=== PATIENT | female | born 1980 | race Caucasian/White ===

== ENCOUNTER 2019-12-05 08:06 | Emergency (ER) | payer BC, SELFPAY ==
[2019-12-05 08:16] VITALS: BP 122/75; PULSE 92; RESP 20; TEMP 36.9; O2SAT 99
--- NOTE | 2019-12-05 08:26 | ED.EYEPROB ---
HPI - Eye Problem General Chief complaint: Eye Problems Stated complaint: Swollen Eye Time Seen by Provider: 12/05/19 08:17 Source: patient and RN notes reviewed Mode of arrival: ambulatory Limitations: no limitations History of Present Illness HPI Narrative: Patient presents today complaining of redness, swelling, pain to the right eye with watery discharge. The pain and redness started yesterday, and she woke up the swelling today. Denies vision changes. Currently rates her pain 3/10 and has been using [id number] eyedrops without relief. 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 chief complaint: eye redness Related Data Home Medications Medication Instructions Recorded Confirmed albuterol sulfate 2.5 mg CONTINUOUS NEBULIZATION 12/05/19 12/05/19 Q4-6H PRN albuterol sulfate [Ventolin HFA] 1 puff INHALATION Q4-6H PRN 12/05/19 12/05/19 fluoxetine 40 mg DAILY 12/05/19 12/05/19 montelukast 10 mg DAILY 12/05/19 12/05/19 quetiapine 50 mg DAILY 12/05/19 12/05/19 trazodone 50 mg HS 12/05/19 12/05/19 umeclidinium [Incruse Ellipta] 1 inh INHALATION DAILY 12/05/19 12/05/19 Allergies Allergy/AdvReac Type Severity Reaction Status Date / Time amoxicillin Allergy Unknown Rash Verified 12/05/19 08:10 Cephalosporins Allergy Unknown HIVES Verified 12/05/19 08:10 Penicillins Allergy Unknown Rash Verified 12/05/19 08:10 talc Allergy Unknown ERYTHEMA Verified 12/05/19 08:10 adhesive AdvReac Mild Itching, Verified 12/05/19 08:10 RASH CATS Allergy Mild Dyspnea / Uncoded 12/05/19 08:10 SOB Cultivated Oat Pollen Allergy Mild Dyspnea / Uncoded 12/05/19 08:10 SOB DOGS Allergy Mild Dyspnea / Uncoded 12/05/19 08:10 SOB Dust Allergy Mild SNEEZING Uncoded 12/05/19 08:10 Review of Systems Review of Systems: Narrative: CONSTITUTIONAL: Denies body aches, fever, chills, or sweats. EYES: Denies visual changes. + Redness, swelling, and pain to the right upper eyelid with watery discharge ENT: Denies rhinorrhea, congestion, sore throat, or otalgia. CARDIOVASCULAR: Denies chest pain, palpitations, or edema. RESPIRATORY: Denies cough or dyspnea. GASTROINTESTINAL: Denies abdominal pain, nausea, vomiting, or diarrhea. GENITOURINARY: Denies dysuria or hematuria. SKIN: Denies rash, itching, or wounds. MUSCULOSKELETAL: Denies back pain, joint pain, or myalgia. NEUROLOGIC: Denies headache, numbness, tingling, or weakness. PSYCH: Denies depression or anxiety. COUNT INCLUDES THE [facility] Family History Family History (Updated 06/23/19 @ 15:27 by DOCTOR UNKNOWN) Mother Family history of chronic obstructive pulmonary disease Family history of malignant neoplasm of ovary Social History Social History Smoking status: Heavy tobacco smoker Gender identity (if verbalized by the patient): Female Comments At time of signature, I have reviewed and agree with nursing past medical, surgical, social and family history unless otherwise noted. Please see nursing chart for further information. There is no relevant family history pertinent to the presenting complaint Exam Narrative: Exam Narrative: GENERAL: Well-appearing, well-nourished, and in no acute distress. HEAD: Normocephalic, atraumatic. EYES: EOMI. PERRL. No redness or drainage. Conjunctivae normal. Patient has mild redness and swelling to the right upper eyelid that is tender to palpation. Small internal stye noted. no drainage noted. ENT: Mucous membranes pink and moist. NECK: Normal AROM. CHEST: No respiratory distress. EXTREMITIES: Normal range of motion. No edema. SKIN: Warm, dry, no rash. NEURO: No focal deficits. Alert and oriented x3. Gait steady. PSYCH: Normal affect. No signs of depression or anxiety. Course Vital Signs Vital signs: Vital Signs Temperature 98.4 F 12/05/19 08:16 Pulse Rate 92 12/05/19 08:16 Respiratory Rate 20 12/05/19 08:16 Blood Pressure 122/75 12/05/19 08:16 Pulse Oximetry 99 12/05/19 08:16 Temperature 98.4 F 12/05/19
== END 2019-12-05 08:34 | disposition home or self-care (01) ==
PROVIDERS: Emergency Provider Nurse Practitioner; PCP Family Medicine Adolescent Medicine
DX: H00.021 Hordeolum internum right upper eyelid (principal); F17.200 Nicotine dependence, unspecified, uncomplicated; J45.909 Unspecified asthma, uncomplicated; J44.9 Chronic obstructive pulmonary disease, unspecified; F41.9 Anxiety disorder, unspecified; F32.9 Major depressive disorder, single episode, unspecified
CPT/HCPCS: 99213; G0463

== ENCOUNTER 2020-06-01 08:56 | Emergency (ER) | payer BC, SELFPAY ==
--- NOTE | ~2020-06-01 | CT_ITS ---
EXAMINATION: CT lumbar spine wo con DATE: 06/01/2020 10:43 INDICATION: Low back pain. TECHNIQUE: Computed tomography (CT) of the lumbar spine was performed without intravenous contrast. A utomated exposure control and iterative reconstruction technique were employed. The dose-length produ ct was 1188.72 mGy-cm. COMPARISON: CT lumbar spine 11/22/2007 FINDINGS: There is 3 mm retrolisthesis of L3 on L4 and L4 on L5. There are Schmorl's nodes at L1-L2 a nd L2-L3. There is mildly decreased disc height at L1-L2, L4-L5, and L5-S1. The following disc levels are specifically discussed: L1-L2: The disc is bulging. There is mild bilateral facet joint osteoarthritis. There is no neural fo raminal stenosis. There is mild central canal stenosis. L2-L3: The disc does not extend beyond the endplate margin. There is mild bilateral facet joint osteo arthritis. There is no neural foraminal stenosis. There is no central canal stenosis. L3-L4: The disc is bulging. There is mild bilateral facet joint osteoarthritis. There is no neural fo raminal stenosis. There is mild central canal stenosis. L4-L5: The disc is bulging. There is mild bilateral facet joint osteoarthritis. There is mild bilater al neural foraminal stenosis. There is mild central canal stenosis. L5-S1: The disc is bulging. There is mild bilateral facet joint osteoarthritis. There is mild bilater al neural foraminal stenosis. There is mild central canal stenosis. IMPRESSION: 1. Mild lumbar spondylosis, slightly worsened from 11/22/2007. Reviewed, dictated and finalized at location A.
[2020-06-01 09:05] VITALS: BP 133/69; PULSE 91; RESP 19; TEMP 36.9; O2SAT 99
--- NOTE | 2020-06-01 09:15 | PC.NURSE ---
Pt informed while checking the patient in that the ERP is with a critical patient and will be in to see ant.
[2020-06-01 09:48] LABS: Add Urine Microscopic? YES; Appearance Urine Cloudy (Clear); Bacteria Urine 4+ /hpf; Bilirubin Urine Negative (Negative); Blood Urine 1+ (Negative); Color Urine Yellow (Yellow); Glucose Urine UA Negative (Negative); Ketones Urine Negative (Negative); Leukocyte Esterase Ur Trace LEU/UL (Negative); Mucus Urine Rare /lpf; Nitrate Urine Negative (Negative); Protein Urine Negative (Negative); RBC Urine 0-2 /hpf (0-2); Specific Grav Ur 1.009 (1.001-1.035); Squamous Epithelial Cell Urine Few /hpf (Few); Urobilinogen Urine Negative mg/dL (<2.0)
--- NOTE | 2020-06-01 10:17 | PC.NURSE ---
Pt yelling out from bed. States her pain is bad. Apologized for the wait, explained that someone should be in shortly to evaluate.
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
[2020-06-01] MEDS: ACETAMINOPHEN 500 MG TABLET 1000 MG PO (10:30)
[2020-06-01 12:02] VITALS: BP 106/62; PULSE 71; RESP 18; O2SAT 96
== END 2020-06-01 12:18 | disposition home or self-care (01) ==
PROVIDERS: Emergency Provider Emergency Medicine; PCP Family Medicine Adolescent Medicine
DX: M54.16 Radiculopathy, lumbar region (principal); I50.9 Heart failure, unspecified; J44.9 Chronic obstructive pulmonary disease, unspecified; G47.30 Sleep apnea, unspecified; F32.9 Major depressive disorder, single episode, unspecified; F17.210 Nicotine dependence, cigarettes, uncomplicated
CPT/HCPCS: 72131; 81001; 81025; 96372; 99284; A9270; J3360

== ENCOUNTER 2020-08-16 11:46 | Outpatient (CLI) | payer BC, SELFPAY ==
--- NOTE | ~2020-08-16 | XR_ITS ---
EXAMINATION: XR knee RT min 4V DATE: 08/16/2020 12:15 INDICATION: Right knee pain. TECHNIQUE: 4 views of right knee were obtained. COMPARISON: Right knee radiographs 06/17/2018 FINDINGS: Bone alignment is normal. No fracture. There is mild osteoarthritis of medial compartment c haracterized by a tiny marginal osteophyte. No knee joint effusion. IMPRESSION: 1. Mild right knee osteoarthritis. Reviewed, dictated and finalized at location A. [employer]
--- NOTE | ~2020-08-16 | XR_ITS ---
EXAMINATION: XR hip LT min 2V DATE: 08/16/2020 12:15 INDICATION: Left hip pain. TECHNIQUE: 2 views of left hip on 3 radiographs were obtained. COMPARISON: None. FINDINGS: Bone alignment is normal. No fracture. Left hip joint space is normal. IMPRESSION: 1. Normal left hip. Reviewed, dictated and finalized at location A. 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 Normal left hip.
== END 2020-08-16 11:47 | disposition home or self-care (01) ==
LOC: ANHIMG 11:51
PROVIDERS: PCP Family Medicine Adolescent Medicine; Visit Provider Physician Assistant
DX: M17.11 Unilateral primary osteoarthritis, right knee (principal); M25.552 Pain in left hip
CPT/HCPCS: 73502; 73564

== ENCOUNTER → 2020-11-19 11:32 | Outpatient (CLI) | payer BC, SELFPAY ==
[2020-11-20 14:42] LABS: SARS-CoV-2 RNA PCR Negative
== END ==
PROVIDERS: PCP Family Medicine Adolescent Medicine; Visit Provider Family Medicine Adolescent Medicine
DX: Z20.822 Contact with and (suspected) exposure to COVID-19 (principal); R51.9 Headache, unspecified; R53.83 Other fatigue
CPT/HCPCS: C9803; U0003; U0005

== ENCOUNTER → 2021-01-12 08:50 | Outpatient (CLI) | payer BC, SELFPAY ==
--- NOTE | ~2021-01-12 | US_ITS ---
US abdomen complete DATE: 01/12/2021 09:23 INDICATION: Right upper and lower quadrant abdominal pain TECHNIQUE: Real-time imaging and Doppler analysis of the abdomen COMPARISON: 06/11/2018 CT abdomen pelvis FINDINGS: No hepatic or pancreatic space-occupying mass lesion. Normal hepatopedal portal venous flow direction. No gallstones or gallbladder wall thickening or pericholecystic abnormal fluid collection . Negative sonographic Olson's sign. The common bile duct measures 4.3 mm, normal. Normal caliber of the abdominal aorta. The inferior vena cava is unremarkable. The spleen measures up to 15.8 cm length. No renal mass lesion or hydronephrosis is evident. IMPRESSION: Splenomegaly Reviewed, dictated and finalized at Location A. Reviewed, dictated and finalized at location A. IMPRESSION: Splenomegaly
== END ==
PROVIDERS: Visit Provider Physician Assistant
DX: R10.11 Right upper quadrant pain (principal); R16.1 Splenomegaly, not elsewhere classified; R10.31 Right lower quadrant pain
CPT/HCPCS: 76700

== ENCOUNTER 2021-01-24 11:08 | Emergency (ER) | payer BC, SELFPAY ==
--- NOTE | ~2021-01-24 | CT_ITS ---
EXAMINATION: CT abdomen pelvis w con DATE: 01/24/2021 13:57 INDICATION: Left upper quadrant pain for weeks TECHNIQUE: Computed tomography (CT) of the abdomen and pelvis was performed with 100 cc Omnipaque 350 intravenous contrast. The dose-length product was 1479.94 mGy-cm. Automated exposure control and ite rative reconstruction technique were employed. COMPARISON: CT dated 06/11/2018 FINDINGS: There is right middle lobe and lingular atelectasis. No significant pleural or pericardial effusion. No significant vascular abnormality. No lymphadenopathy. Fatty infiltration of the liver. The spleen, pancreas, adrenal glands and kidneys are unremarkable. G allbladder is present. Nonobstructive bowel gas pattern. Tiny fat-containing umbilical hernia. Mildly prominent left ovary with follicular changes. No free air or free fluid. IMPRESSION: 1. No acute abdominal abnormality. 2: Right middle lobe and lingular atelectasis. 3: Hepatic steatosis. Reviewed, dictated and finalized at location B.
[2021-01-24 11:14] VITALS: BP 100/42; PULSE 107; RESP 18; TEMP 36.5; O2SAT 96
[2021-01-24 11:36] LABS: Basophils Percent Auto 0.3 % (0.2-1.2); Eosinophils Absolute Auto 0.1 K/mm3 (0-0.3); Eosinophils Percent Auto 0.9 % (0-4.4); Hematocrit 36.2 % (37.0-47.0); Hemoglobin 11.7 g/dL (12.0-15.0); Immature Granulocyte Absolute 0.06 K/mm3 (0.00-0.031); Immature Granulocyte Percent A 0.5 % (0-0.5); Lymphocytes Absolute Auto 2.38 K/mm3 (0.9-3.2); Lymphocytes Percent Auto 18.8 % (18.3-44.2); Mean Corpuscular HGB Conc 32.3 g/dl (32-36); Mean Corpuscular Hemoglobin 26.5 pg (26-34); Mean Corpuscular Volume 82.1 fl (80-100); Mean Platelet Volume 9.1 fl (7.4-10.4); Monocytes Absolute Auto 0.7 K/mm3 (0.1-0.6); Monocytes Percent Auto 5.6 % (2.6-8.5); Neutrophils Absolute Auto 9.4 K/mm3 (1.3-6.7); Neutrophils Percent Auto 73.9 % (45.5-73.1); Platelet Count Result 242 k/mm3 (150-375); Red Blood Count 4.41 M/mm3 (4.2-5.4); Red Cell Distribution Width 14.6 % (11.5-14.5); White Blood Count 12.7 K/mm3 (4.5-10.0)
[2021-01-24 11:46] VITALS: BP 125/79; PULSE 99; RESP 20; TEMP 36.8; O2SAT 97
[2021-01-24 11:47] LABS: Alanine Aminotransferase 21 U/L (4-35); Albumin Level 4.1 g/dL (3.5-5.1); Alkaline Phosphatase 69 U/L (38-126); Anion Gap 6 mmol/L (8-16); Aspartate Amino Transferase 23 U/L (14-36); Bilirubin,Total 0.3 mg/dL (0.2-1.3); Blood Urea Nitrogen 8 mg/dL (7-17); Calcium 8.9 mg/dL (8.4-10.2); Carbon Dioxide 29 mmol/L (22-30); Chloride 104 mmol/L (98-107); Estimated CRCL calculation 99 ml/min; Estimated Glomerular Filt Rate > 60; Glucose 97 mg/dL (65-105); Lipase 49 U/L (23-300); Sodium 139 mmol/L (137-145)
[2021-01-24 11:53] LABS: Potassium 3.7 mmol/L (3.4-5.0)
[2021-01-24 12:46] LABS: Add Urine Microscopic? YES; Appearance Urine Cloudy (Clear); Bilirubin Urine Negative (Negative); Blood Urine Negative (Negative); Color Urine Yellow (Yellow); Glucose Urine UA Negative (Negative); Ketones Urine Negative (Negative); Leukocyte Esterase Ur Negative LEU/UL (Negative); Mucus Urine Rare /lpf; Nitrate Urine Negative (Negative); Protein Urine Negative (Negative); RBC Urine 0-2 /hpf (0-2); Specific Grav Ur 1.012 (1.001-1.035); Squamous Epithelial Cell Urine Many /hpf (Few)
--- NOTE | 2021-01-24 13:13 | PC.NURSE ---
IV started in pt's left hand. IV WNL and without signs of infiltration with flushing, pt states IV hurts and requests removal. IV removed. Another RN to start new IV for medication administration.
--- NOTE | 2021-01-24 13:27 | ED.ABDPAIN ---
HPI - Abdominal Pain General Chief Complaint: Abdominal Pain Stated Complaint: Abd Pain Time Seen by Provider: 01/24/21 12:42 Source: patient Mode of arrival: ambulatory Limitations: no limitations History of Present Illness HPI narrative: This is a 40 year old female that presents to the ER for abdominal pain. Reports present over the last month. It is in the upper abdomen and constant. Reports she has been getting worked up for this outpatient by her primary, but started having worsening pain and vomiting today which prompted her to be seen. Also reports some diarrhea and dysuria. Denies fever, hematochezia, or hematuria. Related Data Home Medications Medication Instructions Recorded Confirmed albuterol sulfate 2.5 mg CONTINUOUS NEBULIZATION 12/05/19 12/05/19 Q4-6H PRN albuterol sulfate [Ventolin HFA] 1 puff INHALATION Q4-6H PRN 12/05/19 12/05/19 fluoxetine 40 mg DAILY 12/05/19 12/05/19 montelukast 10 mg DAILY 12/05/19 12/05/19 trazodone 50 mg HS 12/05/19 12/05/19 umeclidinium [Incruse Ellipta] 1 inh INHALATION DAILY 12/05/19 12/05/19 lisinopril 06/01/20 nortriptyline 01/24/21 Allergies Allergy/AdvReac Type Severity Reaction Status Date / Time amoxicillin Allergy Unknown Rash Verified 01/24/21 11:53 Cephalosporins Allergy Unknown HIVES Verified 01/24/21 11:53 Penicillins Allergy Unknown Rash Verified 01/24/21 11:53 talc Allergy Unknown ERYTHEMA Verified 01/24/21 11:53 adhesive AdvReac Mild Itching, Verified 01/24/21 11:53 RASH CATS Allergy Mild Dyspnea / Uncoded 01/24/21 11:53 SOB Cultivated Oat Pollen Allergy Mild Dyspnea / Uncoded 01/24/21 11:53 SOB DOGS Allergy Mild Dyspnea / Uncoded 01/24/21 11:53 SOB Dust Allergy Mild SNEEZING Uncoded 01/24/21 11:53 Review of Systems Review of Systems: Narrative: CONSTITUTIONAL: Denies fever GASTROINTESTINAL: Reports abdominal pain, nausea, vomiting, and diarrhea. GENITOURINARY: Reports dysuria. Denies hematuria. All systems reviewed & are unremarkable except as noted in HPI and below PMFSH Past Medical History Medical History (Updated 01/24/21 @ 15:54 by Dorota Rosenbaum PA-C) Asthma Congestive heart failure COPD (chronic obstructive pulmonary disease) Depression Pneumonia Sleep apnea Family History Family History (Updated 06/23/19 @ 15:27 by DOCTOR UNKNOWN) Mother Family history of chronic obstructive pulmonary disease Family history of malignant neoplasm of ovary Social History Social History (Updated 12/16/19 @ 10:22 by Arben Duarte [facility]) Smoking packs per day: 1 Smoking cigarettes per day: 20.0 Years smoked: 18 Smoking pack-years: 18.00 Smoking status: Heavy tobacco smoker Tobacco type: cigarettes Gender identity (if verbalized by the patient): Female Exam Narrative: Exam Narrative: GENERAL: Well-appearing, obese, and in no acute distress. HEAD: Normocephalic, atraumatic. EYES: EOMI. CHEST: Clear to auscultation. No respiratory distress. No wheezes rales or rhonchi HEART: Regular rate and rhythm. No murmur heard. Normal peripheral pulses. ABDOMEN: Soft, nondistended, normal active bowel sounds. Mild tenderness to palpation throughout the abdomen, without guarding. No CVA tenderness EXTREMITIES: Normal range of motion. No edema. SKIN: Warm, dry, no rash. NEURO: No focal deficits. Alert and oriented x3. PSYCH: Normal mood and affect Course Vital Signs Vital signs: Vital Signs Temperature 97.7 F 01/24/21 11:14 Pulse Rate 107 H 01/24/21 11:14 Respiratory Rate 18 01/24/21 11:14 Blood Pressure 100/42 L 01/24/21 11:14 Pulse Oximetry 96 01/24/21 11:14 Temperature 98.2 F 01/24/21 11:46 Pulse Rate 88 01/24/21 14:39 Respiratory Rate 18 01/24/21 14:39 Blood Pressure 119/76 01/24/21 14:39 Pulse Oximetry 98 01/24/21 14:39 MDM - Abdominal Pain MDM Narrative Medical decision making narrative: Patient presents to the emergency department today for abdominal pain. Re
[2021-01-24] MEDS: ONDANSETRON INJ 4 MG/2 ML VIAL IV PUSH (13:38)
[2021-01-24] MEDS: MORPHINE SULFATE (*CRX) 4 MG/ML INJ IV PUSH (13:41)
[2021-01-24 14:39] VITALS: BP 119/76; PULSE 88; RESP 18; O2SAT 98
[2021-01-24] MEDS: DICYCLOMINE HCL INJ 20 MG/2 ML VIAL IM (15:39)
[2021-01-24 16:49] VITALS: BP 150/89; PULSE 79; RESP 18; O2SAT 97
== END 2021-01-24 16:35 | disposition home or self-care (01) ==
PROVIDERS: General Practice; Emergency Provider Emergency Medicine; PCP Family Medicine Adolescent Medicine
DX: N30.00 Acute cystitis without hematuria (principal); R10.10 Upper abdominal pain, unspecified; J44.9 Chronic obstructive pulmonary disease, unspecified; I50.9 Heart failure, unspecified; G47.30 Sleep apnea, unspecified; F32.9 Major depressive disorder, single episode, unspecified; F17.210 Nicotine dependence, cigarettes, uncomplicated; K76.0 Fatty (change of) liver, not elsewhere classified; R91.8 Other nonspecific abnormal finding of lung field
CPT/HCPCS: 36415; 74177; 80053; 81001; 81025; 83690; 85025; 87086; 87088; 96365; 96372; 96375; 99284; J0131; J0500; J2270; J2405; Q9967

== ENCOUNTER 2021-02-03 13:20 | Emergency (ER) | payer BC, SELFPAY ==
[2021-02-03 13:22] VITALS: BP 160/103; PULSE 91; RESP 19; TEMP 35.7; O2SAT 100
--- NOTE | 2021-02-03 13:37 | ED.SKABFB ---
HPI - Skin/Abscess/Foreign Bdy General Chief complaint: Skin/Abscess/Foreign Body Stated complaint: RASH, HIVES Time Seen by Provider: 02/03/21 13:30 Source: patient Mode of arrival: ambulatory Limitations: no limitations History of Present Illness HPI narrative: This is a 40-year-old female that presents the emergency department for hives present x2 days. Reports a itchy rash that started on her legs and spread to her abdomen, and chest. She has been taking Benadryl and using hydrocortisone cream with little relief. No new soaps, lotions, or detergents. Did recently finish an antibiotic. Denies fever. Related Data Home Medications Medication Instructions Recorded Confirmed albuterol sulfate 2.5 mg CONTINUOUS NEBULIZATION 12/05/19 12/05/19 Q4-6H PRN albuterol sulfate [Ventolin HFA] 1 puff INHALATION Q4-6H PRN 12/05/19 12/05/19 fluoxetine 40 mg DAILY 12/05/19 12/05/19 montelukast 10 mg DAILY 12/05/19 12/05/19 trazodone 50 mg HS 12/05/19 12/05/19 umeclidinium [Incruse Ellipta] 1 inh INHALATION DAILY 12/05/19 12/05/19 lisinopril 06/01/20 nortriptyline 01/24/21 Allergies Allergy/AdvReac Type Severity Reaction Status Date / Time amoxicillin Allergy Unknown Rash Verified 01/24/21 11:53 Cephalosporins Allergy Unknown HIVES Verified 01/24/21 11:53 Penicillins Allergy Unknown Rash Verified 01/24/21 11:53 talc Allergy Unknown ERYTHEMA Verified 01/24/21 11:53 adhesive AdvReac Mild Itching, Verified 01/24/21 11:53 RASH CATS Allergy Mild Dyspnea / Uncoded 01/24/21 11:53 SOB Cultivated Oat Pollen Allergy Mild Dyspnea / Uncoded 01/24/21 11:53 SOB DOGS Allergy Mild Dyspnea / Uncoded 01/24/21 11:53 SOB Dust Allergy Mild SNEEZING Uncoded 01/24/21 11:53 Review of Systems Review of Systems: Narrative: CONSTITUTIONAL: Denies fever SKIN: Reports rash and itching. All systems reviewed & are unremarkable except as noted in HPI and below PMFSH Past Medical History Medical History (Updated 02/03/21 @ 13:40 by Dorota Rosenbaum PA-C) Asthma Congestive heart failure COPD (chronic obstructive pulmonary disease) Depression Pneumonia Sleep apnea Family History Family History (Updated 06/23/19 @ 15:27 by DOCTOR UNKNOWN) Mother Family history of chronic obstructive pulmonary disease Family history of malignant neoplasm of ovary Social History Social History (Updated 12/16/19 @ 10:22 by Arben Duarte [facility]) Smoking packs per day: 1 Smoking cigarettes per day: 20.0 Years smoked: 18 Smoking pack-years: 18.00 Smoking status: Heavy tobacco smoker Tobacco type: cigarettes Gender identity (if verbalized by the patient): Female Exam Narrative: Exam Narrative: GENERAL: Well-appearing, well-nourished, and in no acute distress. HEAD: Normocephalic, atraumatic. EYES: EOMI. EXTREMITIES: Normal range of motion. No edema. SKIN: Warm, dry. Red, macular rash with excoriations present on the chest and abdomen NEURO: No focal deficits. Alert and oriented x3. PSYCH: Normal mood and affect Course Vital Signs Vital signs: Vital Signs Temperature 96.2 F L 02/03/21 13:22 Pulse Rate 91 02/03/21 13:22 Respiratory Rate 19 02/03/21 13:22 Blood Pressure 160/103 H 02/03/21 13:22 Pulse Oximetry 100 02/03/21 13:22 Temperature 96.2 F L 02/03/21 13:22 Pulse Rate 91 02/03/21 13:22 Respiratory Rate 19 02/03/21 13:22 Blood Pressure 160/103 H 02/03/21 13:22 Pulse Oximetry 100 02/03/21 13:22 MDM - Skin/Abscess/Foreign Bdy MDM Narrative Medical decision making narrative: Patient presents the emergency department for itchy rash present x2 days. She is afebrile and nontoxic-appearing. Will be started on oral steroid taper and was instructed on use of antihistamines. She is to follow-up with her primary care doctor. She was given warnings to return to the ER Critical Care Time Critical Care Time Critical Care Time: No Discharge Plan Discharge Clinical Impression:
== END 2021-02-03 13:52 | disposition home or self-care (01) ==
PROVIDERS: Emergency Provider Emergency Medicine; PCP Family Medicine Adolescent Medicine
DX: R21 Rash and other nonspecific skin eruption (principal); I50.9 Heart failure, unspecified; J44.9 Chronic obstructive pulmonary disease, unspecified; G47.30 Sleep apnea, unspecified; F32.9 Major depressive disorder, single episode, unspecified; F17.210 Nicotine dependence, cigarettes, uncomplicated
CPT/HCPCS: 99283

== ENCOUNTER 2021-03-27 13:22 | Outpatient (CLI) | payer BC, SELFPAY ==
--- NOTE | ~2021-03-27 | NM_ITS ---
EXAMINATION: NM hepatobiliary wo pharm DATE: 03/27/2021 15:57 INDICATION: Right upper quadrant abdominal pain. COMPARISON: CT abdomen and pelvis 01/24/2021 TECHNIQUE: 4.5 mCi Tc-99m mebrofenin (Choletec) was administered intravenously. Scintigraphic images of the abdomen were obtained for one hour. Then, the patient drank 8 oz Ensure, and imaging was cont inued for 60 minutes. FINDINGS: There is normal clearance of radiotracer from the blood pool. There is homogeneous tracer u ptake by the liver. Activity progresses to the bowel and gallbladder. Gallbladder ejection fraction (GBEF) was 62%. Note that with this technique, normal GBEF >= 33%. IMPRESSION: 1. Normal hepatobiliary scintigraphy. Reviewed, dictated and finalized at location A.
== END 2021-03-27 13:23 | disposition home or self-care (01) ==
PROVIDERS: PCP Family Medicine Adolescent Medicine; Visit Provider Internal Medicine Gastroenterology
DX: R10.11 Right upper quadrant pain (principal)
CPT/HCPCS: 78226; A9537

== ENCOUNTER 2021-06-27 18:11 | Observation (INO) | payer BC, SELFPAY ==
[2021-06-27] VITALS (7 sets, daily range): BP systolic 71–120; BP diastolic 44–104; PULSE 83–126; RESP 2–24; TEMP 36.8; O2SAT 95–100
--- NOTE | ~2021-06-27 | XR_ITS ---
EXAMINATION: XR chest 1V portable DATE: 06/28/2021 05:54 INDICATION: Shortness of breath TECHNIQUE: frontal view of the chest was obtained. COMPARISON: Chest radiograph dated 05/10/[address] abdomen and pelvis dated 01/24/2021 FINDINGS: The lungs are clear with no focal airspace opacities, pulmonary edema, pleural effusion or pneumothor ax. Heart size is normal. Prominent right paracardial fat pad. IMPRESSION: 1. No acute cardiopulmonary disease. Reviewed, dictated and finalized at location A.
--- NOTE | 2021-06-27 18:26 | ED.ALLEREA ---
HPI - Allergic Reaction General Chief complaint: Allergic Reaction Stated complaint: resp distress Time Seen by Provider: 06/27/21 18:16 Source: patient and RN notes reviewed Mode of arrival: ambulatory Limitations: no limitations History of Present Illness HPI narrative: Patient 40 years old white female, presents with sudden onset of generalized urticaria, itching, difficulty breathing started few minutes after receiving Macrobid for urinary tract infection. Patient denies any history of Macrobid allergy in the past. Had history of penicillin allergy. History of hypertension, asthma, depression, patient vapes. Related Data Home Medications Medication Instructions Recorded Confirmed albuterol sulfate 2.5 mg CONTINUOUS NEBULIZATION 12/05/19 12/05/19 Q4-6H PRN albuterol sulfate [Ventolin HFA] 1 puff INHALATION Q4-6H PRN 12/05/19 12/05/19 fluoxetine 40 mg DAILY 12/05/19 12/05/19 montelukast 10 mg DAILY 12/05/19 12/05/19 trazodone 50 mg HS 12/05/19 12/05/19 umeclidinium [Incruse Ellipta] 1 inh INHALATION DAILY 12/05/19 12/05/19 lisinopril 06/01/20 nortriptyline 01/24/21 Allergies Allergy/AdvReac Type Severity Reaction Status Date / Time amoxicillin Allergy Unknown Rash Verified 02/21/21 13:25 Cephalosporins Allergy Unknown HIVES Verified 02/21/21 13:25 Penicillins Allergy Unknown Rash Verified 02/21/21 13:25 talc Allergy Unknown ERYTHEMA Verified 02/21/21 13:25 adhesive AdvReac Mild Itching, Verified 02/21/21 13:25 RASH CATS Allergy Mild Dyspnea / Uncoded 02/21/21 13:25 SOB Cultivated Oat Pollen Allergy Mild Dyspnea / Uncoded 02/21/21 13:25 SOB DOGS Allergy Mild Dyspnea / Uncoded 02/21/21 13:25 SOB Dust Allergy Mild SNEEZING Uncoded 02/21/21 13:25 Review of Systems Review of Systems: CONSTITUTIONAL: Denies fever, chills, or sweats. EYES: Denies visual changes, redness, or discharge. ENT: Denies rhinorrhea, congestion, sore throat, or otalgia. CARDIOVASCULAR: Denies chest pain, palpitations, or edema. RESPIRATORY: Denies cough or dyspnea. GASTROINTESTINAL: Denies abdominal pain, nausea, vomiting, or diarrhea. GENITOURINARY: Denies dysuria or hematuria. SKIN: Denies rash or itching. MUSCULOSKELETAL: Denies back pain, joint pain, or myalgia. NEUROLOGIC: Denies headache, numbness, or weakness. PSYCHIATRIC: Denies anxiety or depression. [facility] Past Medical History Medical History Asthma Congestive heart failure COPD (chronic obstructive pulmonary disease) Depression Pneumonia Sleep apnea Family History Family History Mother Family history of chronic obstructive pulmonary disease Family history of malignant neoplasm of ovary Social History Social History Smoking packs per day: 1 Smoking cigarettes per day: 20.0 Years smoked: 18 Smoking pack-years: 18.00 Smoking status: Heavy tobacco smoker Tobacco type: cigarettes Gender identity (if verbalized by the patient): Female Exam Narrative: General appearance: Well-developed, well-nourished, morbidly obese, red skin, Skin: Red skin with hives Head: Normocephalic, nontraumatic Eyes: Clear conjunctiva ENT: Oropharynx normal, ears normal, nose normal Neck: Supple, nontender Chest and respiratory: Airway patent, no respiratory distress, no accessory muscle use Heart: Tachycardia Abdomen: Soft, nontender, no organomegaly, quiet bowel sounds Vascular: Normal peripheral pulses, normal capillary refill. Musculoskeletal: Normal range of motion, nontender back Neurologic: Alert and oriented ?3, [employer] is normal as tested, no gross motor deficit
--- NOTE | 2021-06-27 18:30 | ECG_ITS ---
Measurements Intervals [place] Rate: 121 P: [place]: 0 QRS: 97 QRSD: 87 T: 47 QT: 313 QTc: 445 Interpretive Statements SINUS TACHYCARDIA RIGHT AXIS DEVIATION INCOMPLETE RIGHT BUNDLE BRANCH BLOCK BASELINE WANDER- II, III, AVL, AVF ABNORMAL ECG Electronically Signed On 07-01-2021 15:46:25 CDT by You Goel D.O.
[2021-06-27] MEDS: diphenhydrAMINE HCl INJ 50 MG/ML VIAL (18:47)
[2021-06-27] MEDS: methylPREDNISolone SOD SUCC 125 MG VIAL (18:48)
[2021-06-27] MEDS: EPINEPHrine HCL INJ 1 MG/ML AMPUL 0.3 MG IM (18:48)
[2021-06-27] MEDS: SODIUM CHLORIDE 0.9% IV 1,000 ML 999 ML (20:03)
[2021-06-27] MEDS: SODIUM CHLORIDE 0.9% IV 1,000 ML 999 ML IV CONT (21:05)
[2021-06-27 21:12] LABS: Basophils Absolute Auto 0.1 K/mm3 (0.0-0.1); Basophils Percent Auto 0.3 % (0.2-1.2); Eosinophils Absolute Auto 0.1 K/mm3 (0-0.3); Eosinophils Percent Auto 0.2 % (0-4.4); Hematocrit 48.4 % (37.0-47.0); Hemoglobin 15.7 g/dL (12.0-15.0); Immature Granulocyte Absolute 0.16 K/mm3 (0.00-0.031); Immature Granulocyte Percent A 0.7 % (0-0.5); Lymphocytes Absolute Auto 2.65 K/mm3 (0.9-3.2); Mean Corpuscular HGB Conc 32.4 g/dl (32-36); Mean Corpuscular Hemoglobin 27.4 pg (26-34); Mean Corpuscular Volume 84.5 fl (80-100); Monocytes Absolute Auto 0.7 K/mm3 (0.1-0.6); Monocytes Percent Auto 3.3 % (2.6-8.5); Neutrophils Absolute Auto 18.4 K/mm3 (1.3-6.7); Neutrophils Percent Auto 83.5 % (45.5-73.1); Platelet Count Result 448 k/mm3 (150-375); Red Blood Count 5.73 M/mm3 (4.2-5.4); Red Cell Distribution Width 13.6 % (11.5-14.5)
[2021-06-27 21:23] LABS: Alanine Aminotransferase 23 U/L (4-35); Albumin Level 3.8 g/dL (3.5-5.1); Alkaline Phosphatase 73 U/L (38-126); Anion Gap 15 mmol/L (8-16); Aspartate Amino Transferase 27 U/L (14-36); Bilirubin,Total 0.6 mg/dL (0.2-1.3); Blood Urea Nitrogen 20 mg/dL (7-17); Calcium 8.9 mg/dL (8.4-10.2); Carbon Dioxide 22 mmol/L (22-30); Chloride 103 mmol/L (98-107); Estimated CRCL calculation 60 ml/min; Estimated Glomerular Filt Rate 34; Glucose 191 mg/dL (65-110); Potassium 3.6 mmol/L (3.4-5.0); Sodium 140 mmol/L (137-145)
[2021-06-27] MEDS: EPINEPHrine HCL INJ 1 MG/ML AMPUL 0.5 MG IM (22:56)
--- NOTE | 2021-06-27 22:58 | PM.IMHP ---
H&P: HPI History of Present Illness Date/Time: 06/27/21 22:58 Chief Complaint: Shortness of breath Narrative: This is a 40-year-old female with past medical history significant for morbid obesity, vaping, obstructive sleep apnea, hypertension, COPD/asthma. Patient presented to the emergency room after she had an episode of generalized urticaria with shortness of breath swelling around the eyes and on her forehead hands and feet after she took Macrobid for urinary tract infection. In emergency room patient had various treatments, Solu-Medrol epinephrine she had heart rate elevated to 250 and had episode of fall which require whole year lived but no trauma. At the time of my visit patient was doing much better she denied any shortness of breath any chest pain any cough any sputum production any difficulty swallowing secretions no fevers no rigors no chills. Decision was made to place the patient in observation for further management evaluation and treatment. Review of Systems Review of Systems: Swelling around the eyes shortness of breath palpitations swelling of the hands and feet after taking Macrobid generalized pruritus Constitutional: Constitutional: Denies chills, Denies fever(s), Denies lethargy, Denies malaise and Denies weakness Eyes: Eyes: Denies change in vision ENT: Denies dysphagia, Denies vertigo, Denies dizziness, Denies nasal congestion, Denies nasal discharge, Denies nasal obstruction and Denies odynophagia Cardiovascular: Cardiovascular: Denies irregular heart rhythm, Reports lightheadedness, Denies radiating jaw, neck or arm pain, Reports palpitations, Reports dyspnea, Denies orthopnea and Denies paroxysmal nocturnal dyspnea Respiratory: Respiratory: Denies cough Gastrointestinal: Gastrointestinal: Denies abdominal pain, Denies dyspepsia, Denies heartburn, Reports diarrhea, Denies nausea and Denies vomiting Genitourinary: Genitourinary: Reports no additional female genitourinary complaints Musculoskeletal: Musculoskeletal: Reports no additional musculoskeletal complaints Integumentary/Breasts: Skin/Breast: Reports swelling Neurologic: Reports system reviewed and no additional complaints, except as documented Psychiatric: Psychiatric: Reports no additional psychiatric complaints Endocrine: Endocrine: Reports no additional endocrine complaints Hematologic/Lymphatic: Hematologic/Lymphatic: Reports no additional hematologic/lymphatic complaints Allergic/Immunologic: Allergic/Immunologic: Reports no additional allergic/immunologic complaints [facility] Past Medical History Medical History (Updated 06/28/21 @ 04:07 by Danyel Bah MD) Asthma Congestive heart failure COPD (chronic obstructive pulmonary disease) Depression Pneumonia Sleep apnea Family History Family History Mother Family history of chronic obstructive pulmonary disease Family history of malignant neoplasm of ovary Social History Social History Smoking packs per day: 1 Smoking cigarettes per day: 20.0 Years smoked: 18 Smoking pack-years: 18.00 Smoking status: Former smoker Tobacco type: cigarettes Alcohol intake: never Substance use: never Gender identity (if verbalized by the patient): Female Spiritual care concerns: No Meds Home Medications and Allergies Home Medications Medication Instructions Recorded Confirmed Type albuterol sulfate 2.5 mg CONTINUOUS NEBULIZATION 12/05/19 06/28/21 History Q4-6H PRN albuterol sulfate [Ventolin HFA] 1 puff INHALATION Q4-6H PRN 12/05/19 06/28/21 History fluoxetine 40 mg DAILY 12/05/19 06/28/21 History montelukast 10 mg DAILY 12/05/19 06/28/21 History trazodone 50 mg HS 12/05/19 06/28/21 History umeclidinium [Incruse Ellipta] 1 inh INHALATION DAILY 12/05/19 06/28/21 History lisinopril 30 mg PO DAILY 06/01/20 06/28/21 History nortriptyline 50 mg PO DAILY 01/24/2106/28
[2021-06-28] VITALS (11 sets, daily range): BP systolic 101–125; BP diastolic 50–71; PULSE 71–87; RESP 16–24; TEMP 35.6–36.2; O2SAT 96–98; BMI 61.8
[2021-06-28 00:51] LABS: Add Urine Microscopic? YES; Appearance Urine Clear (Clear); Bacteria Urine Trace /hpf; Bilirubin Urine Negative (Negative); Blood Urine Negative (Negative); Color Urine Amber (Yellow); Glucose Urine UA 1+ mg/dL (Negative); Ketones Urine Negative (Negative); Leukocyte Esterase Ur 1+ LEU/UL (Negative); Mucus Urine Few /lpf; Nitrate Urine Positive (Negative); Protein Urine 2+ mg/dL (Negative); Specific Grav Ur 1.024 (1.001-1.035); Squamous Epithelial Cell Urine Few /hpf (Few); WBC Urine 21-30 /hpf
[2021-06-28] MEDS: methylPREDNISolone SOD SUCC 125 MG VIAL IV PUSH ×3 (03:03→12:17)
[2021-06-28] MEDS: SODIUM CHLORIDE 0.9% IV 1,000 ML 125 ML IV CONT ×2 (03:03→11:20)
[2021-06-28] MEDS: FLUoxetine HCL 20 MG CAPSULE 40 MG BY MOUTH (08:00)
[2021-06-28] MEDS: MONTELUKAST SODIUM 10 MG TABLET BY MOUTH (08:00)
[2021-06-28] MEDS: diphenhydrAMINE HCl CAP 25 MG CAPSULE 50 MG PO (08:00)
[2021-06-28] MEDS: UMECLIDINIUM BROMIDE 62.5 MCG ELLIPTA 1 PUFF INHALATION (08:01)
[2021-06-28] MEDS: ALBUTEROL SULFATE NEB 2.5 MG/0.5 ML INH 5 MG INHALATION ×2 (08:21→13:58)
--- NOTE | 2021-06-28 10:33 | PM.IMPN ---
Progress Note: A&P Additional Plan START OF DOCTOR MIGEL?S PROGRESS NOTE Subjective: The patient canceled her dyspnea has resolved. Overnight she had TAHBSO nausea however she denies emesis, cough, wheeze, abdominal pain, chest pain, fever, rigors, or any other constitutional complaints. I have explained to the patient her current medical condition plan of care and answered all questions Objective: General: -Alert -No acute distress -No dyspnea -No tachypnea -morbid obesity Heart: -Regular rate -Regular rhythm -No murmurs -No gallops -No rubs Lungs: -No wheeze -No rhonchi -No rales Abdomen: -Normal bowel sounds in all four quadrants -No rebound -No guarding -No tenderness Extremities: -2/4 pulse in all four extremities -No clubbing -No cyanosis -No edema Additional Details / Additional Findings / Exceptions / Miscellaneous: Pertinent Laboratory Results / Pertinent Radiology Results / Pertinent Diagnostic Results / Pertinent Vital Signs: Respirations 21 Assessment / Plan: Anaphylaxis secondary to Macrobid. It is albuterol 2.5 mg nebulized q.6 hours +bilateral her 25 mg IV q.6 hours plus IV nor saline 25 mL/hour Urinary tract infection. Septra IV b.i.d. Obesity. Patient counseled regarding lifestyle modification Obstructive sleep apnea. CPAP/BiPAP: Okay to use home device and/or pressure when sleeping Tobacco abuse via vaping Hypertension COPD. Singular 10 mg. Eliquis increase Ellipta 62.5 mg inhaled daily +125 mg IV q.6 hours. Albuterol 2.5 mg nebulized q.6 hours Depression. Prozac 40 mg p.o. daily plus trazodone 50 mg p.o. q.h.s. post nortriptyline 50 mg p.o. q.h.s. Acute renal insufficiency. Will monitor creatinine intermittently. IV nor cell her 25 mL/hour History of anemia with iron deficiency. Will monitor hemoglobin level intermittently Hepatic steatosis GI prophylaxis. Protonix 40 mg p.o. daily DVT prophylaxis. Bilateral SCDs Disposition: Pending serum study results on the day of June 28, 2021, the patient will likely be a candidate for discharge END OF DOCTOR MIGEL?S PROGRESS NOTE Subjective Date/time seen: 06/28/21 10:33 Objective Data Vital Signs Vital Signs: Vital Signs - 24 hr 06/27/21 18:37 06/27/21 18:40 06/27/21 18:44 Temperature 98.2 F Pulse Rate 126 H 119 H 111 H Respiratory Rate 24 H 23 H 20 Blood Pressure 120/104 H Pulse Oximetry 100 06/27/21 20:04 06/27/21 21:07 06/27/21 21:53 Temperature Pulse Rate 91 83 85 Respiratory Rate 2 L 16 24 H Blood Pressure 71/44 L 72/52 L 98/63 L Pulse Oximetry 98 99 95 06/27/21 23:30 06/28/21 00:00 06/28/21 00:19 Temperature Pulse Rate 85 87 87 Respiratory Rate 20 20 20 Blood Pressure 109/72 109/62 116/71 Pulse Oximetry 98 98 98 06/28/21 03:00 06/28/21 04:00 06/28/21 08:00 Temperature 97.1 F L 96.0 F L Pulse Rate 75 74 73 Respiratory Rate 16 20 22 H Blood Pressure 117/65 101/50 L Pulse Oximetry 98 97 06/28/21 08:22 06/28/21 08:28 Temperature Pulse Rate 78 76 Respiratory Rate 22 H 21 H Blood Pressure Pulse Oximetry Intake/Output Intake/Output: Intake & Output 06/25/21 06/26/21 06/27/21 06/28/21 23:59 23:59 23:59 23:59 Intake Total 1999 1060 Output Total 900 Balance 1999 160 Meds/Results Medications: Active Medications Generic Name Dose Route Start Last Admin Trade Name Freq PRN Reason Stop Dose Admin Albuterol 5 mg 06/28/21 02:00 06/28/21 08:21 Albuterol Sulfate Neb 2.5 Mg/0.5 Ml Inh INHALATION 5 mg Q6HRT KIMBERLY Administration Albuterol 2.5 mg 06/28/21 03:48 Albuterol Sulfate Neb 2.5 Mg/3 Ml Inh INHALATION Q4-6H PRN Wheezing Albuterol 1 puff 06/28/21 03:48 Albuterol Sulfate (*Sp) Aerosol 1 Puff INHALATION Q4-6H PRN Shortness Of Breath Diphenhydramine HCl 50 mg 06/27/21 23:17 06/28/21 08:00 Diphenhydramine Hcl Cap 25 Mg Capsule PO 50 mg
[2021-06-28 11:11] LABS: Basophils Percent Auto 0.2 % (0.2-1.2); Eosinophils Absolute Auto 0.1 K/mm3 (0-0.3); Eosinophils Percent Auto 0.5 % (0-4.4); Hematocrit 36.5 % (37.0-47.0); Hemoglobin 11.9 g/dL (12.0-15.0); Immature Granulocyte Absolute 0.06 K/mm3 (0.00-0.031); Immature Granulocyte Percent A 0.3 % (0-0.5); Lymphocytes Absolute Auto 1.16 K/mm3 (0.9-3.2); Lymphocytes Percent Auto 6.5 % (18.3-44.2); Mean Corpuscular HGB Conc 32.6 g/dl (32-36); Mean Corpuscular Volume 85.9 fl (80-100); Mean Platelet Volume 9.2 fl (7.4-10.4); Monocytes Absolute Auto 0.3 K/mm3 (0.1-0.6); Monocytes Percent Auto 1.8 % (2.6-8.5); Neutrophils Absolute Auto 16.2 K/mm3 (1.3-6.7); Neutrophils Percent Auto 90.7 % (45.5-73.1); Platelet Count Result 269 k/mm3 (150-375); Red Blood Count 4.25 M/mm3 (4.2-5.4); Red Cell Distribution Width 13.7 % (11.5-14.5); White Blood Count 17.9 K/mm3 (4.5-10.0)
[2021-06-28 11:36] LABS: Anion Gap 9 mmol/L (8-16); Blood Urea Nitrogen 14 mg/dL (7-17); Calcium 8.8 mg/dL (8.4-10.2); Carbon Dioxide 22 mmol/L (22-30); Chloride 106 mmol/L (98-107); Estimated CRCL calculation 104 ml/min; Estimated Glomerular Filt Rate > 60; Glucose 189 mg/dL (65-110); Potassium 4.2 mmol/L (3.4-5.0); Sodium 137 mmol/L (137-145)
--- NOTE | 2021-06-28 17:05 | PM.DS ---
DS: Admitting Diagnosis Discharge Date 5:07 p.m. on June 28, 2021 Admitting Diagnosis Anaphylaxis attributable to Macrobid DS: Summary Hospital Course Hospital Course: See discharge summary below Time Spent with Patient Time attestation: Total time spent providing and/or coordinating discharge services: START OF DOCTOR MIGEL?S DISCHARGE SUMMARY Date of Admission: June 27, 2021 Date of Discharge: 5:05 p.m. on June 28, 2021 Primary Diagnosis: Anaphylaxis to Macrobid Secondary Diagnosis: Urinary tract infection Obesity Obstructive sleep apnea Tobacco abuse via vaping Hypertension paragraph COPD paragraph depression paragraph acute renal insufficiency, resolved Anemia with history of iron deficiency Hepatic steatosis Consultations: None Disposition: The patient will be advised to follow-up with her primary care physician as needed Discharge Medications: Lisinopril 30 mg p.o. daily Zofran 4 mg p.o. q.8 hours p.r.n. nausea/vomiting Albuterol 2.5 mg nebulized q.4 hours p.r.n. shortness of breath/wheeze Proventil HFA: 90 micro inspiratory: 1 puff q.4 hours p.r.n. shortness of breath/wheeze Prozac 40 mg p.o. daily Singular 10 mg p.o. daily Nortriptyline 50 mg p.o. q.h.s. Trazodone 50 mg p.o. q.h.s. Incruse Ellipta 62.5 mg inhaled daily Bactrim ds: 1 tab p.o. b.i.d.. Quantity 8. 0 refills END OF DOCTOR MIGEL?S DISCHARGE SUMMARY DS: Data Data Completed and Pending Labs on day of discharge: Labs from last 24 hours 06/28/21 06/28/21 06/28/21 11:02 11:02 00:29 WBC 17.9 H RBC 4.25 Hgb 11.9 L D Hct 36.5 L MCV 85.9 MCH 28.0 MCHC 32.6 RDW 13.7 Plt Count 269 MPV 9.2 Immature Gran % (Auto) 0.3 Neut % (Auto) 90.7 H Lymph % (Auto) 6.5 L [place] % (Auto) 1.8 L Eos % (Auto) 0.5 Baso % (Auto) 0.2 Lymph # (Auto) 1.16 [place] # (Auto) 0.3 Eos # (Auto) 0.1 Baso # (Auto) 0.0 Abs Immat Gran (auto) 0.06 H Absolute Neuts (auto) 16.2 H Absolute Nucleated RBC 0.0 Nucleated RBC % 0.0 Sodium 137 Potassium 4.2 Chloride 106 Carbon Dioxide 22 Anion Gap 9 BUN 14 D Creatinine 1.00 Estim Creat Clear Calc 104 Estimated GFR > 60 Glucose 189 H Calcium 8.8 Total Bilirubin AST ALT Alkaline Phosphatase Total Protein Albumin Urine Color Ananya Urine Appearance Clear Urine pH 5.0 Ur Specific [place] 1.024 Urine Protein 2+ H Urine Glucose (UA) 1+ H Urine Ketones Negative Ur Blood (Man) Negative Urine Nitrate Positive H Urine Bilirubin Negative Urine Urobilinogen 2.0 H Leukocyte Esterase Rfl 1+ H Urine RBC 3-5 H Urine WBC 21-30 H Ur Squamous Epith Cells Few Urine Bacteria Trace Hyaline Casts 5-9 H Urine Mucus Few H 06/27/21 06/27/21 21:05 21:05 WBC 22.0 H RBC 5.73 H Hgb 15.7 H D Hct 48.4 H MCV 84.5 MCH 27.4 MCHC 32.4 RDW 13.6 Plt Count 448 H D MPV 9.0 Immature Gran % (Auto) 0.7 H Neut % (Auto) 83.5 H Lymph % (Auto) 12.0 L [place] % (Auto) 3.3 Eos % (Auto) 0.2 Baso % (Auto) 0.3 Lymph # (Auto) 2.65 [place] # (Auto) 0.7 H Eos # (Auto) 0.1 Baso # (Auto) 0.1 Abs Immat Gran (auto) 0.16 H Absolute Neuts (auto) 18.4 H Absolute Nucleated RBC 0.0 Nucleated RBC % 0.0 Sodium 140 Potassium 3.6 Chloride 103 Carbon Dioxide 22 Anion Gap 15 BUN 20 H D Creatinine 1.70 H Estim Creat Clear Calc 60 Estimated GFR 34 L Glucose 191 H Calcium 8.9 Total Bilirubin 0.6 AST 27 ALT 23 Alkaline Phosphatase 73 Total Protein 6.0 L Albumin 3.8 Urine Color Urine Appearance Urine pH Ur Specific [place] Urine Protein Urine Glucose (UA) Urine Ketones Ur Blood (Man) Urine Nitrate Urine Bilirubin Urine Urobilinogen Leukocyte Esterase Rfl Urine RBC Urine WBC Ur Squamous Ep
== END 2021-06-28 17:55 | disposition home or self-care (01) ==
LOC: ANHED 23:13 → ANHCPC 06-28 13:53
PROVIDERS: Admitting Provider Internal Medicine; Emergency Provider Emergency Medicine; PCP Family Medicine Adolescent Medicine; Visit Provider Internal Medicine
DX: T88.6XXA Anaphylactic reaction due to adverse effect of correct drug or medicament properly administered, initial encounter (principal); T37.8X5A Adverse effect of other specified systemic anti-infectives and antiparasitics, initial encounter; N39.0 Urinary tract infection, site not specified; D50.9 Iron deficiency anemia, unspecified; E66.01 Morbid (severe) obesity due to excess calories; F17.290 Nicotine dependence, other tobacco product, uncomplicated; G47.33 Obstructive sleep apnea (adult) (pediatric); I11.0 Hypertensive heart disease with heart failure; I50.9 Heart failure, unspecified; J44.9 Chronic obstructive pulmonary disease, unspecified; K76.0 Fatty (change of) liver, not elsewhere classified; Z68.44 Body mass index [BMI] 60.0-69.9, adult
CPT/HCPCS: 36415; 71045; 80048; 80053; 81001; 85025; 87077; 87086; 87088; 87186; 93005; 94640; 96361; 96365; 96375; 96376; 99285; A9270; G0378; J0131; J0171; J1200; J2930; J7030; J7060

== ENCOUNTER 2021-07-02 10:07 | Outpatient (CLI) | payer BC, SELFPAY ==
[2021-07-02 10:42] LABS: Hematocrit 36.5 % (37.0-47.0); Hemoglobin 11.8 g/dL (12.0-15.0)
== END 2021-07-02 10:08 | disposition home or self-care (01) ==
LOC: ANHSURGERY 10:11
PROVIDERS: PCP Family Medicine Adolescent Medicine; Visit Provider Obstetrics & Gynecology
DX: Z01.812 Encounter for preprocedural laboratory examination (principal); N92.0 Excessive and frequent menstruation with regular cycle
CPT/HCPCS: 36415; 85014; 85018

== ENCOUNTER 2021-07-05 01:31 | Day surgery (SDC) | payer BC, SELFPAY ==
[2021-07-01 10:43] VITALS: BMI 57.6
--- NOTE | 2021-07-02 16:25 | PM.IMHP ---
H&P: HPI History of Present Illness Date/Time: 07/02/21 16:25 40-year-old 1 para 1 status post tubal admitted for hysteroscopy, dilatation curettage and ablation. She has excessive heavy bleeding refractory medical therapy. She is obese and has had an ultrasound that showed the endometrium working okay. In light of her previous tubal and her desire to avoid hysterectomy she will undergo ablation. Risks and benefits reviewed in great detail Chief Complaint: vaginal bleeding Review of Systems Review of Systems: All systems reviewed & are unremarkable except as noted in HPI and below PMFSH Past Medical History Medical History Asthma Congestive heart failure COPD (chronic obstructive pulmonary disease) Depression Pneumonia Sleep apnea Family History Family History Mother Family history of chronic obstructive pulmonary disease Family history of malignant neoplasm of ovary Social History Social History Smoking packs per day: 0.5 Smoking cigarettes per day: 10.0 Years smoked: 18 Smoking pack-years: 9.00 Smoking status: Current every day smoker Tobacco type: cigarettes Alcohol intake: never Substance use: never Substance use type: does not use Gender identity (if verbalized by the patient): Female Spiritual care concerns: No Meds Home Medications and Allergies Home Medications Medication Instructions Recorded Confirmed Type Incruse Ellipta 1 inh INHALATION DAILY 12/05/19 07/01/21 History albuterol sulfate 2.5 mg CONTINUOUS NEBULIZATION 12/05/19 07/01/21 History Q4-6H PRN albuterol sulfate [Ventolin HFA] 1 puff INHALATION Q4-6H PRN 12/05/19 07/01/21 History fluoxetine 40 mg PO HS 12/05/19 07/01/21 History montelukast 10 mg PO HS 12/05/19 07/01/21 History trazodone 50 mg PO HS PRN 12/05/19 07/01/21 History lisinopril 30 mg PO HS 06/01/20 07/01/21 History nortriptyline 50 mg PO HS 01/24/21 07/01/21 History ondansetron 4 mg PO Q8H PRN #10 tablet 01/24/21 07/01/21 Rx sulfamethoxazole-trimethoprim 1 tablet PO Q12H #8 tablet 06/28/21 07/01/21 Rx [Bactrim DS] Allergies Allergy/AdvReac Type Severity Reaction Status Date / Time nitrofurantoin Allergy Severe Anaphylactic Verified 07/01/21 10:47 [From Macrobid] Shock amoxicillin Allergy Unknown Rash Verified 07/01/21 10:41 Cephalosporins Allergy Unknown HIVES Verified 07/01/21 10:41 Penicillins Allergy Unknown Rash Verified 07/01/21 10:41 talc Allergy Unknown ERYTHEMA Verified 07/01/21 10:41 adhesive AdvReac Mild Itching, Verified 07/01/21 10:41 RASH CATS Allergy Mild Dyspnea / Uncoded 07/01/21 10:41 SOB Cultivated Oat Pollen Allergy Mild Dyspnea / Uncoded 07/01/21 10:41 SOB DOGS Allergy Mild Dyspnea / Uncoded 07/01/21 10:41 SOB Dust Allergy Mild SNEEZING Uncoded 07/01/21 10:41 Exam Const: General: no acute distress Eyes: General: appearance normal, both eyes and all related structures Neck: Neck: supple and no JVD Thyroid: thyroid normal Resp: Effort & Inspection: normal respiratory effort Auscultation: clear to auscultation bilaterally Cardio: Rate: regular rate Rhythm: regular rhythm GI: Inspection: non-distended GI Palp: Yes Soft to palpation, No Tenderness to palpation present (GI) and No Guarding due to palpation present (GI) Auscultation: normal bowel sounds : External Female Exam: normal external appearance Speculum Exam - Vagina: normal appearance of the vagina Speculum Exam - Cervix: normal appearance of the cervix Bimanual exam- vagina & uterus: enlarged Bimanual Exam- Adnexa, other: no masses Skin: General skin exam: no rashes or lesions noted Extrem: General: normal to inspection and no edema Psych: Mental Status: mental status grossly normal Affect: normal affect Assessment and Plan Additional Plan
[2021-07-05] VITALS (8 sets, daily range): BP systolic 115–138; BP diastolic 59–79; PULSE 65–103; RESP 12–20; TEMP 36.3; O2SAT 95–99
--- NOTE | 2021-07-05 06:04 | WPDHPUPDATE1 ---
History and Physical Update Update Date/Time: 07/05/21 06:04 History and Physical has been reviewed, including an updated exam of the patient. There are NO changes in the patient's condition. Risks, benefits, and alternatives have been discussed and questions answered. Patient agrees to proceed with procedure.
[2021-07-05] MEDS: ACETAMINOPHEN 500 MG TABLET 1000 MG PO (09:50)
[2021-07-05] MEDS: LACTATED RINGERS 1,000 ML 30 ML IV CONT (10:00)
--- NOTE | 2021-07-05 10:21 | WPDANESEPPF ---
Anes - Initial Pre Proc Eval Procedure: Operation Date: 07/05/21 11:30 Proposed Procedures p Hysteroscopy Dilation and Curettage with [place] Ablation - Gerald Sheriff MD Date/Time: 07/05/21 10:21 Surgeon: Gerald Sheriff MD Pre Op Diagnosis: heavy bleeding Patient Data Age: 40 Gender: F Height: 1.63 m Weight: 154.4 kg Last Vital Signs Temp 36.3 C L 07/05/21 10:07 Pulse 103 H 07/05/21 10:07 BP 135/71 07/05/21 10:07 Pulse Ox 97 07/05/21 10:07 Allergies Allergy/AdvReac Type Severity Reaction Status Date / Time nitrofurantoin Allergy Severe Anaphylactic Verified 07/01/21 10:47 [From Macrobid] Shock amoxicillin Allergy Unknown Rash Verified 07/01/21 10:41 Cephalosporins Allergy Unknown HIVES Verified 07/01/21 10:41 Penicillins Allergy Unknown Rash Verified 07/01/21 10:41 talc Allergy Unknown ERYTHEMA Verified 07/01/21 10:41 adhesive AdvReac Mild Itching, Verified 07/01/21 10:41 RASH CATS Allergy Mild Dyspnea / Uncoded 07/01/21 10:41 SOB Cultivated Oat Pollen Allergy Mild Dyspnea / Uncoded 07/01/21 10:41 SOB DOGS Allergy Mild Dyspnea / Uncoded 07/01/21 10:41 SOB Dust Allergy Mild SNEEZING Uncoded 07/01/21 10:41 Home Medications Medication Instructions Recorded Confirmed Type Incruse Ellipta 1 inh INHALATION DAILY 12/05/19 07/05/21 History albuterol sulfate 2.5 mg CONTINUOUS NEBULIZATION 12/05/19 07/05/21 History Q4-6H PRN albuterol sulfate [Ventolin HFA] 1 puff INHALATION Q4-6H PRN 12/05/19 07/05/21 History fluoxetine 40 mg PO HS 12/05/19 07/05/21 History montelukast 10 mg PO HS 12/05/19 07/05/21 History trazodone 50 mg PO HS PRN 12/05/19 07/05/21 History lisinopril 30 mg PO HS 06/01/20 07/05/21 History nortriptyline 50 mg PO HS 01/24/21 07/05/21 History ondansetron 4 mg PO Q8H PRN #10 tablet 01/24/21 07/05/21 Rx hydrocodone-acetaminophen 1 tablet PO Q4H PRN #30 tablet 07/05/21 Rx Patient hx anesthesia problems: none Family hx anesthesia problems: none Results Review: All pre-operative results and documents have been reviewed as part of the pre-operative evaluation. [facility] Past Medical History Medical History Asthma Congestive heart failure COPD (chronic obstructive pulmonary disease) Depression Pneumonia Sleep apnea Family History Family History Mother Family history of chronic obstructive pulmonary disease Family history of malignant neoplasm of ovary Social History Social History Smoking packs per day: 0.5 Smoking cigarettes per day: 10.0 Years smoked: 18 Smoking pack-years: 9.00 Smoking status: Current every day smoker Tobacco type: cigarettes Alcohol intake: never Substance use: never Substance use type: does not use Living arrangements: with family Gender identity (if verbalized by the patient): Female Spiritual care concerns: No Anes - Eval Final PreProcedure Day of Procedure 07/05/21 10:21 Patient weight: super morbidly obese Heart: regular rate and rhythm Lungs: decreased breath sounds Airway: Mallampati scale class II Neurological: alert and oriented Last oral intake: >/= 8 hours ASA classification: III Emergent: no Anesthetic plan: proceed Anesthesia type and monitoring: general GIVS and standard monitoring Results Review: All pre-operative results and documents have been reviewed as part of the pre-operative evaluation. Informed Consent: The patient's anesthetic plan and its attendant risks and benefits were discussed with the patient/family/POA. Questions were solicited and answers provided to the satisfaction of the patient/family/POA.
[2021-07-05] MEDS: LIDOCAINE HCL 1% PF 30 ML VIAL 10 ML INFILTRATE (10:57)
--- NOTE | 2021-07-05 11:22 | P.OP_ITS ---
Procedure Note - Detailed Date of Procedure 07/05/21 Pre-op Diagnosis heavy bleeding Post-op Diagnosis same Procedure Performed Hysteroscopy/dilatation and curettage/endometrial ablation via Carmel instrument Surgeon Gerald Sheriff MD Anesthesia MAC and local Indications This is a 40-year-old female with excessive heavy bleeding refractory to medical therapy Findings Uterus sounded to 8cm. Thick endometrial tissue was seen Description of Procedure The patient is prepped draped in normal sterile fashion placed in dorsal lithotomy position. Under excellent IV sedation weighted speculum placed in posterior fornix vagina. Anterior lip of the cervix was grasped with single- tooth tenaculum. There was initially some difficulty D in placing the local due to the large size of the patient but eventually 2.5cc of 1% xylocaine anesthesia placed at 2, 4, 8, 10:00 a.m. of the cervix. Uterus sounded to 8cm. Serial dilatation with fragmented dilators performed followed by passage of the 5mm visualizing hysteroscope. Normal saline was used as visualizing medium. Thick irregular endometrial tissue was seen but no evidence of any other abnormalities. Uterus was scraped over the entire 360? until a good grating sound was heard. The Carmel was placed in the uterus was burned for 120seconds. The instruments removed and blood loss was estimated at5cc. All sponge, needle instrument counts were correct. There were no immediate complications Estimated Blood Loss 5 Drains No Packing No Pathology yes Complications No immediate complications Condition stable Disposition PACU
[2021-07-05] MEDS: fentaNYL CITRATE INJ (*CRX) 100 MCG/2 ML VIAL 25 MCG IV PUSH ×4 (11:39→11:50)
[2021-07-05] MEDS: KETOROLAC 30 MG/ML VIAL (*BKC) IV PUSH (12:30)
[2021-07-05] MEDS: oxyCODONE HCL (*CRX) 5 MG TAB IR PO (12:54)
[2021-07-05] MEDS: HYDROmorphone HCL INJ (*CRX) 1 MG/ML SYR IV PUSH (13:27)
== END 2021-07-05 14:17 | disposition home or self-care (01) ==
PROVIDERS: PCP Family Medicine Adolescent Medicine; Visit Provider Obstetrics & Gynecology
PROC: 0U5B8ZZ Destruction of Endometrium, Via Natural or Artificial Opening Endoscopic (ICD-10-PCS; CPT 58563; principal; 2021-07-05 11:30)
DX: N92.0 Excessive and frequent menstruation with regular cycle (principal); Z79.51 Long term (current) use of inhaled steroids; J45.909 Unspecified asthma, uncomplicated; J44.9 Chronic obstructive pulmonary disease, unspecified; F32.9 Major depressive disorder, single episode, unspecified; F17.210 Nicotine dependence, cigarettes, uncomplicated; E66.01 Morbid (severe) obesity due to excess calories; Z68.43 Body mass index [BMI] 50.0-59.9, adult
CPT/HCPCS: 58563; 88305; A9270; J1170; J1885; J2250; J2704; J3010; J7030; J7120

== ENCOUNTER 2021-07-25 11:01 | Outpatient (RCR) | payer BC, SELFPAY ==
[2021-07-25 11:12] VITALS: BMI 58.4
[2021-07-25 11:15] VITALS: BMI 58.4
== END 2021-10-14 13:55 | disposition home or self-care (01) ==
LOC: ANHDMC 11:01
PROVIDERS: PCP Family Medicine Adolescent Medicine; Visit Provider Physician Assistant
DX: E66.01 Morbid (severe) obesity due to excess calories (principal); Z71.3 Dietary counseling and surveillance
CPT/HCPCS: 97802

== ENCOUNTER → 2021-08-10 00:51 | Outpatient (CLI) | payer BC, SELFPAY ==
[2021-08-10 17:31] LABS: SARS-CoV-2 RNA PCR Negative
== END ==
PROVIDERS: PCP Family Medicine Adolescent Medicine; Visit Provider Physician Assistant
DX: R05.9 Cough, unspecified (principal); R09.81 Nasal congestion; Z20.822 Contact with and (suspected) exposure to COVID-19
CPT/HCPCS: C9803; U0003; U0005

== ENCOUNTER 2022-03-19 17:31 | Outpatient (CLI) | payer BC, SELFPAY ==
[2022-03-19 18:00] LABS: Basophils Absolute Auto 0.1 K/mm3 (0.0-0.1); Basophils Percent Auto 0.5 % (0.2-1.2); Eosinophils Absolute Auto 0.2 K/mm3 (0-0.3); Eosinophils Percent Auto 2.1 % (0-4.4); Hematocrit 36.3 % (37.0-47.0); Hemoglobin 11.8 g/dL (12.0-15.0); Immature Granulocyte Absolute 0.03 K/mm3 (0.00-0.031); Immature Granulocyte Percent A 0.3 % (0-0.5); Lymphocytes Absolute Auto 3.07 K/mm3 (0.9-3.2); Lymphocytes Percent Auto 29.8 % (18.3-44.2); Mean Corpuscular HGB Conc 32.5 g/dl (32-36); Mean Corpuscular Hemoglobin 28.3 pg (26-34); Mean Corpuscular Volume 87.1 fl (80-100); Mean Platelet Volume 9.1 fl (7.4-10.4); Monocytes Absolute Auto 0.7 K/mm3 (0.1-0.6); Monocytes Percent Auto 6.5 % (2.6-8.5); Neutrophils Absolute Auto 6.3 K/mm3 (1.3-6.7); Neutrophils Percent Auto 60.8 % (45.5-73.1); Platelet Count Result 267 k/mm3 (150-375); Red Blood Count 4.17 M/mm3 (4.2-5.4); Red Cell Distribution Width 13.3 % (11.5-14.5); White Blood Count 10.3 K/mm3 (4.5-10.0)
== END 2022-03-19 17:32 | disposition home or self-care (01) ==
PROVIDERS: PCP Family Medicine Adolescent Medicine; Visit Provider Obstetrics & Gynecology
DX: N85.2 Hypertrophy of uterus (principal)
CPT/HCPCS: 36415; 85025; 86850; 86900; 86901

== ENCOUNTER 2022-03-21 01:07 | Day surgery (SDC) | payer BC, SELFPAY ==
[2022-03-17 09:57] VITALS: BMI 55.7
--- NOTE | 2022-03-17 10:42 | PC.NURSE ---
Report to the Outpatient Waiting Room, entrance under the green pavilion located off [facility], at 0600 on 03-21-22. OR Time: 0730. - You and your visitor will be asked a series of questions to screen for COVID 19 for your protection. - Only one visitor is allowed at this time. - The patient visitor is requested to leave or wait in car when not with patient. - A mask is required within the hospital. Patients may have clear liquids (water, carbonated beverages, clear teas, apple juice) until 3 hours prior to surgery with a maximum of 20 ounces. 0430 - No food from midnight until time of surgery - Infants may have breast milk until 4 hours before surgery, infant formula 6 hours prior to surgery. - Children will be allowed to drink immediately following surgery. If applicable, please bring a bottle or sippy cup to assist with drinking. Juice, water, soda, and popsicles are readily available. For infants on formula, please bring formula the day of surgery. Pacifiers are allowed. Take the following medications with a SIP of water the morning of surgery: Lorazepam if needed, Bring rescue inhalers day of surgery to hospital Medications to discontinue per physician: N/A Please no make-up, nail faroese, hairspray, perfume, deodorant, or body powder the day of surgery. No jewelry (including any body piercings) or valuables the day of surgery, leave them at home. Please take a shower or bath the night before, or the morning of, surgery with an antibacterial soap. Wear comfortable, loose fitting clothing. Children are encouraged to wear pajamas. - Jewelry must be removed prior to entering the operating room. Rings and piercings that are not removed may be cut off. - The hospital will not accept responsibility for valuables. - Please leave all valuables, including medications, at home the day of surgery. If you are going home after surgery, a licensed log truck driver must drive you home. - NO public transportation without another adult. - We recommend that an adult stay with you for 24 hours following discharge. - We also recommend that you do not drive, make important decision, drink alcoholic beverages, or take any drugs that were not prescribed by your health care provider for at least 24 hours after your discharge time. For Pediatric surgeries, we recommend two adults accompany the child home (only one inside the building at this time). Follow any additional instructions given to you from your surgeon. If you or anyone in your household have experienced Covid symptoms in the past week, please notify your surgeon or the nurse liaison at the phone number below for possible testing. Telephone instructions given to Jasen Espana and asked if any additional questions and then verbalized understanding. Patient advised to call surgeon office or pre surgery nurse liaison [phone] if any additional questions.
--- NOTE | 2022-03-18 06:44 | PM.IMHP ---
H&P: HPI History of Present Illness Date/Time: 03/18/22 06:44 Chief Complaint: Enlarged uterus with bleeding refractory to medical therapy Narrative: 32 old female 1 para 1 was admitted for robotic hysterectomy and bilateral salpingectomy secondary to pelvic pain enlarged uterus. She has undergone tubal ligation she has had pain bleeding and discomfort. Risks and benefits reviewed including not exclusive of aspiration pneumonia bleeding, transfusion perforation injury to bowel, bladder, uterus, or other internal organs with need for open laparotomy. She received the ACOG handout entitled hysterectomy as well as the de Padmini handout. She had all questions answered and asked to proceed PMFSH Past Medical History Medical History Asthma Congestive heart failure COPD (chronic obstructive pulmonary disease) Depression KAVYA on CPAP Pneumonia Sleep apnea Family History Family History Mother Family history of chronic obstructive pulmonary disease Family history of malignant neoplasm of ovary Social History Social History Smoking packs per day: 1 Smoking cigarettes per day: 20.0 Years smoked: 18 Smoking pack-years: 18.00 Smoking status: Former smoker Tobacco type: cigarettes Second hand tobacco smoke exposure: No Smoking end date: 09/28/20 Alcohol intake: current Alcohol use details: very rarely Substance use: never Substance use type: does not use Living arrangements: with family Gender identity (if verbalized by the patient): Female Spiritual care concerns: No Meds Home Medications and Allergies Home Medications Medication Instructions Recorded Confirmed Type albuterol sulfate 2.5 mg/3 mL 2.5 mg continuous nebulization 12/05/19 03/17/22 History (0.083 %) solution for nebulization Q4-6H PRN Shortness Of Breath Or Wheezing albuterol sulfate 90 mcg/actuation 2 puff inhalation Q4-6H PRN 12/05/19 03/17/22 History aerosol inhaler (Ventolin HFA) Shortness Of Breath Or Wheezing trazodone 50 mg tablet 50 mg PO HS PRN Insomnia 12/05/19 03/17/22 History umeclidinium 62.5 mcg/actuation 1 inh inhalation DAILY 12/05/19 03/17/22 History blister powder for inhalation (Incruse Ellipta) lisinopril 30 mg tablet 30 mg PO HS 06/01/20 03/17/22 History nortriptyline 50 mg capsule 50 mg PO HS 01/24/21 03/17/22 History montelukast 10 mg tablet 10 mg PO HS #90 tabs 10/11/21 03/17/22 Rx fluoxetine 40 mg capsule 40 mg PO HS #90 caps 10/25/21 03/17/22 Rx lorazepam 1 mg tablet 1 mg PO BID PRN anxiety #20 tabs 10/25/21 03/17/22 Rx fluticasone 500 mcg-salmeterol 50 1 ea inhalation HS 03/17/22 03/17/22 History mcg/dose blistr powdr for inhalation (Wixela Inhub) Allergies Allergy/AdvReac Type Severity Reaction Status Date / Time nitrofurantoin Allergy Severe Anaphylactic Verified 07/01/21 10:47 [From Macrobid] Shock amoxicillin Allergy Unknown Rash Verified 07/01/21 10:41 Cephalosporins Allergy Unknown HIVES Verified 07/01/21 10:41 Penicillins Allergy Unknown Rash Verified 07/01/21 10:41 talc Allergy Unknown ERYTHEMA Verified 07/01/21 10:41 adhesive AdvReac Mild Itching, Verified 07/01/21 10:41 RASH CATS Allergy Mild Dyspnea / Uncoded 07/01/21 10:41 SOB Cultivated Oat Pollen Allergy Mild Dyspnea / Uncoded 07/01/21 10:41 SOB DOGS Allergy Mild Dyspnea / Uncoded 07/01/21 10:41 SOB Dust Allergy Mild SNEEZING Uncoded 07/01/21 10:41 Exam GI: Auscultation: normal bowel sounds and other (Markedly obese) Rectal Exam: deferred : External Female Exam: normal external appearance Speculum Exam - Vagina: normal appearance of the vagina Speculum Exam - Cervix: normal appearance of the cervix Bimanual exam- vagina & uterus: enlarged Bimanual Exam- Adnexa, other: normal adnexae Assess
[2022-03-21] VITALS (19 sets, daily range): BP systolic 122–145; BP diastolic 62–81; PULSE 60–93; RESP 16–28; TEMP 36.3–37; O2SAT 94–100
[2022-03-21] MEDS: LACTATED RINGERS 1,000 ML 30 ML IV CONT ×2 (06:40→10:07)
[2022-03-21] MEDS: ACETAMINOPHEN 500 MG TABLET 1000 MG PO (06:40)
[2022-03-21] MEDS: KETOROLAC 15 MG/ML VIAL (*BKC) IV PUSH (06:40)
--- NOTE | 2022-03-21 06:40 | WPDHPUPDATE1 ---
History and Physical Update Update Date/Time: 03/21/22 06:40 History and Physical has been reviewed, including an updated exam of the patient. There are NO changes in the patient's condition. Risks, benefits, and alternatives have been discussed and questions answered. Patient agrees to proceed with procedure.
--- NOTE | 2022-03-21 06:58 | WPDANESEPPF ---
Anes - Initial Pre Proc Eval Procedure: Operation Date: 03/21/22 07:30 Proposed Procedures p Robotic Total Vaginal Hysterectomy with Bilateral Salpingectomy - Gerald Ferrer MD Date/Time: 03/21/22 06:58 Surgeon: Gerald Ferrer MD Pre Op Diagnosis: Pelvic Pain, Enlarged Uterus, Failed Ablation Patient Data Age: 41 Gender: F Height: 1.64 m Weight: 157.9 kg Last Vital Signs Temp 36.3 C L 03/21/22 06:07 Pulse 87 03/21/22 06:07 Resp 20 03/21/22 06:07 BP 145/75 H 03/21/22 06:07 Pulse Ox 98 03/21/22 06:07 O2 Del Method Room Air 03/21/22 06:07 Allergies Allergy/AdvReac Type Severity Reaction Status Date / Time nitrofurantoin Allergy Severe Anaphylactic Verified 03/21/22 06:41 [From Macrobid] Shock amoxicillin Allergy Unknown Rash Verified 03/21/22 06:41 Cephalosporins Allergy Unknown HIVES Verified 03/21/22 06:41 Penicillins Allergy Unknown Rash Verified 03/21/22 06:41 talc Allergy Unknown ERYTHEMA Verified 03/21/22 06:41 adhesive AdvReac Mild Itching, Verified 03/21/22 06:41 RASH CATS Allergy Mild Dyspnea / Uncoded 03/21/22 06:41 SOB Cultivated Oat Pollen Allergy Mild Dyspnea / Uncoded 03/21/22 06:41 SOB DOGS Allergy Mild Dyspnea / Uncoded 03/21/22 06:41 SOB Dust Allergy Mild SNEEZING Uncoded 03/21/22 06:41 Home Medications Medication Instructions Recorded Confirmed Type albuterol sulfate 2.5 mg/3 mL 2.5 mg continuous nebulization 12/05/19 03/17/22 History (0.083 %) solution for nebulization Q4-6H PRN Shortness Of Breath Or Wheezing albuterol sulfate 90 mcg/actuation 2 puff inhalation Q4-6H PRN 12/05/19 03/21/22 History aerosol inhaler (Ventolin HFA) Shortness Of Breath Or Wheezing trazodone 50 mg tablet 50 mg PO HS PRN Insomnia 12/05/19 03/17/22 History umeclidinium 62.5 mcg/actuation 1 inh inhalation DAILY 12/05/19 03/21/22 History blister powder for inhalation (Incruse Ellipta) lisinopril 30 mg tablet 30 mg PO HS 06/01/20 03/21/22 History nortriptyline 50 mg capsule 50 mg PO HS 01/24/21 03/21/22 History montelukast 10 mg tablet 10 mg PO HS #90 tabs 10/11/21 03/21/22 Rx fluoxetine 40 mg capsule 40 mg PO HS #90 caps 10/25/21 03/21/22 Rx lorazepam 1 mg tablet 1 mg PO BID PRN anxiety #20 tabs 10/25/21 03/17/22 Rx fluticasone 500 mcg-salmeterol 50 1 ea inhalation HS 03/17/22 03/21/22 History mcg/dose blistr powdr for inhalation (Wixela Inhub) hydrocodone 5 mg-acetaminophen 325 1 tablet PO Q4H PRN pain #30 tabs 03/21/22 Rx mg tablet Patient hx anesthesia problems: none Family hx anesthesia problems: none Results Review: All pre-operative results and documents have been reviewed as part of the pre-operative evaluation. [facility] Past Medical History Medical History Asthma Congestive heart failure COPD (chronic obstructive pulmonary disease) Depression KAVYA on CPAP Pneumonia Sleep apnea Surgical History Surgical History (Updated 03/21/22 @ 06:58 by Gerald Prather MD) H/O wrist surgery History of endometrial ablation History of tubal ligation Family History Family History Mother Family history of chronic obstructive pulmonary disease Family history of malignant neoplasm of ovary Social History Social History Smoking packs per day: 1 Smoking cigarettes per day: 20.0 Years smoked: 18 Smoking pack-years: 18.00 Smoking status: Former smoker Tobacco type: cigarettes Second hand tobacco smoke exposure: No Smoking end date: 09/28/20 Alcohol intake: current Alcohol use details: very rarely Substance use: never Substance use type: does not use Living arrangements: with family Gender identity (if verbalized by the patient): Female Spiritual care concerns: No Anes - Eval Final PreProcedure Day of Procedure 03/21/22
[2022-03-21] MEDS: CLINDAMYCIN 900 MG/D5W 50 ML 900 MG/50 ML PIGGYBACK 50 MG IVPB (07:26)
[2022-03-21] MEDS: DEXTROSE 5% IVPB (07:40)
[2022-03-21] MEDS: GENTAMICIN SULFATE IVPB (07:40)
--- NOTE | 2022-03-21 08:45 | W.PM.PROC2 ---
Procedure Note - Detailed Date of Procedure 03/21/22 Pre-op Diagnosis Pelvic Pain, Enlarged Uterus, Failed Ablation Post-op Diagnosis Same Procedure Performed Robotic total vaginal hysterectomy and bilateral salpingectomies Surgeon Gerald Ferrer MD Anesthesia General Indications This is a 41-year-old female morbidly obese with bleeding pain refractory to medical therapy Findings Mildly enlarged uterus. Tubes status post tubal ligation. Normal-appearing ovaries bilaterally. Adhesions anterior from the bladder to the uterus Description of Procedure The patient was prepped draped in the normal sterile fashion placed in the dorsal lithotomy position. Under excellent general trach anesthesia weighted speculum placed in posterior fornix vagina. Anterior lip of the cervix grasped with a single-tooth tenaculum. Uterus sounded to 9cm. Serial dilatation with fragmented dilators performed followed by passage of the 3. Cold cup and the 8. ADELSO. A 16 [place] catheter was placed in the bladder drained clear urine. The remainder the instruments removed and gloves were changed. A supraumbilical incision made the Veress needle passed in the abdomen. Abdomen filled with CO2 gas [id number]. The 8mm trocar advanced in the abdomen. Downside visualized no injury seen. Patient placed in Trendelenburg and right left lateral quadrant incisions made under direct visualization assuring no injury. A right upper quadrant incision made the 8mm trocar advanced under direct visualization assuring no injury. The robot was docked. Attention was then turned to the console. The uterus was bulky adhesions were noted from the bladder to the anterior surface of the uterus. These were sharply dissected layer by layer. The left round ligament was grasped, burned, cut. Anteriorly a bladder flap was formed by sharply dissecting the peritoneum and reflecting the bladder caudally to the opposite round ligament which was clamped, burned, cut. The left fallopian tube was noted be transected. The distal portion was sharply dissected away from the ovary and passed through the right upper quadrant port. The stub was left at its and origin a whitaker of the uterus. In like fashion the right fallopian tube was also noted to be transected. The distal portion was sharply dissected away from the ovary and passed off the the right upper quadrant incision. The stump at the origin a whitaker was capped. The left utero-ovarian ligament was skeletonized clamping burning cutting and bringing this to level of previously cut round ligament thus maintaining the left ovary. Conserving the right ovary the utero-ovarian ligament right was serially clamped burned and cut and brought to the level of previously cut round ligament. The left cardinal broad ligaments were then serially skeletonized clamping burning cutting and bringing this down to the uterine vessels on the left these were large and tortuous and clamped, burned, cut individually. In like fashion the cardinal broad ligaments on the right were serially skeletonized clamping burning cutting and bringing these down the lateral edge of the uterus until the uterine vessels could be seen on the right. These were individually clamped, burned, cut. Excellent blanching the uterus was noted a colotomy incision was made. Cervix uterus and stumps of tubes were brought through the vagina. Blood loss estimated at25cc. The vagina was closed with continuous running 0V lock from lateral edge to lateral edge back to the midline. Irrigation undertaken until clear and hemostasis was assured. The robot was undocked. The gas removed from the abdomen. The trocars removed and the incisions closed with 4 Monocryl and glue. The patient went to recovery in satisfactory condition. All sponge, needle, instrument counts were correct. There were no immediate complications Estimated Blood Loss 25 Drains No Packing No Pathology Yes Complications No immediate
[2022-03-21] MEDS: fentaNYL CITRATE INJ (*CRX) 100 MCG/2 ML VIAL 25 MCG IV PUSH ×2 (10:04→10:41)
--- NOTE | 2022-03-21 10:53 | PC.NURSE ---
This patient, Jasen Espana, was received from pacu on 03/21/22 at 1053. Patient/family oriented to unit policies and routines
[2022-03-21] MEDS: DEXTROSE 5%/LACTATED RINGERS 1,000 ML 125 ML IV CONT (11:08)
[2022-03-21] MEDS: KETOROLAC 30 MG/ML VIAL (*BKC) IV PUSH ×2 (11:10→17:48)
[2022-03-21] MEDS: DOCUSATE SODIUM 100 MG CAPSULE PO (12:45)
[2022-03-21] MEDS: HYDROcodone/acetaminophen (*CRX) 10-325 MG TABLET 1 TAB PO (12:46)
[2022-03-21] MEDS: ONDANSETRON INJ 4 MG/2 ML VIAL IV PUSH (12:46)
[2022-03-21] MEDS: ENOXAPARIN 40 MG/0.4 ML SYRINGE SUB-Q (17:48)
[2022-03-21] MEDS: HYDROcodone/acetaminophen (*CRX) 5-325 MG TABLET 1 TAB PO (22:40)
[2022-03-22 04:40] VITALS: BP 110/64; PULSE 63; RESP 20; TEMP 37.1; O2SAT 96
[2022-03-22 05:57] LABS: Basophils Absolute Auto 0.1 K/mm3 (0.0-0.1); Basophils Percent Auto 0.4 % (0.2-1.2); Eosinophils Percent Auto 0.1 % (0-4.4); Hematocrit 35.2 % (37.0-47.0); Hemoglobin 11.1 g/dL (12.0-15.0); Immature Granulocyte Absolute 0.07 K/mm3 (0.00-0.031); Immature Granulocyte Percent A 0.4 % (0-0.5); Lymphocytes Percent Auto 13.7 % (18.3-44.2); Mean Corpuscular HGB Conc 31.5 g/dl (32-36); Mean Corpuscular Hemoglobin 28.2 pg (26-34); Mean Corpuscular Volume 89.3 fl (80-100); Mean Platelet Volume 9.3 fl (7.4-10.4); Monocytes Absolute Auto 0.8 K/mm3 (0.1-0.6); Monocytes Percent Auto 5.2 % (2.6-8.5); Neutrophils Absolute Auto 12.9 K/mm3 (1.3-6.7); Neutrophils Percent Auto 80.2 % (45.5-73.1); Platelet Count Result 270 k/mm3 (150-375); Red Blood Count 3.94 M/mm3 (4.2-5.4); Red Cell Distribution Width 13.2 % (11.5-14.5); White Blood Count 16.1 K/mm3 (4.5-10.0)
--- NOTE | 2022-03-22 07:31 | PM.DS ---
DS: Admitting Diagnosis Discharge Date 03/22/22 Admitting Diagnosis pelvic pain enlarged uterus DS: Summary Hospital Course Hospital Course: Jasen Espana was admitted after robotic assisted total laparoscopic hysterectomy and bilateral salpingectomy for pelvic pain and enlarged uterus. The above procedure was performed with no complications. She is doing well post op. She states her pain is well controlled with PO medications. She reports minimal bleeding. She is ambulating up to the chair. Her brown catheter was removed. She is tolerating PO without N/V. She reports passing flatus. Status at Discharge Overall status at discharge: patient is progressing back to baseline Time Spent with Patient Time attestation: Total time spent providing and/or coordinating discharge services: Time spent: Less than 30 minutes Exam Const: General: comfortable and no acute distress Limitations: no limitations Resp: Effort & Inspection: normal respiratory effort Auscultation: clear to auscultation bilaterally Cardio: Rate: regular rate Rhythm: regular rhythm GI: Inspection: non-distended GI Palp: Yes Soft to palpation, Yes Tenderness to palpation present (GI) (milder tenderness to deep palpation) and No Guarding due to palpation present (GI) Auscultation: normal bowel sounds Other: incisions C/D/I covered with dermabond Urinary Catheter: Urinary Catheter: urine clear Skin: General skin exam: normal color Extrem: General: normal to inspection Psych: Mental Status: mental status grossly normal Affect: normal affect DS: Data Data Completed and Pending Pending studies at discharge: Pending at discharge 03/21/22 08:11 Surgical [PTH] Routine Labs on day of discharge: Labs from last 24 hours 03/22/22 05:26 WBC 16.1 H RBC 3.94 L Hgb 11.1 L Hct 35.2 L MCV 89.3 MCH 28.2 MCHC 31.5 L RDW 13.2 Plt Count 270 MPV 9.3 Immature Gran % (Auto) 0.4 Neut % (Auto) 80.2 H Lymph % (Auto) 13.7 L [place] % (Auto) 5.2 Eos % (Auto) 0.1 Baso % (Auto) 0.4 Lymph # (Auto) 2.20 [place] # (Auto) 0.8 H Eos # (Auto) 0.0 Baso # (Auto) 0.1 Abs Immat Gran (auto) 0.07 H Absolute Neuts (auto) 12.9 H Absolute Nucleated RBC 0.0 Nucleated RBC % 0.0 Discharge Plan Discharge Patient Disposition: Home, Self-Care Patient Instructions: Laparoscopic Hysterectomy (DC) Stand Alone Forms: General Discharge Instructions Follow-up/Referrals: Gerald Mullen MD [Physician] - Discharge Medications: New hydrocodone-acetaminophen 5-325 mg tablet 1 tablet PO Q4H PRN (Reason: pain) Qty: 30 0RF No Action albuterol sulfate 2.5 mg /3 mL (0.083 %) solution for nebulization 2.5 mg continuous nebulization Q4-6H PRN (Reason: Shortness Of Breath Or Wheezing) trazodone 50 mg tablet 50 mg PO HS PRN (Reason: Insomnia) albuterol sulfate [Ventolin HFA] 90 mcg/actuation HFA aerosol inhaler 2 puff INHALATION Q4-6H PRN (Reason: Shortness Of Breath Or Wheezing) Incruse Ellipta 62.5 mcg/actuation blister with device 1 inh INHALATION DAILY lisinopril 30 mg tablet 30 mg PO HS nortriptyline 50 mg capsule 50 mg PO HS fluticasone propion-salmeterol [Wixela Inhub] 500-50 mcg/dose blister with device 1 ea INHALATION HS montelukast 10 mg tablet 10 mg PO HS Qty: 90 1RF fluoxetine 40 mg capsule 40 mg PO HS Qty: 90 1RF lorazepam 1 mg tablet 1 mg PO BID PRN (Reason: anxiety) Qty: 20 1RF
[2022-03-22 07:45] VITALS: BP 122/67; PULSE 71; RESP 16; TEMP 36.7; O2SAT 98
[2022-03-22] MEDS: SIMETHICONE 80 MG TAB.CHEW PO (07:46)
[2022-03-22] MEDS: DOCUSATE SODIUM 100 MG CAPSULE PO (07:46)
[2022-03-22] MEDS: IBUPROFEN 600 MG TABLET PO (07:46)
[2022-03-22] MEDS: HYDROcodone/acetaminophen (*CRX) 10-325 MG TABLET 1 TAB PO (07:47)
--- NOTE | 2022-03-22 08:32 | WPDANESPN ---
Anes - Prog Note Post-Op Date/Time: 03/22/22 08:32 Respiratory status: normal (at baseline. pt resting with cpap on.) Mental status: baseline Post-Op hydration status: normal Vital Signs: Last Vital Signs Temp 98.7 F 03/22/22 04:40 Pulse 63 03/22/22 04:40 Resp 20 03/22/22 04:40 BP 110/64 03/22/22 04:40 Pulse Ox 96 03/22/22 04:40 O2 Del Method Room Air 03/21/22 23:25 O2 Flow Rate 2.0 03/21/22 15:45 Pain Score (VAS): 3 I/O: Intake & Output 03/21/22 03/22/22 03/22/22 23:59 07:59 15:59 Output Total 1175 220 Balance -1175 -220 Laboratory Tests 03/22/22 05:26 03/22/22 05:26 WBC 16.1 H RBC 3.94 L Hgb 11.1 L Hct 35.2 L MCV 89.3 MCH 28.2 MCHC 31.5 L RDW 13.2 Plt Count 270 MPV 9.3 Immature Gran % (Auto) 0.4 Neut % (Auto) 80.2 H Lymph % (Auto) 13.7 L [place] % (Auto) 5.2 Eos % (Auto) 0.1 Baso % (Auto) 0.4 Lymph # (Auto) 2.20 [place] # (Auto) 0.8 H Eos # (Auto) 0.0 Baso # (Auto) 0.1 Abs Immat Gran (auto) 0.07 H Absolute Neuts (auto) 12.9 H Absolute Nucleated RBC 0.0 Nucleated RBC % 0.0 Post-procedural complaints: none Patient Feedback: Patient satisfied with anesthetic care.
[2022-03-22] MEDS: HYDROcodone/acetaminophen (*CRX) 5-325 MG TABLET 1 TAB PO (10:53)
== END 2022-03-22 11:42 | disposition home or self-care (01) ==
LOC: ANHSURGERY 06:42 → ANHOB2 10:51
PROVIDERS: PCP Family Medicine Adolescent Medicine; Visit Provider Obstetrics & Gynecology
PROC: (CPT 58552; principal; 2022-03-21 07:30)
DX: R10.2 Pelvic and perineal pain (principal); N94.6 Dysmenorrhea, unspecified; N88.8 Other specified noninflammatory disorders of cervix uteri; J44.9 Chronic obstructive pulmonary disease, unspecified; I50.9 Heart failure, unspecified; G47.33 Obstructive sleep apnea (adult) (pediatric); F32.A Depression, unspecified; Z87.891 Personal history of nicotine dependence; Z79.51 Long term (current) use of inhaled steroids
CPT/HCPCS: 58552; S2900; 36415; 85025; 88307; 99199; A9270; J0330; J1100; J1580; J1650; J1885; J2250; J2405; J2704; J2710; J3010; J7120; J7121

== ENCOUNTER 2022-07-08 05:30 | Emergency (ER) | payer BC, SELFPAY ==
[2022-07-08 05:36] VITALS: BP 147/93; PULSE 77; RESP 18; TEMP 36.6; O2SAT 98
[2022-07-08] MEDS: CLINDAMYCIN HCL 150 MG CAP 450 MG PO (06:02)
--- NOTE | 2022-07-08 06:55 | ED.EXTPRO ---
HPI - Extremity Problem General Chief complaint: Extremity Problem,Nontraumatic Stated complaint: right side lower leg redness Time Seen by Provider: 07/08/22 05:32 History of Present Illness HPI Narrative: This is a 41-year-old female with past medical history of asthma and hypertension, presenting the emergency department complaining of rash on the old right foreleg. She states this progressed quickly over the past 2 days is not significantly tender though becomes purple with standing. She notes for the prior 2 days she had intermittent malaise but attributes this to a viral URI. She has no other complaints today. Related Data Home Medications Medication Instructions Recorded Confirmed albuterol sulfate 2.5 mg/3 mL 2.5 mg continuous nebulization 12/05/19 05/05/22 (0.083 %) solution for nebulization Q4-6H PRN Shortness Of Breath Or Wheezing albuterol sulfate 90 mcg/actuation 2 puff inhalation Q4-6H PRN 12/05/19 05/05/22 aerosol inhaler (Ventolin HFA) Shortness Of Breath Or Wheezing trazodone 50 mg tablet 50 mg PO HS PRN Insomnia 12/05/19 05/05/22 Allergies Allergy/AdvReac Type Severity Reaction Status Date / Time nitrofurantoin Allergy Severe Anaphylactic Verified 05/05/22 08:29 [From Macrobid] Shock amoxicillin Allergy Unknown Rash Verified 05/05/22 08:29 Cephalosporins Allergy Unknown HIVES Verified 05/05/22 08:29 Penicillins Allergy Unknown Rash Verified 05/05/22 08:29 talc Allergy Unknown ERYTHEMA Verified 05/05/22 08:29 adhesive AdvReac Mild Itching, Verified 05/05/22 08:29 RASH CATS Allergy Mild Dyspnea / Uncoded 05/05/22 08:29 SOB Cultivated Oat Pollen Allergy Mild Dyspnea / Uncoded 05/05/22 08:29 SOB DOGS Allergy Mild Dyspnea / Uncoded 05/05/22 08:29 SOB Dust Allergy Mild SNEEZING Uncoded 05/05/22 08:29 Review of Systems Review of Systems: CONSTITUTIONAL: Denies fever, chills, or sweats. EYES: Denies visual changes, redness, or discharge. ENT: Denies rhinorrhea, congestion, sore throat, or otalgia. CARDIOVASCULAR: Denies chest pain, palpitations, or edema. RESPIRATORY: Denies cough or dyspnea. GASTROINTESTINAL: Denies abdominal pain, nausea, vomiting, or diarrhea. GENITOURINARY: Denies dysuria or hematuria. SKIN: Erythema and warmth of the right distal foreleg denies itching. MUSCULOSKELETAL: Denies back pain, joint pain, or myalgia. NEUROLOGIC: Denies headache, numbness, dizziness, or weakness. PSYCHIATRIC: Denies anxiety or depression. [facility] Past Medical History Medical History (Updated 07/09/22 @ 00:01 by Cuca Hart) Asthma Congestive heart failure COPD (chronic obstructive pulmonary disease) Depression KAVYA on CPAP Pneumonia Sleep apnea Surgical History Surgical History (Updated 05/05/22 @ 08:41 by Jenny Poole PA-C) H/O wrist surgery History of endometrial ablation History of hysterectomy (03/21/22) No oophorectomy History of tubal ligation Family History Family History Mother Family history of chronic obstructive pulmonary disease Family history of malignant neoplasm of ovary Social History Social History (Updated 05/05/22 @ 08:32 by Tracie Cordon MA) Smoking packs per day: 1 Smoking cigarettes per day: 20.0 Years smoked: 18 Smoking pack-years: 18.00 Smoking status: Former smoker Tobacco type: cigarettes Second hand tobacco smoke exposure: No Smoking end date: 09/28/20 Alcohol intake: current Alcohol use details: very rarely Substance use: never Substance use type: does not use Gender identity (if verbalized by the patient): Female Spiritual care concerns: No Agree to blood products: Yes Course Course Emergency Course: 05:51 - Will give a dose of Clindamycin and observe in the emergency department considering the patient's several and severe medication reactions. 06:56 - Patient tolerated p.o. clindamycin. Will discharge with the same. Discuss
[2022-07-08 07:02] VITALS: O2SAT 100
== END 2022-07-08 07:10 | disposition home or self-care (01) ==
PROVIDERS: Emergency Provider Preventive Medicine Aerospace Medicine; PCP Family Medicine Adolescent Medicine
DX: L03.115 Cellulitis of right lower limb (principal); I11.0 Hypertensive heart disease with heart failure; I50.9 Heart failure, unspecified; J44.9 Chronic obstructive pulmonary disease, unspecified; G47.33 Obstructive sleep apnea (adult) (pediatric); Z87.01 Personal history of pneumonia (recurrent); Z87.891 Personal history of nicotine dependence
CPT/HCPCS: 99283; A9270

== ENCOUNTER 2022-07-16 10:13 | Emergency (ER) | payer BC, SELFPAY ==
[2022-07-16 10:24] VITALS: BP 151/84; PULSE 85; RESP 16; TEMP 36.6; O2SAT 100
--- NOTE | 2022-07-16 10:31 | ED.EAR ---
HPI - Ear Problem General Chief complaint: Ear Stated complaint: lt ear pain and clogged Time Seen by Provider: 07/16/22 10:32 Source: patient Mode of arrival: ambulatory Limitations: no limitations History of Present Illness HPI Narrative: 41 y/o female presented for c/o left ear pain radiating to throat x4 days, worse this morning. States the left ear feels clogged and 'it feels like I need tubes.' Aso reports swellingn in front of ear. She follows with ENT for KAVYA and 'ear issues.' She is scheduled with ENT 08/14, and with pcp in 6 days. She is completing a course of clindamycin for cellulitis. Denies tinnitus, dizziness, n/v/f/c. Taking Tylenol and Sudafed. Daily smoker. MD Complaint: ear pain Related Data Home Medications Medication Instructions Recorded Confirmed albuterol sulfate 2.5 mg/3 mL 2.5 mg continuous nebulization 12/05/19 07/16/22 (0.083 %) solution for nebulization Q4-6H PRN Shortness Of Breath Or Wheezing albuterol sulfate 90 mcg/actuation 2 puff inhalation Q4-6H PRN 12/05/19 07/16/22 aerosol inhaler (Ventolin HFA) Shortness Of Breath Or Wheezing Allergies Allergy/AdvReac Type Severity Reaction Status Date / Time nitrofurantoin Allergy Severe Anaphylactic Verified 07/16/22 10:29 [From Macrobid] Shock amoxicillin Allergy Unknown Rash Verified 07/16/22 10:29 Cephalosporins Allergy Unknown HIVES Verified 07/16/22 10:29 Penicillins Allergy Unknown Rash Verified 07/16/22 10:29 talc Allergy Unknown ERYTHEMA Verified 07/16/22 10:29 adhesive AdvReac Mild Itching, Verified 07/16/22 10:29 RASH CATS Allergy Mild Dyspnea / Uncoded 05/05/22 08:29 SOB Cultivated Oat Pollen Allergy Mild Dyspnea / Uncoded 05/05/22 08:29 SOB DOGS Allergy Mild Dyspnea / Uncoded 05/05/22 08:29 SOB Dust Allergy Mild SNEEZING Uncoded 05/05/22 08:29 Review of Systems Review of Systems: CONSTITUTIONAL: Denies malaise, chills, or fever. EYES: Denies visual changes, redness, or discharge. ENT: Denies rhinorrhea, congestion, sinus pain, and sore throat. Reports ear pain CARDIOVASCULAR: Denies chest pain, palpitations, or edema. RESPIRATORY: Denies cough or dyspnea. GASTROINTESTINAL: Denies abdominal pain, nausea, vomiting, diarrhea SKIN: Denies rash or itching. MUSCULOSKELETAL: Denies myalgia. NEUROLOGIC: Denies headache. All systems reviewed & are unremarkable except as noted in HPI and below PMFSH Past Medical History Medical History Asthma Congestive heart failure COPD (chronic obstructive pulmonary disease) Depression KAVYA on CPAP Pneumonia Sleep apnea Surgical History Surgical History H/O wrist surgery History of endometrial ablation History of hysterectomy (03/21/22) No oophorectomy History of tubal ligation Hx of section (~2007) Family History Family History Mother Family history of chronic obstructive pulmonary disease Family history of malignant neoplasm of ovary Grandparent Liver cancer Social History Social History Smoking packs per day: 1 Smoking cigarettes per day: 20.0 Years smoked: 18 Smoking pack-years: 18.00 Smoking status: Former smoker Tobacco type: cigarettes Second hand tobacco smoke exposure: No Smoking end date: 09/28/20 Alcohol intake: current Alcohol use details: very rarely Substance use: never Substance use type: does not use Gender identity (if verbalized by the patient): Female Spiritual care concerns: No Agree to blood products: Yes Comments At time of signature, agree with nursing past medical, surgical, social and family history. There is no relevant family history pertinent to the presenting complaint Exam Narrative: GENERAL: Well-appearing EYES: PERRLA, conjunctivae clear ENT: Nares clear
== END 2022-07-16 10:55 | disposition home or self-care (01) ==
PROVIDERS: Emergency Provider Nurse Practitioner Family; PCP Family Medicine Adolescent Medicine
DX: H65.02 Acute serous otitis media, left ear (principal); I11.0 Hypertensive heart disease with heart failure; Z87.891 Personal history of nicotine dependence; I50.9 Heart failure, unspecified; J44.9 Chronic obstructive pulmonary disease, unspecified; G47.33 Obstructive sleep apnea (adult) (pediatric); F32.A Depression, unspecified
CPT/HCPCS: 99213; G0463

== ENCOUNTER 2022-08-26 05:39 | Emergency (ER) | payer BC, SELFPAY ==
--- NOTE | ~2022-08-26 | CT_ITS ---
EXAMINATION: CT abdomen pelvis w con DATE: 08/26/2022 07:25 INDICATION: Left lower quadrant abdominal pain. Nausea and vomiting. Constipation. TECHNIQUE: Computed tomography (CT) of the abdomen and pelvis was performed with 100 mL Omnipaque 350 intravenous contrast. Automated exposure control and iterative reconstruction technique were employe d. The dose-length product was 1586.87 mGy-cm. COMPARISON: CT abdomen and pelvis 01/24/2021 FINDINGS: The visualized portions of the lung bases demonstrate mild atelectasis. No pleural effusion . The heart size is normal. No pericardial effusion. The liver, gallbladder, spleen, pancreas, and ad renal glands are normal. There is cortical thinning of the kidneys. There are no dilated loops of bow el. The appendix is normal. There are no pathologically enlarged lymph nodes. There is no free intrap eritoneal fluid. There is a supraumbilical ventral hernia containing fat. There is an umbilical herni a containing fat. There is moderate lower lumbar spondylosis. IMPRESSION: 1. Supraumbilical and umbilical ventral hernias containing fat. Reviewed, dictated and finalized at location A. [employer]
[2022-08-26 05:45] VITALS: PULSE 109; RESP 20; TEMP 36.8
[2022-08-26 05:57] VITALS: BP 149/127
[2022-08-26] MEDS: PROCHLORPERAZINE EDISYLATE 10 MG/2 ML VIAL IV PUSH (06:38)
[2022-08-26] MEDS: SODIUM CHLORIDE 0.9% IV 1,000 ML 999 ML IV CONT (06:38)
[2022-08-26] MEDS: MORPHINE SULFATE (*CRX) 4 MG/ML INJ IV PUSH (06:38)
[2022-08-26 06:54] LABS: Basophils Absolute Auto 0.1 K/mm3 (0.0-0.1); Basophils Percent Auto 0.7 % (0.2-1.2); Eosinophils Absolute Auto 0.3 K/mm3 (0-0.3); Eosinophils Percent Auto 2.2 % (0-4.4); Hematocrit 41.1 % (37.0-47.0); Hemoglobin 13.1 g/dL (12.0-15.0); Immature Granulocyte Absolute 0.04 K/mm3 (0.00-0.031); Immature Granulocyte Percent A 0.4 % (0-0.5); Lymphocytes Absolute Auto 3.02 K/mm3 (0.9-3.2); Lymphocytes Percent Auto 27.1 % (18.3-44.2); Mean Corpuscular HGB Conc 31.9 g/dl (32-36); Mean Corpuscular Volume 87.8 fl (80-100); Mean Platelet Volume 9.2 fl (7.4-10.4); Monocytes Absolute Auto 0.7 K/mm3 (0.1-0.6); Neutrophils Absolute Auto 7.1 K/mm3 (1.3-6.7); Neutrophils Percent Auto 63.6 % (45.5-73.1); Platelet Count Result 320 k/mm3 (150-375); Red Blood Count 4.68 M/mm3 (4.2-5.4); Red Cell Distribution Width 14.6 % (11.5-14.5); White Blood Count 11.2 K/mm3 (4.5-10.0)
[2022-08-26 07:03] LABS: Alanine Aminotransferase 21 U/L (6-35); Albumin Level 4.4 g/dL (3.5-5.1); Alkaline Phosphatase 93 U/L (38-126); Anion Gap 13 mmol/L (8-16); Aspartate Amino Transferase 25 U/L (14-36); Bilirubin,Total 0.4 mg/dL (0.2-1.3); Blood Urea Nitrogen 13 mg/dL (7-17); Calcium 9.3 mg/dL (8.4-10.2); Carbon Dioxide 29 mmol/L (22-30); Chloride 98 mmol/L (98-107); Estimated CRCL calculation 96 ml/min; Estimated Glomerular Filt Rate > 60; Glucose 97 mg/dL (65-110); Lipase 51 U/L (23-300); Potassium 3.9 mmol/L (3.4-5.0); Sodium 140 mmol/L (137-145)
[2022-08-26 07:08] VITALS: TEMP 36.8
[2022-08-26 07:17] LABS: Appearance Urine Clear (Clear); Bilirubin Urine Negative (Negative); Blood Urine Trace-lysed (Negative); Color Urine Yellow (Yellow); Glucose Urine UA Negative (Negative); Ketones Urine Negative (Negative); Leukocyte Esterase Ur Negative LEU/UL (Negative); Nitrate Urine Negative (Negative); Protein Urine 1+ mg/dL (Negative); Specific Grav Ur >= 1.030 (1.001-1.035); Urobilinogen Urine 0.2 mg/dL (<2.0)
[2022-08-26 07:25] LABS: Bacteria Urine Trace /hpf; Mucus Urine Rare /lpf; Squamous Epithelial Cell Urine Many /hpf (Few)
[2022-08-26 07:25] LABS: Basophils Absolute Auto 0.1 K/mm3 (0.0-0.1); Basophils Percent Auto 0.6 % (0.2-1.2); Eosinophils Absolute Auto 0.2 K/mm3 (0-0.3); Eosinophils Percent Auto 2.3 % (0-4.4); Hematocrit 37.7 % (37.0-47.0); Hemoglobin 12.2 g/dL (12.0-15.0); Immature Granulocyte Absolute 0.04 K/mm3 (0.00-0.031); Immature Granulocyte Percent A 0.4 % (0-0.5); Lymphocytes Absolute Auto 2.47 K/mm3 (0.9-3.2); Lymphocytes Percent Auto 23.9 % (18.3-44.2); Mean Corpuscular HGB Conc 32.4 g/dl (32-36); Mean Corpuscular Hemoglobin 28.4 pg (26-34); Mean Corpuscular Volume 87.7 fl (80-100); Mean Platelet Volume 9.1 fl (7.4-10.4); Monocytes Absolute Auto 0.7 K/mm3 (0.1-0.6); Monocytes Percent Auto 6.7 % (2.6-8.5); Neutrophils Absolute Auto 6.8 K/mm3 (1.3-6.7); Neutrophils Percent Auto 66.1 % (45.5-73.1); Platelet Count Result 279 k/mm3 (150-375); Red Cell Distribution Width 14.6 % (11.5-14.5); White Blood Count 10.3 K/mm3 (4.5-10.0)
[2022-08-26 07:35] LABS: Alanine Aminotransferase 22 U/L (6-35); Albumin Level 4.1 g/dL (3.5-5.1); Alkaline Phosphatase 92 U/L (38-126); Anion Gap 9 mmol/L (8-16); Aspartate Amino Transferase 20 U/L (14-36); Bilirubin,Total 0.4 mg/dL (0.2-1.3); Blood Urea Nitrogen 13 mg/dL (7-17); Calcium 8.9 mg/dL (8.4-10.2); Carbon Dioxide 25 mmol/L (22-30); Chloride 102 mmol/L (98-107); Estimated CRCL calculation 96 ml/min; Estimated Glomerular Filt Rate > 60; Glucose 104 mg/dL (65-110); Lipase 123 U/L (23-300); Sodium 136 mmol/L (137-145)
[2022-08-26 07:36] LABS: Lactic Acid Reflex 1.9 mmol/L (0.7-2.0)
[2022-08-26 07:44] LABS: Add Urine Microscopic? YES
--- NOTE | 2022-08-26 08:34 | ED.ABDPAIN ---
HPI - Abdominal Pain General Chief Complaint: Abdominal Pain Stated Complaint: abd pain/nausea Time Seen by Provider: 08/26/22 06:01 History of Present Illness HPI narrative: This is a 41-year-old female with past medical history of depression, hypertension who presents to the emergency department complaining of abdominal pain. She describes the pain as sharp, epigastric, not radiating, moderate, and present for the past 2 weeks. She states she had a positive test concerning for UTI was started on ciprofloxacin without improvement of her pain. She also complains of mild nausea without significant vomiting. She denies bleeding of any kind. Related Data Home Medications Medication Instructions Recorded Confirmed albuterol sulfate 2.5 mg/3 mL 2.5 mg continuous nebulization 12/05/19 08/20/22 (0.083 %) solution for nebulization Q4-6H PRN Shortness Of Breath Or Wheezing albuterol sulfate 90 mcg/actuation 2 puff inhalation Q4-6H PRN 12/05/19 08/20/22 aerosol inhaler (Ventolin HFA) Shortness Of Breath Or Wheezing Allergies Allergy/AdvReac Type Severity Reaction Status Date / Time nitrofurantoin Allergy Severe Anaphylactic Verified 08/26/22 05:55 [From Macrobid] Shock amoxicillin Allergy Unknown Rash Verified 08/26/22 05:55 Cephalosporins Allergy Unknown HIVES Verified 08/26/22 05:55 Penicillins Allergy Unknown Rash Verified 08/26/22 05:55 talc Allergy Unknown ERYTHEMA Verified 08/26/22 05:55 adhesive AdvReac Mild Itching, Verified 08/26/22 05:55 RASH CATS Allergy Mild Dyspnea / Uncoded 08/26/22 05:55 SOB Cultivated Oat Pollen Allergy Mild Dyspnea / Uncoded 08/26/22 05:55 SOB DOGS Allergy Mild Dyspnea / Uncoded 08/26/22 05:55 SOB Dust Allergy Mild SNEEZING Uncoded 08/26/22 05:55 Review of Systems Review of Systems: CONSTITUTIONAL: Denies fever, chills, or sweats. EYES: Denies visual changes, redness, or discharge. ENT: Denies rhinorrhea, congestion, sore throat, or otalgia. CARDIOVASCULAR: Denies chest pain, palpitations, or edema. RESPIRATORY: Denies cough or dyspnea. GASTROINTESTINAL: Abdominal pain, nausea, vomiting denies diarrhea. GENITOURINARY: Denies dysuria or hematuria. SKIN: Denies rash or itching. MUSCULOSKELETAL: Denies back pain, joint pain, or myalgia. NEUROLOGIC: Denies headache, numbness, dizziness, or weakness. PSYCHIATRIC: Denies anxiety or depression. PMFSH Past Medical History Medical History Asthma Congestive heart failure COPD (chronic obstructive pulmonary disease) Depression KAVYA on CPAP Pneumonia Sleep apnea Surgical History Surgical History H/O wrist surgery History of endometrial ablation History of hysterectomy (03/21/22) No oophorectomy History of tubal ligation Hx of section (~2007) Family History Family History Mother Family history of chronic obstructive pulmonary disease Family history of malignant neoplasm of ovary Grandparent Liver cancer Social History Social History Smoking packs per day: 1 Smoking cigarettes per day: 20.0 Years smoked: 18 Smoking pack-years: 18.00 Smoking status: Former smoker Tobacco type: cigarettes Second hand tobacco smoke exposure: No Smoking end date: 09/28/20 Alcohol intake: current Alcohol use details: very rarely Substance use: never Substance use type: does not use Gender identity (if verbalized by the patient): Female Spiritual care concerns: No Agree to blood products: Yes Exam Narrative: GENERAL: Well-developed, well-nourished, appears uncomfortable HEAD: Normocephalic, atraumatic. EYES: PERRLA and EOMI. ENT: Nares clear, no rhinorrhea or epistaxis. Mucous membranes moist. Oropharynx without tonsillar hypertrophy exudate or other lesions.
[2022-08-26] MEDS: ONDANSETRON INJ 4 MG/2 ML VIAL IV PUSH (08:57)
[2022-08-26] MEDS: KETOROLAC 30 MG/ML VIAL (*BKC) IV PUSH (08:58)
[2022-08-26 09:28] VITALS: TEMP 36.8
[2022-08-26 11:04] VITALS: RESP 16
== END 2022-08-26 11:05 | disposition home or self-care (01) ==
PROVIDERS: Emergency Provider Preventive Medicine Aerospace Medicine; PCP Family Medicine Adolescent Medicine
DX: N39.0 Urinary tract infection, site not specified (principal); R10.13 Epigastric pain; I50.9 Heart failure, unspecified; I11.0 Hypertensive heart disease with heart failure; J44.9 Chronic obstructive pulmonary disease, unspecified; G47.33 Obstructive sleep apnea (adult) (pediatric); Z87.01 Personal history of pneumonia (recurrent); Z90.710 Acquired absence of both cervix and uterus; Z87.891 Personal history of nicotine dependence; K42.9 Umbilical hernia without obstruction or gangrene
CPT/HCPCS: 36415; 74177; 80053; 81001; 83605; 83690; 85025; 87086; 96361; 96374; 96375; 99284; J0780; J1885; J2270; J2405; J7030; Q9967

== ENCOUNTER → 2023-03-06 09:01 | Outpatient (CLI) | payer BC, SELFPAY ==
--- NOTE | ~2023-03-06 | CT_ITS ---
EXAMINATION: CT sinus wo con DATE: 03/06/2023 09:23 INDICATION: Congestion, drainage. Recent left ear infection. Chronic maxillary sinusitis. TECHNIQUE: Computed tomography (CT) of the paranasal sinuses was performed without contrast. Iterativ e reconstruction technique was employed. Exam dose: 264.08 mGy-cm total exam DLP. COMPARISON: 05/11/2019 CT sinuses FINDINGS: There is leftward deviation of the nasal septum. Posteriorly the septum deviates slightly t o the right. There is soft tissue prominence of the nasal turbinates bilaterally, left greater than right. There is focal mild soft tissue thickening at the left maxillary ostium and infundibulum, with mild n arrowing of the structures as result. There is slight mucoperiosteal thickening of the right infundibulum. The paranasal sinuses and mastoid air cells are normally developed and aerated. IMPRESSION: Leftward deviation of nasal septum; the septum is slightly rightward deviated posteriorl y Soft tissue prominence of the nasal turbinates, left greater than right Focal soft tissue thickening at the left maxillary ostium and left infundibulum is some narrowing of the structures Slight mucoperiosteal thickening of the right infundibulum Patent paranasal sinuses and mastoid air cells Reviewed, dictated and finalized at Location A. Reviewed, dictated and finalized at location [] IMPRESSION: Leftward deviation of nasal septum; the septum is slightly rightwa rd deviated posteriorly Soft tissue prominence of the nasal turbinates, left greater than right Focal soft tissue thickening at the left maxillary ostium and left infundibulum is some narrowing of the structures Slight mucoperiosteal thickening of the right infundibulum Patent paranasal sinuses and mastoid air cells
== END ==
PROVIDERS: PCP Otolaryngology; Visit Provider Otolaryngology
DX: J32.0 Chronic maxillary sinusitis (principal); J34.2 Deviated nasal septum
CPT/HCPCS: 70486

== ENCOUNTER 2023-05-08 10:24 | Emergency (ER) | payer BC, SELFPAY ==
--- NOTE | ~2023-05-08 | XR_ITS ---
EXAMINATION: XR sacrum coccyx min 2V DATE: 05/08/2023 11:12 INDICATION: Sacrococcygeal pain. Fall. TECHNIQUE: 3 views of the sacrum and coccyx were obtained. COMPARISON: None. FINDINGS: Bone alignment is normal. No fracture. There is moderate lumbar spondylosis. There is mild osteoarthritis of right sacroiliac joint. IMPRESSION: 1. No fracture. Reviewed, dictated and finalized at location A. IMPRESSION: 1. No fracture.
[2023-05-08 10:38] VITALS: BP 125/77; PULSE 81; RESP 24; TEMP 36.8; O2SAT 97
--- NOTE | 2023-05-08 10:51 | ED.GENADULT ---
HPI - General Adult General Chief complaint: Extremity Injury, Lower Stated complaint: Coccyx Pain Due To Fall Time Seen by Provider: 05/08/23 10:51 Source: patient, RN notes reviewed and old records reviewed Mode of arrival: ambulatory Limitations: no limitations History of Present Illness HPI narrative: 42-year-old presents to the [facility] with complaints of coccyx pain. Patient states that 10 days ago she got out of a pool, did not dry off, went to the bathroom slipped and fell directly onto her buttock. Has taken ibuprofen. No bruising or swelling noted on exam. Tenderness to the coccyx Denies hitting head. Denies loss of consciousness. Denies abdominal pain. No loss retention of bowel or bladder. No saddle anesthesia. Walks with a normal gait Related Data Allergies Allergy/AdvReac Type Severity Reaction Status Date / Time nitrofurantoin Allergy Severe Anaphylactic Verified 05/08/23 10:28 [From Macrobid] Shock adhesive AdvReac Mild Itching, Verified 05/08/23 10:28 RASH amoxicillin AdvReac Mild Rash Verified 05/08/23 10:28 Cephalosporins AdvReac Mild HIVES Verified 05/08/23 10:28 Penicillins AdvReac Mild Rash Verified 05/08/23 10:28 talc AdvReac Mild ERYTHEMA Verified 05/08/23 10:28 CATS Allergy Mild Dyspnea / Uncoded 05/08/23 10:28 SOB Cultivated Oat Pollen Allergy Mild Dyspnea / Uncoded 05/08/23 10:28 SOB DOGS Allergy Mild Dyspnea / Uncoded 05/08/23 10:28 SOB Dust AdvReac Mild SNEEZING Uncoded 05/08/23 10:28 Review of Systems Review of Systems: All systems reviewed & are unremarkable except as noted in HPI and below Constitutional: Constitutional: Reports no additional constitutional complaints Eyes: Eyes: Reports no additional eye complaints ENT: Reports system reviewed and no additional complaints, except as documented Cardiovascular: Cardiovascular: Reports no additional cardiovascular complaints, Denies chest pain and Denies dyspnea Respiratory: Respiratory: Reports no additional respiratory complaints, Denies chest congestion, Denies cough and Denies dyspnea Gastrointestinal: Gastrointestinal: Reports no additional gastrointestinal complaints, Denies abdominal pain, Denies nausea and Denies vomiting Musculoskeletal: Musculoskeletal: Reports as per HPI Integumentary/Breasts: Skin/Breast: Reports system reviewed and no additional complaints, except as docu Neurologic: Reports system reviewed and no additional complaints, except as documented Psychiatric: Psychiatric: Reports no additional psychiatric complaints Allergic/Immunologic: Allergic/Immunologic: Reports no additional allergic/immunologic complaints [facility] Past Medical History Medical History Asthma Congestive heart failure COPD (chronic obstructive pulmonary disease) Depression KAVYA on CPAP Pneumonia Sleep apnea Surgical History Surgical History H/O wrist surgery History of endometrial ablation History of hysterectomy (03/21/22) No oophorectomy History of tubal ligation Hx of section (~2007) Family History Family History Mother Family history of chronic obstructive pulmonary disease Family history of malignant neoplasm of ovary Grandparent Liver cancer Social History Social History Smoking packs per day: 1 Smoking cigarettes per day: 20.0 Years smoked: 18 Smoking pack-years: 18.00 Smoking status: Former smoker Tobacco type: cigarettes Second hand tobacco smoke exposure: No Smoking end date: 09/28/20 Alcohol intake: current Alcohol use details: very rarely Substance use: never Substance use type: does not use Living arrangements: with family Occupation/Education: occupation Gender identity (if verbalized by the patient): Female Spiritual care conc
== END 2023-05-08 11:33 | disposition home or self-care (01) ==
PROVIDERS: Emergency Provider Nurse Practitioner; PCP Family Medicine Adolescent Medicine
DX: S30.0XXA Contusion of lower back and pelvis, initial encounter (principal); W01.0XXA Fall on same level from slipping, tripping and stumbling without subsequent striking against object, initial encounter; Y93.11 Activity, swimming; J44.9 Chronic obstructive pulmonary disease, unspecified; I50.9 Heart failure, unspecified; F32.A Depression, unspecified; G47.33 Obstructive sleep apnea (adult) (pediatric)
CPT/HCPCS: 72220; 99213; G0463

== ENCOUNTER 2023-06-25 08:27 | Emergency (ER) | payer BC, SELFPAY ==
[2023-06-25] VITALS (13 sets, daily range): BP systolic 133–156; BP diastolic 64–95; PULSE 72–85; RESP 15–21; TEMP 36.7; O2SAT 94–100
--- NOTE | ~2023-06-25 | XR_ITS ---
XR chest 2V 06/25/2023 09:15 Indication: Shortness of breath, cough and chest burning sensation Procedure: 2 view chest Comparison: Comparison to multiple prior studies sequentially, with oldest reviewed study dated 04/07. Findings: Cardiomegaly. Right basilar airspace disease. No pleural effusion or pneumothorax. No acute osseous abnormality. Impression: 1: Right basilar airspace disease may represent atelectasis or pneumonia. Reviewed, dictated and finalized at location L. Impression: 1: Right basilar airspace disease may represent atelectasis or pneumonia.
--- NOTE | 2023-06-25 08:30 | ECG_ITS ---
Measurements Intervals [place] Rate: 84 P: 57 IA: 159 QRS: 75 QRSD: 94 T: 30 QT: 372 QTc: 442 Interpretive Statements SINUS RHYTHM ATRIAL PREMATURE COMPLEX INCOMPLETE RIGHT BUNDLE BRANCH BLOCK DELAYED PRECORDIAL R/S TRANSITION BORDERLINE ECG COMPARED TO ECG 06/27/2021 18:30:00 SINUS RHYTHM NOW PRESENT Electronically Signed On 06-25-2023 8:37:35 CDT by You Goel D.O.
--- NOTE | 2023-06-25 08:37 | ED.SOB ---
HPI - SOB/Dyspnea General Chief Complaint: Shortness of Breath/Dyspnea Stated Complaint: SHORT OF BREATH Time Seen by Provider: 06/25/23 08:37 History of Present Illness HPI Narrative: Patient is a 42-year-old female who presents ER with multitude of complaints. Her main issues began yesterday. She is having sinus congestion with sore throat and productive cough. She has exertional dyspnea with subjective fevers and chills. No known sick contacts. She also has burning in the center part of her chest that began yesterday as well. No history of CT. Denies alleviating factors. Related Data Home Medications Medication Instructions Recorded Confirmed estradiol 2 mg tablet 2 mg PO DAILY 05/12/23 05/12/23 quetiapine 100 mg tablet (Seroquel) 100 mg PO ONCE 05/12/23 05/12/23 testosterone 12.5 mg/1.25 gram per 1 pump transdermal DAILY 05/12/23 05/12/23 pump actuation (1%) transdermal gel Allergies Allergy/AdvReac Type Severity Reaction Status Date / Time nitrofurantoin Allergy Severe Anaphylactic Verified 06/25/23 08:49 [From Macrobid] Shock adhesive AdvReac Mild Itching, Verified 06/25/23 08:49 RASH amoxicillin AdvReac Mild Rash Verified 06/25/23 08:49 Cephalosporins AdvReac Mild HIVES Verified 06/25/23 08:49 Penicillins AdvReac Mild Rash Verified 06/25/23 08:49 talc AdvReac Mild ERYTHEMA Verified 06/25/23 08:49 CATS Allergy Mild Dyspnea / Uncoded 06/25/23 08:49 SOB Cultivated Oat Pollen Allergy Mild Dyspnea / Uncoded 06/25/23 08:49 SOB DOGS Allergy Mild Dyspnea / Uncoded 06/25/23 08:49 SOB Dust AdvReac Mild SNEEZING Uncoded 06/25/23 08:49 Review of Systems Review of Systems: All systems reviewed & are unremarkable except as noted in HPI and below Constitutional: Constitutional: Reports chills, Reports fatigue and Reports fever(s) ENT: Reports nasal congestion and Reports sore throat Cardiovascular: Cardiovascular: Reports chest pain, Denies rapid heart rate and Denies radiating jaw, neck or arm pain Respiratory: Respiratory: Reports chest congestion, Reports cough, Reports dyspnea and Denies wheezing Gastrointestinal: Gastrointestinal: Reports no additional gastrointestinal complaints Genitourinary: Genitourinary: Reports no additional female genitourinary complaints [facility] Past Medical History Medical History Asthma Congestive heart failure COPD (chronic obstructive pulmonary disease) Depression KAVYA on CPAP Pneumonia Sleep apnea Surgical History Surgical History H/O wrist surgery History of endometrial ablation History of hysterectomy (03/21/22) No oophorectomy History of tubal ligation Hx of section (~2007) Family History Family History Mother Family history of chronic obstructive pulmonary disease Family history of malignant neoplasm of ovary Grandparent Liver cancer Social History Social History (Updated 05/12/23 @ 15:21 by Kaila Garcia [facility]) Smoking packs per day: 1 Smoking cigarettes per day: 20.0 Years smoked: 18 Smoking pack-years: 18.00 Smoking status: Former smoker Tobacco type: cigarettes Second hand tobacco smoke exposure: No Smoking end date: 09/28/20 Alcohol intake: current Alcohol use details: very rarely Substance use: never Substance use type: does not use Lack of Transportation: No Lack of Food: Never True Current Housing: I Have Housing Concerned About Future Housing: No Difficulty Paying Gas/Electric Bills: No Difficulty Paying for Meds: No Currently Unemployed: No Education: High School Diploma/GED Difficulty w/ Childcare or Family Care: No Living arrangements: with family Occupation/Education: occupation Gender identity (if verbalized by the patient): Female Spiritual care concerns: No Agree to blood products: Yes
[2023-06-25 08:51] LABS: Basophils Percent Auto 0.3 % (0.2-1.2); Eosinophils Absolute Auto 0.2 K/mm3 (0-0.3); Eosinophils Percent Auto 1.6 % (0-4.4); Hematocrit 36.7 % (37.0-47.0); Hemoglobin 12.1 g/dL (12.0-15.0); Immature Granulocyte Absolute 0.03 K/mm3 (0.00-0.031); Immature Granulocyte Percent A 0.2 % (0-0.5); Lymphocytes Absolute Auto 2.05 K/mm3 (0.9-3.2); Lymphocytes Percent Auto 16.9 % (18.3-44.2); Mean Corpuscular Hemoglobin 28.7 pg (26-34); Mean Corpuscular Volume 87.2 fl (80-100); Mean Platelet Volume 9.4 fl (7.4-10.4); Monocytes Absolute Auto 0.6 K/mm3 (0.1-0.6); Monocytes Percent Auto 4.7 % (2.6-8.5); Neutrophils Absolute Auto 9.2 K/mm3 (1.3-6.7); Neutrophils Percent Auto 76.3 % (45.5-73.1); Platelet Count Result 203 k/mm3 (150-375); Red Blood Count 4.21 M/mm3 (4.2-5.4); Red Cell Distribution Width 13.6 % (11.5-14.5); White Blood Count 12.1 K/mm3 (4.5-10.0)
[2023-06-25 09:01] LABS: Alanine Aminotransferase 23 U/L (6-35); Albumin Level 4.1 g/dL (3.5-5.1); Alkaline Phosphatase 77 U/L (38-126); Anion Gap 7 mmol/L (8-16); Aspartate Amino Transferase 26 U/L (14-36); Bilirubin,Total 0.5 mg/dL (0.2-1.3); Blood Urea Nitrogen 10 mg/dL (7-17); Calcium 8.6 mg/dL (8.4-10.2); Carbon Dioxide 26 mmol/L (22-30); Chloride 104 mmol/L (98-107); Estimated CRCL calculation 125 ml/min; Estimated Glomerular Filt Rate > 60; Glucose 87 mg/dL (65-110); Lipase 53 U/L (23-300); Potassium 3.9 mmol/L (3.4-5.0); Sodium 137 mmol/L (137-145)
[2023-06-25 09:05] LABS: INR 0.9; Prothrombin Time 12.7 Seconds (11.1-14.7)
[2023-06-25 09:06] LABS: Partial Thromboplastin Time 28.5 SECONDS (22.3-36.8)
[2023-06-25 09:12] LABS: NT Pro B Type Natriuretic Pept 105 pg/mL (19.9-100); Troponin I < 0.012 ng/mL (0.000-0.034)
[2023-06-25 09:26] LABS: SARS-CoV-2 RNA PCR Negative (Negative)
== END 2023-06-25 10:26 | disposition home or self-care (01) ==
PROVIDERS: Emergency Provider Emergency Medicine; PCP Family Medicine Adolescent Medicine
DX: J18.9 Pneumonia, unspecified organism (principal); Z20.822 Contact with and (suspected) exposure to COVID-19; I50.9 Heart failure, unspecified; J44.9 Chronic obstructive pulmonary disease, unspecified; G47.33 Obstructive sleep apnea (adult) (pediatric); F32.A Depression, unspecified; Z87.01 Personal history of pneumonia (recurrent); Z87.891 Personal history of nicotine dependence; Z90.710 Acquired absence of both cervix and uterus; I49.1 Atrial premature depolarization; I45.10 Unspecified right bundle-branch block
CPT/HCPCS: 36415; 71046; 80053; 83690; 83880; 84484; 85025; 85610; 85730; 87635; 93005; 99284

== ENCOUNTER 2023-09-05 07:34 | Outpatient (CLI) | payer BC, SELFPAY ==
--- NOTE | ~2023-09-05 | MR_ITS ---
MRI of the lumbar spine Clinical History: Back pain Technique: Axial T2-weighted images, and sagittal T1-weighted, T2-weighted, and and T2 fat-sat images were acquired. COMPARISON: 05/12/2009 Findings: There is no fracture or subluxation of the lumbar spine. Vertebral bodies maintain normal h eight and alignment. Mild diffuse T1 hypointensity suggests underlying red marrow conversion/anemia. At L1-L2, there is no disc bulge or herniation. There is mild facet arthropathy. No central canal kameron nosis or neural foraminal narrowing. At L2-L3, there is no disc bulge or herniation. There is mild facet arthropathy. No central canal kameron nosis or neural foraminal narrowing. L3-L4, there is no disc bulge or herniation. There is mild facet arthropathy. No central canal stenos is or neural foraminal narrowing. At L4-L5, there is degenerative disc narrowing, mild, with minimal disc bulge. There is moderate face t arthropathy. No central canal stenosis or neural foraminal narrowing. L5-S1, there is minimal disc bulge and mild facet arthropathy. No central canal stenosis or neural fo raminal narrowing. Paravertebral soft tissues are unremarkable. Impression: Minimal degenerative spondylosis. Diffuse red marrow conversion, suggestive of underlying anemia. Reviewed, dictated and finalized at location . MACY CARE COORDINATOR Impression: Minimal degenerative spondylosis. Diffuse red marrow conversion, suggestive of underlying anemia.
== END 2023-09-05 07:35 | disposition home or self-care (01) ==
PROVIDERS: PCP Family Medicine Adolescent Medicine; Visit Provider Nurse Practitioner Family
DX: G89.29 Other chronic pain (principal); M48.061 Spinal stenosis, lumbar region without neurogenic claudication; M51.27 Other intervertebral disc displacement, lumbosacral region; M54.42 Lumbago with sciatica, left side
CPT/HCPCS: 72148

== ENCOUNTER 2023-10-21 10:52 | Emergency (ER) | payer BC, SELFPAY ==
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
[2023-10-21 11:03] VITALS: BP 139/94; PULSE 96; RESP 18; TEMP 36.8; O2SAT 97
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
[2023-10-21] MEDS: HYDROcodone/acetaminophen (*CRX) 5-325 MG TABLET 1 TAB PO (14:15)
[2023-10-21 14:16] VITALS: BP 131/63; PULSE 87; RESP 20; TEMP 35.9; O2SAT 95
== END 2023-10-21 15:12 | disposition home or self-care (01) ==
PROVIDERS: Emergency Provider Student in an Organized Health Care Education/Training Program; PCP Family Medicine Adolescent Medicine
DX: S39.012A Strain of muscle, fascia and tendon of lower back, initial encounter (principal); M47.816 Spondylosis without myelopathy or radiculopathy, lumbar region; J45.909 Unspecified asthma, uncomplicated; I50.9 Heart failure, unspecified; F32.A Depression, unspecified; V73.5XXA Driver of bus injured in collision with car, pick-up truck or van in traffic accident, initial encounter
CPT/HCPCS: 72131; 99284; A9270

== ENCOUNTER 2023-10-28 16:19 | Emergency (ER) | payer BC, SELFPAY ==
[2023-10-28] VITALS (8 sets, daily range): BP systolic 111–164; BP diastolic 63–87; PULSE 72–86; RESP 14–24; TEMP 36.5–36.6; O2SAT 97–100
--- NOTE | ~2023-10-28 | XR_ITS ---
EXAMINATION: XR chest 2V DATE: 10/28/2023 16:44 INDICATION: Chest pain. Upper back pain. TECHNIQUE: Frontal and lateral views of the chest were obtained. COMPARISON: Chest 2 views 06/25/2023, CT abdomen and pelvis 08/26/2022 FINDINGS: There is no pneumonia, pleural effusion, or pneumothorax. Cardiomegaly is noted. There is a prominent right paracardial fat pad. IMPRESSION: 1. Cardiomegaly. Reviewed, dictated and finalized at location A. ESTATE DEVELOPMENT MANAGER IMPRESSION: 1. Cardiomegaly.
--- NOTE | ~2023-10-28 | CT_ITS ---
EXAMINATION: CT diagnostic chest wo con DATE: 10/28/2023 19:53 INDICATION: Recurrent pna. RLL rhonchi. Midline thor pain TECHNIQUE: Computed tomography (CT) of the chest was performed without intravenous contrast. Addition al 3D reconstructions utilizing coronal maximum intensity projection (MIP) were performed. Automated exposure control and iterative reconstruction technique were employed. The dose-length product was 10 68.59 mGy-cm. COMPARISON: Chest CT dated 02/09/2019 FINDINGS: Discoid atelectasis and adjacent small region of more lucent subsegmental air trapping in the medial segment of the right middle lobe. Atelectasis at the lingula. 5 x 3 mm and 3 mm pulmonary nodules ri ght lower lobe. No pneumonia, pulmonary edema or pleural effusion. Cardiomegaly with prominent right pericardial fat pad. Thoracic aorta is normal in caliber. No pathologically enlarged thoracic lymphad enopathy. Mild diffuse hepatic steatosis. Mild thoracic spondylosis. IMPRESSION: 1. Atelectasis right middle lobe and lingula with adjacent small region of subsegmental air trapping right middle lobe. 2. Couple likely benign small right lower lobe pulmonary nodules. If the patient is low risk for lung cancer, no follow-up is needed. If the patient is high risk (i.e., history of smoking or asbestos or significant radiation exposure), optional follow-up chest CT could be considered at 12 months. 3. Cardiomegaly. Reviewed, dictated and finalized at location A. ERIOLOGY PROFESSOR IMPRESSION: 1. Atelectasis right middle lobe and lingula with adjacent small region of subs egmental air trapping right middle lobe. 2. Couple likely benign small right lower lobe pulmonary nodules. If the patien t is low risk for lung cancer, no follow-up is needed. If the patient is high r isk (i.e., history of smoking or asbestos or significant radiation exposure), o ptional follow-up chest CT could be considered at 12 months. 3. Cardiomegaly.
--- NOTE | 2023-10-28 16:20 | ECG_ITS ---
Measurements Intervals [place] Rate: 83 P: 28 MI: 171 QRS: -24 QRSD: 117 T: 14 QT: 368 QTc: 433 Interpretive Statements SINUS RHYTHM FREQUENT ATRIAL PREMATURE COMPLEXES INCOMPLETE RIGHT BUNDLE BRANCH BLOCK VOLTAGE CRITERIA FOR LVH BORDERLINE T WAVE ABNORMALITY- INFERIOR LEADS BASELINE ARTIFACT- II, III, AVF ABNORMAL ECG COMPARED TO ECG 06/25/2023 08:35:33 NO SIGNIFICANT CHANGES Electronically Signed On 10-28-2023 21:04:35 EMT/DISPATCHER by You Goel D.O.
[2023-10-28 16:41] LABS: Basophils Absolute Auto 0.1 K/mm3 (0.0-0.1); Basophils Percent Auto 0.7 % (0.2-1.2); Eosinophils Absolute Auto 0.4 K/mm3 (0-0.3); Eosinophils Percent Auto 4.9 % (0-4.4); Hematocrit 37.5 % (37.0-47.0); Immature Granulocyte Absolute 0.01 K/mm3 (0.00-0.031); Immature Granulocyte Percent A 0.1 % (0-0.5); Lymphocytes Absolute Auto 2.91 K/mm3 (0.9-3.2); Lymphocytes Percent Auto 33.4 % (18.3-44.2); Mean Corpuscular Hemoglobin 28.2 pg (26-34); Mean Platelet Volume 9.3 fl (7.4-10.4); Monocytes Absolute Auto 0.6 K/mm3 (0.1-0.6); Monocytes Percent Auto 6.3 % (2.6-8.5); Neutrophils Absolute Auto 4.8 K/mm3 (1.3-6.7); Neutrophils Percent Auto 54.6 % (45.5-73.1); Platelet Count Result 249 k/mm3 (150-375); Red Blood Count 4.26 M/mm3 (4.2-5.4); Red Cell Distribution Width 12.7 % (11.5-14.5); White Blood Count 8.7 K/mm3 (4.5-10.0)
[2023-10-28 16:53] LABS: Alanine Aminotransferase 21 U/L (6-35); Albumin Level 3.8 g/dL (3.5-5.1); Alkaline Phosphatase 74 U/L (38-126); Anion Gap 9 mmol/L (8-16); Aspartate Amino Transferase 21 U/L (14-36); Bilirubin,Total 0.3 mg/dL (0.2-1.3); Blood Urea Nitrogen 16 mg/dL (7-17); Calcium 9.4 mg/dL (8.4-10.2); Carbon Dioxide 25 mmol/L (22-30); Chloride 104 mmol/L (98-107); Estimated CRCL calculation 112 ml/min; Estimated Glomerular Filt Rate > 60; Glucose 92 mg/dL (65-110); Lipase 68 U/L (23-300); Sodium 138 mmol/L (137-145)
[2023-10-28 17:05] LABS: Troponin I < 0.012 ng/mL (0.000-0.034)
--- NOTE | 2023-10-28 19:31 | ECG_ITS ---
Measurements Intervals [place] Rate: 76 P: 19 ND: 176 QRS: 77 QRSD: 102 T: 37 QT: 381 QTc: 430 Interpretive Statements SINUS RHYTHM WITH SINUS ARRHYTHMIA LOW QRS VOLTAGE IN PRECORDIAL LEADS INCOMPLETE RIGHT BUNDLE BRANCH BLOCK BORDERLINE ECG COMPARED TO ECG 10/28/2023 16:25:07 SINUS ARRHYTHMIA NOW PRESENT Electronically Signed On 10-28-2023 21:15:09 SYSTEMS INTEGRATOR by You Goel D.O.
[2023-10-28] MEDS: MAGNESIUM SULF 2 GM/WATER 50ML 2 GM/50 ML BAG IVPB (20:01)
[2023-10-28 20:08] LABS: NT Pro B Type Natriuretic Pept 44 pg/mL (19.9-100); Troponin I < 0.012 ng/mL (0.000-0.034)
[2023-10-28] MEDS: ALBUTEROL SULFATE NEB 2.5 MG/3 ML INH 10 MG INHALATION (20:18)
[2023-10-28] MEDS: IPRATROPIUM BR 0.02% INH SOLN 0.5 MG/2.5 ML VIAL 1 MG INHALATION (20:18)
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
[2023-10-28] MEDS: ACETAMINOPHEN 500 MG TABLET 1000 MG PO (21:24)
[2023-10-28] MEDS: KETOROLAC 15 MG/ML VIAL (*BKC) IV PUSH (21:25)
[2023-10-28] MEDS: methocarbamoL 750 MG TABLET 1500 MG PO (22:06)
== END 2023-10-28 22:17 | disposition home or self-care (01) ==
PROVIDERS: Emergency Medicine; Emergency Provider Emergency Medicine; PCP Family Medicine Adolescent Medicine
DX: R06.81 Apnea, not elsewhere classified (principal); M54.9 Dorsalgia, unspecified; J44.9 Chronic obstructive pulmonary disease, unspecified; I50.9 Heart failure, unspecified
CPT/HCPCS: 36415; 71046; 71250; 80053; 83690; 83880; 84484; 85025; 85610; 85730; 93005; 94640; 96365; 96375; 99284; A9270; J1100; J1885; J3475

== ENCOUNTER 2023-12-03 11:21 | Outpatient (CLI) | payer BC, SELFPAY ==
--- NOTE | ~2023-12-03 | US_ITS ---
EXAMINATION: US venous doppler LE RT DATE: 12/03/2023 12:06 INDICATION: Right lower extremity pain and swelling TECHNIQUE: Bacon scale images without and with compression and Doppler images of the right lower extre mity veins were obtained. COMPARISON: 02/10/2019 FINDINGS: The right common femoral vein, profunda femoral vein, femoral vein, popliteal vein, peronea l trunk, posterior tibial veins, and greater saphenous vein are patent. IMPRESSION: 1. Patent right lower extremity veins. No evidence of deep venous thrombosis. Reviewed, dictated and finalized at location L. ELING SALES REPRESENTATIVE
== END 2023-12-03 11:22 | disposition home or self-care (01) ==
LOC: ANHIMG 11:22
PROVIDERS: PCP Family Medicine Adolescent Medicine; Visit Provider Family Medicine Adolescent Medicine
DX: R60.0 Localized edema (principal)
CPT/HCPCS: 93971

== ENCOUNTER 2023-12-07 09:41 | Outpatient (CLI) | payer BC, SELFPAY ==
--- NOTE | 2023-12-07 09:52 | ECHO_ITS ---
Patient Info Name: Jasen Espana Age: 42 years : 1980 Gender: Female Ht: 64 in Wt: 368 lbs BSA: 2.86 m2 HR: 82 bpm BP: 141 / 97 mmHg Technical Quality: Poor Exam Date: 12/07/2023 9:54 AM Exam Location: Echo Lab Patient Status: Outpatient Admit Date: 12/07/2023 Staff Ordering Physician: Sami Ramirez MD [facility] Consultant: Rosamaria Hull RDCS Attending Provider: Sami Ramirez MD Referring Physician: James RAMIREZ; Exam Type: CA echo dop color flow w con Study Info Indications I51.7 - Cardiomegaly R06.09 - Other forms of dyspnea Complete two-dimensional, color flow and Doppler transthoracic echocardiogram is performed with contrast to opacify the left ventricle and to improve the deliniation of the left ventricle endocardial borders. Contrast/Agitated Saline Contrast/Ag. Saline: Definity Amount: 4.00 ml Administered By: Rosamaria Hull RDCS New IV Access: Antecubital Space and Left Site Condition: IV removed, Site dressing applied and No extravasation Reason for Poor Study: patient body habitus Summary 1. Technically suboptimal study due to poor sonographic images. 2. Definity contrast administered improved wall motion interpretation. 3. Left ventricular chamber dimension is normal. 4. Left ventricular systolic function is normal, estimated at 60-65%. 5. The left ventricular diastolic function is normal. 6. E/e' 10 is mildly elevated. 7. Left atrial chamber dimension is mildly enlarged. 8. No pulmonary hypertension, estimated pulmonary arterial systolic pressure is 17 mmHg. Left Ventricle E/e' 10 is mildly elevated. Technically suboptimal study due to poor sonographic images. Definity contrast administered improved wall motion interpretation. Left ventricular chamber dimension is normal. Left ventricular systolic function is normal, estimated at 60-65%. The left ventricular diastolic function is normal. Right Ventricle Right ventricular chamber dimension is normal. Right ventricular systolic function is normal. Left Atria Left atrial chamber dimension is mildly enlarged. Right Atria Right atrial chamber dimension is normal. Aortic Valve The aortic valve is trileaflet. There is no aortic valve stenosis. There is no aortic valve regurgitation. Pulmonic Valve There is no pulmonic regurgitation. Mitral Valve There is no mitral valve stenosis. There is no mitral valve regurgitation. Tricuspid Valve There is no tricuspid valve regurgitation. No pulmonary hypertension, estimated pulmonary arterial systolic pressure is 17 mmHg. Pericardium/Pleural There is no pericardial effusion. Inferior Vena Cava Normal inferior vena cava with >50% collapse upon inspiration consistent with normal right atrial pressure, 5 mmHg. Aorta The aortic root size at the sinus of Valsalva is normal. Left Ventricular Outflow Tract Name Value Normal LVOT 2D LVOT Diameter 2.13 cm LVOT Doppler LVOT Peak Gradient 10 mmHg LVOT Mean Gradient 5 mmHg LVOT VTI 30.75 cm LVOT VTI/AV VTI Ratio 0.92 LVOT Stroke Volu
[2023-12-07] MEDS: PERFLUTREN LIPID MICROSPHERES 1.5 ML VIAL DILUTED TO 10 ML TOTAL VOLUME IV PUSH (10:33)
--- NOTE | 2023-12-07 11:02 | IVDEFINITY ---
Prior to administration of IV Definity the patient was educated on the risks and benefits of the imaging enhancing agent including potential adverse side effects. The patient verbalized understanding. Allergies were verified. No exclusion criteria were identified and at least one of the following inclusion criteria were met: 1) physician request, 2) patient technically difficult to image (per the [place] [employer] Echocardi[employer] guidelines of two or more segments not discernable within the apical view), or 3) questionable left ventricular function. ?
== END 2023-12-07 09:42 | disposition home or self-care (01) ==
LOC: ANHCARD 09:43
PROVIDERS: PCP Family Medicine Adolescent Medicine; Visit Provider Family Medicine Adolescent Medicine
DX: R93.1 Abnormal findings on diagnostic imaging of heart and coronary circulation (principal); I51.7 Cardiomegaly; R06.09 Other forms of dyspnea
CPT/HCPCS: C8929; Q9957

== ENCOUNTER 2023-12-10 07:37 | Outpatient (CLI) | payer BC, SELFPAY ==
--- NOTE | ~2023-12-10 | NM_ITS ---
EXAMINATION: NM darin stress w perfusion DATE: 12/10/2023 09:54 INDICATION: Chest pain TECHNIQUE: Rest images were obtained following intravenous administration of 10.5 mCi Tc99m tetrofosm in (Myoview). The patient was infused intravenously with Lexiscan (Regadenoson). Then, 33.9 mCi Tc99m tetrofosmin (Myoview) was administered intravenously, and stress images were obtained. Data was christina nstructed into short axis and horizontal and vertical long axis SPECT images. Gated SPECT images were also obtained. COMPARISON: None. FINDINGS: Small moderate severity reversible perfusion defect at the mid inferior segment consistent with ischemia. Additional moderate sized moderate severity largely reversible perfusion defect involv ing the apical, mid and basilar anterior segments and the mid and basilar anterolateral segments cons istent with ischemia with mild nonreversible decreased uptake at the basilar anterolateral segment co nsistent with superimposed mild infarct. There is normal left ventricular chamber size, wall motion and ejection fraction. Left ventricular ejection fraction measures >70%. IMPRESSION: 1. Small mild infarct at the basilar anterolateral segment within a large region of moderate severity reversible ischemia in the left anterior descending coronary artery vascular distribution involving the mid and basilar anterolateral and apical, mid and basilar anterior segments. 2. Additional small region of moderate reversible ischemia in the right coronary artery vascular dist ribution without associated infarct at the mid inferior segment. 2. Left ventricular ejection fraction measuring >70%. Reviewed, dictated and finalized at location L. IMPRESSION: 1. Small mild infarct at the basilar anterolateral segment within a large regio n of moderate severity reversible ischemia in the left anterior descending caitlin nary artery vascular distribution involving the mid and basilar anterolateral a nd apical, mid and basilar anterior segments. 2. Additional small region of moderate reversible ischemia in the right coronar y artery vascular distribution without associated infarct at the mid inferior s egment. 2. Left ventricular ejection fraction measuring >70%.
--- NOTE | 2023-12-10 08:11 | EST_ITS ---
Patient Info Name: Jasen Espana Age: 42 years : 1980 Gender: Female Ht: 63 in Wt: 369 lbs BSA: 2.85 m2 HR: 85 bpm BP: 155 / 99 mmHg Heart Rhythm: Sinus Rhythm Exam Date: 12/10/2023 8:41 AM Exam Location: Echo Lab Patient Status: Outpatient Admit Date: 12/10/2023 Staff Ordering Physician: Italia Saleh PA-C Attending Provider: Italia Saleh PA-C Exercise Technologist: Virginia Harrison, ROBERT Exam Type: CA stress darin w NM Study Info Indications R07.89 - Other chest pain A regadenoson stress test was performed. Summary 1. 1. Negative lexiscan stress test for ischemic ST changes by ECG criteria. 2. 2. Baseline hypertension. 3. 3. Nuclear scan to follow and will be reported separately. Please correlate with it. 4. 4. Patient informed of the above results. Protocol: Lexiscan Stress ECG Details Stage: REST Duration (min): 2 min : 1 sec HR (bpm): 86 SBP (mmHg): 209 DBP (mmHg): 98 Stage: REST Duration (min): 4 min : 59 sec HR (bpm): 85 SBP (mmHg): 155 DBP (mmHg): 99 Stage: REST Duration (min): 5 min : 45 sec HR (bpm): 83 SBP (mmHg): 155 DBP (mmHg): 99 Stage: REST Duration (min): 10 min : 31 sec HR (bpm): 81 SBP (mmHg): 155 DBP (mmHg): 99 Stage: STAGE 1 Duration (min): 1 min : 0 sec HR (bpm): 99 SBP (mmHg): 143 DBP (mmHg): 81 Stage: RECOVERY Duration (min): 1 min : 0 sec HR (bpm): 95 SBP (mmHg): 143 DBP (mmHg): 81 Stage: RECOVERY Duration (min): 2 min : 0 sec HR (bpm): 92 SBP (mmHg): 143 DBP (mmHg): 81 Stage: RECOVERY Duration (min): 2 min : 53 sec HR (bpm): 91 SBP (mmHg): 133 DBP (mmHg): 85 Rest HR: 81 bpm Peak HR: 99 bpm Rest Sys BP: 155 mmHg Peak Sys BP: 143 mmHg Max Pred HR: 180 bpm % Max Pred HR: 55 % Target HR: 153 bpm Max RPP: 14,157 bpm*mmHg Termination Reason: Completed protocol Cardiac Symptoms: Shortness of breath Total Time: 1 min : 0 sec Rest Brooks BP: 99 mmHg Peak Brooks BP: 81 mmHg Total Dose: 0.4 mg Resting ECG Sinus rhythm. Stress ECG No ST changes. Arrhythmias None. Report Signatures
== END 2023-12-10 07:38 | disposition home or self-care (01) ==
PROVIDERS: PCP Family Medicine Adolescent Medicine; Visit Provider Physician Assistant
DX: R07.9 Chest pain, unspecified (principal); I21.3 ST elevation (STEMI) myocardial infarction of unspecified site
CPT/HCPCS: 78452; 93017; A9502; J2785

== ENCOUNTER 2023-12-28 11:17 | Outpatient (CLI) | payer BC, SELFPAY ==
--- NOTE | ~2023-12-28 | XR_ITS ---
XR thoracic spine 3V DATE: 12/28/2023 11:46 INDICATION: Back pain TECHNIQUE: AP, lateral, swimmer views COMPARISON: None FINDINGS: There is mild levoscoliosis of the upper thoracic spine and minimal dextro scoliosis of the lower thoracic spine. No fracture or dislocation or bone destruction. The thoracic pedicles are intact. No paraspinal soft tissue thickening. There is minimal degenerative spurring of the thoracic spine. IMPRESSION: Mild scoliosis and minimal degenerative spurring Reviewed, dictated and finalized at location B.
--- NOTE | ~2023-12-28 | XR_ITS ---
XR sacroiliac joints min 3V DATE: 12/28/2023 11:46 INDICATION: Pain TECHNIQUE: AP and bilateral oblique views COMPARISON: None FINDINGS: Normal alignment at the sacroiliac joints. There is mild degenerative change. No fracture o r dislocation, erosive change or ankylosis. IMPRESSION: Mild degenerative change Reviewed, dictated and finalized at Location A. Reviewed, dictated and finalized at location B. IMPRESSION: Mild degenerative change
--- NOTE | ~2023-12-28 | XR_ITS ---
XR lumbar spine 6V w bending DATE: 12/28/2023 11:46 INDICATION: Back pain TECHNIQUE: Flexion and extension lateral views. AP, lateral, bilateral oblique views and coned latera l lumbosacral view. COMPARISON: None FINDINGS: Normal alignment of the lumbar spine. No fracture or bone destruction, spondylolysis or spo ndylolisthesis. The lumbar pedicles are intact. There is no instability on flexion or extension. There is moderate degenerative disc disease at L4-5 and mild degenerative disc disease at the remaini ng levels. The sacroiliac joints are intact IMPRESSION: [id number] degenerative disc disease Reviewed, dictated and finalized at location B. IMPRESSION: [id number] degenerative disc disease
== END 2023-12-28 11:18 ==
PROVIDERS: PCP Family Medicine Adolescent Medicine; Visit Provider Anesthesiology Pain Medicine
DX: M46.1 Sacroiliitis, not elsewhere classified (principal); M43.17 Spondylolisthesis, lumbosacral region; M47.817 Spondylosis without myelopathy or radiculopathy, lumbosacral region; M96.1 Postlaminectomy syndrome, not elsewhere classified; M54.50 Low back pain, unspecified; M41.9 Scoliosis, unspecified; M51.36 Other intervertebral disc degeneration, lumbar region
CPT/HCPCS: 72072; 72114; 72202

== ENCOUNTER 2024-01-08 10:16 | Emergency (ER) | payer BC, SELFPAY ==
[2024-01-08] VITALS (18 sets, daily range): BP systolic 131–161; BP diastolic 58–89; PULSE 74–97; RESP 14–26; TEMP 36.1; O2SAT 92–100
--- NOTE | ~2024-01-08 | XR_ITS ---
EXAMINATION: XR chest 1V portable DATE: 01/08/2024 11:11 INDICATION: Shortness of breath and wheezing. TECHNIQUE: A single frontal view of the chest was obtained. COMPARISON: Chest 2 views 10/28/2023 FINDINGS: There is mild atelectasis in right lower lung zone. No pleural effusion or pneumothorax. Th e heart size is normal. There are prominent paracardial fat pads. IMPRESSION: 1. Mild atelectasis in right lower lung zone. Reviewed, dictated and finalized at location A.
[2024-01-08] MEDS: IPRATROPIUM BR 0.02% INH SOLN 0.5 MG/2.5 ML VIAL 1.5 MG INHALATION (10:47)
[2024-01-08] MEDS: ALBUTEROL SULFATE NEB 2.5 MG/3 ML INH 15 MG INHALATION (10:47)
--- NOTE | 2024-01-08 10:56 | ED.GENADULT ---
HPI - General Adult General Chief complaint: Shortness of Breath/Dyspnea Stated complaint: SOB Time Seen by Provider: 01/08/24 10:23 History of Present Illness HPI narrative: Patient is a 43-year-old female with history of asthma who presents the ER with shortness of breath. Reports chronic shortness of breath and is supposed to be getting a cardiac catheterization due to an abnormal stress test. However today she woke up and she was having new wheezing. No improvement with inhalers. No fevers or chills or sweats. No productive cough. It is causing some chest tightness typical of her asthma. Related Data Home Medications Medication Instructions Recorded Confirmed estradiol 2 mg tablet 2 mg PO DAILY 05/12/23 12/22/23 quetiapine 400 mg tablet (Seroquel) 400 mg PO ONCE 11/04/23 12/22/23 Allergies Allergy/AdvReac Type Severity Reaction Status Date / Time nitrofurantoin Allergy Severe Anaphylactic Verified 01/08/24 10:17 [From Macrobid] Shock adhesive AdvReac Mild Itching, Verified 01/08/24 10:17 RASH amoxicillin AdvReac Mild Rash Verified 01/08/24 10:17 Cephalosporins AdvReac Mild HIVES Verified 01/08/24 10:17 Penicillins AdvReac Mild Rash Verified 01/08/24 10:17 talc AdvReac Mild ERYTHEMA Verified 01/08/24 10:17 CATS Allergy Mild Dyspnea / Uncoded 01/08/24 10:17 SOB Cultivated Oat Pollen Allergy Mild Dyspnea / Uncoded 01/08/24 10:17 SOB DOGS Allergy Mild Dyspnea / Uncoded 01/08/24 10:17 SOB Dust AdvReac Mild SNEEZING Uncoded 01/08/24 10:17 Review of Systems Review of Systems: All systems reviewed & are unremarkable except as noted in HPI and below Constitutional: Constitutional: Reports no additional constitutional complaints ENT: Reports system reviewed and no additional complaints, except as documented Cardiovascular: Cardiovascular: Reports no additional cardiovascular complaints Respiratory: Respiratory: Denies chest congestion, Denies cough, Reports dyspnea and Reports wheezing Gastrointestinal: Gastrointestinal: Reports no additional gastrointestinal complaints Musculoskeletal: Musculoskeletal: Reports no additional musculoskeletal complaints PMFSH Past Medical History Medical History Asthma Congestive heart failure COPD (chronic obstructive pulmonary disease) Depression KAVYA on CPAP Pneumonia Sleep apnea Surgical History Surgical History H/O wrist surgery History of endometrial ablation History of hysterectomy (03/21/22) No oophorectomy History of tubal ligation Hx of section (~2007) Family History Family History Mother Family history of chronic obstructive pulmonary disease Family history of malignant neoplasm of ovary Grandparent Liver cancer Social History Social History Smoking packs per day: 1 Smoking cigarettes per day: 20.0 Years smoked: 18 Smoking pack-years: 18.00 Smoking status: Former smoker Tobacco type: cigarettes Second hand tobacco smoke exposure: No Smoking end date: 09/28/20 Alcohol intake: current Alcohol use details: very rarely Substance use: never Substance use type: does not use Do You Feel Safe in your Home?: Yes Lack of Transportation: No Lack of Food: Never True Current Housing: I Have Housing Concerned About Future Housing: No Difficulty Paying Gas/Electric Bills: No Difficulty Paying for Meds: No Currently Unemployed: No Education: High School Diploma/GED Difficulty w/ Childcare or Family Care: No Living arrangements: with family Occupation/Education: occupation 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
[2024-01-08] MEDS: methylPREDNISolone SOD SUCC 125 MG VIAL IV PUSH (10:59)
[2024-01-08 11:12] LABS: Basophils Percent Auto 0.5 % (0.2-1.2); Eosinophils Absolute Auto 0.2 K/mm3 (0-0.3); Eosinophils Percent Auto 2.9 % (0-4.4); Hematocrit 34.5 % (37.0-47.0); Hemoglobin 11.4 g/dL (12.0-15.0); Immature Granulocyte Absolute 0.03 K/mm3 (0.00-0.031); Immature Granulocyte Percent A 0.4 % (0-0.5); Lymphocytes Absolute Auto 2.13 K/mm3 (0.9-3.2); Lymphocytes Percent Auto 28.2 % (18.3-44.2); Mean Corpuscular Hemoglobin 28.6 pg (26-34); Mean Corpuscular Volume 86.5 fl (80-100); Mean Platelet Volume 9.4 fl (7.4-10.4); Monocytes Absolute Auto 0.5 K/mm3 (0.1-0.6); Monocytes Percent Auto 6.6 % (2.6-8.5); Neutrophils Absolute Auto 4.6 K/mm3 (1.3-6.7); Neutrophils Percent Auto 61.4 % (45.5-73.1); Platelet Count Result 202 k/mm3 (150-375); Red Blood Count 3.99 M/mm3 (4.2-5.4); Red Cell Distribution Width 13.3 % (11.5-14.5); White Blood Count 7.6 K/mm3 (4.5-10.0)
[2024-01-08 11:25] LABS: Alanine Aminotransferase 20 U/L (6-35); Alkaline Phosphatase 73 U/L (38-126); Anion Gap 6 mmol/L (4-12); Aspartate Amino Transferase 22 U/L (14-36); Bilirubin,Total 0.3 mg/dL (0.2-1.3); Blood Urea Nitrogen 9 mg/dL (7-17); Calcium 9.3 mg/dL (8.4-10.2); Carbon Dioxide 26 mmol/L (22-30); Chloride 105 mmol/L (98-107); Estimated CRCL calculation 142 ml/min; Estimated Glomerular Filt Rate > 60; Glucose 90 mg/dL (65-110); Sodium 137 mmol/L (137-145)
[2024-01-08] MEDS: IPRATROPIUM BR 0.02% INH SOLN 0.5 MG/2.5 ML VIAL 1 MG INHALATION (13:05)
[2024-01-08] MEDS: ALBUTEROL SULFATE NEB 2.5 MG/3 ML INH 10 MG INHALATION (13:05)
[2024-01-08 13:30] LABS: Troponin I < 0.012 ng/mL (0.000-0.034)
== END 2024-01-08 15:20 | disposition home or self-care (01) ==
PROVIDERS: Emergency Provider Emergency Medicine; PCP Family Medicine Adolescent Medicine
DX: J45.901 Unspecified asthma with (acute) exacerbation (principal); I50.9 Heart failure, unspecified; G47.33 Obstructive sleep apnea (adult) (pediatric); Z87.891 Personal history of nicotine dependence
CPT/HCPCS: 36415; 71045; 80053; 84484; 85025; 94640; 96374; 99284; J2919

== ENCOUNTER 2024-01-13 00:20 | Day surgery (SDC) | payer BC, SELFPAY ==
[2024-01-12 15:19] VITALS: BMI 60.7
[2024-01-13] VITALS (16 sets, daily range): BP systolic 113–154; BP diastolic 54–104; PULSE 78–93; RESP 10–25; TEMP 36.4–36.7; O2SAT 92–96; BMI 60.7
[2024-01-13 09:07] LABS: Basophils Absolute Auto 0.1 K/mm3 (0.0-0.1); Basophils Percent Auto 0.4 % (0.2-1.2); Eosinophils Absolute Auto 0.1 K/mm3 (0-0.3); Eosinophils Percent Auto 0.8 % (0-4.4); Hematocrit 37.4 % (37.0-47.0); Hemoglobin 12.3 g/dL (12.0-15.0); Immature Granulocyte Absolute 0.08 K/mm3 (0.00-0.031); Immature Granulocyte Percent A 0.7 % (0-0.5); Lymphocytes Absolute Auto 2.94 K/mm3 (0.9-3.2); Mean Corpuscular HGB Conc 32.9 g/dl (32-36); Mean Corpuscular Hemoglobin 28.5 pg (26-34); Mean Corpuscular Volume 86.6 fl (80-100); Mean Platelet Volume 9.2 fl (7.4-10.4); Monocytes Absolute Auto 0.9 K/mm3 (0.1-0.6); Neutrophils Absolute Auto 8.2 K/mm3 (1.3-6.7); Neutrophils Percent Auto 67.1 % (45.5-73.1); Platelet Count Result 189 k/mm3 (150-375); Red Blood Count 4.32 M/mm3 (4.2-5.4); Red Cell Distribution Width 13.3 % (11.5-14.5); White Blood Count 12.3 K/mm3 (4.5-10.0)
[2024-01-13 09:17] LABS: Anion Gap 6 mmol/L (4-12); Blood Urea Nitrogen 26 mg/dL (7-17); Calcium 8.9 mg/dL (8.4-10.2); Carbon Dioxide 25 mmol/L (22-30); Chloride 105 mmol/L (98-107); Estimated CRCL calculation 123 ml/min; Estimated Glomerular Filt Rate > 60; Glucose 95 mg/dL (65-110); Potassium 3.9 mmol/L (3.4-5.0); Sodium 136 mmol/L (137-145)
--- NOTE | 2024-01-13 10:01 | WPDHPUPDATE1 ---
History and Physical Update Update Date/Time: 01/13/24 10:01 History and Physical has been reviewed, including an updated exam of the patient. There are NO changes in the patient's condition. Risks, benefits, and alternatives have been discussed and questions answered. Patient agrees to proceed with procedure.
--- NOTE | 2024-01-13 10:01 | WPDMODSED ---
Moderate Sedation Note-Pt Data Patient Data Diagnosis: Abnormal stress test Present Complaint: Abnormal stress test Procedure to be performed/Plan: Coronary angiography, left heart cath, +/- PCI Allergies Allergy/AdvReac Type Severity Reaction Status Date / Time nitrofurantoin Allergy Severe Anaphylactic Verified 01/13/24 08:58 [From Macrobid] Shock adhesive AdvReac Mild Itching, Verified 01/13/24 08:58 RASH amoxicillin AdvReac Mild Rash Verified 01/13/24 08:58 Cephalosporins AdvReac Mild HIVES Verified 01/13/24 08:58 Penicillins AdvReac Mild Rash Verified 01/13/24 08:58 talc AdvReac Mild ERYTHEMA Verified 01/13/24 08:58 CATS Allergy Mild Dyspnea / Uncoded 01/13/24 08:58 SOB Cultivated Oat Pollen Allergy Mild Dyspnea / Uncoded 01/13/24 08:58 SOB DOGS Allergy Mild Dyspnea / Uncoded 01/13/24 08:58 SOB Dust AdvReac Mild SNEEZING Uncoded 01/13/24 08:58 Home Medications Medication Instructions Recorded Confirmed Type umeclidinium 62.5 mcg/actuation 1 inh inhalation DAILY #30 ea 04/23/22 01/13/24 Rx blister powder for inhalation (Incruse Ellipta) montelukast 10 mg tablet 10 mg PO DAILY #90 tabs 02/27/23 01/13/24 Rx zolpidem 10 mg tablet 10 mg PO QHS PRN insomnia #30 tabs 02/27/23 01/12/24 Rx fluticasone 500 mcg-salmeterol 50 1 ea inhalation BID #180 ea 04/01/23 01/13/24 Rx mcg/dose blistr powdr for inhalation (Wixela Inhub) estradiol 2 mg tablet 2 mg PO DAILY 05/12/23 01/13/24 History lisinopril 30 mg tablet 30 mg PO HS #90 tabs 06/28/23 01/13/24 Rx quetiapine 400 mg tablet (Seroquel) 400 mg PO ONCE 11/04/23 01/13/24 History albuterol 90 mcg-budesonide 80 2 inh inhalation ONCE #10.7 grams 11/23/23 01/13/24 Rx mcg/actuation HFA aerosol inhaler (Airsupra) albuterol 90 mcg-budesonide 80 90-80 mcg/actuation Hfa Aerosol 11/23/23 01/13/24 Sample mcg/actuation HFA aerosol inhaler Inhaler#1 Samples (Airsupra) lorazepam 1 mg tablet 1 mg PO BID PRN anxiety #30 tabs 12/08/23 01/13/24 Rx prednisone 50 mg tablet 50 mg PO DAILY #7 tabs 01/08/24 01/13/24 Rx cyclobenzaprine 10 mg tablet 10 mg PO HS PRN muscle spasm 01/12/24 01/13/24 History fluoxetine 40 mg capsule 40 mg PO DAILY 01/12/24 01/13/24 History ibuprofen 800 mg tablet 800 mg PO HS PRN pain 01/12/24 01/13/24 History Current Medications: Active Medications Sodium Chloride (Normal Saline Iv) 500 mls @ 100 mls/hr IV CONT .Q5H KIMBERLY Sedation/Anesthesia: No previous sedation/anesthesia problems (including family history). [facility] Past Medical History Medical History Asthma Congestive heart failure COPD (chronic obstructive pulmonary disease) Depression KAVYA on CPAP Pneumonia Sleep apnea Surgical History Surgical History H/O wrist surgery History of endometrial ablation History of hysterectomy (03/21/22) No oophorectomy History of tubal ligation Hx of section (~2007) Family History Family History Mother Family history of chronic obstructive pulmonary disease Family history of malignant neoplasm of ovary Grandparent Liver cancer Social History Social History Smoking packs per day: 1 Smoking cigarettes per day: 20.0 Years smoked: 18 Smoking pack-years: 18.00 Smoking status: Former smoker Tobacco type: cigarettes Second hand tobacco smoke exposure: No Smoking end date: 09/28/20 Alcohol intake: current Alcohol use details: very rarely Substance use: former Substance use type: does not use Do You Feel Safe in your Home?: Yes Lack of Transportation: No Lack of Food: Never True Current Housing: I Have Housing Concerned About Future Housing: No Difficulty Paying Gas/Electric Bills: No Difficulty Paying for Meds: No Currently Unemployed: No Education: High Scho
--- NOTE | 2024-01-13 10:03 | WPDCARDPROC ---
Cardiac Cath Procedure Note Date of procedure:: 01/13/24 Performing physician:: CATHETERIZATION LABORATORY REPORT Procedure Date: 01/13/2024 Cooker Casing: Trudy Jimenez M.D., [facility]? Referring Physician: You Goel M.D. ? Anesthesia: Versed and Fentanyl were ordered and given in my presence at 10:19, procedure ended at 10:39. Supervision of nurse monitored moderate sedation with Versed and Fentanyl was provided for 20 minutes. Total of Versed 1mg and Fentanyl 75mcg were administered by the Senior Mainframe Programmer Analyst RN Dana Euceda. Pre-op Diagnosis: Coronary artery disease Post-op Diagnosis: 1. Non obstructive coronary arteries 2. Severely elevated left ventricular end-diastolic pressure of 39mmHg Procedure(s): 1. Moderate sedation 2. Ultrasound-guided access of the right radial artery 3. Coronary angiography 4. Left heart catheterization Access Site: Right radial artery Brief History and Clinical Indications: Patient is a 43 year old female with morbid obesity with BMI of 61, hypertension, KAVYA on CPAP, COPD, anxiety who is referred for atypical chest pain, dyspnea on exertion in the setting of abnormal stress test. All risks, benefits and alternatives to left heart catheterization with or without percutaneous coronary intervention was discussed at length with the patient. Risk of complications including but not limited to bleeding, infection, arrhythmia, stroke, worsening kidney function, blood loss, groin hematoma, limb loss, emergency coronary artery bypass grafting, and even were discussed with the patient and all questions were answered. The patient understood and wished to proceed. Time out called, patient name, date of , medical record number, allergies, procedure performed, identify Cooker Casing, patient and staff member concurred with accurate data, procedure carried on. Findings: LEFT HEART CATHETERIZATION FINDINGS: 1. Left main: The left main coronary artery is widely patent without any significant obstructive disease. 2. Left anterior descending: The LAD and the diagonal branches have mild luminal irregularities without any significant obstructive angiographic disease. 3. Left circumflex: The left circumflex artery and the main marginal branches have mild luminal irregularities without any significant obstructive angiographic disease. 4. Right coronary artery: The RCA has mild luminal irregularities without any significant obstructive angiographic disease. The RCA is the dominant vessel. 5. Left ventricle: A. End-diastolic pressure 39 mmHg. B. LV gram deferred. C. No significant gradient across aortic valve on catheter pullback. Description of Procedure: Informed consent signed and placed in the chart. Patient transferred to warehouse laborer room. Prepped and draped in usual sterile fashion. 2% lidocaine injected subcutaneously in right wrist area. 22-gauge venipuncture catheter used to access the right radial artery under ultrasound guidance. 6-FR slender sheath placed in right radial artery. Nitroglycerine and Verapamil were given intraarterial through the sheath. Versacore wire advanced under fluoroscopy 5F Tig 4 diagnostic catheter engaged Left Main Coronary Artery. 5F Tig 4 diagnostic catheter engaged Right Coronary Artery Multiple orthogonal angiogram obtained and reviewed 5F Pigtail diagnostic catheter crossed aortic valve to obtain LVEDP, LV angiogram deferred. Hemostasis was achieved by application of TR band. Post Operative Condition: Stable No significant blood loss Disposition: Home Plan: The patient will be monitored in the recovery area. Discharge home after post cath bed rest is completed. The above findings were discussed with the referring physician. Continue aggressive medical therapy and risk factor modification. ? Trudy Jimenez M.D. Interventional Cardiology
== END 2024-01-13 14:15 | disposition home or self-care (01) ==
PROVIDERS: PCP Family Medicine Adolescent Medicine; Visit Provider Internal Medicine
PROC: 4A023N7 Measurement of Cardiac Sampling and Pressure, Left Heart, Percutaneous Approach (ICD-10-PCS; CPT 93452; principal; 2024-01-13 10:00)
DX: R94.39 Abnormal result of other cardiovascular function study (principal); R07.89 Other chest pain; R06.09 Other forms of dyspnea; J44.9 Chronic obstructive pulmonary disease, unspecified; I50.9 Heart failure, unspecified; G47.33 Obstructive sleep apnea (adult) (pediatric); F32.A Depression, unspecified; Z87.891 Personal history of nicotine dependence; Z79.51 Long term (current) use of inhaled steroids
CPT/HCPCS: 36415; 80048; 85025; 93458; A9270; C1769; C1887; C1894; J1644; J2250; J2305; J3010; J7040

== ENCOUNTER 2024-01-29 12:22 | Outpatient (CLI) | payer BC, SELFPAY ==
--- NOTE | 2024-02-01 07:22 | WPDSIXMINUTE ---
Six Minute Walk Procedure Procedure Performed Pulmonary Stress Test (6 min walk) Six Minute Walk Six Minute Walk: This is a 6 minute walk test. The test was performed and interpreted in accordance with the 2014 ERS/ATS task force guidelines. Findings: The patient's resting room air oxygen saturation measured by pulse oximetry was 95% and heart rate was 103 bpm. Patient ambulated for 259 meters and oxygen saturation remained 90 to 94%. Heart rate at the end of the study was 114 bpm. The patient did not qualify for supplemental oxygen at rest or with ambulation. There are no prior studies for comparison.
--- NOTE | 2024-02-01 07:23 | WPDPFTINT ---
PFT Procedure Performed PFT Procedure Performed Spirometry with Pre/Post Bronchodilator Plethysmography (Lung Vol) Diffusing Cap (DLCO) Flow Vol Loop PFT Interpretation This is a pulmonary function test with pre and post-bronchodilator spirometry, plethysmography and diffusing capacity. The test was performed and results interpreted in accordance with the 2019 and 2005 ATS/ERS Task Force guidelines respectively using the Global Lung Function Initiative-2012 reference equations. Patient demonstrated good effort and cooperation. Reproducibility criteria were met. The quality of the pre bronchodilator spirometry maneuver was Grade A and post bronchodilator spirometry maneuver was Grade A. Findings: Spirometry: The contour the inspiratory and expiratory flow tracing are normal. The pre bronchodilator FVC is 2.27 L, 62% predicted. The pre bronchodilator FEV1 is 1.66 L, 55% predicted. The pre bronchodilator FEV1: FVC ratio is 73%. The post bronchodilator FVC is 2.34 L, representing a 3% increase. The post bronchodilator FEV1 is 1.90 L, representing a 14% increase. The post bronchodilator FEV1: FVC ratio is 81%. Plethysmography: The total lung capacity is 3.90 L, 77% predicted. The functional residual capacity is 0.92 L, 33% predicted. The residual volume is 0.89 L, 55% predicted. Diffusing capacity: The diffusing capacity unadjusted for hemoglobin and carboxyhemoglobin is 19.0, 80% predicted. The diffusing capacity adjusted for alveolar volume is 6.29, 133% predicted. In comparison to previous pulmonary function testing on 07/22/2019 the post bronchodilator FVC is unchanged from 2.36 L to 2.34 L. The post bronchodilator FEV1 is unchanged from 1.88 L to who 1.90 L. The total lung capacity is unchanged from 4.23 L to 3.90 L. The functional residual capacity is decreased from 1.98 L to 0.92 L. The residual volume is decreased from 1.83 L to 0.89 L. The diffusing capacity unadjusted for hemoglobin and carboxyhemoglobin is unchanged from 18.1 to 19.0. The diffusing capacity adjusted for alveolar volume is unchanged from 5.61 to 6.29. Impression: There is a moderately severe restrictive ventilatory abnormality. The spirometry is normal without evidence of an obstructive abnormality. There is significant improvement after inhaling a single dose of albuterol. The diffusing capacity is normal. in comparison to previous pulmonary function testing from 07/26/2019 there is now significant improvement after inhaling a single dose of albuterol. There has been a greater than anticipated time dependent decrease in the functional residual capacity and residual volume with no significant change in the FVC, FEV1, total lung capacity or diffusing capacity. Clinical correlation is recommended.
== END 2024-01-29 12:23 | disposition home or self-care (01) ==
LOC: ANHPFT 12:23
PROVIDERS: PCP Family Medicine Adolescent Medicine; Visit Provider Nurse Practitioner Family
DX: J45.909 Unspecified asthma, uncomplicated (principal); R94.2 Abnormal results of pulmonary function studies
CPT/HCPCS: 94060; 94618; 94726; 94729

== ENCOUNTER 2024-03-28 00:32 | Day surgery (SDC) | payer BC, SELFPAY ==
[2024-03-21 15:21] VITALS: BMI 61.2
--- NOTE | 2024-03-21 15:27 | PC.NURSE ---
Report to the Outpatient Waiting Room, entrance under the green pavilion located off [facility], at time _0930_ on date _[id number]_. Planned Procedure Time: _1030_. Time changes happen often and if your time is changed the preop area will call you the afternoon before. - You and your visitor will be asked to self-screen and do not enter if you have any COVID symptoms. - A mask is optional within the hospital at this time. Eat a light breakfast and take morning medicines. Nothing to eat or drink after 830am until after surgery. Please no make-up, nail georgian, hairspray, perfume, deodorant, or body powder the day of surgery. No jewelry (including any body piercings) or valuables the day of surgery, leave them at home. Please take a shower or bath the night before, or the morning of, surgery with an antibacterial soap. Wear comfortable, loose fitting clothing. Children are encouraged to wear pajamas. - Jewelry must be removed prior to entering the operating room. Rings and piercings that are not removed may be cut off. - The hospital will not accept responsibility for valuables. - Please leave all valuables, including medications, at home the day of surgery. If you are going home after surgery, a licensed mobile lounge driver must drive you home. - NO public transportation without another adult if you receive anesthesia. - We recommend that an adult stay with you for 24 hours following discharge. - We also recommend that you do not drive, make important decision, drink alcoholic beverages, or take any drugs that were not prescribed by your health care provider for at least 24 hours after your discharge time. Follow any additional instructions given to you from your surgeon. If you or anyone in your household have experienced Covid symptoms in the past week, please notify your surgeon or the nurse liaison at the phone number below for possible testing. Telephone instructions given to _Jasen___and asked if any additional questions and then verbalized understanding. Patient advised to call surgeon office or pre surgery nurse liaison [phone] if any additional questions.
--- NOTE | ~2024-03-28 | XR_ITS ---
EXAMINATION: XR fluoroscopy no charge DATE: 03/28/2024 9:00 CDT INDICATION: BILATERAL SI JOINT INJECTIONS . TECHNIQUE: 4 fluoroscopic images of the bilateral SI joints were obtained during bilateral SI joint i njections, performed by Joseluis Rainey MD. I was not present during the procedure. Fluoroscopy expo sure time was 56.2 seconds. Air Kerma 49.476 mGy. DAP 0.9808 mGym2. COMPARISON: None FINDINGS/IMPRESSION: Fluoroscopic documentation of bilateral SI joint injection. Please refer to the operative note for co mplete procedural details . Reviewed, dictated and finalized at location K.
--- NOTE | 2024-03-28 08:31 | PM.HPGS ---
History of Present Illness History of Present Illness Consent: Risks, benefits, and alternatives have been discussed and questions answered. Patient agrees to proceed with procedure. Chief complaint: sacroiliitis, chronic low back pain Narrative: Jasen Espana is a 43 year old female with chronic, recalcitrant and disabling bilateral low back and buttock pain secondary to degenerative spondylosis/sacroiliitis with failure to respond to aggressive conservative measures including PT, oral and topical analgesics, opioid and nonopioid analgesics, rest, time and activity/behavioral modification over the past 1-2 years who presents for bilateral SI joint steroid injections under fluoroscopic guidance and with contrast control. Review of Systems Review of Systems: Patient denies any new infectious, allergic, cardiopulmonary, neurologic or constitutional symptoms or changes in activity tolerance or exercise capacity including new or progressive SOB/HIRSCH, peripheral edema, productive cough, dysuria, nausea/vomiting, diarrhea, weight change, fevers/chills/night sweats, new or progressive neurologic deficit, cognitive or mood changes since last seen, except as documented in the HPI. All systems reviewed & are unremarkable except as noted in HPI and below PMFSH Past Medical History Medical History Asthma Congestive heart failure COPD (chronic obstructive pulmonary disease) Depression KAVYA on CPAP Pneumonia Sleep apnea Surgical History Surgical History H/O wrist surgery History of endometrial ablation History of hysterectomy (03/21/22) No oophorectomy History of tubal ligation Hx of section (~2007) Family History Family History Mother Family history of chronic obstructive pulmonary disease Family history of malignant neoplasm of ovary Grandparent Liver cancer Social History Social History Smoking packs per day: 0.5 Smoking cigarettes per day: 10.0 Years smoked: 20 Smoking pack-years: 10.00 Smoking status: Former smoker Tobacco type: cigarettes Second hand tobacco smoke exposure: No Smoking end date: 03/21/22 Alcohol intake: current Alcohol use details: very rarely Substance use: former Substance use type: does not use Do You Feel Safe in your Home?: Yes Lack of Transportation: No Lack of Food: Never True Current Housing: I Have Housing Concerned About Future Housing: No Difficulty Paying Gas/Electric Bills: No Difficulty Paying for Meds: No Currently Unemployed: No Education: High School Diploma/GED Difficulty w/ Childcare or Family Care: No Living arrangements: with family Occupation/Education: occupation 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 Gender identity (if verbalized by the patient): Female Spiritual care concerns: No Agree to blood products: Yes Meds Home Medications and Allergies Home Medications Medication Instructions Recorded Confirmed Type umeclidinium 62.5 mcg/actuation 1 inh inhalation DAILY #30 ea 04/23/22 03/21/24 Rx blister powder for inhalation (Incruse Ellipta) zolpidem 10 mg tablet 10 mg PO QHS PRN insomnia #30 tabs 02/27/23 03/21/24 Rx fluticasone 500 mcg-salmeterol 50 1 ea inhalation BID #180 ea 04/01/23 03/21/24 Rx mcg/dose blistr powdr for inhalation (Wixela Inhub) estradiol 2 mg tablet 2 mg PO DAILY 05/12/23 03/21/24 History quetiapine 400 mg tablet (Seroquel) 400 mg PO ONCE 11/04/23 03/21/24 History lorazepam 1 mg tablet 1 mg PO BID PRN anxiety #30 tabs 12/08/23 03/21/24 Rx fluoxetine 40 mg capsule 40 mg PO DAILY 01/12/24 03/21/24 History albuterol 90 mcg-budesonide 80 2 inh inhalation ONCE #10.7 grams 02/02/24 03/21/24 Rx mcg/actuation HFA aerosol inhale
--- NOTE | 2024-03-28 08:35 | WPDHPUPDATE1 ---
History and Physical Update Update Date/Time: 03/28/24 08:35 History and Physical has been reviewed, including an updated exam of the patient. There are NO changes in the patient's condition. Risks, benefits, and alternatives have been discussed and questions answered. Patient agrees to proceed with procedure.
--- NOTE | 2024-03-28 08:35 | W.PM.PROC2 ---
Procedure Note - Detailed Date of Procedure 03/28/24 Pre-op Diagnosis sacroiliitis, chronic low back pain Post-op Diagnosis Same Procedure Performed Bilateral Sacroiliac Joint Steroid Injection under Fluoroscopic Guidance and with Contrast Control. Surgeon Joseluis Rainey MD Anesthesia Local Description of Procedure INFORMED CONSENT: Risks, benefits and alternatives to the procedure were discussed in detail with the patient who expressed explicit understanding and consent to proceed. Patient was informed verbally and in written form regarding the risks associated with the procedure including the low risk of serious infection, bleeding/bruising, allergic reaction, nerve or organ injury, paralysis, procedural site pain or discomfort, worsening pain and/or mobility, failure to treat and/or disfigurement. The patient expressed explicit understanding and consent to proceed. All materials required for the procedure were available prior to procedure start. Site and side were marked prior to procedure and confirmed in the presence of the patient. PROCEDURE IN DETAIL: The patient was brought to the procedural suite and placed in the prone position. Patient was made comfortable with use of pillows under the head/chest, hips and ankles. Skin overlying the injection site on the affected side(s) was prepared broadly with ChloraPrep applicator and draped in a sterile manner. Aseptic technique was used throughout. The SI joint was identified in the AP view and contralateral oblique angulation with caudal tilt was utilized to optimize visualization of the inferior and medial joint line representing the posterior portion of the joint. Local anesthesia was established by infiltration with approximately 5 mL of 2% lidocaine via a 1-1/2 inch 27-gauge needle. A 22-gauge 3.5 inch Quincke spinal needle was advanced until the needle entered the inferior third of the joint space approximately 1cm cephalad from its most inferior point. In the AP view, 0.5 mL of Omnipaque 300 contrast medium was injected after negative aspiration for CSF, blood or other bodily fluid, showing appropriate intra-articular spread of contrast without evidence of intravascular, perineural or intrathecal placement. A 1.5 mL solution containing 3 mg of betamethasone in 0.5% PF bupivacaine was injected after repeat negative aspiration. Appropriate spread of the injectate was confirmed with washout of previous injected contrast. No parasthesias were elicited. Needle was removed completely intact without difficulty. [The same exact procedure was repeated for all remaining levels on the contralateral side, right SI joint, modified as necessary to accommodate for the new target location with identical findings/results and no evidence of complication.] Images were saved and documented in the patient chart. Patient's skin was cleansed and sterile bandage applied. The patient tolerated the procedure well. The patient was transported to the recovery area in stable condition where they were observed for an appropriate amount of time prior to discharge, without evidence of complication. The patient was instructed to avoid excessive activity for the next 48 hours, including climbing and frequent use of stairs. Showers only for 48 hours. They were instructed not to drive or operate heavy machinery for 24 hours. They are to monitor for severe headaches, fevers, chills, night sweats, erythema/swelling at the site or any other signs of infection, bleeding/bruising, bowel or bladder changes as well as new pain, weakness or numbness in the upper or lower extremity. Should they notice these changes, they are instructed to call our office immediately or report directly to the nearest Emergency Department if no answer or if after posted office hours. COMPLICATIONS: None COMMENTS: None CONTRAST WASTED: 29mL Omnipaque 300. Complications No immediate complications Condition Stable Disposition Same day [facility] -
[2024-03-28 09:25] VITALS: BP 147/82; PULSE 78; RESP 16; O2SAT 98
[2024-03-28 09:30] VITALS: BP 135/67; PULSE 85; RESP 16; O2SAT 97
[2024-03-28 09:35] VITALS: BP 134/69; PULSE 85; RESP 16; O2SAT 97
[2024-03-28] MEDS: BUPivacaine HCL 0.5% PF 30 ML VIAL 10 ML INFILTRATE (09:36)
[2024-03-28] MEDS: LIDOCAINE HCL 1% PF INJ 5 ML VIAL 10 ML INFILTRATE (09:37)
[2024-03-28] MEDS: BETAMETHASONE SODIUM PHOSPHATE PF INJ 6 MG/ML VIAL INFILTRATE (09:38)
[2024-03-28 09:40] VITALS: BP 125/70; PULSE 82; RESP 16; O2SAT 98
[2024-03-28 09:47] VITALS: BP 122/59; PULSE 73; RESP 16; O2SAT 99
== END 2024-03-28 10:10 | disposition home or self-care (01) ==
PROVIDERS: PCP Family Medicine Adolescent Medicine; Visit Provider Anesthesiology Pain Medicine
PROC: (CPT 27096; principal; 2024-03-28 09:00)
DX: M46.1 Sacroiliitis, not elsewhere classified (principal); G89.29 Other chronic pain; J44.9 Chronic obstructive pulmonary disease, unspecified; I50.9 Heart failure, unspecified; G47.33 Obstructive sleep apnea (adult) (pediatric); F32.A Depression, unspecified; Z87.891 Personal history of nicotine dependence; Z79.51 Long term (current) use of inhaled steroids; Z79.85 Long-term (current) use of injectable non-insulin antidiabetic drugs
CPT/HCPCS: 27096; 99199; Q9965

== ENCOUNTER 2024-04-01 10:01 | Outpatient (CLI) | payer BC, SELFPAY ==
--- NOTE | ~2024-04-01 | MM_ITS ---
EXAMINATION: MM screening jennyfer BI w edwin HISTORY: Screening mammogram TECHNIQUE: Craniocaudal and mediolateral oblique 3-D tomosynthesis images were obtained and synthetic 2-D images were generated. CAD analysis was submitted and interpreted. COMPARISON: No prior mammogram is available for comparison at this institution. BREAST PARENCHYMAL COMPOSITION:Not Dense. The breasts are almost entirely fatty FINDINGS: No suspicious mass, calcification, or architectural distortion are identified in either samy ast to suggest malignancy. There has been no suspicious interval change. IMPRESSION: No mammographic evidence of malignancy. Recommend routine screening mammography in one year. BI-RADS Category 1: Negative Reviewed, dictated and finalized at location .
== END 2024-04-01 10:02 ==
PROVIDERS: PCP Family Medicine Adolescent Medicine; Visit Provider Obstetrics & Gynecology
DX: Z12.31 Encounter for screening mammogram for malignant neoplasm of breast (principal)
CPT/HCPCS: 77063; 77067

== ENCOUNTER 2024-06-17 07:56 | Outpatient (CLI) | payer BC, SELFPAY ==
--- NOTE | 2024-07-07 12:01 | WPDSLEEPSTUD ---
Sleep Study Date of Study: 06/17/24 Ordering Provider: Margie White MD Interpreting Physician: Margie White MD Sleep Study Type: CPAP Titration Height: 1.65 m Weight: 161.932 kg Body Mass Index: 59.3 Neck Circumference (inches): 18.25 [place]: 6 Reason for Sleep Study Obstructive sleep apnea on CPAP, compliant with treatment on CPAP 15 cm with intractable daytime sleepiness,needs repeat titration * 01/11/2019 [facility] note from Dr Carlos Angel; On CPAP 14 cm initially dx'd 2011, was compliant, AHI 2 on CPAP 14 cm. CPAP was failing after 7 years, needed a repeat study. Other dx = otitis media bilaterally, hx of endoscopic sinus surgery with improvement. * 01/14/2019 - split night study @ [facility], [address] [place] [id number]; baseline AHI 155.4 with average saturation 85%, 10% of the night spent below 88%. sparkle 80%, optimal pressure 15 cm CPAP with AHI 0. No leg movements on either portion. Sleep History Jasen Espana is a 43-year-old woman with along history of obstructive sleep apnea, hase been on CPAP 11 years. She frequently awakens from sleep feeling short of breath. She occasionally awakens at night with heartburn, belching or coughing. She always snores loudly enough that others complain. She constantly has difficulty sleeping when she has a cold. She frequently wakes up gasping for breath at night. She constantly has breathing problems at night reported to her by others. She occasionally sweats excessively at night. Frequently she notices her heart pounding or beating irregularly at night. She rarely falls asleep during the day, rarely falls asleep involuntarily, never falls asleep while driving. She frequently has loss of muscle tone with strong emotion. She constantly has daytime difficulties due to excessive sleepiness. She does not feel paralyzed on waking or falling asleep. She constantly has vivid dreamlike scenes upon awakening or falling asleep. She occasionally feels afraid to go to sleep. She frequently has nightmares. She occasionally remembers her dreams. She constantly has racing thoughts. She frequently feels sad or depressed. She constantly has anxiety. She frequently experiences muscle tension. She occasionally notices parts her body jerking. She occasionally kicks at night. She constantly experiences crawling and aching feelings in her legs. She frequently experiences leg pain during the night. She does not have morning jaw pain nor does she grind her teeth at night. She constantly is bothered by pain during the day. She occasionally is awakened by pain at night. She always wakes up feeling stiff in the morning, wakes up with sore or achy muscles, wakes up with pain in the neck and spine. She has headaches, fatigue, insomnia and depression. Sometimes she takes sedatives. Normal bedtime is 10:00 p.m. falling asleep within 20 minutes. She typically wakes up either not at all or up to 2 times during the night. Her awakenings are due to needing to use the bathroom or because she has a leg cramp. She may stay awake between 5 and 15 minutes. Her normal wake time is 4:15 a.m.. On weekends, bedtime is a little later, between 11:00 p.m. and 12 midnight. Her wake time is later, between 9:00 a.m. and 11:00 a.m.. She works split shifts. She does not take naps in the afternoon or evening. A short nap lasting 10-15 minutes does not feel refreshing. She is usually drowsy for 3 hours after waking. She feels better in the morning compared to other times of day. Habits: Tobacco : Former smoker, quit years ago Caffeine: 1-2 servings per day Alcohol: none Recreational substances: none PMFSH Past Medical History Medical History (Updated 07/08/24 @ 14:17 by Margie White MD) Asthma Chronic pain Congestive heart failure COPD (chronic obstructive pulmonary disease) Depression HTN (hypertension) KAVYA on CPAP Pneumonia
[2024-07-15 13:53] VITALS: BMI 59.3
== END 2024-06-18 06:50 | disposition home or self-care (01) ==
LOC: ANHCSM 07:57
PROVIDERS: PCP Family Medicine Adolescent Medicine; Visit Provider Internal Medicine Critical Care Medicine
DX: G47.33 Obstructive sleep apnea (adult) (pediatric) (principal); Z68.43 Body mass index [BMI] 50.0-59.9, adult
CPT/HCPCS: 95811

== ENCOUNTER 2024-06-28 17:28 | Outpatient (CLI) | payer BC, SELFPAY ==
--- NOTE | ~2024-06-28 | XR_ITS ---
EXAM: XR hip BI 2V w AP pelvis DATE: 06/28/2024 17:42 HISTORY: M16.12 - Unilateral primary osteoarthritis, left hip . COMPARISON: None available. FINDINGS: Normal mineralization. No fracture or dislocation. No lytic or blastic lesion. Lumbar dege nerative disc disease. Mild bilateral superior joint space narrowing in the hips. Apparent acetabular over coverage which may be sign of femoral acetabular impingement. No erosion or periosteal change. Soft tissues within normal limits. IMPRESSION: Mild bilateral hip osteoarthritis. Possible pincer-type femoral acetabular impingement. Reviewed, dictated and finalized at location K. IMPRESSION: Mild bilateral hip osteoarthritis. Possible pincer-type femoral judy tabular impingement.
== END 2024-06-28 17:29 | disposition home or self-care (01) ==
LOC: ANHIMG 17:30
PROVIDERS: PCP Family Medicine Adolescent Medicine; Visit Provider Anesthesiology Pain Medicine
DX: M16.12 Unilateral primary osteoarthritis, left hip (principal)
CPT/HCPCS: 73521

== ENCOUNTER 2024-07-18 00:52 | Day surgery (SDC) | payer BC, SELFPAY ==
[2024-07-13 15:36] VITALS: BMI 55.7
--- NOTE | 2024-07-13 15:42 | PC.NURSE ---
Report to the Outpatient Waiting Room, entrance under the green pavilion located off [facility], at time _1145_ on date _[id number]_. Planned Procedure Time: _1245_.? Time changes happen often and if your time is changed the preop area will call you the afternoon before. - You and your visitor will be asked to self-screen and do not enter if you have any COVID symptoms. Please call surgeon if you need to reschedule. - A mask is optional within the hospital at this time. Take only the following medications with a SIP of water on the morning of surgery___All meds ok. DO NOT STOP ANY OF YOUR OTHER PRESCRIPTION MEDICATIONS PRIOR TO SURGERY EXCEPT THE FOLLOWING Medications to discontinue per physician __None Please no make-up, nail danish, hairspray, perfume, deodorant, or body powder the day of surgery.? No jewelry (including any body piercings) or valuables the day of surgery, leave them at home.? Please take a shower or bath the night before, or the morning of, surgery with an antibacterial soap.? Wear comfortable, loose fitting clothing.? - Jewelry must be removed prior to entering the operating room.? Rings and piercings that are not removed may be cut off. - The hospital will not accept responsibility for valuables.? - Please leave all valuables, including medications, at home the day of surgery. If you are going home after surgery, a licensed tractor trailer moving van driver must drive you home.? - NO public transportation without another adult if you receive anesthesia. - We recommend that an adult stay with you for 24 hours following discharge. - We also recommend that you do not drive, make important decision, drink alcoholic beverages, or take any drugs that were not prescribed by your health care provider for at least 24 hours after your discharge time. Follow any additional instructions given to you from your surgeon. Telephone instructions given to __Jasen___and asked if any additional questions and then verbalized understanding. Patient advised to call surgeon office or pre surgery nurse liaison [phone] if any additional questions.
--- NOTE | 2024-07-13 15:49 | PC.NURSE ---
Report to the Outpatient Waiting Room, entrance under the green pavilion located off [facility], at time _1145_ on date _[phone]_. Planned Procedure Time: _1245_.? Time changes happen often and if your time is changed the preop area will call you the afternoon before. - You and your visitor will be asked to self-screen and do not enter if you have any COVID symptoms. Please call surgeon if you need to reschedule. - A mask is optional within the hospital at this time. Have a light breakfast then nothing to eat or drink after 1045am. Take only the following medications with a SIP of water on the morning of surgery___All medicines OK DO NOT STOP ANY OF YOUR OTHER PRESCRIPTION MEDICATIONS PRIOR TO SURGERY EXCEPT THE FOLLOWING Medications to discontinue per physician __None Please no make-up, nail czech, hairspray, perfume, deodorant, or body powder the day of surgery.? No jewelry (including any body piercings) or valuables the day of surgery, leave them at home.? Please take a shower or bath the night before, or the morning of, surgery with an antibacterial soap.? Wear comfortable, loose fitting clothing.? - Jewelry must be removed prior to entering the operating room.? Rings and piercings that are not removed may be cut off. - The hospital will not accept responsibility for valuables.? - Please leave all valuables, including medications, at home the day of surgery. If you are going home after surgery, a licensed locomotive driver must drive you home.? - NO public transportation without another adult if you receive anesthesia. - We recommend that an adult stay with you for 24 hours following discharge. - We also recommend that you do not drive, make important decision, drink alcoholic beverages, or take any drugs that were not prescribed by your health care provider for at least 24 hours after your discharge time. Follow any additional instructions given to you from your surgeon. Telephone instructions given to Jasen_and asked if any additional questions and then verbalized understanding. Patient advised to call surgeon office or pre surgery nurse liaison [phone] if any additional questions.
--- NOTE | ~2024-07-18 | XR_ITS ---
XR fluoroscopy no charge Indication: Left L3, L4 and L5 medial branch nerve block TECHNIQUE: Fluoroscopy used during Left L3, L4 and L5 medial branch nerve block performed by [Kelly Rainey MD] on 07/18/2024. 36 seconds of fluoroscopy with 2 fluoroscopic images captured. FINDINGS: Correlate with procedure note. IMPRESSION: Fluoroscopy used during Left L3, L4 and L5 medial branch nerve block. Reviewed, dictated and finalized at location B. IMPRESSION: Fluoroscopy used during Left L3, L4 and L5 medial branch nerve bloc kJunie
[2024-07-18 11:55] VITALS: BP 121/74; PULSE 90; RESP 20; TEMP 36.5; O2SAT 99; BMI 55.5
--- NOTE | 2024-07-18 12:21 | WPDHPUPDATE1 ---
History and Physical Update Update Date/Time: 07/18/24 12:21 History and Physical has been reviewed, including an updated exam of the patient. There are NO changes in the patient's condition. Risks, benefits, and alternatives have been discussed and questions answered. Patient agrees to proceed with procedure.
--- NOTE | 2024-07-18 12:21 | W.PM.PROC2 ---
Procedure Note - Detailed Date of Procedure 07/18/24 Pre-op Diagnosis lumbosacral spondylosis, chronic low back pain Post-op Diagnosis Same Procedure Performed Diagnostic Left Lumbar Medial Branch/Dorsal Ramus Blocks at L3, L4, L5 Treating the Ipsilateral L4-5, L5-S1 Facet Joints Under Fluoroscopic Guidance and with Contrast Control. (2 levels blocked). Surgeon Joseluis Rainey MD Business Support Coordinator None. Anesthesia Local Description of Procedure INFORMED CONSENT: Risks, benefits and alternatives to the procedure were discussed in detail with the patient who expressed explicit understanding and consent to proceed. Patient was informed verbally and in written form regarding the risks associated with the procedure including the low risk of serious infection, bleeding/bruising, allergic reaction, nerve or organ injury, paralysis, procedural site pain or discomfort, worsening pain and/or mobility, failure to treat and/or disfigurement. The patient expressed explicit understanding and consent to proceed. All materials required for the procedure were available prior to procedure start. Site and side were marked prior to procedure and confirmed in the presence of the patient. PROCEDURE IN DETAIL: The patient was brought to the procedural suite and placed in the prone position. Patient was made comfortable with use of pillows under the head/chest, hips and ankles. Skin overlying the injection site on the affected side(s) was prepared broadly with ChloraPrep applicator and draped in a sterile manner. Aseptic technique was used throughout. The endplates of the vertebral bodies at the site(s) of interest were aligned in the AP view. Ipsilateral oblique angulation was utilized to optimize visualization of the intersection between the superior articulating process and transverse process at each target site. Local anesthesia was established by infiltration with approximately 5 mL of 1% lidocaine via a 1-1/2 inch 27-gauge needle. A 25-gauge 5.0 inch Quincke spinal needle was advanced until the needle tip contacted periosteum at the target site, left L3. Lateral view was utilized to confirm the appropriate placement of the needle tip just anterior to the facet line and superior to the pedicle. In the Lateral view, 0.25 mL of Omnipaque 300 contrast medium was injected after negative aspiration for CSF, blood or other bodily fluid, showing appropriate extra-articular spread of contrast without evidence of intravascular, foraminal or intrathecal placement. A 0.5 mL solution of 0.5% PF bupivacaine was injected after negative repeat aspiration. Appropriate spread of the injectate was confirmed with washout of previously injected contrast. No parasthesias were elicited. Needle was removed completely intact without difficulty. The same exact procedure was repeated for all remaining levels on the ipsilateral side, left L4, L5 medial branches/dorsal ramus, modified as necessary to accommodate for the new target location with identical findings and results and no evidence of complication. Images were saved and documented in the patient chart. Patient's skin was cleaned and sterile bandage applied. The patient tolerated the procedure well. The patient was transported to the recovery area in stable condition where they were observed for an appropriate amount of time prior to discharge, without evidence of complication. Patient was instructed on the appropriate completion of a pain diary over the next 12-24 hours. The patient was instructed to avoid excessive activity for the next 48 hours, including climbing and frequent use of stairs. Showers only for 48 hours. They were instructed not to drive or operate heavy machinery for 24 hours. They are to monitor for severe headaches, fevers, chills, night sweats, erythema/swelling at the site or any other signs of infection, bleeding/bruising, bowel or bladder changes as well as new pain, weakness or numbness in the upper or lower extremity. Should they notice
[2024-07-18 12:35] VITALS: BP 162/84; PULSE 93; RESP 18; O2SAT 96
[2024-07-18 12:40] VITALS: BP 149/50; PULSE 92; RESP 18; O2SAT 97
[2024-07-18 12:45] VITALS: BP 164/81; PULSE 99; RESP 18; O2SAT 97
[2024-07-18] MEDS: BUPivacaine HCL 0.5% PF 30 ML VIAL INFILTRATE (12:49)
[2024-07-18] MEDS: LIDOCAINE HCL 1% LOCAL INJ 20 ML VIAL 5 ML INFILTRATE (12:50)
[2024-07-18 12:53] VITALS: BP 129/74; PULSE 90; RESP 18; O2SAT 97
[2024-07-18 12:57] VITALS: BP 126/74; PULSE 78; RESP 16; O2SAT 98
--- NOTE | 2024-07-18 14:07 | SUR.PHASEII ---
1345 PATIENT MEETS CRITERIA FOR DISCHARGE. WAITING FOR SON TO GET OFF WORK FOR A RIDE HOME. ON HOLD.
== END 2024-07-18 14:39 | disposition home or self-care (01) ==
PROVIDERS: PCP Family Medicine Adolescent Medicine; Visit Provider Anesthesiology Pain Medicine
PROC: (CPT 64493; principal; 2024-07-18 12:45)
DX: M47.817 Spondylosis without myelopathy or radiculopathy, lumbosacral region (principal); M54.50 Low back pain, unspecified; G89.29 Other chronic pain
CPT/HCPCS: 64493; 64494; 99199; J2003; Q9965

== ENCOUNTER 2024-08-15 10:39 | Outpatient (CLI) | payer BC, SELFPAY ==
--- NOTE | ~2024-08-15 | CT_ITS ---
EXAMINATION: CT abdomen pelvis w con DATE: 08/15/2024 11:05 INDICATION: Diarrhea, unspecified. TECHNIQUE: Computed tomography (CT) of the abdomen and pelvis was performed with 100 mL Omnipaque 350 intravenous contrast. Automated exposure control and iterative reconstruction technique were employe d. The dose-length product was 1120.54 mGy-cm. COMPARISON: CT abdomen and pelvis 08/26/2022 FINDINGS: The visualized portions of the lung bases demonstrate mild atelectasis. No pleural effusion . The heart size is normal. No pericardial effusion. The liver, gallbladder, spleen, pancreas, adrena l glands, and kidneys are normal. There are no dilated loops of bowel. The appendix is normal. There are no pathologically enlarged lymph nodes. There is no free intraperitoneal fluid. There is an umbil ical hernia containing fat. There is a supraumbilical ventral hernia containing fat. There is severe lower lumbar spondylosis and mild thoracic spondylosis. IMPRESSION: 1. Umbilical and supraumbilical ventral hernias containing fat. Reviewed, dictated and finalized at location A. CLEANING COUNTER CLERK
[2024-08-15 10:55] LABS: Estimated Glomerular Filt Rate > 60
== END 2024-08-15 10:40 | disposition home or self-care (01) ==
LOC: MICIMG 10:39
PROVIDERS: PCP Family Medicine Adolescent Medicine; Visit Provider Family Medicine
DX: K42.9 Umbilical hernia without obstruction or gangrene (principal); K43.9 Ventral hernia without obstruction or gangrene
CPT/HCPCS: 74177; Q9967

== ENCOUNTER 2024-08-20 12:28 | Outpatient (CLI) | payer BC, SELFPAY ==
--- NOTE | ~2024-08-20 | XR_ITS ---
XR_CERV2-3V_CR DATE: 08/20/2024 12:59 INDICATION: Neck pain, stiffness TECHNIQUE: AP, open-mouth, lateral views COMPARISON: None FINDINGS: There is mild reversal of the lower cervical curvature. C1 and C2 are normally aligned and the odontoid process is intact. No fracture or dislocation or locked facet or prevertebral soft tissue swelling. There is prominent anterior spurring and mild loss of disc space height at C5-6 and C6-7. IMPRESSION: Reversal of lower cervical curvature Mild to moderate degenerative disc disease and prominent anterior spurring at C5-6 and C6-7 Reviewed, dictated and finalized at Location A. Reviewed, dictated and finalized at location A. ECTOR MATERIAL DISPOSITION IMPRESSION: Reversal of lower cervical curvature Mild to moderate degenerative disc disease and prominent anterior spurring at C 5-6 and C6-7
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
== END 2024-08-20 12:29 | disposition home or self-care (01) ==
PROVIDERS: PCP Family Medicine Adolescent Medicine; Visit Provider Family Medicine
DX: M50.322 Other cervical disc degeneration at C5-C6 level (principal); M50.323 Other cervical disc degeneration at C6-C7 level; M41.84 Other forms of scoliosis, thoracic region; M51.34 Other intervertebral disc degeneration, thoracic region
CPT/HCPCS: 72040; 72070

== ENCOUNTER 2024-09-26 16:06 | Outpatient (CLI) | payer BC, SELFPAY ==
--- NOTE | ~2024-09-26 | CT_ITS ---
CT Scan of the Chest without Contrast: Clinical Indication: Pulmonary nodule Technique: Contiguous sections were acquired throughout the chest without intravenous contrast. Dose reduction technique was used on this scan by utilizing automated exposure control and iterative recon struction technique. The dose-length product (DLP) was 588.67 mGy-cm. COMPARISON: 10/28/2023 Findings: There is no evidence of any significant mediastinal, hilar or axillary lymphadenopathy. The mediastin al soft tissues appear normal. There is no evidence of pleural or pericardial effusion. There is linear bibasilar scarring or atelectasis. Stable 4 mm right lower lobe pulmonary nodule. Images through the upper abdomen reveal no abnormalities. Impression: Stable subcentimeter right lower lobe pulmonary nodule. Mild bibasilar scarring or atelectasis, unchanged. Reviewed, dictated and finalized at [facility]. OR STOCK PLAN ADMINISTRATOR Impression: Stable subcentimeter right lower lobe pulmonary nodule. Mild bibasilar scarring or atelectasis, unchanged.
== END 2024-09-26 16:07 | disposition home or self-care (01) ==
LOC: ANHIMG 16:09
PROVIDERS: PCP Family Medicine Adolescent Medicine; Visit Provider Internal Medicine Critical Care Medicine
DX: R91.1 Solitary pulmonary nodule (principal); R91.8 Other nonspecific abnormal finding of lung field
CPT/HCPCS: 71250

== ENCOUNTER 2025-02-21 14:32 | Emergency (ER) | payer BC, SELFPAY ==
--- OUTSIDE RECORDS SUMMARY | 2025-02-21 14:35 | XMS_ITS | Clinical Summary ---
Author Organization [facility] Address [address] [place] [address] Care Team Providers Care Tool Machine Set Up Operator Name Role Phone Sami Ramirez MD Primary Care Provider + Source Comments [facility],non-owned Affiliates and Associated Physician Practices is amultiple site organization consisting of ambulatory clinics and hospital sitesin [place], [place], [place] and [place]. This disclosure is being madepursuant to the Care Everywhere program and may not contain all information available regarding this patient. Last updated 18.[facility] Allergies Active Allergy Reactions Criticality Noted Date Comments Amoxicillin Urticaria Medium 10/16/2018 Medications * Be aware that medications may not be up to date on this document. Alwaysverify current medications with the patient. montelukast (SINGULAIR) 10 MG tablet Take 10 mg by mouth once daily Active FLUoxetine (PROZAC) 20 MG capsule Take 20 mg by mouth once daily Active fluticasone-lindsey meterol (ADVAIR) 500-50 MCG/DOSE inhaler Inhale 1 puff by mouth 2 times daily Active albuterol (PROVENTIL;VENT STONEY) (5 MG/ML) 0.5% nebulizer solution Inhale 2.5 mg by mouth 4 times daily as needed for Shortness of Breath or Wheezing Active calcium-vitamin D (OS-ADRIANA 500 + D) 500-200 mg-unit tablet Take 1 tablet by mouth once daily Active Social History Tobacco Use Types Packs/Day Years Used Date Smoking Tobacco: Every Day Comments Unknown Sex and Gender Information Value Date Recorded Sex Assigned at Not on file Legal Sex Female 11:46 AM CDT Gender Identity Not on file Sexual Orientation Not on file Last Filed Vital Signs Vital Sign Reading Time Taken Comments Blood Pressure 151/86 10/16/2018 5:57 PM ASPHALT BLENDER Pulse 83 10/16/2018 8:18 PM ASPHALT BLENDER Temperature 36.9 C (98.5 F) 10/16/2018 5:57 PM ASPHALT BLENDER Respiratory Rate 18 10/16/2018 8:18 PM ASPHALT BLENDER Oxygen Saturation 97% 10/16/2018 8:18 PM ASPHALT BLENDER Inhaled Oxygen Concentration - - Weight 137 kg (302 lb) 10/16/2018 5:57 PM ASPHALT BLENDER Height 162.6 cm (5' 4) 10/16/2018 5:57 PM ASPHALT BLENDER Body Mass Index 51.84 10/16/2018 5:57 PM ASPHALT BLENDER Plan of Treatment Health Maintenance Due Date Last Done Comments LIPID TESTING 1982 MAMMOGRAM 1982 HIV SCREENING 1997 HEPATITIS C SCREENING 12/23/2000 DTAP/TDAP/TD VACCINES (1 - Tdap) 2001 HEPATITIS B VACCINE (1 of 3 - 19+ 3-dose series) 2001 PNEUMOCOCCAL VACCINE (1 of 2 - PCV) 2001 COVID-19 VACCINE (1 - 2023-2 5 season) 2024 DEPRESSION SCREENING 09/28/2024 INFLUENZA VACCINE (Season Ended) 2025 ZOSTER VACCINE (1 of 2) 2032 HIB VACCINE Aged Out No longer eligi ble based on patient's age to complete this topic HPV VACCINE Aged Out No longer eligi ble based on patient's age to complete this topic MENINGOCOCCAL (Group B) VACC INE SHARED DECISION-MAKING Aged Out No longer eligibl e based on patient's age to complete this topic MENINGOCOCCAL GROUPS A/C/Y/W VACCINE Aged Out No longer eligible b ased on patient's age to complete this topic Insurance ANTHEM Care Teams Tool Machine Set Up Operator Relationship Specialty Start Date End Date Sami Ramirez MD [address] [facility] [address] [place] [address] PCP - General Family Medicine 10/16/18
--- OUTSIDE RECORDS SUMMARY | 2025-02-21 14:35 | XMS_ITS | Referral Summary ---
Author Organization [facility] [address] Address [address] [place] [address] Care Team Providers Care Dispatcher Chief Coal Slurry Name Role Phone Monica Shook MD Primary Care Provider Encounters Date Type Department Care Team Description 01/16/2025 2:45 PM CDT Office Visit [facility] Family Medicine at [address] [place] [address] Derrek Stockton MD Class 3 severe obesity due to excess calories with serious comorbidity and body mass index (BMI) of 50.0 to 59.9 in adult (Primary Dx) 12/19/2024 Telephone [facility] Family Medicine at [address] [place] [address] Derrek Stockton MD from Last 3 Months Allergies Active Allergy Reactions Criticality Noted Date Comments Amoxicillin Hives,Unknown Medium 06/24/2018 Cephalosporins Angioedema,Hives High 06/24/2018 Nitrofurantoin Anaphylaxis High 07/24/2022 Medications montelukast (SINGULAIR) 10 mg tablet Take 1 tablet (10 mg total) by mouth nightly Active cetirizine (ZyrTEC) 10 mg tablet Take 1 tablet (10 mg total) by mouth nightly Active albuterol HFA (PROVENTIL HFA,VENTOLIN HFA,PROAIR HFA) 90 mcg/actuation inhaler Inhale 2 puffs every 6 (six) hours as needed for wheezing Active ibuprofen (ADVIL,MOTRIN) 600 mg tablet Take 1 tablet (600 mg total) by mouth every 6 (six) hours as needed for pain or headaches 06/21/20 18 Active melatonin 10 mg tablet Take 1 tablet (10 mg total) by mouth nightly Active albuterol (PROVENTIL,CYNDI TOLIN) 1.25 mg/3 mL nebulizer solution Take 3 mL (1.25 mg total) by nebulization every 6 (six) hours as needed for wheezing Active ADVAIR DISKUS 500-50 mcg/dose diskus inhaler 09/02/20 18 Active LORazepam (ATIVAN) 1 mg tablet 11/03/19 19 Active FLUoxetine (PROzac) 40 mg capsule Take 1 capsule (40 mg total) by mouth daily Pt takes 20 mg 1 05/31/20 19 Active INCRUSE ELLIPTA 62.5 mcg/actuation blister with device 10/14/19 20 Active acetaminophen (TYLENOL) 500 mg tablet Take 2 tablets (1,000 mg total) by mouth every 8 (eight) hours as needed 07/08/20 22 Active lisinopriL (PRINIVIL,ZEST RIL) 30 mg tablet Take 1 tablet (30 mg total) by mouth nightly at bedtime. 06/17/20 22 Active azelastine (ASTELIN) 137 mcg (0.1 %) nasal spray Administer 1 spray into each nostril 2 (two) times a day as needed for rhinitis or allergies (congestion and drainage) Use in each nostril as directed 30 mL 01/15/20 23 Active estradioL (ESTRACE) 2 mg tablet Take 1 tablet (2 mg total) by mouth daily 10/17/19 24 Active cyclobenzaprin e (FLEXERIL) 10 mg tablet Take 1 tablet (10 mg total) by mouth 3 (three) times a day as needed for muscle spasms 12/21/19 24 Active QUEtiapine (SEROquel) 400 mg tablet Take 1 tablet (400 mg total) by mouth nightly 10/06/19 24 Active EPINEPHrine 0.3 mg/0.3 mL auto-injection syringe Inject 0.3 mL (0.3 mg total) into the muscle as instructed once 01/07/20 24 Active dicyclomine (BENTYL) 20 mg tablet Take 1 tablet (20 mg total) by mouth 2 (two) times a day 07/26/20 Active meloxicam (MOBIC) 15 mg tablet Take 1 tablet (15 mg total) by mouth daily 01/01/20 25 Active tirzepatide, weight loss, (Zepbound) 5 mg/0.5 mL pen injectorIndica tions:Class 3 severe obesity due to excess calories with serious comorbidity and body mass index (BMI) of 50.0 to 59.9 in adult Inject 0.5 mL (5 mg total) under the skin every 7 days 2 mL 02/11/20 25 Active semaglutide (WEGOVY) 2.4 mg/0.75 mL auto-injectorI ndications:Cla ss 3 severe obesity due to excess calories without serious comorbidity with body mass index (BMI) of 60.0 to 69.9 in adult Inject 0.75 mL (2.4 mg total) under the skin every 7 days 9 mL 3 07/28/20 24 025 Discontinued tirzepatide, weight loss, (Zepbound) 2.5 mg/0.5 mL pen injectorIndica tions:Class 3 severe obesity due to excess calories with serious comorbidity and body mass index (BMI) of 50.0 to 59.9 in adult Inject 0.5 mL (2.5 mg total) under the skin every 7 days 2 mL 01/17/20 25 025 Discontinued Active Problems Problem Noted Date Diagnosed Date BMI 60.0-69.9, adult 04/25/2024 Class 3 severe obesity due t o excess calories with serious comorbidity and body mass index (BMI) of 50.0 to 59.9 in adult 12/25/2023 Assessment & Plan (01/16/2025 3:14 PM CDT): Chronic. Uncontrolled. Goal: 150lb Recommend Nutritional every other Thursday Seminar. Recommended Medication :Hold wegovy. Start zepbound. Abnormal weight gain 12/25/2023 Chronic obstructive pulmonary disease 07/24/2022 Bipolar disorder in full remission 07/24/2022 PTSD (post-traumatic stress disorder) 07/24/2022 KAVYA on CPAP 07/24/2022 Overview (07/24/2022): Managed by her ENT. On CPAP. Continue Resolved Problems Problem Noted Date Diagnosed Date Resolved Date Cellulitis of finger 04/26/2019 022 Closed fracture of right distal radius 07/06/2018 07/24/2022 Overview (07/06/2018): Added automatically from request for surgery [id number] Immunizations Immunization Administration Dates Next Due DTaP 04/25/1988, 5,06/23/1983,04/15,02/13/1983 Hep A, Ped Unspecified 04/29/2000 Influenza, Quadrivalent, Rec ombinant, Egg Free, Preservative Free, Intramuscular 07/12/2021 Influenza, Quadrivalent, Spl it, Intramuscular 09/28/2018 Influenza, Quadrivalent, Spl it, Preservative Free, Intramuscular 08/20/2022 Influenza, Unspecified 12/25/2023(Deferred: Mariza ent decision) MMR 06/12/1987 OPV 04/25/1988, 5,06/23/1983,04/15,02/13/1983 Social History Tobacco Use Types Packs/Day Years Used Date Smoking Tobacco: Former Cigarettes 1 - 2019 Smokeless Tobacco: Never Tobacco Cessation:Counseling Given: Yes Alcohol Use Standard Drinks/Week Comments Yes 0 (1 standard drink = 0.6 oz pur e alcohol) rare AUDIT-C Answer Date Recorded Q1: How often do you have a drink containing alcohol? Never 01/16/2025 Q2: How many drinks containi ng alcohol do you have on a typical day when you are drinking? Patient does not drink Q3: How often do you have si x or more drinks on one occasion? 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 Gender Identity Not on file Sexual Orientation Not on file Last Filed Vital Signs Vital Sign Reading Time Taken Comments Blood Pressure 113/80 01/16/2025 3:03 PM CDT Pulse 92 01/16/2025 3:03 PM CDT Temperature 36.7 C (98 F) 01/16/2025 3:03 PM CDT Respiratory Rate 14 01/16/2025 3:03 PM CDT Oxygen Saturation 97% 01/16/2025 3:03 PM CDT Inhaled Oxygen Concentration - - Weight 141.7 kg (312 lb 6.4 oz) 01/16/2025 3:03 PM CDT Height 160 cm (5' 3) 01/16/2025 3:03 PM CDT Body Mass Index 55.34 01/16/2025 3:03 PM CDT Plan of Treatment Not on file Medical Devices Implanted Type Area Window Unit Air Conditioning Mechanic Device Identifier Shelf Expiration Date Model / Serial / Lot Lifenet Bl-1500-002 Vivigen Allograft Graft 5 Cc Bone Cortical Cancellous; Deminerali - [id number] - [id number] Implanted:Qty: 1 on 07/07/2018 by Finn Pierre MD at [facility] Right: Radius Lifenet 06/17/2019 BL-1500-002 / [id number] / [id number] Plate Small Frag Implanted:Qty: 1 on 07/07/2018 by Finn Pierre MD at [facility] Right: Radius Medartis Inc Medartis Inc A-4750.56 Aptus Trilock 42mmx1.6mm 6 Hole Distal Radius L Right Angle Plate - [id number] Implanted:Qty: 1 on 07/07/2018 by Finn Pierre MD at [facility] Right: Radius Medart[employer] Inc A-4750.56 / / Medartis Inc A-4750.55 Aptus Trilock 42mmx1.6mm 6 Hole Distal Radius L Left Angle Plate - [id number] Implanted:Qty: 1 on 07/07/2018 by Finn Pierre MD at [facility] Right: Radius Medart[employer] Inc A-4750.55 / / Medartis Inc A-5700.16/1 Aptus 2.5mm 16mm Hexadrive 7 Adaptive Wrist Radius Cortical - [id number] Implanted:Qty: 2 on 07/07/2018 by Finn Pierre MD at [facility] Right: Radius [employer] Inc A-5700.16/1 / / Medartis Inc A-5700.18/1 2.5mm 18mm Hexadrive Wrist Cortical Screw Bone - [id number] Implanted:Qty: 2 on 07/07/2018 by Finn Pierre MD at [facility] Right: Radius [employer] Inc A-5700.18/1 / / Medartis Inc A-5700.22/1 2.5mm 22mm Cortical Screw Bone Vicki - [id number] Implanted:Qty: 1 on 07/07/2018 by Finn Pierre MD at [facility] Right: Radius [employer] Inc A-5700.22/1 / / Medartis Inc A-5700.12 Aptus 2.5mm 12mm Cortical Screw Bone - [id number] Implanted:Qty: 1 on 07/07/2018 by Finn Pierre MD at [facility] Right: Radius [employer] Inc A-5700.12 / / Med[employer] Inc A-5750.08/ Aptus Trilock 2.5mm 8mm Hexadrive 7 Screw Bone Titanium - [id number] Implanted:Qty: 1 on 07/07/2018 by Finn Pierre MD at [facility] Right: Radius [employer] Inc A-5750.08/ / / Medartis Inc A-5750.10/ Aptus Trilock 2.5mm 10mm Hexadrive 7 Screw Bone Titanium - [id number] Implanted:Qty: 1 on 07/07/2018 by Finn Pierre MD at [facility] Right: Radius [employer] Inc A-5750.10/ / / Insurance [employer] [facility] [place] [address] Advance Directives For more information, please contact: [phone] * Full Code (Latest Code Status on File) Date Activated Date Inactivated Comments 07/07/2018 4:58 PM 07/07/2018 8:16 PM Care Teams Dispatcher Chief Coal Slurry Relationship Specialty Start Date End Date Monica Shook MD PCP - General Family Practice 07/18/22
--- OUTSIDE RECORDS SUMMARY | 2025-02-21 14:35 | XMS_ITS | Clinical Summary ---
Author Organization [facility] [address] Address [address] [place] [address] Care Team Providers Care Travel Consultant Name Role Phone Monica Shook MD Primary Care Provider Allergies Active Allergy Reactions Criticality Noted Date [...] mouth 2 (two) times a day 07/26/20 24 Active meloxicam (MOBIC) 15 mg tablet Take [...] (07/06/2018): Added automatically from request for surgery [id number] Encounters Date Type Department Care Team Description 01/16/2025 2:45 PM CDT Office Visit [facility] Family Medicine at [address] [place] [address] Derrek Stockton MD Class 3 severe obesity due to excess calories with serious comorbidity and body mass index (BMI) of 50.0 to 59.9 in adult (Primary Dx) 12/19/[address] [facility] Family Medicine at [address] [place] [address] Derrek Stockton MD from Last 3 Months Immunizations Immunization Administration Dates Next Due DTaP 04/25/1988, 5,06/23/1983,04/15,02/13/1983 Hep A, Ped Unspecified 04/29/2000 Influenza, Quadrivalent, Rec ombinant, Egg Free, Preservative Free, Intramuscular 07/12/2021 Influenza, Quadrivalent, Spl it, Intramuscular 09/28/2018 Influenza, Quadrivalent, Spl it, Preservative Free, Intramuscular 08/20/2022 Influenza, Unspecified 12/25/2023(Deferred: Mariza ent decision) MMR 06/12/1987 OPV 04/25/1988, 5,06/23/1983,04/15,02/13/1983 Surgical History Surgery Date Site/Laterality Comments TUBAL LIGATION 05/21/2018 SECTION 09/28/2007 - 09/27/2008 ORIF WRIST FRACTURE Right HYSTERECTOMY for bleeding. still needs pap given risk factors for cervical cancer Medical History Medical History Date Comments Status post D&C Anxiety Asthma Sleep apnea Radius fracture Hypertension COPD (chronic obstructive pu lmonary disease) ([facility]) Closed fracture of right dis josé luis radius 07/06/2018 Added automatically from req uest for surgery [id number] Family History Medical History Relation Name Comments Anesthesia problems Maternal Grandmother reports anesthesia could not get her to sleep Pancreatic cancer Maternal Grandmother Stomach cancer Maternal Grandmother Bipolar disorder Mother COPD Mother Cervical cancer Mother Pyelonephritis Mother recurrent Heart disease Neg Hx Malig Hypertension Neg Hx Malig Hyperthermia Neg Hx Pseudochol deficiency Neg Hx Stroke Neg Hx Relation Name Status Comments Maternal Grandmother Mother Social History Tobacco Use Types Packs/Day Years Used Date Smoking Tobacco: Former Cigarettes 1 20 000 - 2019 Smokeless Tobacco: Never Tobacco Cessation:Counseling [...] on file Legal Sex Female 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 Gender Identity Not on file Sexual Orientation Not on file Obstetrics History Last Filed Vital Signs Vital Sign Reading [...] 01/16/2025 3:03 PM CDT Plan of Treatment Health Maintenance Due Date Last Done Comments Breast Cancer Screening-Mammogram 1982 Hepatitis C Screening 1982 DTaP/Tdap/Td Vaccine (6 - Tdap) 1993 04/25/1988, 05/16/1985, 06/23/1983, Additional history exists Varicella Vaccines (1 of 2 - 13+ 2-dose series) 12/29/1995 Hepatitis B Screening 2000 Pneumococcal vaccine <65 (1 of 2 - PCV) 2001 Regular Well Visit/Exam 18-64 07/24/2023 07/24/2022 Covid-19 Vaccine ( - season) 2024 06/16/2021, 05/24/2021 Depression Screening 12/24/2024 12/25/2023, 07/24/20 22 Influenza Vaccine (Season Ended) 2025 08/20/2022, 07/12/2021, 09/28/2018 HPV Vaccines Aged Out No longer eligi ble based on patient's age to complete this topic Medical Devices Implanted Type Area Java [id number] Architect Device Identifier Shelf Expiration Date Model / Serial / Lot Lifenet Bl-1500-002 Vivigen Allograft Graft 5 Cc Bone Cortical Cancellous; Deminerali - [id number] - [id number] Implanted:Qty: 1 on 07/07/2018 by Finn Pierre MD at [facility] Right: Radius Lifenet 06/17/2019 BL-1500-002 / [id number] / [id number] Plate Small Frag Implanted:Qty: 1 on 07/07/2018 by Finn Pierre MD at [facility] Right: Radius Medartis Inc Medartis Inc A-4750.56 Aptus Trilock 42mmx1.6mm 6 Hole Distal Radius L Right Angle Plate - [id number] Implanted:Qty: 1 on 07/07/2018 by Finn Pierre MD at [facility] Right: Radius [employer] Inc A-4750.56 / / Med[employer] Inc A-4750.55 Aptus Trilock 42mmx1.6mm 6 Hole Distal Radius L Left Angle Plate - [id number] Implanted:Qty: 1 on 07/07/2018 by Finn Pierre MD at [facility] Right: Radius [employer] Inc A-4750.55 / / Medartis Inc A-5700.16/1 Aptus 2.5mm 16mm Hexadrive 7 Adaptive Wrist Radius Cortical - [id number] Implanted:Qty: 2 on 07/07/2018 by Finn Pierre MD at [facility] Right: Radius [employer] Inc A-5700.16/1 / / Medartis Inc A-5700.18/1 2.5mm 18mm Hexadrive Wrist Cortical Screw Bone - [id number] Implanted:Qty: 2 on 07/07/2018 by Finn Pierre MD at [facility] Right: Radius [employer] Inc A-5700.18/1 / / Medartis Inc A-5700.22/1 2.5mm 22mm Cortical Screw Bone Vicki - [id number] Implanted:Qty: 1 on 07/07/2018 by Finn Pierre MD at [facility] Right: Radius [employer] Inc A-5700.22/1 / / Medartis Inc A-5700.12 Aptus 2.5mm 12mm Cortical Screw Bone - [id number] Implanted:Qty: 1 on 07/07/2018 by Finn Pierre MD at [facility] Right: Radius [employer] Inc A-5700.12 / / Medartis Inc A-5750.08/1 Aptus Trilock 2.5mm 8mm Hexadrive 7 Screw Bone Titanium - [id number] Implanted:Qty: 1 on 07/07/2018 by Finn Pierre MD at [facility] Right: Radius Med[employer] Inc A-5750.08/ / / Medartis Inc A-5750.10/ Aptus Trilock 2.5mm 10mm Hexadrive 7 Screw Bone Titanium - [id number] Implanted:Qty: 1 on 07/07/2018 by Finn Pierre MD at [facility] Right: Radius Med[employer] Inc A-5750.10/ / / Insurance [facility] BLUE ACCESS [facility] Advance Directives For more information, please contact: [phone] * Full Code (Latest Code Status on File) Date Activated Date Inactivated Comments 07/07/2018 4:58 PM 07/07/2018 8:16 PM Care Teams Travel Consultant Relationship Specialty Start Date End Date Monica Shook MD PCP - General Family Practice 07/18/22
--- OUTSIDE RECORDS SUMMARY | 2025-02-21 14:35 | XMS_ITS | Patient Health Record ---
Author Organization [facility] [place] Address [address] [place] [address] Care Team Providers Care Hha Name Role Phone Sami Ramirez MD Primary Care Provider Abril Jones Unavailable [phone] Meredith Longoria Unavailable [phone] Allergies Allergen (clinical drug ingredient) Drug/Non Drug Allergy documented on EMR Reaction Allergy Type Onset Date Status amoxicillin Amoxicillin Unknown Drug Allergy 01/21/2024 Ac tive Medicinal cephalosporin and acting as antibacterial agent (FN) Cephalosporins hives Drug Allergy Active nitrofurantoin Nitrofurantoin anaphylaxis Drug Allergy Active Reason For Referral No Information Medications Medication SIG (Take, Route, Frequency, Duration) Notes Start Date End Date Status Sulfamethoxazole-Trim ethoprim 800-160 MG Oral 01/21/2024 Active RELION INSULIN SYRINGE 31G X 5/16 RELION INSULIN SYRINGE 31G X 5/16 1 ML MISC *Reorder from [facility] for eRx and Interaction Alerts* 01/21/2024 Active Lisinopril 30 MG Oral 01/21/2024 Ac tive Zolpidem Tartrate 10 MG Oral 01/21/2024 Active Montelukast Sodium 10 MG Oral 01/21/2024 Active Cyclobenzaprine HCl 10 MG Oral 01/21/2024 Active ARIPiprazole 10 MG Oral 01/21/2024 Not-Taking Azelastine HCl 137 MCG/SPRAY Nasal 01/21/2024 Active Cyclobenzaprine HCl 5 MG Oral 01/21/2024 Not-Taking QUEtiapine Fumarate 400 MG 1 tablet every night Oral at bedtime for 90 days 01/21/2024 Active LORazepam 1 MG Oral 01/21/2024 Acti ve Estradiol 2 MG Oral 01/21/2024 Acti ve Ondansetron 4 MG Oral 01/21/2024 Ac tive Ipratropium-Albuterol 0.5-2.5 (3) MG/3ML Inhalation 01/21/2024 Active lamoTRIgine 150 MG 1 tablet Orally once a day for 90 days Active Albuterol Sulfate (2.5 MG/3ML) 0.083% Inhalation 01/21/2024 Active WIXELA INHUB 500 MCG-50 MCG/DOSE POWDER FOR INHALATION *Reorder from [facility] for eRx and Interaction Alerts* 01/21/2024 Active FLUoxetine HCl 40 MG Take 1 capsule by mouth once daily for 90 Active Incruse Ellipta 62.5 MCG/INH Inhalation 01/21/2024 Active Methocarbamol 750 MG Oral 01/21/2024 Active EPINEPHrine 0.3 MG/0.3ML Injection 01/21/2024 Active Atrovent HFA 17 MCG/ACT Inhalation 01/21/2024 Active INSULIN SYRINGE U-100 WITH NEEDLE 1 ML 31 GAUGE X 5/16 *Reorder from [facility] for eRx and Interaction Alerts* 01/21/2024 Active Naloxone HCl 4 MG/0.1ML Nasal 01/21/2024 Active WEGOVY 0.5 MG/0.5 ML SUBCUTANEOUS PEN INJECTOR *Reorder from [facility] for eRx and Interaction Alerts* 01/21/2024 Active Immunizations Vaccine Route Administration Date Status Comme nts DTaP Unknown 02/13/1983 Administered DTaP Unknown 04/15/1983 Administered DTaP Unknown 06/23/1983 Administered DTaP Unknown 05/16/1985 Administered DTaP Unknown 04/25/1988 Administered Hep A, unspecified formulation Unknown 04/29/2000 Admin istered Influenza virus vaccine, quadrivalent (IIV4), split virus, 0.25 mL dosage Unknown 09/28/2018 Administered MMR Unknown 06/12/1987 Administered OPV Unknown 02/13/1983 Administered OPV Unknown 04/15/1983 Administered OPV Unknown 06/23/1983 Administered OPV Unknown 05/16/1985 Administered OPV Unknown 04/25/1988 Administered Social History Tobacco Use: Social History Observation Description Date Details (start date - stop date) Former Smoker NA - NA Sex Assigned At : Social History Observation Description Sex Assigned At Female Tobacco Control (Standard) Question Answer Notes Tobacco use: Former smoker How long has it been since you last smoked? Grea ter than 10 years Problems Problem Type SNOMED Code ICD Code Onset Dates Problem Status W/U Status Risk Notes Problem Obesity (552969159) Obesity, unspecified (E66.9) 05/21/20 Active confirmed Problem 70711956 Generalized anxiety disorder (F41.1) 01/21/20 Active confirmed Problem Posttraumatic stress disorder (46160131) Post-traumatic stress disorder, chronic (F43.12) 01/21/20 Active confirmed Problem Primary insomnia (5444664) Primary insomnia (F51.01) 01/21/20 Active confirmed Problem Long-term current use of drug therapy (116774539) Other oysterman (current) drug therapy (Z79.899) 01/21/20 Active confirmed Problem 58950921 Primary hypertension (I10) Active confirmed Problem 997896540 Chronic posttraumatic stress disorder (F43.12) Active confirmed Problem 74897799 ADHD (attention deficit hyperactivity disorder), combined type (F90.2) Active confirmed Problem Bipolar disorder (41918825) Bipolar depression (F31.9) Active confirmed Problem 43215684 Hypersomnia (G47.10) Active confirmed Problem 32649317 Bipolar I disorder, most recent episode mixed, moderate (F31.62) Active confirmed Vital Signs Heart Rate 72 /min 12/13/2024 Height-cm 162.56 cm 12/13/2024 Blood pressure diastolic 84 mm Hg 12/13/2024 Weight-kg 142.07 kg 12/13/2024 Height 64.00 in 12/13/2024 Blood pressure systolic 127 mm Hg 12/13/2024 Weight 313.2 lbs 12/13/2024 BMI 53.75 kg/m2 12/13/2024 Encounters Encounter Location Date Provider Diagnosis [facility] [employer] [facility] [address] [facility] [address] [place] [address] 02/23/2024 Meredith Longoria [facility] [employer] [place] [address] [facility] [address] [place] [address] 09/01/2024 Meredith Longoria Bipolar I disorder, most recent episode mixed, moderate F31.62 ; Generalized anxiety disorder F41.1 ; Chronic posttraumatic stress disorder F43.12 and ADHD (attention deficit hyperactivity disorder), combined type F90.2 [facility] [address] [facility] [address] [place] [address] 09/19/2024 Abril Madrigal Bipolar depression F31.9 ; Other prison (current) drug therapy Z79.899 ; Generalized anxiety disorder F41.1 ; Post-traumatic stress disorder, chronic F43.12 ; Obesity, unspecified E66.9 ; Primary hypertension I10 and Hypersomnia G47.10 [place] [id number] [facility] [address] [place] [address] 09/29/2024 Meredith Longoria [facility] [address] [facility] [address] [place] [address] 10/25/2024 Abril Madrigal Bipolar depression F31.9 ; Other oysterman (current) drug therapy Z79.899 ; Generalized anxiety disorder F41.1 ; Post-traumatic stress disorder, chronic F43.12 ; Obesity, unspecified E66.9 ; Primary hypertension I10 and Hypersomnia G47.10 [place] [address] [facility] [address] [place] [address] 11/11/2024 Meredith Longoria Bipolar I disorder, most recent episode mixed, moderate F31.62 ; Generalized anxiety disorder F41.1 ; Chronic posttraumatic stress disorder F43.12 and ADHD (attention deficit hyperactivity disorder), combined type F90.2 [facility] [address] [facility] [address] [place] [address] 11/14/2024 Abril Madrigal Bipolar depression F31.9 ; Other prison (current) drug therapy Z79.899 ; Generalized anxiety disorder F41.1 ; Post-traumatic stress disorder, chronic F43.12 ; Obesity, unspecified E66.9 ; Primary hypertension I10 and Hypersomnia G47.10 [facility] [address] [place] [address] 11/18/2024 Meredith Longoria [facility] [address] [place] [address] 12/13/2024 Abril Madrigal Encounter for screen ing for cardiovascular disorders Z13.6 ; Encounter for screening for depression Z13.31 ; Bipolar depression F31.9 ; Other prison (current) drug therapy Z79.899 ; Generalized anxiety disorder F41.1 ; Post-traumatic stress disorder, chronic F43.12 ; Obesity, unspecified E66.9 ; Primary hypertension I10 and Hypersomnia G47.[facility] [address] [place] [address] 08/05/2024 Abril Madrigal [facility], [facility] [address] [facility] [address] [place] [address] 09/01/2024 Abril Madrigal [facility] [address] [facility] [address] [place] [address] 10/14/2024 Abril Madrigal Bipolar depression F31.9 [facility] [address] [facility] [address] [place] [address] 07/29/2024 Abril Madrigal [facility] [address] [address] 09/02/2024 Abril Madrigal [facility], [facility] [address] [facility] [address] [place] [address] 09/29/2024 Abril Madrigal [facility], [facility] [address] [address] 11/01/2024 Abril Madrigal Assessments Encounter Date Diagnosis (ICD Code) Assessment Notes Treatment Notes Treatment Clinical Notes Section Notes 09/01/2024 Generalized anxiety disorder (ICD-10 - F41.1) 09/01/2024 Bipolar I disorder, most recent episode mixed, moderate (ICD-10 - F31.62) 09/19/2024 Other oysterman (current) drug therapy (ICD-10 - Z79.899) presently taking Seroquel 400 mg bedtime, Prozac 20 mg daily, 1. Bipolar- Seroquel 400 mg bedtime Add Lamotrigine 25 mg daily for 2 weeks then increase to 50 mg daily educated on all rx, benefits, side effects, and risk Lamotrigine lamotrigine has a serious rashes requiring hospitalization and discontinue treatment including Víctor Rafael syndrome rare case of toxic epidermal necrolysis and cache related deaths. Incidence with adjunct of epilepsy treatment 0.8% in 2 to 16 years old and 0.3% in adults, bipolar and other mood disorders incidence 0.8% this initial monotherapy and 0.13% as adjunctive treatment. Other risk factor may include concomitant use of valproate acid derivative or exceeding initial lamotrigine does or does as clinician recommendation; most life-threatening rash of occurring first 2 to 8 week of treatment with isolated cases after prolonged treatment; though benign may occur, discontinue treatment at first sign of rash unless clearly not a drug related; TC treatment may not prevent trash from becoming life-threatening or permanently disabling or disfiguring. Comment reaction include, nausea/vomiting, dizziness/vertigo , visual disturbances, somnolence, ataxia, pruritus/rash, pharyngitis, headache, rhinitis, diarrhea, fever, asthenia, insomnia, tremor, abdominal pain, cough, accidental injury, constipation, dysmenorrhea, incoordination, anxiety, seizures, irritability, anorexia, xerostomia, and photosensitivity. Serious reactions include: Rash, severe; Lambert Rafael syndrome; toxic epidermal necrosis; injury edema, hypersensitivity reactions. Including fatal, multiple organ failure to safe fatal, rash with eosinophilia systemic symptoms, DIC, neutropenia, leukopenia, thrombocytopenia, pancytopenia, aplastic anemia, hemolytic anemia, i pancreatitis, hepatic failure, rhabdomyolysis, worsening of suicidal ideation, worsening of depression, cleft lip/palate [first trimester use] DO not Change Cosmetic, perfumes or soap for next 4 weeks. The patient was advice to take lamotrigine as prescribed the patient was instructed not to deviate from the prescription dosages. Stop lamotrigine is the first sign of rash. Patient was insisted to inform office if any of the serious side effect develops. 2. Anxiety Increase Prozac 40 mg daily, monitor for ernesto/ hypomania 3. hypersomnia PCP prescribes Ambien PRN 4. PTSD Therapy - Era TABOR 5. HTN- On Linisopril educated on healthy b/p 120/80 monitor b/p at home refer to PCP, Urgent care/ER heart healthy diet and excise limit salt intake limit soda intake and caffiene increase water Recommend decrease/stop cannabis use as it can negatively impact mood, motivation, anxiety, sleep, focus/concentrati on/memory (vigilance, elasticity, processing and attention); can also contribute to development of psychosis. http_s://www.nimh .nih.gov/health/t opics/mental-heal th-medications http_s://www.nataliya .org/About-Mental -Illness/Treatmen ts/Mental-Health- Medications Recommend decrease/stop cannabis use as it may be negatively impacting mood, motivation, anxiety, sleep, focus; can also contribute to development of psychosis Cannabis/marijuan a information: http_s://jennifer.nih .gov/publications /drugfacts/cannab is-marijuana http_s://www.[employer] [facility]/canna mvo-czb-rsrvrgjw- marijuana-adhd/ http_s://www.natailya .org/About-Mental -Illness/Mental-H ealth-Conditions http_s://[facility]/depressi on/the-cognitive- xsdizzcv-pv-actug ssion#treatments http__s://www.[facility].nih.gov/health/ topics/mental-hea lth-medications http__s://www.[facility].org/About-Menta l-Illness/Treatme nts/Mental-Health -Medications educated on all medications, benefits, side effects and risk, and educated on depression, anxiety, and ADHD, mood d/o and educated on compliance of medications, metabolic and movement d/o education appointment's, continue therapy discussion with patient about course of treatment and patient instructions. education on serotonin syndrome Discussed and educated pt regarding benzodiazepines are generally not intended for prolonged use and that use can cause tolerance, dependence, depression, and associated memory issues including dementias (this list is not exhaustive). Benzodiazepine use is generally not recommended concurrently with pain medications and/or other controlled substances educated on all medications, benefits, side effects and risk, and educated on depression, anxiety, and ADHD, mood d/o and educated on compliance of medications, metabolic and movement d/o education appointment is, continue therapy discussion with patient about course of treatment and patient instructions. education on serotonin syndrome SSRI/SNRI side effects discussed including but not limited to, gastric upset, nausea, vomiting, diarrhea and/or constipation, weight changes, sexual side effects including loss of libido, increased suicidal thoughts/behavior s in children and young adults, and serotonin syndrome. Second generation antipsychotics (SGAs) have metabolic syndrome issues with weight gain, increase in prolactin, increased waist circumference, increased lipids, and increased glucose. Thus routine monitoring of weight, metabolic labs, etc. is indicated. A general rank ordering of antipsychotics that have the greatest to the least risk of metabolic effects is olanzapine, quetiapine, risperidone, ziprasidone, and aripiprazole. However, weight gain can occur with all of these drugs and considerable variability exists among patients receiving the same drug regarding the risk of metabolic effects. Anti-psychotic agents not only increase the risk of metabolic disorder, they also increase the risk of CVA, akathisia, and movement disorders including EPS or tardive dyskinesia (more common with first generation antipsychotics) and more. Medication Management and Follow-Up - Plan: - Schedule follow-up appointments every 1-3 months to monitor the patient's response to the medication regimen. - Reinforce the importance of avoiding recreational drug use due to potential neurotoxicity and interactions with prescribed medications. 09/19/2024 Bipolar depression (ICD-10 - F31.9) Bipolar Disorder: Care Instructions material was published, Learning About How to Get Help During a Mental Health Crisis material was published, Learning About Mood Disorders material was published, Learning About Movement Disorders From Antipsychotic Medicines material was published presently taking Seroquel 400 mg bedtime, Prozac 20 mg daily, 1. Bipolar- Seroquel 400 mg bedtime Add Lamotrigine 25 mg daily for 2 weeks then increase to 50 mg daily educated on all rx, benefits, side effects, and risk Lamotrigine lamotrigine has a serious rashes requiring hospitalization and discontinue treatment including Víctor Rafael syndrome rare case of toxic epidermal necrolysis and cache related deaths. Incidence with adjunct of epilepsy treatment 0.8% in 2 to 16 years old and 0.3% in adults, bipolar and other mood disorders incidence 0.8% this initial monotherapy and 0.13% as adjunctive treatment. Other risk factor may include concomitant use of valproate acid derivative or exceeding initial lamotrigine does or does as clinician recommendation; most life-threatening rash of occurring first 2 to 8 week of treatment with isolated cases after prolonged treatment; though benign may occur, discontinue treatment at first sign of rash unless clearly not a drug related; TC treatment may not prevent trash from becoming life-threatening or permanently disabling or disfiguring. Comment reaction include, nausea/vomiting, dizziness/vertigo , visual disturbances, somnolence, ataxia, pruritus/rash, pharyngitis, headache, rhinitis, diarrhea, fever, asthenia, insomnia, tremor, abdominal pain, cough, accidental injury, constipation, dysmenorrhea, incoordination, anxiety, seizures, irritability, anorexia, xerostomia, and photosensitivity. Serious reactions include: Rash, severe; Lambert Rafael syndrome; toxic epidermal necrosis; injury edema, hypersensitivity reactions. Including fatal, multiple organ failure to safe fatal, rash with eosinophilia systemic symptoms, DIC, neutropenia, leukopenia, thrombocytopenia, pancytopenia, aplastic anemia, hemolytic anemia, i pancreatitis, hepatic failure, rhabdomyolysis, worsening of suicidal ideation, worsening of depression, cleft lip/palate [first trimester use] DO not Change Cosmetic, perfumes or soap for next 4 weeks. The patient was advice to take lamotrigine as prescribed the patient was instructed not to deviate from the prescription dosages. Stop lamotrigine is the first sign of rash. Patient was insisted to inform office if any of the serious side effect develops. 2. Anxiety Increase Prozac 40 mg daily, monitor for ernesto/ hypomania 3. hypersomnia PCP prescribes Ambien PRN 4. PTSD Therapy - Era TABOR 5. HTN- On Linisopril educated on healthy b/p 120/80 monitor b/p at home refer to PCP, Urgent care/ER heart healthy diet and excise limit salt intake limit soda intake and caffiene increase water Recommend decrease/stop cannabis use as it can negatively impact mood, motivation, anxiety, sleep, focus/concentrati on/memory (vigilance, elasticity, processing and attention); can also contribute to development of psychosis. http_s://www.nimh .nih.gov/health/t opics/mental-heal th-medications http_s://www.nataliya .org/About-Mental -Illness/Treatmen ts/Mental-Health- Medications Recommend decrease/stop cannabis use as it may be negatively impacting mood, motivation, anxiety, sleep, focus; can also contribute to development of psychosis Cannabis/marijuan a information: http_s://jennifer.nih .gov/publications /drugfacts/cannab is-marijuana http_s://www.[employer] [facility]/galaa btt-hlu-clzwqrlu- marijuana-adhd/ http_s://www.nataliya .org/About-Mental -Illness/Mental-H ealth-Conditions http_s://psychcen tral.com/depressi on/the-cognitive- oifkiiea-lf-iciqt ssion#treatments http__s://www.[facility].nih.gov/health/ topics/mental-hea [facility]-medications http__s://www.nam i.org/About-Menta l-Illness/Treatme nts/Mental-Health -Medications educated on all medications, benefits, side effects and risk, and educated on depression, anxiety, and ADHD, mood d/o and educated on compliance of medications, metabolic and movement d/o education appointment's, continue therapy discussion with patient about course of treatment and patient instructions. education on serotonin syndrome Discussed and educated pt regarding benzodiazepines are generally not intended for prolonged use and that use can cause tolerance, dependence, depression, and associated memory issues including dementias (this list is not exhaustive). Benzodiazepine use is generally not recommended concurrently with pain medications and/or other controlled substances educated on all medications, benefits, side effects and risk, and educated on depression, anxiety, and ADHD, mood d/o and educated on compliance of medications, metabolic and movement d/o education appointment is, continue therapy discussion with patient about course of treatment and patient instructions. education on serotonin syndrome SSRI/SNRI side effects discussed including but not limited to, gastric upset, nausea, vomiting, diarrhea and/or constipation, weight changes, sexual side effects including loss of libido, increased suicidal thoughts/behavior s in children and young adults, and serotonin syndrome. Second generation antipsychotics (SGAs) have metabolic syndrome issues with weight gain, increase in prolactin, increased waist circumference, increased lipids, and increased glucose. Thus routine monitoring of weight, metabolic labs, etc. is indicated. A general rank ordering of antipsychotics that have the greatest to the least risk of metabolic effects is olanzapine, quetiapine, risperidone, ziprasidone, and aripiprazole. However, weight gain can occur with all of these drugs and considerable variability exists among patients receiving the same drug regarding the risk of metabolic effects. Anti-psychotic agents not only increase the risk of metabolic disorder, they also increase the risk of CVA, akathisia, and movement disorders including EPS or tardive dyskinesia (more common with first generation antipsychotics) and more. Medication Management and Follow-Up - Plan: - Schedule follow-up appointments every 1-3 months to monitor the patient's response to the medication regimen. - Reinforce the importance of avoiding recreational drug use due to potential neurotoxicity and interactions with prescribed medications. 10/14/2024 Bipolar depression (ICD-10 - F31.9) 10/25/2024 Bipolar depression (ICD-10 - F31.9) Bipolar Disorder: Care Instructions material was published, Learning About How to Get Help During a Mental Health Crisis material was published, Learning About Mood Disorders material was published, Learning About Movement Disorders From Antipsychotic Medicines material was published 1. Bipolar- patient still in depressive state and lack motivation and interest, Seroquel 400 mg bedtime- no refill needed Increase Lamotrigine 100 mg daily educated on all rx, benefits, side effects, and risk Lamotrigine lamotrigine has a serious rashes requiring hospitalization and discontinue treatment including Víctor Rafael syndrome rare case of toxic epidermal necrolysis and cache related deaths. Incidence with adjunct of epilepsy treatment 0.8% in 2 to 16 years old and 0.3% in adults, bipolar and other mood disorders incidence 0.8% this initial monotherapy and 0.13% as adjunctive treatment. Other risk factor may include concomitant use of valproate acid derivative or exceeding initial lamotrigine does or does as clinician recommendation; most life-threatening rash of occurring first 2 to 8 week of treatment with isolated cases after prolonged treatment; though benign may occur, discontinue treatment at first sign of rash unless clearly not a drug related; TC treatment may not prevent trash from becoming life-threatening or permanently disabling or disfiguring. Comment reaction include, nausea/vomiting, dizziness/vertigo , visual disturbances, somnolence, ataxia, pruritus/rash, pharyngitis, headache, rhinitis, diarrhea, fever, asthenia, insomnia, tremor, abdominal pain, cough, accidental injury, constipation, dysmenorrhea, incoordination, anxiety, seizures, irritability, anorexia, xerostomia, and photosensitivity. Serious reactions include: Rash, severe; Lambert Rafael syndrome; toxic epidermal necrosis; injury edema, hypersensitivity reactions. Including fatal, multiple organ failure to safe fatal, rash with eosinophilia systemic symptoms, DIC, neutropenia, leukopenia, thrombocytopenia, pancytopenia, aplastic anemia, hemolytic anemia, i pancreatitis, hepatic failure, rhabdomyolysis, worsening of suicidal ideation, worsening of depression, cleft lip/palate [first trimester use] DO not Change Cosmetic, perfumes or soap for next 4 weeks. The patient was advice to take lamotrigine as prescribed the patient was instructed not to deviate from the prescription dosages. Stop lamotrigine is the first sign of rash. Patient was insisted to inform office if any of the serious side effect develops. 2. Anxiety Prozac 40 mg daily, - no refill needed monitor for ernesto/ hypomania 3. hypersomnia PCP prescribes Ambkylee JASSON 4. PTSD Therapy - Era TABOR 5. HTN- On Linisopril- patient will call PCP educated on healthy b/p 120/80 monitor b/p at home refer to PCP, Urgent care/ER- educated on B/P heart healthy diet and excise limit salt intake limit soda intake and caffiene increase water Recommend decrease/stop cannabis use as it can negatively impact mood, motivation, anxiety, sleep, focus/concentrati on/memory (vigilance, elasticity, processing and attention); can also contribute to development of psychosis. http_s://www.nimh .nih.gov/health/t opics/mental-heal th-medications http_s://www.nataliya .org/About-Mental -Illness/Treatmen ts/Mental-Health- Medications Recommend decrease/stop cannabis use as it may be negatively impacting mood, motivation, anxiety, sleep, focus; can also contribute to development of psychosis Cannabis/marijuan a information: http_s://jennifer.nih .gov/publications /drugfacts/cannab is-marijuana http_s://www.[employer]/canna gsz-kst-spfrjbzz- marijuana-adhd/ http_s://www.nataliya .org/About-Mental -Illness/Mental-H ealth-Conditions http_s://[employer].com/depressi on/the-cognitive- dycsipzc-il-myeet ssion#treatments http__s://www.nim .nih.gov/health/ topics/mental-hea lth-medications http__s://www.nam i.org/About-Menta l-Illness/Treatme nts/Mental-Health -Medications educated on all medications, benefits, side effects and risk, and educated on depression, anxiety, and ADHD, mood d/o and educated on compliance of medications, metabolic and movement d/o education appointment's, continue therapy discussion with patient about course of treatment and patient instructions. education on serotonin syndrome Discussed and educated pt regarding benzodiazepines are generally not intended for prolonged use and that use can cause tolerance, dependence, depression, and associated memory issues including dementias (this list is not exhaustive). Benzodiazepine use is generally not recommended concurrently with pain medications and/or other controlled substances educated on all medications, benefits, side effects and risk, and educated on depression, anxiety, and ADHD, mood d/o and educated on compliance of medications, metabolic and movement d/o education appointment is, continue therapy discussion with patient about course of treatment and patient instructions. education on serotonin syndrome SSRI/SNRI side effects discussed including but not limited to, gastric upset, nausea, vomiting, diarrhea and/or constipation, weight changes, sexual side effects including loss of libido, increased suicidal thoughts/behavior s in children and young adults, and serotonin syndrome. Second generation antipsychotics (SGAs) have metabolic syndrome issues with weight gain, increase in prolactin, increased waist circumference, increased lipids, and increased glucose. Thus routine monitoring of weight, metabolic labs, etc. is indicated. A general rank ordering of antipsychotics that have the greatest to the least risk of metabolic effects is olanzapine, quetiapine, risperidone, ziprasidone, and aripiprazole. However, weight gain can occur with all of these drugs and considerable variability exists among patients receiving the same drug regarding the risk of metabolic effects. Anti-psychotic agents not only increase the risk of metabolic disorder, they also increase the risk of CVA, akathisia, and movement disorders including EPS or tardive dyskinesia (more common with first generation antipsychotics) and more. Medication Management and Follow-Up - Plan: - Schedule follow-up appointments every 1-3 months to monitor the patient's response to the medication regimen. - Reinforce the importance of avoiding recreational drug use due to potential neurotoxicity and interactions with prescribed medications. 11/11/2024 Generalized anxiety disorder (ICD-10 - F41.1) 11/11/2024 Bipolar I disorder, most recent episode mixed, moderate (ICD-10 - F31.62) 11/14/2024 Bipolar depression (ICD-10 - F31.9) Bipolar Disorder: Care Instructions material was published, Learning About How to Get Help During a Mental Health Crisis material was published, Learning About Mood Disorders material was published, Learning About Movement Disorders From Antipsychotic Medicines material was published 1. Bipolar- depression Seroquel 400 mg bedtime- no refill needed Discuss and educated on rx options and patient worried Seroquel may make her tired in day if added in day for depression and anxiety increase Lamotrigine 150 mg daily for depression educated on all rx, benefits, side effects, and risk AIMS= 0 11/14/24 patient had COVID last week- recovery Lamotrigine lamotrigine has a serious rashes requiring hospitalization and discontinue treatment including Víctor Rafael syndrome rare case of toxic epidermal necrolysis and cache related deaths. Incidence with adjunct of epilepsy treatment 0.8% in 2 to 16 years old and 0.3% in adults, bipolar and other mood disorders incidence 0.8% this initial monotherapy and 0.13% as adjunctive treatment. Other risk factor may include concomitant use of valproate acid derivative or exceeding initial lamotrigine does or does as clinician recommendation; most life-threatening rash of occurring first 2 to 8 week of treatment with isolated cases after prolonged treatment; though benign may occur, discontinue treatment at first sign of rash unless clearly not a drug related; TC treatment may not prevent trash from becoming life-threatening or permanently disabling or disfiguring. Comment reaction include, nausea/vomiting, dizziness/vertigo , visual disturbances, somnolence, ataxia, pruritus/rash, pharyngitis, headache, rhinitis, diarrhea, fever, asthenia, insomnia, tremor, abdominal pain, cough, accidental injury, constipation, dysmenorrhea, incoordination, anxiety, seizures, irritability, anorexia, xerostomia, and photosensitivity. Serious reactions include: Rash, severe; Lambert Rafael syndrome; toxic epidermal necrosis; injury edema, hypersensitivity reactions. Including fatal, multiple organ failure to safe fatal, rash with eosinophilia systemic symptoms, DIC, neutropenia, leukopenia, thrombocytopenia, pancytopenia, aplastic anemia, hemolytic anemia, i pancreatitis, hepatic failure, rhabdomyolysis, worsening of suicidal ideation, worsening of depression, cleft lip/palate [first trimester use] DO not Change Cosmetic, perfumes or soap for next 4 weeks. The patient was advice to take lamotrigine as prescribed the patient was instructed not to deviate from the prescription dosages. Stop lamotrigine is the first sign of rash. Patient was insisted to inform office if any of the serious side effect develops. 2. Anxiety Prozac 40 mg daily, - no refill needed monitor for ernesto/ hypomania 3. hypersomnia PCP prescribes Jose JUAN 4. PTSD Therapy - Era TAB[facility] 5. HTN- On Linisopril- patient will call PCP educated on healthy b/p 120/80 monitor b/p at home refer to PCP, Urgent care/ER- educated on B/P heart healthy diet and excise limit salt intake limit soda intake and caffiene increase water educated on cannabis use as it can negatively impact mood, motivation, anxiety, sleep, focus/concentrati on/memory (vigilance, elasticity, processing and attention); can also contribute to development of psychosis. http_s://www.nim .nih.gov/health/t opics/mental-heal th-medications http_s://www.nataliya .org/About-Mental -Illness/Treatmen ts/Mental-Health- Medications Recommend decrease/stop cannabis use as it may be negatively impacting mood, motivation, anxiety, sleep, focus; can also contribute to development of psychosis Cannabis/marijuan a information: http_s://jennifer.nih .gov/publications /drugfacts/cannab is-marijuana http_s://www.[employer] [facility]/canna hlq-bnv-pavwfpmm- marijuana-adhd/ http_s://www.nataliya .org/About-Mental -Illness/Mental-H ealth-Conditions http_s://[facility]/depressi on/the-cognitive- aodemyzy-oc-krsoe ssion#treatments http__s://www.nim .nih.gov/health/ topics/mental-hea lth-medications http__s://www.nam i.org/About-Menta l-Illness/Treatme nts/Mental-Health -Medications educated on all medications, benefits, side effects and risk, and educated on depression, anxiety, and ADHD, mood d/o and educated on compliance of medications, metabolic and movement d/o education appointment's, continue therapy discussion with patient about course of treatment and patient instructions. education on serotonin syndrome Discussed and educated pt regarding benzodiazepines are generally not intended for prolonged use and that use can cause tolerance, dependence, depression, and associated memory issues including dementias (this list is not exhaustive). Benzodiazepine use is generally not recommended concurrently with pain medications and/or other controlled substances educated on all medications, benefits, side effects and risk, and educated on depression, anxiety, and ADHD, mood d/o and educated on compliance of medications, metabolic and movement d/o education appointment is, continue therapy discussion with patient about course of treatment and patient instructions. education on serotonin syndrome SSRI/SNRI side effects discussed including but not limited to, gastric upset, nausea, vomiting, diarrhea and/or constipation, weight changes, sexual side effects including loss of libido, increased suicidal thoughts/behavior s in children and young adults, and serotonin syndrome. Second generation antipsychotics (SGAs) have metabolic syndrome issues with weight gain, increase in prolactin, increased waist circumference, increased lipids, and increased glucose. Thus routine monitoring of weight, metabolic labs, etc. is indicated. A general rank ordering of antipsychotics that have the greatest to the least risk of metabolic effects is olanzapine, quetiapine, risperidone, ziprasidone, and aripiprazole. However, weight gain can occur with all of these drugs and considerable variability exists among patients receiving the same drug regarding the risk of metabolic effects. Anti-psychotic agents not only increase the risk of metabolic disorder, they also increase the risk of CVA, akathisia, and movement disorders including EPS or tardive dyskinesia (more common with first generation antipsychotics) and more. Medication Management and Follow-Up - Plan: - Schedule follow-up appointments every 1-3 months to monitor the patient's response to the medication regimen. - Reinforce the importance of avoiding recreational drug use due to potential neurotoxicity and interactions with prescribed medications. 12/13/2024 Encounter for screening for cardiovascular disorders (ICD-10 - Z13.6) 1. Bipolar- depression Seroquel 400 mg bedtime- no refills needed Discuss and educated on rx options and patient worried Seroquel may make her tired in day if added in day for depression and anxiety Lamotrigine 150 mg daily for depression educated on all rx, benefits, side effects, and risk AIMS= 0 11/14/24 patient had COVID last week- recovery Lamotrigine lamotrigine has a serious rashes requiring hospitalization and discontinue treatment including Víctor Rafael syndrome rare case of toxic epidermal necrolysis and cache related deaths. Incidence with adjunct of epilepsy treatment 0.8% in 2 to 16 years old and 0.3% in adults, bipolar and other mood disorders incidence 0.8% this initial monotherapy and 0.13% as adjunctive treatment. Other risk factor may include concomitant use of valproate acid derivative or exceeding initial lamotrigine does or does as clinician recommendation; most life-threatening rash of occurring first 2 to 8 week of treatment with isolated cases after prolonged treatment; though benign may occur, discontinue treatment at first sign of rash unless clearly not a drug related; TC treatment may not prevent trash from becoming life-threatening or permanently disabling or disfiguring. Comment reaction include, nausea/vomiting, dizziness/vertigo , visual disturbances, somnolence, ataxia, pruritus/rash, pharyngitis, headache, rhinitis, diarrhea, fever, asthenia, insomnia, tremor, abdominal pain, cough, accidental injury, constipation, dysmenorrhea, incoordination, anxiety, seizures, irritability, anorexia, xerostomia, and photosensitivity. Serious reactions include: Rash, severe; Lambert Rafael syndrome; toxic epidermal necrosis; injury edema, hypersensitivity reactions. Including fatal, multiple organ failure to safe fatal, rash with eosinophilia systemic symptoms, DIC, neutropenia, leukopenia, thrombocytopenia, pancytopenia, aplastic anemia, hemolytic anemia, i pancreatitis, hepatic failure, rhabdomyolysis, worsening of suicidal ideation, worsening of depression, cleft lip/palate [first trimester use] DO not Change Cosmetic, perfumes or soap for next 4 weeks. The patient was advice to take lamotrigine as prescribed the patient was instructed not to deviate from the prescription dosages. Stop lamotrigine is the first sign of rash. Patient was insisted to inform office if any of the serious side effect develops. 2. Anxiety Prozac 40 mg daily, - no refill needed monitor for erensto/ hypomania 3. hypersomnia PCP prescribes Ambien PRN 4. PTSD Therapy - Era J LEANDER 5. HTN- On Linisopril- patient seen PCP educated on healthy b/p 120/80 monitor b/p at home refer to PCP, Urgent care/ER- educated on B/P heart healthy diet and excise limit salt intake limit soda intake and caffiene increase water educated on cannabis use as it can negatively impact mood, motivation, anxiety, sleep, focus/concentrati on/memory (vigilance, elasticity, processing and attention); can also contribute to development of psychosis. http_s://www.nim .nih.gov/health/t opics/mental-heal th-medications http_s://www.nataliya .org/About-Mental -Illness/Treatmen ts/Mental-Health- Medications Recommend decrease/stop cannabis use as it may be negatively impacting mood, motivation, anxiety, sleep, focus; can also contribute to development of psychosis Cannabis/marijuan a information: http_s://jennifer.nih .gov/publications /drugfacts/cannab is-marijuana http_s://www.[employer]/canna dzd-tyd-ijotvvpe- marijuana-adhd/ http_s://www.nataliya .org/About-Mental -Illness/Mental-H ealth-Conditions http_s://[employer]/depressi on/the-cognitive- njyutzig-wh-hbutd ssion#treatments http__s://www.[facility].nih.gov/health/ topics/mental-hea lth-medications http__s://www.nam i.org/About-Menta l-Illness/Treatme nts/Mental-Health -Medications educated on all medications, benefits, side effects and risk, and educated on depression, anxiety, and ADHD, mood d/o and educated on compliance of medications, metabolic and movement d/o education appointment's, continue therapy discussion with patient about course of treatment and patient instructions. education on serotonin syndrome Discussed and educated pt regarding benzodiazepines are generally not intended for prolonged use and that use can cause tolerance, dependence, depression, and associated memory issues including dementias (this list is not exhaustive). Benzodiazepine use is generally not recommended concurrently with pain medications and/or other controlled substances educated on all medications, benefits, side effects and risk, and educated on depression, anxiety, and ADHD, mood d/o and educated on compliance of medications, metabolic and movement d/o education appointment is, continue therapy discussion with patient about course of treatment and patient instructions. education on serotonin syndrome SSRI/SNRI side effects discussed including but not limited to, gastric upset, nausea, vomiting, diarrhea and/or constipation, weight changes, sexual side effects including loss of libido, increased suicidal thoughts/behavior s in children and young adults, and serotonin syndrome. Second generation antipsychotics (SGAs) have metabolic syndrome issues with weight gain, increase in prolactin, increased waist circumference, increased lipids, and increased glucose. Thus routine monitoring of weight, metabolic labs, etc. is indicated. A general rank ordering of antipsychotics that have the greatest to the least risk of metabolic effects is olanzapine, quetiapine, risperidone, ziprasidone, and aripiprazole. However, weight gain can occur with all of these drugs and considerable variability exists among patients receiving the same drug regarding the risk of metabolic effects. Anti-psychotic agents not only increase the risk of metabolic disorder, they also increase the risk of CVA, akathisia, and movement disorders including EPS or tardive dyskinesia (more common with first generation antipsychotics) and more. Medication Management and Follow-Up - Plan: - Schedule follow-up appointments every 1-3 months to monitor the patient's response to the medication regimen. - Reinforce the importance of avoiding recreational drug use due to potential neurotoxicity and interactions with prescribed medications. 12/13/2024 Encounter for screening for depression (ICD-10 - Z13.31) 1. Bipolar- depression Seroquel 400 mg bedtime- no refills needed Discuss and educated on rx options and patient worried Seroquel may make her tired in day if added in day for depression and anxiety Lamotrigine 150 mg daily for depression educated on all rx, benefits, side effects, and risk AIMS= 0 11/14/24 patient had COVID last week- recovery Lamotrigine lamotrigine has a serious rashes requiring hospitalization and discontinue treatment including Víctor Rafael syndrome rare case of toxic epidermal necrolysis and cache related deaths. Incidence with adjunct of epilepsy treatment 0.8% in 2 to 16 years old and 0.3% in adults, bipolar and other mood disorders incidence 0.8% this initial monotherapy and 0.13% as adjunctive treatment. Other risk factor may include concomitant use of valproate acid derivative or exceeding initial lamotrigine does or does as clinician recommendation; most life-threatening rash of occurring first 2 to 8 week of treatment with isolated cases after prolonged treatment; though benign may occur, discontinue treatment at first sign of rash unless clearly not a drug related; TC treatment may not prevent trash from becoming life-threatening or permanently disabling or disfiguring. Comment reaction include, nausea/vomiting, dizziness/vertigo , visual disturbances, somnolence, ataxia, pruritus/rash, pharyngitis, headache, rhinitis, diarrhea, fever, asthenia, insomnia, tremor, abdominal pain, cough, accidental injury, constipation, dysmenorrhea, incoordination, anxiety, seizures, irritability, anorexia, xerostomia, and photosensitivity. Serious reactions include: Rash, severe; Lambert Rafael syndrome; toxic epidermal necrosis; injury edema, hypersensitivity reactions. Including fatal, multiple organ failure to safe fatal, rash with eosinophilia systemic symptoms, DIC, neutropenia, leukopenia, thrombocytopenia, pancytopenia, aplastic anemia, hemolytic anemia, i pancreatitis, hepatic failure, rhabdomyolysis, worsening of suicidal ideation, worsening of depression, cleft lip/palate [first trimester use] DO not Change Cosmetic, perfumes or soap for next 4 weeks. The patient was advice to take lamotrigine as prescribed the patient was instructed not to deviate from the prescription dosages. Stop lamotrigine is the first sign of rash. Patient was insisted to inform office if any of the serious side effect develops. 2. Anxiety Prozac 40 mg daily, - no refill needed monitor for ernesto/ hypomania 3. hypersomnia PCP prescribes Ambien PRN 4. PTSD Therapy - Era Nolan LEANDER 5. HTN- On Linisopril- patient seen PCP educated on healthy b/p 120/80 monitor b/p at home refer to PCP, Urgent care/ER- educated on B/P heart healthy diet and excise limit salt intake limit soda intake and caffiene increase water educated on cannabis use as it can negatively impact mood, motivation, anxiety, sleep, focus/concentrati on/memory (vigilance, elasticity, processing and attention); can also contribute to development of psychosis. http_s://www.nimh .nih.gov/health/t opics/mental-heal th-medications http_s://www.nataliya .org/About-Mental -Illness/Treatmen ts/Mental-Health- Medications Recommend decrease/stop cannabis use as it may be negatively impacting mood, motivation, anxiety, sleep, focus; can also contribute to development of psychosis Cannabis/marijuan a information: http_s://jennifer.nih .gov/publications /drugfacts/cannab is-marijuana http_s://www.[employer]/jose uki-ahn-mkqxvbne- marijuana-adhd/ http_s://www.nataliya .org/About-Mental -Illness/Mental-H ealth-Conditions http_s://[employer]/depressi on/the-cognitive- qldsllxa-rh-zlhrf ssion#treatments http__s://www.[facility].nih.gov/health/ topics/mental-hea lth-medications http__s://www.nam i.org/About-Menta l-Illness/Treatme nts/Mental-Health -Medications educated on all medications, benefits, side effects and risk, and educated on depression, anxiety, and ADHD, mood d/o and educated on compliance of medications, metabolic and movement d/o education appointment's, continue therapy discussion with patient about course of treatment and patient instructions. education on serotonin syndrome Discussed and educated pt regarding benzodiazepines are generally not intended for prolonged use and that use can cause tolerance, dependence, depression, and associated memory issues including dementias (this list is not exhaustive). Benzodiazepine use is generally not recommended concurrently with pain medications and/or other controlled substances educated on all medications, benefits, side effects and risk, and educated on depression, anxiety, and ADHD, mood d/o and educated on compliance of medications, metabolic and movement d/o education appointment is, continue therapy discussion with patient about course of treatment and patient instructions. education on serotonin syndrome SSRI/SNRI side effects discussed including but not limited to, gastric upset, nausea, vomiting, diarrhea and/or constipation, weight changes, sexual side effects including loss of libido, increased suicidal thoughts/behavior s in children and young adults, and serotonin syndrome. Second generation antipsychotics (SGAs) have metabolic syndrome issues with weight gain, increase in prolactin, increased waist circumference, increased lipids, and increased glucose. Thus routine monitoring of weight, metabolic labs, etc. is indicated. A general rank ordering of antipsychotics that have the greatest to the least risk of metabolic effects is olanzapine, quetiapine, risperidone, ziprasidone, and aripiprazole. However, weight gain can occur with all of these drugs and considerable variability exists among patients receiving the same drug regarding the risk of metabolic effects. Anti-psychotic agents not only increase the risk of metabolic disorder, they also increase the risk of CVA, akathisia, and movement disorders including EPS or tardive dyskinesia (more common with first generation antipsychotics) and more. Medication Management and Follow-Up - Plan: - Schedule follow-up appointments every 1-3 months to monitor the patient's response to the medication regimen. - Reinforce the importance of avoiding recreational drug use due to potential neurotoxicity and interactions with prescribed medications. 11/11/2024 Chronic posttraumatic stress disorder (ICD-10 - F43.12) 11/14/2024 Other prison (current) drug therapy (ICD-10 - Z79.899) 1. Bipolar- depression Seroquel 400 mg bedtime- no refill needed Discuss and educated on rx options and patient worried Seroquel may make her tired in day if added in day for depression and anxiety increase Lamotrigine 150 mg daily for depression educated on all rx, benefits, side effects, and risk AIMS= 0 11/14/24 patient had COVID last week- recovery Lamotrigine lamotrigine has a serious rashes requiring hospitalization and discontinue treatment including Víctor Rafael syndrome rare case of toxic epidermal necrolysis and cache related deaths. Incidence with adjunct of epilepsy treatment 0.8% in 2 to 16 years old and 0.3% in adults, bipolar and other mood disorders incidence 0.8% this initial monotherapy and 0.13% as adjunctive treatment. Other risk factor may include concomitant use of valproate acid derivative or exceeding initial lamotrigine does or does as clinician recommendation; most life-threatening rash of occurring first 2 to 8 week of treatment with isolated cases after prolonged treatment; though benign may occur, discontinue treatment at first sign of rash unless clearly not a drug related; TC treatment may not prevent trash from becoming life-threatening or permanently disabling or disfiguring. Comment reaction include, nausea/vomiting, dizziness/vertigo , visual disturbances, somnolence, ataxia, pruritus/rash, pharyngitis, headache, rhinitis, diarrhea, fever, asthenia, insomnia, tremor, abdominal pain, cough, accidental injury, constipation, dysmenorrhea, incoordination, anxiety, seizures, irritability, anorexia, xerostomia, and photosensitivity. Serious reactions include: Rash, severe; Lambert Rafael syndrome; toxic epidermal necrosis; injury edema, hypersensitivity reactions. Including fatal, multiple organ failure to safe fatal, rash with eosinophilia systemic symptoms, DIC, neutropenia, leukopenia, thrombocytopenia, pancytopenia, aplastic anemia, hemolytic anemia, i pancreatitis, hepatic failure, rhabdomyolysis, worsening of suicidal ideation, worsening of depression, cleft lip/palate [first trimester use] DO not Change Cosmetic, perfumes or soap for next 4 weeks. The patient was advice to take lamotrigine as prescribed the patient was instructed not to deviate from the prescription dosages. Stop lamotrigine is the first sign of rash. Patient was insisted to inform office if any of the serious side effect develops. 2. Anxiety Prozac 40 mg daily, - no refill needed monitor for ernesto/ hypomania 3. hypersomnia PCP prescribes Ambien PRN 4. PTSD Therapy - Era [facility] 5. HTN- On Linisopril- patient will call PCP educated on healthy b/p 120/80 monitor b/p at home refer to PCP, Urgent care/ER- educated on B/P heart healthy diet and excise limit salt intake limit soda intake and caffiene increase water educated on cannabis use as it can negatively impact mood, motivation, anxiety, sleep, focus/concentrati on/memory (vigilance, elasticity, processing and attention); can also contribute to development of psychosis. http_s://www.nimh .nih.gov/health/t opics/mental-heal th-medications http_s://www.naatliya .org/About-Mental -Illness/Treatmen ts/Mental-Health- Medications Recommend decrease/stop cannabis use as it may be negatively impacting mood, motivation, anxiety, sleep, focus; can also contribute to development of psychosis Cannabis/marijuan a information: http_s://jennifer.nih .gov/publications /drugfacts/cannab is-marijuana http_s://www.[employer] [facility]/canna vlk-viu-kmjckltc- marijuana-adhd/ http_s://www.nataliya .org/About-Mental -Illness/Mental-H ealth-Conditions http_s://psychcen tral.com/depressi on/the-cognitive- muzggdwv-mj-vuphy ssion#treatments http__s://www.nim .nih.gov/health/ topics/mental-hea lth-medications http__s://www.nam i.org/About-Menta l-Illness/Treatme nts/Mental-Health -Medications educated on all medications, benefits, side effects and risk, and educated on depression, anxiety, and ADHD, mood d/o and educated on compliance of medications, metabolic and movement d/o education appointment's, continue therapy discussion with patient about course of treatment and patient instructions. education on serotonin syndrome Discussed and educated pt regarding benzodiazepines are generally not intended for prolonged use and that use can cause tolerance, dependence, depression, and associated memory issues including dementias (this list is not exhaustive). Benzodiazepine use is generally not recommended concurrently with pain medications and/or other controlled substances educated on all medications, benefits, side effects and risk, and educated on depression, anxiety, and ADHD, mood d/o and educated on compliance of medications, metabolic and movement d/o education appointment is, continue therapy discussion with patient about course of treatment and patient instructions. education on serotonin syndrome SSRI/SNRI side effects discussed including but not limited to, gastric upset, nausea, vomiting, diarrhea and/or constipation, weight changes, sexual side effects including loss of libido, increased suicidal thoughts/behavior s in children and young adults, and serotonin syndrome. Second generation antipsychotics (SGAs) have metabolic syndrome issues with weight gain, increase in prolactin, increased waist circumference, increased lipids, and increased glucose. Thus routine monitoring of weight, metabolic labs, etc. is indicated. A general rank ordering of antipsychotics that have the greatest to the least risk of metabolic effects is olanzapine, quetiapine, risperidone, ziprasidone, and aripiprazole. However, weight gain can occur with all of these drugs and considerable variability exists among patients receiving the same drug regarding the risk of metabolic effects. Anti-psychotic agents not only increase the risk of metabolic disorder, they also increase the risk of CVA, akathisia, and movement disorders including EPS or tardive dyskinesia (more common with first generation antipsychotics) and more. Medication Management and Follow-Up - Plan: - Schedule follow-up appointments every 1-3 months to monitor the patient's response to the medication regimen. - Reinforce the importance of avoiding recreational drug use due to potential neurotoxicity and interactions with prescribed medications. 10/25/2024 Other prison (current) drug therapy (ICD-10 - Z79.899) 1. Bipolar- patient still in depressive state and lack motivation and interest, Seroquel 400 mg bedtime- no refill needed Increase Lamotrigine 100 mg daily educated on all rx, benefits, side effects, and risk Lamotrigine lamotrigine has a serious rashes requiring hospitalization and discontinue treatment including Víctor Rafael syndrome rare case of toxic epidermal necrolysis and cache related deaths. Incidence with adjunct of epilepsy treatment 0.8% in 2 to 16 years old and 0.3% in adults, bipolar and other mood disorders incidence 0.8% this initial monotherapy and 0.13% as adjunctive treatment. Other risk factor may include concomitant use of valproate acid derivative or exceeding initial lamotrigine does or does as clinician recommendation; most life-threatening rash of occurring first 2 to 8 week of treatment with isolated cases after prolonged treatment; though benign may occur, discontinue treatment at first sign of rash unless clearly not a drug related; TC treatment may not prevent trash from becoming life-threatening or permanently disabling or disfiguring. Comment reaction include, nausea/vomiting, dizziness/vertigo , visual disturbances, somnolence, ataxia, pruritus/rash, pharyngitis, headache, rhinitis, diarrhea, fever, asthenia, insomnia, tremor, abdominal pain, cough, accidental injury, constipation, dysmenorrhea, incoordination, anxiety, seizures, irritability, anorexia, xerostomia, and photosensitivity. Serious reactions include: Rash, severe; Lambert Rafael syndrome; toxic epidermal necrosis; injury edema, hypersensitivity reactions. Including fatal, multiple organ failure to safe fatal, rash with eosinophilia systemic symptoms, DIC, neutropenia, leukopenia, thrombocytopenia, pancytopenia, aplastic anemia, hemolytic anemia, i pancreatitis, hepatic failure, rhabdomyolysis, worsening of suicidal ideation, worsening of depression, cleft lip/palate [first trimester use] DO not Change Cosmetic, perfumes or soap for next 4 weeks. The patient was advice to take lamotrigine as prescribed the patient was instructed not to deviate from the prescription dosages. Stop lamotrigine is the first sign of rash. Patient was insisted to inform office if any of the serious side effect develops. 2. Anxiety Prozac 40 mg daily, - no refill needed monitor for ernesto/ hypomania 3. hypersomnia PCP prescribes Ambien PRN 4. PTSD Therapy - Era Noaln [facility] 5. HTN- On Linisopril- patient will call PCP educated on healthy b/p 120/80 monitor b/p at home refer to PCP, Urgent care/ER- educated on B/P heart healthy diet and excise limit salt intake limit soda intake and caffiene increase water Recommend decrease/stop cannabis use as it can negatively impact mood, motivation, anxiety, sleep, focus/concentrati on/memory (vigilance, elasticity, processing and attention); can also contribute to development of psychosis. http_s://www.nim .nih.gov/health/t opics/mental-heal th-medications http_s://www.nataliya .org/About-Mental -Illness/Treatmen ts/Mental-Health- Medications Recommend decrease/stop cannabis use as it may be negatively impacting mood, motivation, anxiety, sleep, focus; can also contribute to development of psychosis Cannabis/marijuan a information: http_s://jennifer.nih .gov/publications /drugfacts/cannab is-marijuana http_s://www.[employer] [facility]/canna emv-slb-wcsciyjy- marijuana-adhd/ http_s://www.nataliya .org/About-Mental -Illness/Mental-H ealth-Conditions http_s://[employer]/depressi on/the-cognitive- jbefrghs-mk-osbzv ssion#treatments http__s://www.[facility].nih.gov/health/ topics/mental-hea lth-medications http__s://www.nam i.org/About-Menta l-Illness/Treatme nts/Mental-Health -Medications educated on all medications, benefits, side effects and risk, and educated on depression, anxiety, and ADHD, mood d/o and educated on compliance of medications, metabolic and movement d/o education appointment's, continue therapy discussion with patient about course of treatment and patient instructions. education on serotonin syndrome Discussed and educated pt regarding benzodiazepines are generally not intended for prolonged use and that use can cause tolerance, dependence, depression, and associated memory issues including dementias (this list is not exhaustive). Benzodiazepine use is generally not recommended concurrently with pain medications and/or other controlled substances educated on all medications, benefits, side effects and risk, and educated on depression, anxiety, and ADHD, mood d/o and educated on compliance of medications, metabolic and movement d/o education appointment is, continue therapy discussion with patient about course of treatment and patient instructions. education on serotonin syndrome SSRI/SNRI side effects discussed including but not limited to, gastric upset, nausea, vomiting, diarrhea and/or constipation, weight changes, sexual side effects including loss of libido, increased suicidal thoughts/behavior s in children and young adults, and serotonin syndrome. Second generation antipsychotics (SGAs) have metabolic syndrome issues with weight gain, increase in prolactin, increased waist circumference, increased lipids, and increased glucose. Thus routine monitoring of weight, metabolic labs, etc. is indicated. A general rank ordering of antipsychotics that have the greatest to the least risk of metabolic effects is olanzapine, quetiapine, risperidone, ziprasidone, and aripiprazole. However, weight gain can occur with all of these drugs and considerable variability exists among patients receiving the same drug regarding the risk of metabolic effects. Anti-psychotic agents not only increase the risk of metabolic disorder, they also increase the risk of CVA, akathisia, and movement disorders including EPS or tardive dyskinesia (more common with first generation antipsychotics) and more. Medication Management and Follow-Up - Plan: - Schedule follow-up appointments every 1-3 months to monitor the patient's response to the medication regimen. - Reinforce the importance of avoiding recreational drug use due to potential neurotoxicity and interactions with prescribed medications. 09/19/2024 Generalized anxiety disorder (ICD-10 - F41.1) Generalized Anxiety Disorder: Care Instructions material was published, Learning About Generalized Anxiety Disorder material was published, Learning About Anxiety Disorders material was published presently taking Seroquel 400 mg bedtime, Prozac 20 mg daily, 1. Bipolar- Seroquel 400 mg bedtime Add Lamotrigine 25 mg daily for 2 weeks then increase to 50 mg daily educated on all rx, benefits, side effects, and risk Lamotrigine lamotrigine has a serious rashes requiring hospitalization and discontinue treatment including Víctor Rafael syndrome rare case of toxic epidermal necrolysis and cache related deaths. Incidence with adjunct of epilepsy treatment 0.8% in 2 to 16 years old and 0.3% in adults, bipolar and other mood disorders incidence 0.8% this initial monotherapy and 0.13% as adjunctive treatment. Other risk factor may include concomitant use of valproate acid derivative or exceeding initial lamotrigine does or does as clinician recommendation; most life-threatening rash of occurring first 2 to 8 week of treatment with isolated cases after prolonged treatment; though benign may occur, discontinue treatment at first sign of rash unless clearly not a drug related; TC treatment may not prevent trash from becoming life-threatening or permanently disabling or disfiguring. Comment reaction include, nausea/vomiting, dizziness/vertigo , visual disturbances, somnolence, ataxia, pruritus/rash, pharyngitis, headache, rhinitis, diarrhea, fever, asthenia, insomnia, tremor, abdominal pain, cough, accidental injury, constipation, dysmenorrhea, incoordination, anxiety, seizures, irritability, anorexia, xerostomia, and photosensitivity. Serious reactions include: Rash, severe; Lambert Rafael syndrome; toxic epidermal necrosis; injury edema, hypersensitivity reactions. Including fatal, multiple organ failure to safe fatal, rash with eosinophilia systemic symptoms, DIC, neutropenia, leukopenia, thrombocytopenia, pancytopenia, aplastic anemia, hemolytic anemia, i pancreatitis, hepatic failure, rhabdomyolysis, worsening of suicidal ideation, worsening of depression, cleft lip/palate [first trimester use] DO not Change Cosmetic, perfumes or soap for next 4 weeks. The patient was advice to take lamotrigine as prescribed the patient was instructed not to deviate from the prescription dosages. Stop lamotrigine is the first sign of rash. Patient was insisted to inform office if any of the serious side effect develops. 2. Anxiety Increase Prozac 40 mg daily, monitor for ernesto/ hypomania 3. hypersomnia PCP prescribes Ambien PRN 4. PTSD Therapy - Era [facility] 5. HTN- On Linisopril educated on healthy b/p 120/80 monitor b/p at home refer to PCP, Urgent care/ER heart healthy diet and excise limit salt intake limit soda intake and caffiene increase water Recommend decrease/stop cannabis use as it can negatively impact mood, motivation, anxiety, sleep, focus/concentrati on/memory (vigilance, elasticity, processing and attention); can also contribute to development of psychosis. http_s://www.nimh .nih.gov/health/t opics/mental-heal th-medications http_s://www.nataliya .org/About-Mental -Illness/Treatmen ts/Mental-Health- Medications Recommend decrease/stop cannabis use as it may be negatively impacting mood, motivation, anxiety, sleep, focus; can also contribute to development of psychosis Cannabis/marijuan a information: http_s://jennifer.nih .gov/publications /drugfacts/cannab is-marijuana http_s://www.[employer] [facility]/cannyee hqx-xpj-cjebrsgl- marijuana-adhd/ http_s://www.nataliya .org/About-Mental -Illness/Mental-H ealth-Conditions http_s://psychcen [employer].com/depressi on/the-cognitive- xxmznwdy-xd-iyhxk ssion#treatments http__s://www.nim .nih.gov/health/ topics/mental-hea lth-medications http__s://www.nam i.org/About-Menta l-Illness/Treatme nts/Mental-Health -Medications educated on all medications, benefits, side effects and risk, and educated on depression, anxiety, and ADHD, mood d/o and educated on compliance of medications, metabolic and movement d/o education appointment's, continue therapy discussion with patient about course of treatment and patient instructions. education on serotonin syndrome Discussed and educated pt regarding benzodiazepines are generally not intended for prolonged use and that use can cause tolerance, dependence, depression, and associated memory issues including dementias (this list is not exhaustive). Benzodiazepine use is generally not recommended concurrently with pain medications and/or other controlled substances educated on all medications, benefits, side effects and risk, and educated on depression, anxiety, and ADHD, mood d/o and educated on compliance of medications, metabolic and movement d/o education appointment is, continue therapy discussion with patient about course of treatment and patient instructions. education on serotonin syndrome SSRI/SNRI side effects discussed including but not limited to, gastric upset, nausea, vomiting, diarrhea and/or constipation, weight changes, sexual side effects including loss of libido, increased suicidal thoughts/behavior s in children and young adults, and serotonin syndrome. Second generation antipsychotics (SGAs) have metabolic syndrome issues with weight gain, increase in prolactin, increased waist circumference, increased lipids, and increased glucose. Thus routine monitoring of weight, metabolic labs, etc. is indicated. A general rank ordering of antipsychotics that have the greatest to the least risk of metabolic effects is olanzapine, quetiapine, risperidone, ziprasidone, and aripiprazole. However, weight gain can occur with all of these drugs and considerable variability exists among patients receiving the same drug regarding the risk of metabolic effects. Anti-psychotic agents not only increase the risk of metabolic disorder, they also increase the risk of CVA, akathisia, and movement disorders including EPS or tardive dyskinesia (more common with first generation antipsychotics) and more. Medication Management and Follow-Up - Plan: - Schedule follow-up appointments every 1-3 months to monitor the patient's response to the medication regimen. - Reinforce the importance of avoiding recreational drug use due to potential neurotoxicity and interactions with prescribed medications. 09/01/2024 Chronic posttraumatic stress disorder (ICD-10 - F43.12) 09/01/2024 ADHD (attention deficit hyperactivity disorder), combined type (ICD-10 - F90.2) 09/19/2024 Post-traumatic stress disorder, chronic (ICD-10 - F43.12) Post-Traumatic Stress Disorder (PTSD): Care Instructions material was published presently taking Seroquel 400 mg bedtime, Prozac 20 mg daily, 1. Bipolar- Seroquel 400 mg bedtime Add Lamotrigine 25 mg daily for 2 weeks then increase to 50 mg daily educated on all rx, benefits, side effects, and risk Lamotrigine lamotrigine has a serious rashes requiring hospitalization and discontinue treatment including Víctor Rafael syndrome rare case of toxic epidermal necrolysis and cache related deaths. Incidence with adjunct of epilepsy treatment 0.8% in 2 to 16 years old and 0.3% in adults, bipolar and other mood disorders incidence 0.8% this initial monotherapy and 0.13% as adjunctive treatment. Other risk factor may include concomitant use of valproate acid derivative or exceeding initial lamotrigine does or does as clinician recommendation; most life-threatening rash of occurring first 2 to 8 week of treatment with isolated cases after prolonged treatment; though benign may occur, discontinue treatment at first sign of rash unless clearly not a drug related; TC treatment may not prevent trash from becoming life-threatening or permanently disabling or disfiguring. Comment reaction include, nausea/vomiting, dizziness/vertigo , visual disturbances, somnolence, ataxia, pruritus/rash, pharyngitis, headache, rhinitis, diarrhea, fever, asthenia, insomnia, tremor, abdominal pain, cough, accidental injury, constipation, dysmenorrhea, incoordination, anxiety, seizures, irritability, anorexia, xerostomia, and photosensitivity. Serious reactions include: Rash, severe; Lambert Rafael syndrome; toxic epidermal necrosis; injury edema, hypersensitivity reactions. Including fatal, multiple organ failure to safe fatal, rash with eosinophilia systemic symptoms, DIC, neutropenia, leukopenia, thrombocytopenia, pancytopenia, aplastic anemia, hemolytic anemia, i pancreatitis, hepatic failure, rhabdomyolysis, worsening of suicidal ideation, worsening of depression, cleft lip/palate [first trimester use] DO not Change Cosmetic, perfumes or soap for next 4 weeks. The patient was advice to take lamotrigine as prescribed the patient was instructed not to deviate from the prescription dosages. Stop lamotrigine is the first sign of rash. Patient was insisted to inform office if any of the serious side effect develops. 2. Anxiety Increase Prozac 40 mg daily, monitor for ernesto/ hypomania 3. hypersomnia PCP prescribes Ambien PRN 4. PTSD Therapy - Era [facility] 5. HTN- On Linisopril educated on healthy b/p 120/80 monitor b/p at home refer to PCP, Urgent care/ER heart healthy diet and excise limit salt intake limit soda intake and caffiene increase water Recommend decrease/stop cannabis use as it can negatively impact mood, motivation, anxiety, sleep, focus/concentrati on/memory (vigilance, elasticity, processing and attention); can also contribute to development of psychosis. http_s://www.nimh .nih.gov/health/t opics/mental-heal th-medications http_s://www.nataliya .org/About-Mental -Illness/Treatmen ts/Mental-Health- Medications Recommend decrease/stop cannabis use as it may be negatively impacting mood, motivation, anxiety, sleep, focus; can also contribute to development of psychosis Cannabis/marijuan a information: http_s://jennifer.nih .gov/publications /drugfacts/cannab is-marijuana http_s://www.[employer] [facility]/jose ilu-bfb-wedhsslu- marijuana-adhd/ http_s://www.nataliya .org/About-Mental -Illness/Mental-H ealth-Conditions http_s://psychcen tral.com/depressi on/the-cognitive- hfzjrrti-tc-wpdvp ssion#treatments http__s://www.[facility].nih.gov/health/ topics/mental-hea [facility]-medications http__s://www.nam i.org/About-Menta l-Illness/Treatme nts/Mental-Health -Medications educated on all medications, benefits, side effects and risk, and educated on depression, anxiety, and ADHD, mood d/o and educated on compliance of medications, metabolic and movement d/o education appointment's, continue therapy discussion with patient about course of treatment and patient instructions. education on serotonin syndrome Discussed and educated pt regarding benzodiazepines are generally not intended for prolonged use and that use can cause tolerance, dependence, depression, and associated memory issues including dementias (this list is not exhaustive). Benzodiazepine use is generally not recommended concurrently with pain medications and/or other controlled substances educated on all medications, benefits, side effects and risk, and educated on depression, anxiety, and ADHD, mood d/o and educated on compliance of medications, metabolic and movement d/o education appointment is, continue therapy discussion with patient about course of treatment and patient instructions. education on serotonin syndrome SSRI/SNRI side effects discussed including but not limited to, gastric upset, nausea, vomiting, diarrhea and/or constipation, weight changes, sexual side effects including loss of libido, increased suicidal thoughts/behavior s in children and young adults, and serotonin syndrome. Second generation antipsychotics (SGAs) have metabolic syndrome issues with weight gain, increase in prolactin, increased waist circumference, increased lipids, and increased glucose. Thus routine monitoring of weight, metabolic labs, etc. is indicated. A general rank ordering of antipsychotics that have the greatest to the least risk of metabolic effects is olanzapine, quetiapine, risperidone, ziprasidone, and aripiprazole. However, weight gain can occur with all of these drugs and considerable variability exists among patients receiving the same drug regarding the risk of metabolic effects. Anti-psychotic agents not only increase the risk of metabolic disorder, they also increase the risk of CVA, akathisia, and movement disorders including EPS or tardive dyskinesia (more common with first generation antipsychotics) and more. Medication Management and Follow-Up - Plan: - Schedule follow-up appointments every 1-3 months to monitor the patient's response to the medication regimen. - Reinforce the importance of avoiding recreational drug use due to potential neurotoxicity and interactions with prescribed medications. 10/25/2024 Generalized anxiety disorder (ICD-10 - F41.1) Generalized Anxiety Disorder: Care Instructions material was published, Learning About Generalized Anxiety Disorder material was published, Learning About Anxiety Disorders material was published 1. Bipolar- patient still in depressive state and lack motivation and interest, Seroquel 400 mg bedtime- no refill needed Increase Lamotrigine 100 mg daily educated on all rx, benefits, side effects, and risk Lamotrigine lamotrigine has a serious rashes requiring hospitalization and discontinue treatment including Víctor Rafael syndrome rare case of toxic epidermal necrolysis and cache related deaths. Incidence with adjunct of epilepsy treatment 0.8% in 2 to 16 years old and 0.3% in adults, bipolar and other mood disorders incidence 0.8% this initial monotherapy and 0.13% as adjunctive treatment. Other risk factor may include concomitant use of valproate acid derivative or exceeding initial lamotrigine does or does as clinician recommendation; most life-threatening rash of occurring first 2 to 8 week of treatment with isolated cases after prolonged treatment; though benign may occur, discontinue treatment at first sign of rash unless clearly not a drug related; TC treatment may not prevent trash from becoming life-threatening or permanently disabling or disfiguring. Comment reaction include, nausea/vomiting, dizziness/vertigo , visual disturbances, somnolence, ataxia, pruritus/rash, pharyngitis, headache, rhinitis, diarrhea, fever, asthenia, insomnia, tremor, abdominal pain, cough, accidental injury, constipation, dysmenorrhea, incoordination, anxiety, seizures, irritability, anorexia, xerostomia, and photosensitivity. Serious reactions include: Rash, severe; Lambert Rafael syndrome; toxic epidermal necrosis; injury edema, hypersensitivity reactions. Including fatal, multiple organ failure to safe fatal, rash with eosinophilia systemic symptoms, DIC, neutropenia, leukopenia, thrombocytopenia, pancytopenia, aplastic anemia, hemolytic anemia, i pancreatitis, hepatic failure, rhabdomyolysis, worsening of suicidal ideation, worsening of depression, cleft lip/palate [first trimester use] DO not Change Cosmetic, perfumes or soap for next 4 weeks. The patient was advice to take lamotrigine as prescribed the patient was instructed not to deviate from the prescription dosages. Stop lamotrigine is the first sign of rash. Patient was insisted to inform office if any of the serious side effect develops. 2. Anxiety Prozac 40 mg daily, - no refill needed monitor for ernesto/ hypomania 3. hypersomnia PCP prescribes Ambien ROMERON 4. PTSD Therapy - Era TABOR 5. HTN- On Linisopril- patient will call PCP educated on healthy b/p 120/80 monitor b/p at home refer to PCP, Urgent care/ER- educated on B/P heart healthy diet and excise limit salt intake limit soda intake and caffiene increase water Recommend decrease/stop cannabis use as it can negatively impact mood, motivation, anxiety, sleep, focus/concentrati on/memory (vigilance, elasticity, processing and attention); can also contribute to development of psychosis. http_s://www.nim .nih.gov/health/t opics/mental-heal th-medications http_s://www.nataliya .org/About-Mental -Illness/Treatmen ts/Mental-Health- Medications Recommend decrease/stop cannabis use as it may be negatively impacting mood, motivation, anxiety, sleep, focus; can also contribute to development of psychosis Cannabis/marijuan a information: http_s://jennifer.nih .gov/publications /drugfacts/cannab is-marijuana http_s://www.[employer] [address]/canna qxa-war-pkfbbriq- marijuana-adhd/ http_s://www.nataliya .org/About-Mental -Illness/Mental-H ealth-Conditions http_s://psychceWideo/depressi on/the-cognitive- quxewpsy-bj-myike ssion#treatments http__s://www.nim .nih.gov/health/ topics/mental-hea lth-medications http__s://www.nam i.org/About-Menta l-Illness/Treatme nts/Mental-Health -Medications educated on all medications, benefits, side effects and risk, and educated on depression, anxiety, and ADHD, mood d/o and educated on compliance of medications, metabolic and movement d/o education appointment's, continue therapy discussion with patient about course of treatment and patient instructions. education on serotonin syndrome Discussed and educated pt regarding benzodiazepines are generally not intended for prolonged use and that use can cause tolerance, dependence, depression, and associated memory issues including dementias (this list is not exhaustive). Benzodiazepine use is generally not recommended concurrently with pain medications and/or other controlled substances educated on all medications, benefits, side effects and risk, and educated on depression, anxiety, and ADHD, mood d/o and educated on compliance of medications, metabolic and movement d/o education appointment is, continue therapy discussion with patient about course of treatment and patient instructions. education on serotonin syndrome SSRI/SNRI side effects discussed including but not limited to, gastric upset, nausea, vomiting, diarrhea and/or constipation, weight changes, sexual side effects including loss of libido, increased suicidal thoughts/behavior s in children and young adults, and serotonin syndrome. Second generation antipsychotics (SGAs) have metabolic syndrome issues with weight gain, increase in prolactin, increased waist circumference, increased lipids, and increased glucose. Thus routine monitoring of weight, metabolic labs, etc. is indicated. A general rank ordering of antipsychotics that have the greatest to the least risk of metabolic effects is olanzapine, quetiapine, risperidone, ziprasidone, and aripiprazole. However, weight gain can occur with all of these drugs and considerable variability exists among patients receiving the same drug regarding the risk of metabolic effects. Anti-psychotic agents not only increase the risk of metabolic disorder, they also increase the risk of CVA, akathisia, and movement disorders including EPS or tardive dyskinesia (more common with first generation antipsychotics) and more. Medication Management and Follow-Up - Plan: - Schedule follow-up appointments every 1-3 months to monitor the patient's response to the medication regimen. - Reinforce the importance of avoiding recreational drug use due to potential neurotoxicity and interactions with prescribed medications. 11/14/2024 Generalized anxiety disorder (ICD-10 - F41.1) Generalized Anxiety Disorder: Care Instructions material was published, Learning About Generalized Anxiety Disorder material was published, Learning About Anxiety Disorders material was published 1. Bipolar- depression Seroquel 400 mg bedtime- no refill needed Discuss and educated on rx options and patient worried Seroquel may make her tired in day if added in day for depression and anxiety increase Lamotrigine 150 mg daily for depression educated on all rx, benefits, side effects, and risk AIMS= 0 11/14/24 patient had COVID last week- recovery Lamotrigine lamotrigine has a serious rashes requiring hospitalization and discontinue treatment including Víctor Rafael syndrome rare case of toxic epidermal necrolysis and cache related deaths. Incidence with adjunct of epilepsy treatment 0.8% in 2 to 16 years old and 0.3% in adults, bipolar and other mood disorders incidence 0.8% this initial monotherapy and 0.13% as adjunctive treatment. Other risk factor may include concomitant use of valproate acid derivative or exceeding initial lamotrigine does or does as clinician recommendation; most life-threatening rash of occurring first 2 to 8 week of treatment with isolated cases after prolonged treatment; though benign may occur, discontinue treatment at first sign of rash unless clearly not a drug related; TC treatment may not prevent trash from becoming life-threatening or permanently disabling or disfiguring. Comment reaction include, nausea/vomiting, dizziness/vertigo , visual disturbances, somnolence, ataxia, pruritus/rash, pharyngitis, headache, rhinitis, diarrhea, fever, asthenia, insomnia, tremor, abdominal pain, cough, accidental injury, constipation, dysmenorrhea, incoordination, anxiety, seizures, irritability, anorexia, xerostomia, and photosensitivity. Serious reactions include: Rash, severe; Lambert Rafael syndrome; toxic epidermal necrosis; injury edema, hypersensitivity reactions. Including fatal, multiple organ failure to safe fatal, rash with eosinophilia systemic symptoms, DIC, neutropenia, leukopenia, thrombocytopenia, pancytopenia, aplastic anemia, hemolytic anemia, i pancreatitis, hepatic failure, rhabdomyolysis, worsening of suicidal ideation, worsening of depression, cleft lip/palate [first trimester use] DO not Change Cosmetic, perfumes or soap for next 4 weeks. The patient was advice to take lamotrigine as prescribed the patient was instructed not to deviate from the prescription dosages. Stop lamotrigine is the first sign of rash. Patient was insisted to inform office if any of the serious side effect develops. 2. Anxiety Prozac 40 mg daily, - no refill needed monitor for ernesto/ hypomania 3. hypersomnia PCP prescribes Ambien PRN 4. PTSD Therapy - Era TABOR 5. HTN- On Linisopril- patient will call PCP educated on healthy b/p 120/80 monitor b/p at home refer to PCP, Urgent care/ER- educated on B/P heart healthy diet and excise limit salt intake limit soda intake and caffiene increase water educated on cannabis use as it can negatively impact mood, motivation, anxiety, sleep, focus/concentrati on/memory (vigilance, elasticity, processing and attention); can also contribute to development of psychosis. http_s://www.nim .nih.gov/health/t opics/mental-heal th-medications http_s://www.nataliya .org/About-Mental -Illness/Treatmen ts/Mental-Health- Medications Recommend decrease/stop cannabis use as it may be negatively impacting mood, motivation, anxiety, sleep, focus; can also contribute to development of psychosis Cannabis/marijuan a information: http_s://jennifer.nih .gov/publications /drugfacts/cannab is-marijuana http_s://www.[employer] [facility] [address]/canna aqf-ufm-dxjwalsr- marijuana-adhd/ http_s://www.nataliya .org/About-Mental -Illness/Mental-H ealth-Conditions http_s://[employer]/depressi on/the-cognitive- yjyksdlb-db-pryth ssion#treatments http__s://www.nim .nih.gov/health/ topics/mental-hea lth-medications http__s://www.nam i.org/About-Menta l-Illness/Treatme nts/Mental-Health -Medications educated on all medications, benefits, side effects and risk, and educated on depression, anxiety, and ADHD, mood d/o and educated on compliance of medications, metabolic and movement d/o education appointment's, continue therapy discussion with patient about course of treatment and patient instructions. education on serotonin syndrome Discussed and educated pt regarding benzodiazepines are generally not intended for prolonged use and that use can cause tolerance, dependence, depression, and associated memory issues including dementias (this list is not exhaustive). Benzodiazepine use is generally not recommended concurrently with pain medications and/or other controlled substances educated on all medications, benefits, side effects and risk, and educated on depression, anxiety, and ADHD, mood d/o and educated on compliance of medications, metabolic and movement d/o education appointment is, continue therapy discussion with patient about course of treatment and patient instructions. education on serotonin syndrome SSRI/SNRI side effects discussed including but not limited to, gastric upset, nausea, vomiting, diarrhea and/or constipation, weight changes, sexual side effects including loss of libido, increased suicidal thoughts/behavior s in children and young adults, and serotonin syndrome. Second generation antipsychotics (SGAs) have metabolic syndrome issues with weight gain, increase in prolactin, increased waist circumference, increased lipids, and increased glucose. Thus routine monitoring of weight, metabolic labs, etc. is indicated. A general rank ordering of antipsychotics that have the greatest to the least risk of metabolic effects is olanzapine, quetiapine, risperidone, ziprasidone, and aripiprazole. However, weight gain can occur with all of these drugs and considerable variability exists among patients receiving the same drug regarding the risk of metabolic effects. Anti-psychotic agents not only increase the risk of metabolic disorder, they also increase the risk of CVA, akathisia, and movement disorders including EPS or tardive dyskinesia (more common with first generation antipsychotics) and more. Medication Management and Follow-Up - Plan: - Schedule follow-up appointments every 1-3 months to monitor the patient's response to the medication regimen. - Reinforce the importance of avoiding recreational drug use due to potential neurotoxicity and interactions with prescribed medications. 11/11/2024 ADHD (attention deficit hyperactivity disorder), combined type (ICD-10 - F90.2) 12/13/2024 Bipolar depression (ICD-10 - F31.9) Bipolar Disorder: Care Instructions material was published, Learning About How to Get Help During a Mental Health Crisis material was published, Learning About Mood Disorders material was published, Learning About Movement Disorders From Antipsychotic Medicines material was published 1. Bipolar- depression Seroquel 400 mg bedtime- no refills needed Discuss and educated on rx options and patient worried Seroquel may make her tired in day if added in day for depression and anxiety Lamotrigine 150 mg daily for depression educated on all rx, benefits, side effects, and risk AIMS= 0 11/14/24 patient had COVID last week- recovery Lamotrigine lamotrigine has a serious rashes requiring hospitalization and discontinue treatment including Víctor Rafael syndrome rare case of toxic epidermal necrolysis and cache related deaths. Incidence with adjunct of epilepsy treatment 0.8% in 2 to 16 years old and 0.3% in adults, bipolar and other mood disorders incidence 0.8% this initial monotherapy and 0.13% as adjunctive treatment. Other risk factor may include concomitant use of valproate acid derivative or exceeding initial lamotrigine does or does as clinician recommendation; most life-threatening rash of occurring first 2 to 8 week of treatment with isolated cases after prolonged treatment; though benign may occur, discontinue treatment at first sign of rash unless clearly not a drug related; TC treatment may not prevent trash from becoming life-threatening or permanently disabling or disfiguring. Comment reaction include, nausea/vomiting, dizziness/vertigo , visual disturbances, somnolence, ataxia, pruritus/rash, pharyngitis, headache, rhinitis, diarrhea, fever, asthenia, insomnia, tremor, abdominal pain, cough, accidental injury, constipation, dysmenorrhea, incoordination, anxiety, seizures, irritability, anorexia, xerostomia, and photosensitivity. Serious reactions include: Rash, severe; Lambert Rafael syndrome; toxic epidermal necrosis; injury edema, hypersensitivity reactions. Including fatal, multiple organ failure to safe fatal, rash with eosinophilia systemic symptoms, DIC, neutropenia, leukopenia, thrombocytopenia, pancytopenia, aplastic anemia, hemolytic anemia, i pancreatitis, hepatic failure, rhabdomyolysis, worsening of suicidal ideation, worsening of depression, cleft lip/palate [first trimester use] DO not Change Cosmetic, perfumes or soap for next 4 weeks. The patient was advice to take lamotrigine as prescribed the patient was instructed not to deviate from the prescription dosages. Stop lamotrigine is the first sign of rash. Patient was insisted to inform office if any of the serious side effect develops. 2. Anxiety Prozac 40 mg daily, - no refill needed monitor for ernesto/ hypomania 3. hypersomnia PCP prescribes Ambien PRN 4. PTSD Therapy - Era TABOR 5. HTN- On Linisopril- patient seen PCP educated on healthy b/p 120/80 monitor b/p at home refer to PCP, Urgent care/ER- educated on B/P heart healthy diet and excise limit salt intake limit soda intake and caffiene increase water educated on cannabis use as it can negatively impact mood, motivation, anxiety, sleep, focus/concentrati on/memory (vigilance, elasticity, processing and attention); can also contribute to development of psychosis. http_s://www.nimh .nih.gov/health/t opics/mental-heal th-medications http_s://www.nataliya .org/About-Mental -Illness/Treatmen ts/Mental-Health- Medications Recommend decrease/stop cannabis use as it may be negatively impacting mood, motivation, anxiety, sleep, focus; can also contribute to development of psychosis Cannabis/marijuan a information: http_s://jennifer.nih .gov/publications /drugfacts/cannab is-marijuana http_s://www.[employer] [facility] [address]/canna eie-ljh-jruzctir- marijuana-adhd/ http_s://www.nataliya .org/About-Mental -Illness/Mental-H ealth-Conditions http_s://[facility]/depressi on/the-cognitive- woepgkhb-vt-isrdv ssion#treatments http__s://www.[facility].nih.gov/health/ topics/mental-hea lth-medications http__s://www.nam i.org/About-Menta l-Illness/Treatme nts/Mental-Health -Medications educated on all medications, benefits, side effects and risk, and educated on depression, anxiety, and ADHD, mood d/o and educated on compliance of medications, metabolic and movement d/o education appointment's, continue therapy discussion with patient about course of treatment and patient instructions. education on serotonin syndrome Discussed and educated pt regarding benzodiazepines are generally not intended for prolonged use and that use can cause tolerance, dependence, depression, and associated memory issues including dementias (this list is not exhaustive). Benzodiazepine use is generally not recommended concurrently with pain medications and/or other controlled substances educated on all medications, benefits, side effects and risk, and educated on depression, anxiety, and ADHD, mood d/o and educated on compliance of medications, metabolic and movement d/o education appointment is, continue therapy discussion with patient about course of treatment and patient instructions. education on serotonin syndrome SSRI/SNRI side effects discussed including but not limited to, gastric upset, nausea, vomiting, diarrhea and/or constipation, weight changes, sexual side effects including loss of libido, increased suicidal thoughts/behavior s in children and young adults, and serotonin syndrome. Second generation antipsychotics (SGAs) have metabolic syndrome issues with weight gain, increase in prolactin, increased waist circumference, increased lipids, and increased glucose. Thus routine monitoring of weight, metabolic labs, etc. is indicated. A general rank ordering of antipsychotics that have the greatest to the least risk of metabolic effects is olanzapine, quetiapine, risperidone, ziprasidone, and aripiprazole. However, weight gain can occur with all of these drugs and considerable variability exists among patients receiving the same drug regarding the risk of metabolic effects. Anti-psychotic agents not only increase the risk of metabolic disorder, they also increase the risk of CVA, akathisia, and movement disorders including EPS or tardive dyskinesia (more common with first generation antipsychotics) and more. Medication Management and Follow-Up - Plan: - Schedule follow-up appointments every 1-3 months to monitor the patient's response to the medication regimen. - Reinforce the importance of avoiding recreational drug use due to potential neurotoxicity and interactions with prescribed medications. 11/14/2024 Post-traumatic stress disorder, chronic (ICD-10 - F43.12) Post-Traumatic Stress Disorder (PTSD): Care Instructions material was published 1. Bipolar- depression Seroquel 400 mg bedtime- no refill needed Discuss and educated on rx options and patient worried Seroquel may make her tired in day if added in day for depression and anxiety increase Lamotrigine 150 mg daily for depression educated on all rx, benefits, side effects, and risk AIMS= 0 11/14/24 patient had COVID last week- recovery Lamotrigine lamotrigine has a serious rashes requiring hospitalization and discontinue treatment including Víctor Rafael syndrome rare case of toxic epidermal necrolysis and cache related deaths. Incidence with adjunct of epilepsy treatment 0.8% in 2 to 16 years old and 0.3% in adults, bipolar and other mood disorders incidence 0.8% this initial monotherapy and 0.13% as adjunctive treatment. Other risk factor may include concomitant use of valproate acid derivative or exceeding initial lamotrigine does or does as clinician recommendation; most life-threatening rash of occurring first 2 to 8 week of treatment with isolated cases after prolonged treatment; though benign may occur, discontinue treatment at first sign of rash unless clearly not a drug related; TC treatment may not prevent trash from becoming life-threatening or permanently disabling or disfiguring. Comment reaction include, nausea/vomiting, dizziness/vertigo , visual disturbances, somnolence, ataxia, pruritus/rash, pharyngitis, headache, rhinitis, diarrhea, fever, asthenia, insomnia, tremor, abdominal pain, cough, accidental injury, constipation, dysmenorrhea, incoordination, anxiety, seizures, irritability, anorexia, xerostomia, and photosensitivity. Serious reactions include: Rash, severe; Lambert Rafael syndrome; toxic epidermal necrosis; injury edema, hypersensitivity reactions. Including fatal, multiple organ failure to safe fatal, rash with eosinophilia systemic symptoms, DIC, neutropenia, leukopenia, thrombocytopenia, pancytopenia, aplastic anemia, hemolytic anemia, i pancreatitis, hepatic failure, rhabdomyolysis, worsening of suicidal ideation, worsening of depression, cleft lip/palate [first trimester use] DO not Change Cosmetic, perfumes or soap for next 4 weeks. The patient was advice to take lamotrigine as prescribed the patient was instructed not to deviate from the prescription dosages. Stop lamotrigine is the first sign of rash. Patient was insisted to inform office if any of the serious side effect develops. 2. Anxiety Prozac 40 mg daily, - no refill needed monitor for ernesto/ hypomania 3. hypersomnia PCP prescribes Ambien PRN 4. PTSD Therapy - Era TABOR 5. HTN- On Linisopril- patient will call PCP educated on healthy b/p 120/80 monitor b/p at home refer to PCP, Urgent care/ER- educated on B/P heart healthy diet and excise limit salt intake limit soda intake and caffiene increase water educated on cannabis use as it can negatively impact mood, motivation, anxiety, sleep, focus/concentrati on/memory (vigilance, elasticity, processing and attention); can also contribute to development of psychosis. http_s://www.nimh .nih.gov/health/t opics/mental-heal th-medications http_s://www.nataliya .org/About-Mental -Illness/Treatmen ts/Mental-Health- Medications Recommend decrease/stop cannabis use as it may be negatively impacting mood, motivation, anxiety, sleep, focus; can also contribute to development of psychosis Cannabis/marijuan a information: http_s://jennifer.nih .gov/publications /drugfacts/cannab is-marijuana http_s://www.[employer]/jose deq-gxb-cyvpjwpu- marijuana-adhd/ http_s://www.nataliya .org/About-Mental -Illness/Mental-H ealth-Conditions http_s://psychcen tral.com/depressi on/the-cognitive- dmrrpicd-qi-zivzt ssion#treatments http__s://www.nim .nih.gov/health/ topics/mental-hea [facility] [facility] http__s://www.nam i.org/About-Menta l-Illness/Treatme nts/Mental-Health -Medications educated on all medications, benefits, side effects and risk, and educated on depression, anxiety, and ADHD, mood d/o and educated on compliance of medications, metabolic and movement d/o education appointment's, continue therapy discussion with patient about course of treatment and patient instructions. education on serotonin syndrome Discussed and educated pt regarding benzodiazepines are generally not intended for prolonged use and that use can cause tolerance, dependence, depression, and associated memory issues including dementias (this list is not exhaustive). Benzodiazepine use is generally not recommended concurrently with pain medications and/or other controlled substances educated on all medications, benefits, side effects and risk, and educated on depression, anxiety, and ADHD, mood d/o and educated on compliance of medications, metabolic and movement d/o education appointment is, continue therapy discussion with patient about course of treatment and patient instructions. education on serotonin syndrome SSRI/SNRI side effects discussed including but not limited to, gastric upset, nausea, vomiting, diarrhea and/or constipation, weight changes, sexual side effects including loss of libido, increased suicidal thoughts/behavior s in children and young adults, and serotonin syndrome. Second generation antipsychotics (SGAs) have metabolic syndrome issues with weight gain, increase in prolactin, increased waist circumference, increased lipids, and increased glucose. Thus routine monitoring of weight, metabolic labs, etc. is indicated. A general rank ordering of antipsychotics that have the greatest to the least risk of metabolic effects is olanzapine, quetiapine, risperidone, ziprasidone, and aripiprazole. However, weight gain can occur with all of these drugs and considerable variability exists among patients receiving the same drug regarding the risk of metabolic effects. Anti-psychotic agents not only increase the risk of metabolic disorder, they also increase the risk of CVA, akathisia, and movement disorders including EPS or tardive dyskinesia (more common with first generation antipsychotics) and more. Medication Management and Follow-Up - Plan: - Schedule follow-up appointments every 1-3 months to monitor the patient's response to the medication regimen. - Reinforce the importance of avoiding recreational drug use due to potential neurotoxicity and interactions with prescribed medications. 12/13/2024 Other oysterman (current) drug therapy (ICD-10 - Z79.899) 1. Bipolar- depression Seroquel 400 mg bedtime- no refills needed Discuss and educated on rx options and patient worried Seroquel may make her tired in day if added in day for depression and anxiety Lamotrigine 150 mg daily for depression educated on all rx, benefits, side effects, and risk AIMS= 0 11/14/24 patient had COVID last week- recovery Lamotrigine lamotrigine has a serious rashes requiring hospitalization and discontinue treatment including Víctor Rafael syndrome rare case of toxic epidermal necrolysis and cache related deaths. Incidence with adjunct of epilepsy treatment 0.8% in 2 to 16 years old and 0.3% in adults, bipolar and other mood disorders incidence 0.8% this initial monotherapy and 0.13% as adjunctive treatment. Other risk factor may include concomitant use of valproate acid derivative or exceeding initial lamotrigine does or does as clinician recommendation; most life-threatening rash of occurring first 2 to 8 week of treatment with isolated cases after prolonged treatment; though benign may occur, discontinue treatment at first sign of rash unless clearly not a drug related; TC treatment may not prevent trash from becoming life-threatening or permanently disabling or disfiguring. Comment reaction include, nausea/vomiting, dizziness/vertigo , visual disturbances, somnolence, ataxia, pruritus/rash, pharyngitis, headache, rhinitis, diarrhea, fever, asthenia, insomnia, tremor, abdominal pain, cough, accidental injury, constipation, dysmenorrhea, incoordination, anxiety, seizures, irritability, anorexia, xerostomia, and photosensitivity. Serious reactions include: Rash, severe; Lambert Rafael syndrome; toxic epidermal necrosis; injury edema, hypersensitivity reactions. Including fatal, multiple organ failure to safe fatal, rash with eosinophilia systemic symptoms, DIC, neutropenia, leukopenia, thrombocytopenia, pancytopenia, aplastic anemia, hemolytic anemia, i pancreatitis, hepatic failure, rhabdomyolysis, worsening of suicidal ideation, worsening of depression, cleft lip/palate [first trimester use] DO not Change Cosmetic, perfumes or soap for next 4 weeks. The patient was advice to take lamotrigine as prescribed the patient was instructed not to deviate from the prescription dosages. Stop lamotrigine is the first sign of rash. Patient was insisted to inform office if any of the serious side effect develops. 2. Anxiety Prozac 40 mg daily, - no refill needed monitor for ernesto/ hypomania 3. hypersomnia PCP prescribes Ambien PRN 4. PTSD Therapy - [facility] 5. HTN- On Linisopril- patient seen PCP educated on healthy b/p 120/80 monitor b/p at home refer to PCP, Urgent care/ER- educated on B/P heart healthy diet and excise limit salt intake limit soda intake and caffiene increase water educated on cannabis use as it can negatively impact mood, motivation, anxiety, sleep, focus/concentrati on/memory (vigilance, elasticity, processing and attention); can also contribute to development of psychosis. http_s://www.nimh .nih.gov/health/t opics/mental-heal th-medications http_s://www.nataliya .org/About-Mental -Illness/Treatmen ts/Mental-Health- Medications Recommend decrease/stop cannabis use as it may be negatively impacting mood, motivation, anxiety, sleep, focus; can also contribute to development of psychosis Cannabis/marijuan a information: http_s://jennifer.nih .gov/publications /drugfacts/cannab is-marijuana http_s://www.[employer]/cannyee erz-eud-eyvemyxf- marijuana-adhd/ http_s://www.nataliya .org/About-Mental -Illness/Mental-H ealth-Conditions http_s://psychcen [employer].com/depressi on/the-cognitive- eeosgdkp-wc-nbbat ssion#treatments http__s://www.nim .nih.gov/health/ topics/mental-hea lth-medications http__s://www.nam i.org/About-Menta l-Illness/Treatme nts/Mental-Health -Medications educated on all medications, benefits, side effects and risk, and educated on depression, anxiety, and ADHD, mood d/o and educated on compliance of medications, metabolic and movement d/o education appointment's, continue therapy discussion with patient about course of treatment and patient instructions. education on serotonin syndrome Discussed and educated pt regarding benzodiazepines are generally not intended for prolonged use and that use can cause tolerance, dependence, depression, and associated memory issues including dementias (this list is not exhaustive). Benzodiazepine use is generally not recommended concurrently with pain medications and/or other controlled substances educated on all medications, benefits, side effects and risk, and educated on depression, anxiety, and ADHD, mood d/o and educated on compliance of medications, metabolic and movement d/o education appointment is, continue therapy discussion with patient about course of treatment and patient instructions. education on serotonin syndrome SSRI/SNRI side effects discussed including but not limited to, gastric upset, nausea, vomiting, diarrhea and/or constipation, weight changes, sexual side effects including loss of libido, increased suicidal thoughts/behavior s in children and young adults, and serotonin syndrome. Second generation antipsychotics (SGAs) have metabolic syndrome issues with weight gain, increase in prolactin, increased waist circumference, increased lipids, and increased glucose. Thus routine monitoring of weight, metabolic labs, etc. is indicated. A general rank ordering of antipsychotics that have the greatest to the least risk of metabolic effects is olanzapine, quetiapine, risperidone, ziprasidone, and aripiprazole. However, weight gain can occur with all of these drugs and considerable variability exists among patients receiving the same drug regarding the risk of metabolic effects. Anti-psychotic agents not only increase the risk of metabolic disorder, they also increase the risk of CVA, akathisia, and movement disorders including EPS or tardive dyskinesia (more common with first generation antipsychotics) and more. Medication Management and Follow-Up - Plan: - Schedule follow-up appointments every 1-3 months to monitor the patient's response to the medication regimen. - Reinforce the importance of avoiding recreational drug use due to potential neurotoxicity and interactions with prescribed medications. 10/25/2024 Post-traumatic stress disorder, chronic (ICD-10 - F43.12) Post-Traumatic Stress Disorder (PTSD): Care Instructions material was published 1. Bipolar- patient still in depressive state and lack motivation and interest, Seroquel 400 mg bedtime- no refill needed Increase Lamotrigine 100 mg daily educated on all rx, benefits, side effects, and risk Lamotrigine lamotrigine has a serious rashes requiring hospitalization and discontinue treatment including Víctor Rafael syndrome rare case of toxic epidermal necrolysis and cache related deaths. Incidence with adjunct of epilepsy treatment 0.8% in 2 to 16 years old and 0.3% in adults, bipolar and other mood disorders incidence 0.8% this initial monotherapy and 0.13% as adjunctive treatment. Other risk factor may include concomitant use of valproate acid derivative or exceeding initial lamotrigine does or does as clinician recommendation; most life-threatening rash of occurring first 2 to 8 week of treatment with isolated cases after prolonged treatment; though benign may occur, discontinue treatment at first sign of rash unless clearly not a drug related; TC treatment may not prevent trash from becoming life-threatening or permanently disabling or disfiguring. Comment reaction include, nausea/vomiting, dizziness/vertigo , visual disturbances, somnolence, ataxia, pruritus/rash, pharyngitis, headache, rhinitis, diarrhea, fever, asthenia, insomnia, tremor, abdominal pain, cough, accidental injury, constipation, dysmenorrhea, incoordination, anxiety, seizures, irritability, anorexia, xerostomia, and photosensitivity. Serious reactions include: Rash, severe; Lambert Rafael syndrome; toxic epidermal necrosis; injury edema, hypersensitivity reactions. Including fatal, multiple organ failure to safe fatal, rash with eosinophilia systemic symptoms, DIC, neutropenia, leukopenia, thrombocytopenia, pancytopenia, aplastic anemia, hemolytic anemia, i pancreatitis, hepatic failure, rhabdomyolysis, worsening of suicidal ideation, worsening of depression, cleft lip/palate [first trimester use] DO not Change Cosmetic, perfumes or soap for next 4 weeks. The patient was advice to take lamotrigine as prescribed the patient was instructed not to deviate from the prescription dosages. Stop lamotrigine is the first sign of rash. Patient was insisted to inform office if any of the serious side effect develops. 2. Anxiety Prozac 40 mg daily, - no refill needed monitor for ernesto/ hypomania 3. hypersomnia PCP prescribes Ambien PRN 4. PTSD Therapy - Era [facility] 5. HTN- On Linisopril- patient will call PCP educated on healthy b/p 120/80 monitor b/p at home refer to PCP, Urgent care/ER- educated on B/P heart healthy diet and excise limit salt intake limit soda intake and caffiene increase water Recommend decrease/stop cannabis use as it can negatively impact mood, motivation, anxiety, sleep, focus/concentrati on/memory (vigilance, elasticity, processing and attention); can also contribute to development of psychosis. http_s://www.nimh .nih.gov/health/t opics/mental-heal th-medications http_s://www.nataliya .org/About-Mental -Illness/Treatmen ts/Mental-Health- Medications Recommend decrease/stop cannabis use as it may be negatively impacting mood, motivation, anxiety, sleep, focus; can also contribute to development of psychosis Cannabis/marijuan a information: http_s://jennifer.nih .gov/publications /drugfacts/cannab is-marijuana http_s://www.[employer]/canna ltb-eon-qojrdgmm- marijuana-adhd/ http_s://www.nataliya .org/About-Mental -Illness/Mental-H ealth-Conditions http_s://[employer]/depressi on/the-cognitive- nohgbyoe-ia-nmakx ssion#treatments http__s://www.nim .nih.gov/health/ topics/mental-hea lth-medications http__s://www.nam i.org/About-Menta l-Illness/Treatme nts/Mental-Health -Medications educated on all medications, benefits, side effects and risk, and educated on depression, anxiety, and ADHD, mood d/o and educated on compliance of medications, metabolic and movement d/o education appointment's, continue therapy discussion with patient about course of treatment and patient instructions. education on serotonin syndrome Discussed and educated pt regarding benzodiazepines are generally not intended for prolonged use and that use can cause tolerance, dependence, depression, and associated memory issues including dementias (this list is not exhaustive). Benzodiazepine use is generally not recommended concurrently with pain medications and/or other controlled substances educated on all medications, benefits, side effects and risk, and educated on depression, anxiety, and ADHD, mood d/o and educated on compliance of medications, metabolic and movement d/o education appointment is, continue therapy discussion with patient about course of treatment and patient instructions. education on serotonin syndrome SSRI/SNRI side effects discussed including but not limited to, gastric upset, nausea, vomiting, diarrhea and/or constipation, weight changes, sexual side effects including loss of libido, increased suicidal thoughts/behavior s in children and young adults, and serotonin syndrome. Second generation antipsychotics (SGAs) have metabolic syndrome issues with weight gain, increase in prolactin, increased waist circumference, increased lipids, and increased glucose. Thus routine monitoring of weight, metabolic labs, etc. is indicated. A general rank ordering of antipsychotics that have the greatest to the least risk of metabolic effects is olanzapine, quetiapine, risperidone, ziprasidone, and aripiprazole. However, weight gain can occur with all of these drugs and considerable variability exists among patients receiving the same drug regarding the risk of metabolic effects. Anti-psychotic agents not only increase the risk of metabolic disorder, they also increase the risk of CVA, akathisia, and movement disorders including EPS or tardive dyskinesia (more common with first generation antipsychotics) and more. Medication Management and Follow-Up - Plan: - Schedule follow-up appointments every 1-3 months to monitor the patient's response to the medication regimen. - Reinforce the importance of avoiding recreational drug use due to potential neurotoxicity and interactions with prescribed medications. 09/19/2024 Obesity, unspecified (ICD-10 - E66.9) Learning About Obesity material was published, Learning About Healthy Weight material was published, When You Want to Lose Weight: Care Instructions material was published, Starting a Weight-Loss Plan: Care Instructions material was published presently taking Seroquel 400 mg bedtime, Prozac 20 mg daily, 1. Bipolar- Seroquel 400 mg bedtime Add Lamotrigine 25 mg daily for 2 weeks then increase to 50 mg daily educated on all rx, benefits, side effects, and risk Lamotrigine lamotrigine has a serious rashes requiring hospitalization and discontinue treatment including Víctor Rafael syndrome rare case of toxic epidermal necrolysis and cache related deaths. Incidence with adjunct of epilepsy treatment 0.8% in 2 to 16 years old and 0.3% in adults, bipolar and other mood disorders incidence 0.8% this initial monotherapy and 0.13% as adjunctive treatment. Other risk factor may include concomitant use of valproate acid derivative or exceeding initial lamotrigine does or does as clinician recommendation; most life-threatening rash of occurring first 2 to 8 week of treatment with isolated cases after prolonged treatment; though benign may occur, discontinue treatment at first sign of rash unless clearly not a drug related; TC treatment may not prevent trash from becoming life-threatening or permanently disabling or disfiguring. Comment reaction include, nausea/vomiting, dizziness/vertigo , visual disturbances, somnolence, ataxia, pruritus/rash, pharyngitis, headache, rhinitis, diarrhea, fever, asthenia, insomnia, tremor, abdominal pain, cough, accidental injury, constipation, dysmenorrhea, incoordination, anxiety, seizures, irritability, anorexia, xerostomia, and photosensitivity. Serious reactions include: Rash, severe; Lambert Rafael syndrome; toxic epidermal necrosis; injury edema, hypersensitivity reactions. Including fatal, multiple organ failure to safe fatal, rash with eosinophilia systemic symptoms, DIC, neutropenia, leukopenia, thrombocytopenia, pancytopenia, aplastic anemia, hemolytic anemia, i pancreatitis, hepatic failure, rhabdomyolysis, worsening of suicidal ideation, worsening of depression, cleft lip/palate [first trimester use] DO not Change Cosmetic, perfumes or soap for next 4 weeks. The patient was advice to take lamotrigine as prescribed the patient was instructed not to deviate from the prescription dosages. Stop lamotrigine is the first sign of rash. Patient was insisted to inform office if any of the serious side effect develops. 2. Anxiety Increase Prozac 40 mg daily, monitor for ernesto/ hypomania 3. hypersomnia PCP prescribes Ambien PRN 4. PTSD Therapy - [facility] 5. HTN- On Linisopril educated on healthy b/p 120/80 monitor b/p at home refer to PCP, Urgent care/ER heart healthy diet and excise limit salt intake limit soda intake and caffiene increase water Recommend decrease/stop cannabis use as it can negatively impact mood, motivation, anxiety, sleep, focus/concentrati on/memory (vigilance, elasticity, processing and attention); can also contribute to development of psychosis. http_s://www.nimh .nih.gov/health/t opics/mental-heal th-medications http_s://www.nataliya .org/About-Mental -Illness/Treatmen ts/Mental-Health- Medications Recommend decrease/stop cannabis use as it may be negatively impacting mood, motivation, anxiety, sleep, focus; can also contribute to development of psychosis Cannabis/marijuan a information: http_s://jennifer.nih .gov/publications /drugfacts/cannab is-marijuana http_s://www.oumou [employer]udemag.com/jose kow-kla-jjqskfxo- marijuana-adhd/ http_s://www.nataliya .org/About-Mental -Illness/Mental-H ealth-Conditions http_s://[employer]/depressi on/the-cognitive- sinmybmj-ed-nlqpa ssion#treatments http__s://www.[facility].nih.gov/health/ topics/mental-hea lth-medications http__s://www.nam i.org/About-Menta l-Illness/Treatme nts/Mental-Health -Medications educated on all medications, benefits, side effects and risk, and educated on depression, anxiety, and ADHD, mood d/o and educated on compliance of medications, metabolic and movement d/o education appointment's, continue therapy discussion with patient about course of treatment and patient instructions. education on serotonin syndrome Discussed and educated pt regarding benzodiazepines are generally not intended for prolonged use and that use can cause tolerance, dependence, depression, and associated memory issues including dementias (this list is not exhaustive). Benzodiazepine use is generally not recommended concurrently with pain medications and/or other controlled substances educated on all medications, benefits, side effects and risk, and educated on depression, anxiety, and ADHD, mood d/o and educated on compliance of medications, metabolic and movement d/o education appointment is, continue therapy discussion with patient about course of treatment and patient instructions. education on serotonin syndrome SSRI/SNRI side effects discussed including but not limited to, gastric upset, nausea, vomiting, diarrhea and/or constipation, weight changes, sexual side effects including loss of libido, increased suicidal thoughts/behavior s in children and young adults, and serotonin syndrome. Second generation antipsychotics (SGAs) have metabolic syndrome issues with weight gain, increase in prolactin, increased waist circumference, increased lipids, and increased glucose. Thus routine monitoring of weight, metabolic labs, etc. is indicated. A general rank ordering of antipsychotics that have the greatest to the least risk of metabolic effects is olanzapine, quetiapine, risperidone, ziprasidone, and aripiprazole. However, weight gain can occur with all of these drugs and considerable variability exists among patients receiving the same drug regarding the risk of metabolic effects. Anti-psychotic agents not only increase the risk of metabolic disorder, they also increase the risk of CVA, akathisia, and movement disorders including EPS or tardive dyskinesia (more common with first generation antipsychotics) and more. Medication Management and Follow-Up - Plan: - Schedule follow-up appointments every 1-3 months to monitor the patient's response to the medication regimen. - Reinforce the importance of avoiding recreational drug use due to potential neurotoxicity and interactions with prescribed medications. 09/19/2024 Primary hypertension (ICD-10 - I10) Learning About High Blood Pressure material was published, High Blood Pressure: Care Instructions material was published, Acute High Blood Pressure: Care Instructions material was published presently taking Seroquel 400 mg bedtime, Prozac 20 mg daily, 1. Bipolar- Seroquel 400 mg bedtime Add Lamotrigine 25 mg daily for 2 weeks then increase to 50 mg daily educated on all rx, benefits, side effects, and risk Lamotrigine lamotrigine has a serious rashes requiring hospitalization and discontinue treatment including Víctor Rafael syndrome rare case of toxic epidermal necrolysis and cache related deaths. Incidence with adjunct of epilepsy treatment 0.8% in 2 to 16 years old and 0.3% in adults, bipolar and other mood disorders incidence 0.8% this initial monotherapy and 0.13% as adjunctive treatment. Other risk factor may include concomitant use of valproate acid derivative or exceeding initial lamotrigine does or does as clinician recommendation; most life-threatening rash of occurring first 2 to 8 week of treatment with isolated cases after prolonged treatment; though benign may occur, discontinue treatment at first sign of rash unless clearly not a drug related; TC treatment may not prevent trash from becoming life-threatening or permanently disabling or disfiguring. Comment reaction include, nausea/vomiting, dizziness/vertigo , visual disturbances, somnolence, ataxia, pruritus/rash, pharyngitis, headache, rhinitis, diarrhea, fever, asthenia, insomnia, tremor, abdominal pain, cough, accidental injury, constipation, dysmenorrhea, incoordination, anxiety, seizures, irritability, anorexia, xerostomia, and photosensitivity. Serious reactions include: Rash, severe; Lambert Rafael syndrome; toxic epidermal necrosis; injury edema, hypersensitivity reactions. Including fatal, multiple organ failure to safe fatal, rash with eosinophilia systemic symptoms, DIC, neutropenia, leukopenia, thrombocytopenia, pancytopenia, aplastic anemia, hemolytic anemia, i pancreatitis, hepatic failure, rhabdomyolysis, worsening of suicidal ideation, worsening of depression, cleft lip/palate [first trimester use] DO not Change Cosmetic, perfumes or soap for next 4 weeks. The patient was advice to take lamotrigine as prescribed the patient was instructed not to deviate from the prescription dosages. Stop lamotrigine is the first sign of rash. Patient was insisted to inform office if any of the serious side effect develops. 2. Anxiety Increase Prozac 40 mg daily, monitor for ernesto/ hypomania 3. hypersomnia PCP prescribes Ambien PRN 4. PTSD Therapy - Era TABOR 5. HTN- On Linisopril educated on healthy b/p 120/80 monitor b/p at home refer to PCP, Urgent care/ER heart healthy diet and excise limit salt intake limit soda intake and caffiene increase water Recommend decrease/stop cannabis use as it can negatively impact mood, motivation, anxiety, sleep, focus/concentrati on/memory (vigilance, elasticity, processing and attention); can also contribute to development of psychosis. http_s://www.nimh .nih.gov/health/t opics/mental-heal th-medications http_s://www.nataliya .org/About-Mental -Illness/Treatmen ts/Mental-Health- Medications Recommend decrease/stop cannabis use as it may be negatively impacting mood, motivation, anxiety, sleep, focus; can also contribute to development of psychosis Cannabis/marijuan a information: http_s://jennifer.nih .gov/publications /drugfacts/cannab is-marijuana http_s://www.[employer] [facility]/jose qes-bud-gahadpif- marijuana-adhd/ http_s://www.nataliya .org/About-Mental -Illness/Mental-H ealth-Conditions http_s://psychcen tral.com/depressi on/the-cognitive- ihqrxjkq-rk-zttkr ssion#treatments http__s://www.nim .nih.gov/health/ topics/mental-hea lth-medications http__s://www.nam i.org/About-Menta l-Illness/Treatme nts/Mental-Health -Medications educated on all medications, benefits, side effects and risk, and educated on depression, anxiety, and ADHD, mood d/o and educated on compliance of medications, metabolic and movement d/o education appointment's, continue therapy discussion with patient about course of treatment and patient instructions. education on serotonin syndrome Discussed and educated pt regarding benzodiazepines are generally not intended for prolonged use and that use can cause tolerance, dependence, depression, and associated memory issues including dementias (this list is not exhaustive). Benzodiazepine use is generally not recommended concurrently with pain medications and/or other controlled substances educated on all medications, benefits, side effects and risk, and educated on depression, anxiety, and ADHD, mood d/o and educated on compliance of medications, metabolic and movement d/o education appointment is, continue therapy discussion with patient about course of treatment and patient instructions. education on serotonin syndrome SSRI/SNRI side effects discussed including but not limited to, gastric upset, nausea, vomiting, diarrhea and/or constipation, weight changes, sexual side effects including loss of libido, increased suicidal thoughts/behavior s in children and young adults, and serotonin syndrome. Second generation antipsychotics (SGAs) have metabolic syndrome issues with weight gain, increase in prolactin, increased waist circumference, increased lipids, and increased glucose. Thus routine monitoring of weight, metabolic labs, etc. is indicated. A general rank ordering of antipsychotics that have the greatest to the least risk of metabolic effects is olanzapine, quetiapine, risperidone, ziprasidone, and aripiprazole. However, weight gain can occur with all of these drugs and considerable variability exists among patients receiving the same drug regarding the risk of metabolic effects. Anti-psychotic agents not only increase the risk of metabolic disorder, they also increase the risk of CVA, akathisia, and movement disorders including EPS or tardive dyskinesia (more common with first generation antipsychotics) and more. Medication Management and Follow-Up - Plan: - Schedule follow-up appointments every 1-3 months to monitor the patient's response to the medication regimen. - Reinforce the importance of avoiding recreational drug use due to potential neurotoxicity and interactions with prescribed medications. 10/25/2024 Obesity, unspecified (ICD-10 - E66.9) Learning About Obesity material was published, Learning About Healthy Weight material was published, When You Want to Lose Weight: Care Instructions material was published, Starting a Weight-Loss Plan: Care Instructions material was published 1. Bipolar- patient still in depressive state and lack motivation and interest, Seroquel 400 mg bedtime- no refill needed Increase Lamotrigine 100 mg daily educated on all rx, benefits, side effects, and risk Lamotrigine lamotrigine has a serious rashes requiring hospitalization and discontinue treatment including Víctor Rafael syndrome rare case of toxic epidermal necrolysis and cache related deaths. Incidence with adjunct of epilepsy treatment 0.8% in 2 to 16 years old and 0.3% in adults, bipolar and other mood disorders incidence 0.8% this initial monotherapy and 0.13% as adjunctive treatment. Other risk factor may include concomitant use of valproate acid derivative or exceeding initial lamotrigine does or does as clinician recommendation; most life-threatening rash of occurring first 2 to 8 week of treatment with isolated cases after prolonged treatment; though benign may occur, discontinue treatment at first sign of rash unless clearly not a drug related; TC treatment may not prevent trash from becoming life-threatening or permanently disabling or disfiguring. Comment reaction include, nausea/vomiting, dizziness/vertigo , visual disturbances, somnolence, ataxia, pruritus/rash, pharyngitis, headache, rhinitis, diarrhea, fever, asthenia, insomnia, tremor, abdominal pain, cough, accidental injury, constipation, dysmenorrhea, incoordination, anxiety, seizures, irritability, anorexia, xerostomia, and photosensitivity. Serious reactions include: Rash, severe; Lambert Rafael syndrome; toxic epidermal necrosis; injury edema, hypersensitivity reactions. Including fatal, multiple organ failure to safe fatal, rash with eosinophilia systemic symptoms, DIC, neutropenia, leukopenia, thrombocytopenia, pancytopenia, aplastic anemia, hemolytic anemia, i pancreatitis, hepatic failure, rhabdomyolysis, worsening of suicidal ideation, worsening of depression, cleft lip/palate [first trimester use] DO not Change Cosmetic, perfumes or soap for next 4 weeks. The patient was advice to take lamotrigine as prescribed the patient was instructed not to deviate from the prescription dosages. Stop lamotrigine is the first sign of rash. Patient was insisted to inform office if any of the serious side effect develops. 2. Anxiety Prozac 40 mg daily, - no refill needed monitor for ernesto/ hypomania 3. hypersomnia PCP prescribes Ambien PRN 4. PTSD Therapy - Era TABOR 5. HTN- On Linisopril- patient will call PCP educated on healthy b/p 120/80 monitor b/p at home refer to PCP, Urgent care/ER- educated on B/P heart healthy diet and excise limit salt intake limit soda intake and caffiene increase water Recommend decrease/stop cannabis use as it can negatively impact mood, motivation, anxiety, sleep, focus/concentrati on/memory (vigilance, elasticity, processing and attention); can also contribute to development of psychosis. http_s://www.nim .nih.gov/health/t opics/mental-heal th-medications http_s://www.nataliya .org/About-Mental -Illness/Treatmen ts/Mental-Health- Medications Recommend decrease/stop cannabis use as it may be negatively impacting mood, motivation, anxiety, sleep, focus; can also contribute to development of psychosis Cannabis/marijuan a information: http_s://jennifer.nih .gov/publications /drugfacts/cannab is-marijuana http_s://www.[employer] [facility]/canna bdr-qiq-wohzojwv- marijuana-adhd/ http_s://www.nataliya .org/About-Mental -Illness/Mental-H ealth-Conditions http_s://[employer]/depressi on/the-cognitive- hgqbxjxx-nn-aokcx ssion#treatments http__s://www.[facility].nih.gov/health/ topics/mental-hea lth-medications http__s://www.nam i.org/About-Menta l-Illness/Treatme nts/Mental-Health -Medications educated on all medications, benefits, side effects and risk, and educated on depression, anxiety, and ADHD, mood d/o and educated on compliance of medications, metabolic and movement d/o education appointment's, continue therapy discussion with patient about course of treatment and patient instructions. education on serotonin syndrome Discussed and educated pt regarding benzodiazepines are generally not intended for prolonged use and that use can cause tolerance, dependence, depression, and associated memory issues including dementias (this list is not exhaustive). Benzodiazepine use is generally not recommended concurrently with pain medications and/or other controlled substances educated on all medications, benefits, side effects and risk, and educated on depression, anxiety, and ADHD, mood d/o and educated on compliance of medications, metabolic and movement d/o education appointment is, continue therapy discussion with patient about course of treatment and patient instructions. education on serotonin syndrome SSRI/SNRI side effects discussed including but not limited to, gastric upset, nausea, vomiting, diarrhea and/or constipation, weight changes, sexual side effects including loss of libido, increased suicidal thoughts/behavior s in children and young adults, and serotonin syndrome. Second generation antipsychotics (SGAs) have metabolic syndrome issues with weight gain, increase in prolactin, increased waist circumference, increased lipids, and increased glucose. Thus routine monitoring of weight, metabolic labs, etc. is indicated. A general rank ordering of antipsychotics that have the greatest to the least risk of metabolic effects is olanzapine, quetiapine, risperidone, ziprasidone, and aripiprazole. However, weight gain can occur with all of these drugs and considerable variability exists among patients receiving the same drug regarding the risk of metabolic effects. Anti-psychotic agents not only increase the risk of metabolic disorder, they also increase the risk of CVA, akathisia, and movement disorders including EPS or tardive dyskinesia (more common with first generation antipsychotics) and more. Medication Management and Follow-Up - Plan: - Schedule follow-up appointments every 1-3 months to monitor the patient's response to the medication regimen. - Reinforce the importance of avoiding recreational drug use due to potential neurotoxicity and interactions with prescribed medications. 12/13/2024 Generalized anxiety disorder (ICD-10 - F41.1) Generalized Anxiety Disorder: Care Instructions material was published, Learning About Generalized Anxiety Disorder material was published, Learning About Anxiety Disorders material was published 1. Bipolar- depression Seroquel 400 mg bedtime- no refills needed Discuss and educated on rx options and patient worried Seroquel may make her tired in day if added in day for depression and anxiety Lamotrigine 150 mg daily for depression educated on all rx, benefits, side effects, and risk AIMS= 0 11/14/24 patient had COVID last week- recovery Lamotrigine lamotrigine has a serious rashes requiring hospitalization and discontinue treatment including Víctor Rafael syndrome rare case of toxic epidermal necrolysis and cache related deaths. Incidence with adjunct of epilepsy treatment 0.8% in 2 to 16 years old and 0.3% in adults, bipolar and other mood disorders incidence 0.8% this initial monotherapy and 0.13% as adjunctive treatment. Other risk factor may include concomitant use of valproate acid derivative or exceeding initial lamotrigine does or does as clinician recommendation; most life-threatening rash of occurring first 2 to 8 week of treatment with isolated cases after prolonged treatment; though benign may occur, discontinue treatment at first sign of rash unless clearly not a drug related; TC treatment may not prevent trash from becoming life-threatening or permanently disabling or disfiguring. Comment reaction include, nausea/vomiting, dizziness/vertigo , visual disturbances, somnolence, ataxia, pruritus/rash, pharyngitis, headache, rhinitis, diarrhea, fever, asthenia, insomnia, tremor, abdominal pain, cough, accidental injury, constipation, dysmenorrhea, incoordination, anxiety, seizures, irritability, anorexia, xerostomia, and photosensitivity. Serious reactions include: Rash, severe; Lambert Rafael syndrome; toxic epidermal necrosis; injury edema, hypersensitivity reactions. Including fatal, multiple organ failure to safe fatal, rash with eosinophilia systemic symptoms, DIC, neutropenia, leukopenia, thrombocytopenia, pancytopenia, aplastic anemia, hemolytic anemia, i pancreatitis, hepatic failure, rhabdomyolysis, worsening of suicidal ideation, worsening of depression, cleft lip/palate [first trimester use] DO not Change Cosmetic, perfumes or soap for next 4 weeks. The patient was advice to take lamotrigine as prescribed the patient was instructed not to deviate from the prescription dosages. Stop lamotrigine is the first sign of rash. Patient was insisted to inform office if any of the serious side effect develops. 2. Anxiety Prozac 40 mg daily, - no refill needed monitor for ernesto/ hypomania 3. hypersomnia PCP prescribes Ambien PRN 4. PTSD Therapy - Era TABOR 5. HTN- On Linisopril- patient seen PCP educated on healthy b/p 120/80 monitor b/p at home refer to PCP, Urgent care/ER- educated on B/P heart healthy diet and excise limit salt intake limit soda intake and caffiene increase water educated on cannabis use as it can negatively impact mood, motivation, anxiety, sleep, focus/concentrati on/memory (vigilance, elasticity, processing and attention); can also contribute to development of psychosis. http_s://www.nimh .nih.gov/health/t opics/mental-heal th-medications http_s://www.nataliya .org/About-Mental -Illness/Treatmen ts/Mental-Health- Medications Recommend decrease/stop cannabis use as it may be negatively impacting mood, motivation, anxiety, sleep, focus; can also contribute to development of psychosis Cannabis/marijuan a information: http_s://jennifer.nih .gov/publications /drugfacts/cannab is-marijuana http_s://www.[employer] [facility]/canna qim-mlr-pkinhpqd- marijuana-adhd/ http_s://www.nataliya .org/About-Mental -Illness/Mental-H ealth-Conditions http_s://[facility]/depressi on/the-cognitive- rjuoyevh-oo-hcxcg ssion#treatments http__s://www.[facility].nih.gov/health/ topics/mental-hea lth-medications http__s://www.nam i.org/About-Menta l-Illness/Treatme nts/Mental-Health -Medications educated on all medications, benefits, side effects and risk, and educated on depression, anxiety, and ADHD, mood d/o and educated on compliance of medications, metabolic and movement d/o education appointment's, continue therapy discussion with patient about course of treatment and patient instructions. education on serotonin syndrome Discussed and educated pt regarding benzodiazepines are generally not intended for prolonged use and that use can cause tolerance, dependence, depression, and associated memory issues including dementias (this list is not exhaustive). Benzodiazepine use is generally not recommended concurrently with pain medications and/or other controlled substances educated on all medications, benefits, side effects and risk, and educated on depression, anxiety, and ADHD, mood d/o and educated on compliance of medications, metabolic and movement d/o education appointment is, continue therapy discussion with patient about course of treatment and patient instructions. education on serotonin syndrome SSRI/SNRI side effects discussed including but not limited to, gastric upset, nausea, vomiting, diarrhea and/or constipation, weight changes, sexual side effects including loss of libido, increased suicidal thoughts/behavior s in children and young adults, and serotonin syndrome. Second generation antipsychotics (SGAs) have metabolic syndrome issues with weight gain, increase in prolactin, increased waist circumference, increased lipids, and increased glucose. Thus routine monitoring of weight, metabolic labs, etc. is indicated. A general rank ordering of antipsychotics that have the greatest to the least risk of metabolic effects is olanzapine, quetiapine, risperidone, ziprasidone, and aripiprazole. However, weight gain can occur with all of these drugs and considerable variability exists among patients receiving the same drug regarding the risk of metabolic effects. Anti-psychotic agents not only increase the risk of metabolic disorder, they also increase the risk of CVA, akathisia, and movement disorders including EPS or tardive dyskinesia (more common with first generation antipsychotics) and more. Medication Management and Follow-Up - Plan: - Schedule follow-up appointments every 1-3 months to monitor the patient's response to the medication regimen. - Reinforce the importance of avoiding recreational drug use due to potential neurotoxicity and interactions with prescribed medications. 11/14/2024 Obesity, unspecified (ICD-10 - E66.9) Learning About Obesity material was published, Learning About Healthy Weight material was published, When You Want to Lose Weight: Care Instructions material was published, Starting a Weight-Loss Plan: Care Instructions material was published 1. Bipolar- depression Seroquel 400 mg bedtime- no refill needed Discuss and educated on rx options and patient worried Seroquel may make her tired in day if added in day for depression and anxiety increase Lamotrigine 150 mg daily for depression educated on all rx, benefits, side effects, and risk AIMS= 0 11/14/24 patient had COVID last week- recovery Lamotrigine lamotrigine has a serious rashes requiring hospitalization and discontinue treatment including Víctor Rafael syndrome rare case of toxic epidermal necrolysis and cache related deaths. Incidence with adjunct of epilepsy treatment 0.8% in 2 to 16 years old and 0.3% in adults, bipolar and other mood disorders incidence 0.8% this initial monotherapy and 0.13% as adjunctive treatment. Other risk factor may include concomitant use of valproate acid derivative or exceeding initial lamotrigine does or does as clinician recommendation; most life-threatening rash of occurring first 2 to 8 week of treatment with isolated cases after prolonged treatment; though benign may occur, discontinue treatment at first sign of rash unless clearly not a drug related; TC treatment may not prevent trash from becoming life-threatening or permanently disabling or disfiguring. Comment reaction include, nausea/vomiting, dizziness/vertigo , visual disturbances, somnolence, ataxia, pruritus/rash, pharyngitis, headache, rhinitis, diarrhea, fever, asthenia, insomnia, tremor, abdominal pain, cough, accidental injury, constipation, dysmenorrhea, incoordination, anxiety, seizures, irritability, anorexia, xerostomia, and photosensitivity. Serious reactions include: Rash, severe; Lambert Rafael syndrome; toxic epidermal necrosis; injury edema, hypersensitivity reactions. Including fatal, multiple organ failure to safe fatal, rash with eosinophilia systemic symptoms, DIC, neutropenia, leukopenia, thrombocytopenia, pancytopenia, aplastic anemia, hemolytic anemia, i pancreatitis, hepatic failure, rhabdomyolysis, worsening of suicidal ideation, worsening of depression, cleft lip/palate [first trimester use] DO not Change Cosmetic, perfumes or soap for next 4 weeks. The patient was advice to take lamotrigine as prescribed the patient was instructed not to deviate from the prescription dosages. Stop lamotrigine is the first sign of rash. Patient was insisted to inform office if any of the serious side effect develops. 2. Anxiety Prozac 40 mg daily, - no refill needed monitor for ernesto/ hypomania 3. hypersomnia PCP prescribes Ambien PRN 4. PTSD Therapy - Era TABOR 5. HTN- On Linisopril- patient will call PCP educated on healthy b/p 120/80 monitor b/p at home refer to PCP, Urgent care/ER- educated on B/P heart healthy diet and excise limit salt intake limit soda intake and caffiene increase water educated on cannabis use as it can negatively impact mood, motivation, anxiety, sleep, focus/concentrati on/memory (vigilance, elasticity, processing and attention); can also contribute to development of psychosis. http_s://www.nimh .nih.gov/health/t opics/mental-heal th-medications http_s://www.nataliya .org/About-Mental -Illness/Treatmen ts/Mental-Health- Medications Recommend decrease/stop cannabis use as it may be negatively impacting mood, motivation, anxiety, sleep, focus; can also contribute to development of psychosis Cannabis/marijuan a information: http_s://jennifer.nih .gov/publications /drugfacts/cannab is-marijuana http_s://www.[employer] [facility]/jose tjj-lub-enifrjte- marijuana-adhd/ http_s://www.nataliya .org/About-Mental -Illness/Mental-H ealth-Conditions http_s://psychceMcLarenscom/depressi on/the-cognitive- xhwvapdk-mr-cssjn ssion#treatments http__s://www.[facility].nih.gov/health/ topics/mental-hea lth-medications http__s://www.nam i.org/About-Menta l-Illness/Treatme nts/Mental-Health -Medications educated on all medications, benefits, side effects and risk, and educated on depression, anxiety, and ADHD, mood d/o and educated on compliance of medications, metabolic and movement d/o education appointment's, continue therapy discussion with patient about course of treatment and patient instructions. education on serotonin syndrome Discussed and educated pt regarding benzodiazepines are generally not intended for prolonged use and that use can cause tolerance, dependence, depression, and associated memory issues including dementias (this list is not exhaustive). Benzodiazepine use is generally not recommended concurrently with pain medications and/or other controlled substances educated on all medications, benefits, side effects and risk, and educated on depression, anxiety, and ADHD, mood d/o and educated on compliance of medications, metabolic and movement d/o education appointment is, continue therapy discussion with patient about course of treatment and patient instructions. education on serotonin syndrome SSRI/SNRI side effects discussed including but not limited to, gastric upset, nausea, vomiting, diarrhea and/or constipation, weight changes, sexual side effects including loss of libido, increased suicidal thoughts/behavior s in children and young adults, and serotonin syndrome. Second generation antipsychotics (SGAs) have metabolic syndrome issues with weight gain, increase in prolactin, increased waist circumference, increased lipids, and increased glucose. Thus routine monitoring of weight, metabolic labs, etc. is indicated. A general rank ordering of antipsychotics that have the greatest to the least risk of metabolic effects is olanzapine, quetiapine, risperidone, ziprasidone, and aripiprazole. However, weight gain can occur with all of these drugs and considerable variability exists among patients receiving the same drug regarding the risk of metabolic effects. Anti-psychotic agents not only increase the risk of metabolic disorder, they also increase the risk of CVA, akathisia, and movement disorders including EPS or tardive dyskinesia (more common with first generation antipsychotics) and more. Medication Management and Follow-Up - Plan: - Schedule follow-up appointments every 1-3 months to monitor the patient's response to the medication regimen. - Reinforce the importance of avoiding recreational drug use due to potential neurotoxicity and interactions with prescribed medications. 11/14/2024 Primary hypertension (ICD-10 - I10) Learning About High Blood Pressure material was published, High Blood Pressure: Care Instructions material was published, Acute High Blood Pressure: Care Instructions material was published 1. Bipolar- depression Seroquel 400 mg bedtime- no refill needed Discuss and educated on rx options and patient worried Seroquel may make her tired in day if added in day for depression and anxiety increase Lamotrigine 150 mg daily for depression educated on all rx, benefits, side effects, and risk AIMS= 0 11/14/24 patient had COVID last week- recovery Lamotrigine lamotrigine has a serious rashes requiring hospitalization and discontinue treatment including Víctor Rafael syndrome rare case of toxic epidermal necrolysis and cache related deaths. Incidence with adjunct of epilepsy treatment 0.8% in 2 to 16 years old and 0.3% in adults, bipolar and other mood disorders incidence 0.8% this initial monotherapy and 0.13% as adjunctive treatment. Other risk factor may include concomitant use of valproate acid derivative or exceeding initial lamotrigine does or does as clinician recommendation; most life-threatening rash of occurring first 2 to 8 week of treatment with isolated cases after prolonged treatment; though benign may occur, discontinue treatment at first sign of rash unless clearly not a drug related; TC treatment may not prevent trash from becoming life-threatening or permanently disabling or disfiguring. Comment reaction include, nausea/vomiting, dizziness/vertigo , visual disturbances, somnolence, ataxia, pruritus/rash, pharyngitis, headache, rhinitis, diarrhea, fever, asthenia, insomnia, tremor, abdominal pain, cough, accidental injury, constipation, dysmenorrhea, incoordination, anxiety, seizures, irritability, anorexia, xerostomia, and photosensitivity. Serious reactions include: Rash, severe; Lambert Rafael syndrome; toxic epidermal necrosis; injury edema, hypersensitivity reactions. Including fatal, multiple organ failure to safe fatal, rash with eosinophilia systemic symptoms, DIC, neutropenia, leukopenia, thrombocytopenia, pancytopenia, aplastic anemia, hemolytic anemia, i pancreatitis, hepatic failure, rhabdomyolysis, worsening of suicidal ideation, worsening of depression, cleft lip/palate [first trimester use] DO not Change Cosmetic, perfumes or soap for next 4 weeks. The patient was advice to take lamotrigine as prescribed the patient was instructed not to deviate from the prescription dosages. Stop lamotrigine is the first sign of rash. Patient was insisted to inform office if any of the serious side effect develops. 2. Anxiety Prozac 40 mg daily, - no refill needed monitor for ernesto/ hypomania 3. hypersomnia PCP prescribes Ambien PRN 4. PTSD Therapy - [facility] 5. HTN- On Linisopril- patient will call PCP educated on healthy b/p 120/80 monitor b/p at home refer to PCP, Urgent care/ER- educated on B/P heart healthy diet and excise limit salt intake limit soda intake and caffiene increase water educated on cannabis use as it can negatively impact mood, motivation, anxiety, sleep, focus/concentrati on/memory (vigilance, elasticity, processing and attention); can also contribute to development of psychosis. http_s://www.nimh .nih.gov/health/t opics/mental-heal th-medications http_s://www.nataliya .org/About-Mental -Illness/Treatmen ts/Mental-Health- Medications Recommend decrease/stop cannabis use as it may be negatively impacting mood, motivation, anxiety, sleep, focus; can also contribute to development of psychosis Cannabis/marijuan a information: http_s://jennifer.nih .gov/publications /drugfacts/cannab is-marijuana http_s://www.[employer] [facility]/canna gxc-ama-qavipbtw- marijuana-adhd/ http_s://www.nataliya .org/About-Mental -Illness/Mental-H ealth-Conditions http_s://psychcen tral.com/depressi on/the-cognitive- xjquuvly-vt-xqdkz ssion#treatments http__s://www.nim .nih.gov/health/ topics/mental-hea lth-medications http__s://www.nam i.org/About-Menta l-Illness/Treatme nts/Mental-Health -Medications educated on all medications, benefits, side effects and risk, and educated on depression, anxiety, and ADHD, mood d/o and educated on compliance of medications, metabolic and movement d/o education appointment's, continue therapy discussion with patient about course of treatment and patient instructions. education on serotonin syndrome Discussed and educated pt regarding benzodiazepines are generally not intended for prolonged use and that use can cause tolerance, dependence, depression, and associated memory issues including dementias (this list is not exhaustive). Benzodiazepine use is generally not recommended concurrently with pain medications and/or other controlled substances educated on all medications, benefits, side effects and risk, and educated on depression, anxiety, and ADHD, mood d/o and educated on compliance of medications, metabolic and movement d/o education appointment is, continue therapy discussion with patient about course of treatment and patient instructions. education on serotonin syndrome SSRI/SNRI side effects discussed including but not limited to, gastric upset, nausea, vomiting, diarrhea and/or constipation, weight changes, sexual side effects including loss of libido, increased suicidal thoughts/behavior s in children and young adults, and serotonin syndrome. Second generation antipsychotics (SGAs) have metabolic syndrome issues with weight gain, increase in prolactin, increased waist circumference, increased lipids, and increased glucose. Thus routine monitoring of weight, metabolic labs, etc. is indicated. A general rank ordering of antipsychotics that have the greatest to the least risk of metabolic effects is olanzapine, quetiapine, risperidone, ziprasidone, and aripiprazole. However, weight gain can occur with all of these drugs and considerable variability exists among patients receiving the same drug regarding the risk of metabolic effects. Anti-psychotic agents not only increase the risk of metabolic disorder, they also increase the risk of CVA, akathisia, and movement disorders including EPS or tardive dyskinesia (more common with first generation antipsychotics) and more. Medication Management and Follow-Up - Plan: - Schedule follow-up appointments every 1-3 months to monitor the patient's response to the medication regimen. - Reinforce the importance of avoiding recreational drug use due to potential neurotoxicity and interactions with prescribed medications. 12/13/2024 Post-traumatic stress disorder, chronic (ICD-10 - F43.12) Post-Traumatic Stress Disorder (PTSD): Care Instructions material was published 1. Bipolar- depression Seroquel 400 mg bedtime- no refills needed Discuss and educated on rx options and patient worried Seroquel may make her tired in day if added in day for depression and anxiety Lamotrigine 150 mg daily for depression educated on all rx, benefits, side effects, and risk AIMS= 0 11/14/24 patient had COVID last week- recovery Lamotrigine lamotrigine has a serious rashes requiring hospitalization and discontinue treatment including Víctor Rafael syndrome rare case of toxic epidermal necrolysis and cache related deaths. Incidence with adjunct of epilepsy treatment 0.8% in 2 to 16 years old and 0.3% in adults, bipolar and other mood disorders incidence 0.8% this initial monotherapy and 0.13% as adjunctive treatment. Other risk factor may include concomitant use of valproate acid derivative or exceeding initial lamotrigine does or does as clinician recommendation; most life-threatening rash of occurring first 2 to 8 week of treatment with isolated cases after prolonged treatment; though benign may occur, discontinue treatment at first sign of rash unless clearly not a drug related; TC treatment may not prevent trash from becoming life-threatening or permanently disabling or disfiguring. Comment reaction include, nausea/vomiting, dizziness/vertigo , visual disturbances, somnolence, ataxia, pruritus/rash, pharyngitis, headache, rhinitis, diarrhea, fever, asthenia, insomnia, tremor, abdominal pain, cough, accidental injury, constipation, dysmenorrhea, incoordination, anxiety, seizures, irritability, anorexia, xerostomia, and photosensitivity. Serious reactions include: Rash, severe; Lambert Rafael syndrome; toxic epidermal necrosis; injury edema, hypersensitivity reactions. Including fatal, multiple organ failure to safe fatal, rash with eosinophilia systemic symptoms, DIC, neutropenia, leukopenia, thrombocytopenia, pancytopenia, aplastic anemia, hemolytic anemia, i pancreatitis, hepatic failure, rhabdomyolysis, worsening of suicidal ideation, worsening of depression, cleft lip/palate [first trimester use] DO not Change Cosmetic, perfumes or soap for next 4 weeks. The patient was advice to take lamotrigine as prescribed the patient was instructed not to deviate from the prescription dosages. Stop lamotrigine is the first sign of rash. Patient was insisted to inform office if any of the serious side effect develops. 2. Anxiety Prozac 40 mg daily, - no refill needed monitor for ernesto/ hypomania 3. hypersomnia PCP prescribes Ambien PRN 4. PTSD Therapy - [facility] 5. HTN- On Linisopril- patient seen PCP educated on healthy b/p 120/80 monitor b/p at home refer to PCP, Urgent care/ER- educated on B/P heart healthy diet and excise limit salt intake limit soda intake and caffiene increase water educated on cannabis use as it can negatively impact mood, motivation, anxiety, sleep, focus/concentrati on/memory (vigilance, elasticity, processing and attention); can also contribute to development of psychosis. http_s://www.nimh .nih.gov/health/t opics/mental-heal th-medications http_s://www.nataliya .org/About-Mental -Illness/Treatmen ts/Mental-Health- Medications Recommend decrease/stop cannabis use as it may be negatively impacting mood, motivation, anxiety, sleep, focus; can also contribute to development of psychosis Cannabis/marijuan a information: http_s://jennifer.nih .gov/publications /drugfacts/cannab is-marijuana http_s://www.[employer] [facility]/canna mql-fsx-fpbiipho- marijuana-adhd/ http_s://www.nataliya .org/About-Mental -Illness/Mental-H ealth-Conditions http_s://[employer]/depressi on/the-cognitive- pwmchtrm-zk-hkcnp ssion#treatments http__s://www.[facility].nih.gov/health/ topics/mental-hea lth-medications http__s://www.nam i.org/About-Menta l-Illness/Treatme nts/Mental-Health -Medications educated on all medications, benefits, side effects and risk, and educated on depression, anxiety, and ADHD, mood d/o and educated on compliance of medications, metabolic and movement d/o education appointment's, continue therapy discussion with patient about course of treatment and patient instructions. education on serotonin syndrome Discussed and educated pt regarding benzodiazepines are generally not intended for prolonged use and that use can cause tolerance, dependence, depression, and associated memory issues including dementias (this list is not exhaustive). Benzodiazepine use is generally not recommended concurrently with pain medications and/or other controlled substances educated on all medications, benefits, side effects and risk, and educated on depression, anxiety, and ADHD, mood d/o and educated on compliance of medications, metabolic and movement d/o education appointment is, continue therapy discussion with patient about course of treatment and patient instructions. education on serotonin syndrome SSRI/SNRI side effects discussed including but not limited to, gastric upset, nausea, vomiting, diarrhea and/or constipation, weight changes, sexual side effects including loss of libido, increased suicidal thoughts/behavior s in children and young adults, and serotonin syndrome. Second generation antipsychotics (SGAs) have metabolic syndrome issues with weight gain, increase in prolactin, increased waist circumference, increased lipids, and increased glucose. Thus routine monitoring of weight, metabolic labs, etc. is indicated. A general rank ordering of antipsychotics that have the greatest to the least risk of metabolic effects is olanzapine, quetiapine, risperidone, ziprasidone, and aripiprazole. However, weight gain can occur with all of these drugs and considerable variability exists among patients receiving the same drug regarding the risk of metabolic effects. Anti-psychotic agents not only increase the risk of metabolic disorder, they also increase the risk of CVA, akathisia, and movement disorders including EPS or tardive dyskinesia (more common with first generation antipsychotics) and more. Medication Management and Follow-Up - Plan: - Schedule follow-up appointments every 1-3 months to monitor the patient's response to the medication regimen. - Reinforce the importance of avoiding recreational drug use due to potential neurotoxicity and interactions with prescribed medications. 10/25/2024 Primary hypertension (ICD-10 - I10) Learning About High Blood Pressure material was published, High Blood Pressure: Care Instructions material was published, Acute High Blood Pressure: Care Instructions material was published 1. Bipolar- patient still in depressive state and lack motivation and interest, Seroquel 400 mg bedtime- no refill needed Increase Lamotrigine 100 mg daily educated on all rx, benefits, side effects, and risk Lamotrigine lamotrigine has a serious rashes requiring hospitalization and discontinue treatment including Víctor Rafael syndrome rare case of toxic epidermal necrolysis and cache related deaths. Incidence with adjunct of epilepsy treatment 0.8% in 2 to 16 years old and 0.3% in adults, bipolar and other mood disorders incidence 0.8% this initial monotherapy and 0.13% as adjunctive treatment. Other risk factor may include concomitant use of valproate acid derivative or exceeding initial lamotrigine does or does as clinician recommendation; most life-threatening rash of occurring first 2 to 8 week of treatment with isolated cases after prolonged treatment; though benign may occur, discontinue treatment at first sign of rash unless clearly not a drug related; TC treatment may not prevent trash from becoming life-threatening or permanently disabling or disfiguring. Comment reaction include, nausea/vomiting, dizziness/vertigo , visual disturbances, somnolence, ataxia, pruritus/rash, pharyngitis, headache, rhinitis, diarrhea, fever, asthenia, insomnia, tremor, abdominal pain, cough, accidental injury, constipation, dysmenorrhea, incoordination, anxiety, seizures, irritability, anorexia, xerostomia, and photosensitivity. Serious reactions include: Rash, severe; Lambert Rafael syndrome; toxic epidermal necrosis; injury edema, hypersensitivity reactions. Including fatal, multiple organ failure to safe fatal, rash with eosinophilia systemic symptoms, DIC, neutropenia, leukopenia, thrombocytopenia, pancytopenia, aplastic anemia, hemolytic anemia, i pancreatitis, hepatic failure, rhabdomyolysis, worsening of suicidal ideation, worsening of depression, cleft lip/palate [first trimester use] DO not Change Cosmetic, perfumes or soap for next 4 weeks. The patient was advice to take lamotrigine as prescribed the patient was instructed not to deviate from the prescription dosages. Stop lamotrigine is the first sign of rash. Patient was insisted to inform office if any of the serious side effect develops. 2. Anxiety Prozac 40 mg daily, - no refill needed monitor for ernesto/ hypomania 3. hypersomnia PCP prescribes Ambien PRN 4. PTSD Therapy - [facility] 5. HTN- On Linisopril- patient will call PCP educated on healthy b/p 120/80 monitor b/p at home refer to PCP, Urgent care/ER- educated on B/P heart healthy diet and excise limit salt intake limit soda intake and caffiene increase water Recommend decrease/stop cannabis use as it can negatively impact mood, motivation, anxiety, sleep, focus/concentrati on/memory (vigilance, elasticity, processing and attention); can also contribute to development of psychosis. http_s://www.nimh .nih.gov/health/t opics/mental-heal th-medications http_s://www.nataliya .org/About-Mental -Illness/Treatmen ts/Mental-Health- Medications Recommend decrease/stop cannabis use as it may be negatively impacting mood, motivation, anxiety, sleep, focus; can also contribute to development of psychosis Cannabis/marijuan a information: http_s://jennifer.nih .gov/publications /drugfacts/cannab is-marijuana http_s://www.[employer] [facility]/canna ach-vfw-iezvquse- marijuana-adhd/ http_s://www.nataliya .org/About-Mental -Illness/Mental-H ealth-Conditions http_s://[facility] [employer]/depressi on/the-cognitive- cfgstnjt-uw-hwoiv ssion#treatments http__s://www.[facility].nih.gov/health/ topics/mental-hea lth-medications http__s://www.nam i.org/About-Menta l-Illness/Treatme nts/Mental-Health -Medications educated on all medications, benefits, side effects and risk, and educated on depression, anxiety, and ADHD, mood d/o and educated on compliance of medications, metabolic and movement d/o education appointment's, continue therapy discussion with patient about course of treatment and patient instructions. education on serotonin syndrome Discussed and educated pt regarding benzodiazepines are generally not intended for prolonged use and that use can cause tolerance, dependence, depression, and associated memory issues including dementias (this list is not exhaustive). Benzodiazepine use is generally not recommended concurrently with pain medications and/or other controlled substances educated on all medications, benefits, side effects and risk, and educated on depression, anxiety, and ADHD, mood d/o and educated on compliance of medications, metabolic and movement d/o education appointment is, continue therapy discussion with patient about course of treatment and patient instructions. education on serotonin syndrome SSRI/SNRI side effects discussed including but not limited to, gastric upset, nausea, vomiting, diarrhea and/or constipation, weight changes, sexual side effects including loss of libido, increased suicidal thoughts/behavior s in children and young adults, and serotonin syndrome. Second generation antipsychotics (SGAs) have metabolic syndrome issues with weight gain, increase in prolactin, increased waist circumference, increased lipids, and increased glucose. Thus routine monitoring of weight, metabolic labs, etc. is indicated. A general rank ordering of antipsychotics that have the greatest to the least risk of metabolic effects is olanzapine, quetiapine, risperidone, ziprasidone, and aripiprazole. However, weight gain can occur with all of these drugs and considerable variability exists among patients receiving the same drug regarding the risk of metabolic effects. Anti-psychotic agents not only increase the risk of metabolic disorder, they also increase the risk of CVA, akathisia, and movement disorders including EPS or tardive dyskinesia (more common with first generation antipsychotics) and more. Medication Management and Follow-Up - Plan: - Schedule follow-up appointments every 1-3 months to monitor the patient's response to the medication regimen. - Reinforce the importance of avoiding recreational drug use due to potential neurotoxicity and interactions with prescribed medications. 09/19/2024 Hypersomnia (ICD-10 - G47.10) presently taking Seroquel 400 mg bedtime, Prozac 20 mg daily, 1. Bipolar- Seroquel 400 mg bedtime Add Lamotrigine 25 mg daily for 2 weeks then increase to 50 mg daily educated on all rx, benefits, side effects, and risk Lamotrigine lamotrigine has a serious rashes requiring hospitalization and discontinue treatment including Víctor Rafael syndrome rare case of toxic epidermal necrolysis and cache related deaths. Incidence with adjunct of epilepsy treatment 0.8% in 2 to 16 years old and 0.3% in adults, bipolar and other mood disorders incidence 0.8% this initial monotherapy and 0.13% as adjunctive treatment. Other risk factor may include concomitant use of valproate acid derivative or exceeding initial lamotrigine does or does as clinician recommendation; most life-threatening rash of occurring first 2 to 8 week of treatment with isolated cases after prolonged treatment; though benign may occur, discontinue treatment at first sign of rash unless clearly not a drug related; TC treatment may not prevent trash from becoming life-threatening or permanently disabling or disfiguring. Comment reaction include, nausea/vomiting, dizziness/vertigo , visual disturbances, somnolence, ataxia, pruritus/rash, pharyngitis, headache, rhinitis, diarrhea, fever, asthenia, insomnia, tremor, abdominal pain, cough, accidental injury, constipation, dysmenorrhea, incoordination, anxiety, seizures, irritability, anorexia, xerostomia, and photosensitivity. Serious reactions include: Rash, severe; Lambert Rafael syndrome; toxic epidermal necrosis; injury edema, hypersensitivity reactions. Including fatal, multiple organ failure to safe fatal, rash with eosinophilia systemic symptoms, DIC, neutropenia, leukopenia, thrombocytopenia, pancytopenia, aplastic anemia, hemolytic anemia, i pancreatitis, hepatic failure, rhabdomyolysis, worsening of suicidal ideation, worsening of depression, cleft lip/palate [first trimester use] DO not Change Cosmetic, perfumes or soap for next 4 weeks. The patient was advice to take lamotrigine as prescribed the patient was instructed not to deviate from the prescription dosages. Stop lamotrigine is the first sign of rash. Patient was insisted to inform office if any of the serious side effect develops. 2. Anxiety Increase Prozac 40 mg daily, monitor for ernesto/ hypomania 3. hypersomnia PCP prescribes Ambien PRN 4. PTSD Therapy - [facility] 5. HTN- On Linisopril educated on healthy b/p 120/80 monitor b/p at home refer to PCP, Urgent care/ER heart healthy diet and excise limit salt intake limit soda intake and caffiene increase water Recommend decrease/stop cannabis use as it can negatively impact mood, motivation, anxiety, sleep, focus/concentrati on/memory (vigilance, elasticity, processing and attention); can also contribute to development of psychosis. http_s://www.nimh .nih.gov/health/t opics/mental-heal th-medications http_s://www.nataliya .org/About-Mental -Illness/Treatmen ts/Mental-Health- Medications Recommend decrease/stop cannabis use as it may be negatively impacting mood, motivation, anxiety, sleep, focus; can also contribute to development of psychosis Cannabis/marijuan a information: http_s://jennifer.nih .gov/publications /drugfacts/cannab is-marijuana http_s://www.[employer] [facility]/canna qhk-lfz-wkbarioa- marijuana-adhd/ http_s://www.nataliya .org/About-Mental -Illness/Mental-H ealth-Conditions http_s://psychcen tral.com/depressi on/the-cognitive- llnoeicw-aw-jywdc ssion#treatments http__s://www.nim .nih.gov/health/ topics/mental-hea [facility]-medications http__s://www.nam i.org/About-Menta l-Illness/Treatme nts/Mental-Health -Medications educated on all medications, benefits, side effects and risk, and educated on depression, anxiety, and ADHD, mood d/o and educated on compliance of medications, metabolic and movement d/o education appointment's, continue therapy discussion with patient about course of treatment and patient instructions. education on serotonin syndrome Discussed and educated pt regarding benzodiazepines are generally not intended for prolonged use and that use can cause tolerance, dependence, depression, and associated memory issues including dementias (this list is not exhaustive). Benzodiazepine use is generally not recommended concurrently with pain medications and/or other controlled substances educated on all medications, benefits, side effects and risk, and educated on depression, anxiety, and ADHD, mood d/o and educated on compliance of medications, metabolic and movement d/o education appointment is, continue therapy discussion with patient about course of treatment and patient instructions. education on serotonin syndrome SSRI/SNRI side effects discussed including but not limited to, gastric upset, nausea, vomiting, diarrhea and/or constipation, weight changes, sexual side effects including loss of libido, increased suicidal thoughts/behavior s in children and young adults, and serotonin syndrome. Second generation antipsychotics (SGAs) have metabolic syndrome issues with weight gain, increase in prolactin, increased waist circumference, increased lipids, and increased glucose. Thus routine monitoring of weight, metabolic labs, etc. is indicated. A general rank ordering of antipsychotics that have the greatest to the least risk of metabolic effects is olanzapine, quetiapine, risperidone, ziprasidone, and aripiprazole. However, weight gain can occur with all of these drugs and considerable variability exists among patients receiving the same drug regarding the risk of metabolic effects. Anti-psychotic agents not only increase the risk of metabolic disorder, they also increase the risk of CVA, akathisia, and movement disorders including EPS or tardive dyskinesia (more common with first generation antipsychotics) and more. Medication Management and Follow-Up - Plan: - Schedule follow-up appointments every 1-3 months to monitor the patient's response to the medication regimen. - Reinforce the importance of avoiding recreational drug use due to potential neurotoxicity and interactions with prescribed medications. 10/25/2024 Hypersomnia (ICD-10 - G47.10) 1. Bipolar- patient still in depressive state and lack motivation and interest, Seroquel 400 mg bedtime- no refill needed Increase Lamotrigine 100 mg daily educated on all rx, benefits, side effects, and risk Lamotrigine lamotrigine has a serious rashes requiring hospitalization and discontinue treatment including Víctor Rafael syndrome rare case of toxic epidermal necrolysis and cache related deaths. Incidence with adjunct of epilepsy treatment 0.8% in 2 to 16 years old and 0.3% in adults, bipolar and other mood disorders incidence 0.8% this initial monotherapy and 0.13% as adjunctive treatment. Other risk factor may include concomitant use of valproate acid derivative or exceeding initial lamotrigine does or does as clinician recommendation; most life-threatening rash of occurring first 2 to 8 week of treatment with isolated cases after prolonged treatment; though benign may occur, discontinue treatment at first sign of rash unless clearly not a drug related; TC treatment may not prevent trash from becoming life-threatening or permanently disabling or disfiguring. Comment reaction include, nausea/vomiting, dizziness/vertigo , visual disturbances, somnolence, ataxia, pruritus/rash, pharyngitis, headache, rhinitis, diarrhea, fever, asthenia, insomnia, tremor, abdominal pain, cough, accidental injury, constipation, dysmenorrhea, incoordination, anxiety, seizures, irritability, anorexia, xerostomia, and photosensitivity. Serious reactions include: Rash, severe; Lambert Rafael syndrome; toxic epidermal necrosis; injury edema, hypersensitivity reactions. Including fatal, multiple organ failure to safe fatal, rash with eosinophilia systemic symptoms, DIC, neutropenia, leukopenia, thrombocytopenia, pancytopenia, aplastic anemia, hemolytic anemia, i pancreatitis, hepatic failure, rhabdomyolysis, worsening of suicidal ideation, worsening of depression, cleft lip/palate [first trimester use] DO not Change Cosmetic, perfumes or soap for next 4 weeks. The patient was advice to take lamotrigine as prescribed the patient was instructed not to deviate from the prescription dosages. Stop lamotrigine is the first sign of rash. Patient was insisted to inform office if any of the serious side effect develops. 2. Anxiety Prozac 40 mg daily, - no refill needed monitor for ernesto/ hypomania 3. hypersomnia PCP prescribes Ambien PRN 4. PTSD Therapy - [facility] 5. HTN- On Linisopril- patient will call PCP educated on healthy b/p 120/80 monitor b/p at home refer to PCP, Urgent care/ER- educated on B/P heart healthy diet and excise limit salt intake limit soda intake and caffiene increase water Recommend decrease/stop cannabis use as it can negatively impact mood, motivation, anxiety, sleep, focus/concentrati on/memory (vigilance, elasticity, processing and attention); can also contribute to development of psychosis. http_s://www.nim .nih.gov/health/t opics/mental-heal th-medications http_s://www.nataliya .org/About-Mental -Illness/Treatmen ts/Mental-Health- Medications Recommend decrease/stop cannabis use as it may be negatively impacting mood, motivation, anxiety, sleep, focus; can also contribute to development of psychosis Cannabis/marijuan a information: http_s://jennifer.nih .gov/publications /drugfacts/cannab is-marijuana http_s://www.[employer]/cannyee cuw-skx-ammmpokj- marijuana-adhd/ http_s://www.nataliya .org/About-Mental -Illness/Mental-H ealth-Conditions http_s://[employer]/depressi on/the-cognitive- ojotmohm-pn-rzloi ssion#treatments http__s://www.nim .nih.gov/health/ topics/mental-hea lth-medications http__s://www.nam i.org/About-Menta l-Illness/Treatme nts/Mental-Health -Medications educated on all medications, benefits, side effects and risk, and educated on depression, anxiety, and ADHD, mood d/o and educated on compliance of medications, metabolic and movement d/o education appointment's, continue therapy discussion with patient about course of treatment and patient instructions. education on serotonin syndrome Discussed and educated pt regarding benzodiazepines are generally not intended for prolonged use and that use can cause tolerance, dependence, depression, and associated memory issues including dementias (this list is not exhaustive). Benzodiazepine use is generally not recommended concurrently with pain medications and/or other controlled substances educated on all medications, benefits, side effects and risk, and educated on depression, anxiety, and ADHD, mood d/o and educated on compliance of medications, metabolic and movement d/o education appointment is, continue therapy discussion with patient about course of treatment and patient instructions. education on serotonin syndrome SSRI/SNRI side effects discussed including but not limited to, gastric upset, nausea, vomiting, diarrhea and/or constipation, weight changes, sexual side effects including loss of libido, increased suicidal thoughts/behavior s in children and young adults, and serotonin syndrome. Second generation antipsychotics (SGAs) have metabolic syndrome issues with weight gain, increase in prolactin, increased waist circumference, increased lipids, and increased glucose. Thus routine monitoring of weight, metabolic labs, etc. is indicated. A general rank ordering of antipsychotics that have the greatest to the least risk of metabolic effects is olanzapine, quetiapine, risperidone, ziprasidone, and aripiprazole. However, weight gain can occur with all of these drugs and considerable variability exists among patients receiving the same drug regarding the risk of metabolic effects. Anti-psychotic agents not only increase the risk of metabolic disorder, they also increase the risk of CVA, akathisia, and movement disorders including EPS or tardive dyskinesia (more common with first generation antipsychotics) and more. Medication Management and Follow-Up - Plan: - Schedule follow-up appointments every 1-3 months to monitor the patient's response to the medication regimen. - Reinforce the importance of avoiding recreational drug use due to potential neurotoxicity and interactions with prescribed medications. 11/14/2024 Hypersomnia (ICD-10 - G47.10) 1. Bipolar- depression Seroquel 400 mg bedtime- no refill needed Discuss and educated on rx options and patient worried Seroquel may make her tired in day if added in day for depression and anxiety increase Lamotrigine 150 mg daily for depression educated on all rx, benefits, side effects, and risk AIMS= 0 11/14/24 patient had COVID last week- recovery Lamotrigine lamotrigine has a serious rashes requiring hospitalization and discontinue treatment including Víctor Rafael syndrome rare case of toxic epidermal necrolysis and cache related deaths. Incidence with adjunct of epilepsy treatment 0.8% in 2 to 16 years old and 0.3% in adults, bipolar and other mood disorders incidence 0.8% this initial monotherapy and 0.13% as adjunctive treatment. Other risk factor may include concomitant use of valproate acid derivative or exceeding initial lamotrigine does or does as clinician recommendation; most life-threatening rash of occurring first 2 to 8 week of treatment with isolated cases after prolonged treatment; though benign may occur, discontinue treatment at first sign of rash unless clearly not a drug related; TC treatment may not prevent trash from becoming life-threatening or permanently disabling or disfiguring. Comment reaction include, nausea/vomiting, dizziness/vertigo , visual disturbances, somnolence, ataxia, pruritus/rash, pharyngitis, headache, rhinitis, diarrhea, fever, asthenia, insomnia, tremor, abdominal pain, cough, accidental injury, constipation, dysmenorrhea, incoordination, anxiety, seizures, irritability, anorexia, xerostomia, and photosensitivity. Serious reactions include: Rash, severe; Lambert Rafael syndrome; toxic epidermal necrosis; injury edema, hypersensitivity reactions. Including fatal, multiple organ failure to safe fatal, rash with eosinophilia systemic symptoms, DIC, neutropenia, leukopenia, thrombocytopenia, pancytopenia, aplastic anemia, hemolytic anemia, i pancreatitis, hepatic failure, rhabdomyolysis, worsening of suicidal ideation, worsening of depression, cleft lip/palate [first trimester use] DO not Change Cosmetic, perfumes or soap for next 4 weeks. The patient was advice to take lamotrigine as prescribed the patient was instructed not to deviate from the prescription dosages. Stop lamotrigine is the first sign of rash. Patient was insisted to inform office if any of the serious side effect develops. 2. Anxiety Prozac 40 mg daily, - no refill needed monitor for ernesto/ hypomania 3. hypersomnia PCP prescribes Ambien PRN 4. PTSD Therapy - [facility] 5. HTN- On Linisopril- patient will call PCP educated on healthy b/p 120/80 monitor b/p at home refer to PCP, Urgent care/ER- educated on B/P heart healthy diet and excise limit salt intake limit soda intake and caffiene increase water educated on cannabis use as it can negatively impact mood, motivation, anxiety, sleep, focus/concentrati on/memory (vigilance, elasticity, processing and attention); can also contribute to development of psychosis. http_s://www.nimh .nih.gov/health/t opics/mental-heal th-medications http_s://www.nataliya .org/About-Mental -Illness/Treatmen ts/Mental-Health- Medications Recommend decrease/stop cannabis use as it may be negatively impacting mood, motivation, anxiety, sleep, focus; can also contribute to development of psychosis Cannabis/marijuan a information: http_s://jennifer.nih .gov/publications /drugfacts/cannab is-marijuana http_s://www.[employer] [facility]/canna lnx-aqg-duglujdw- marijuana-adhd/ http_s://www.nataliya .org/About-Mental -Illness/Mental-H ealth-Conditions http_s://[employer]/depressi on/the-cognitive- mgbljjle-mj-ggqmh ssion#treatments http__s://www.[facility].nih.gov/health/ topics/mental-hea lth-medications http__s://www.nam i.org/About-Menta l-Illness/Treatme nts/Mental-Health -Medications educated on all medications, benefits, side effects and risk, and educated on depression, anxiety, and ADHD, mood d/o and educated on compliance of medications, metabolic and movement d/o education appointment's, continue therapy discussion with patient about course of treatment and patient instructions. education on serotonin syndrome Discussed and educated pt regarding benzodiazepines are generally not intended for prolonged use and that use can cause tolerance, dependence, depression, and associated memory issues including dementias (this list is not exhaustive). Benzodiazepine use is generally not recommended concurrently with pain medications and/or other controlled substances educated on all medications, benefits, side effects and risk, and educated on depression, anxiety, and ADHD, mood d/o and educated on compliance of medications, metabolic and movement d/o education appointment is, continue therapy discussion with patient about course of treatment and patient instructions. education on serotonin syndrome SSRI/SNRI side effects discussed including but not limited to, gastric upset, nausea, vomiting, diarrhea and/or constipation, weight changes, sexual side effects including loss of libido, increased suicidal thoughts/behavior s in children and young adults, and serotonin syndrome. Second generation antipsychotics (SGAs) have metabolic syndrome issues with weight gain, increase in prolactin, increased waist circumference, increased lipids, and increased glucose. Thus routine monitoring of weight, metabolic labs, etc. is indicated. A general rank ordering of antipsychotics that have the greatest to the least risk of metabolic effects is olanzapine, quetiapine, risperidone, ziprasidone, and aripiprazole. However, weight gain can occur with all of these drugs and considerable variability exists among patients receiving the same drug regarding the risk of metabolic effects. Anti-psychotic agents not only increase the risk of metabolic disorder, they also increase the risk of CVA, akathisia, and movement disorders including EPS or tardive dyskinesia (more common with first generation antipsychotics) and more. Medication Management and Follow-Up - Plan: - Schedule follow-up appointments every 1-3 months to monitor the patient's response to the medication regimen. - Reinforce the importance of avoiding recreational drug use due to potential neurotoxicity and interactions with prescribed medications. 12/13/2024 Obesity, unspecified (ICD-10 - E66.9) Learning About Obesity material was published, Learning About Healthy Weight material was published, When You Want to Lose Weight: Care Instructions material was published, Starting a Weight-Loss Plan: Care Instructions material was published 1. Bipolar- depression Seroquel 400 mg bedtime- no refills needed Discuss and educated on rx options and patient worried Seroquel may make her tired in day if added in day for depression and anxiety Lamotrigine 150 mg daily for depression educated on all rx, benefits, side effects, and risk AIMS= 0 11/14/24 patient had COVID last week- recovery Lamotrigine lamotrigine has a serious rashes requiring hospitalization and discontinue treatment including Víctor Rafael syndrome rare case of toxic epidermal necrolysis and cache related deaths. Incidence with adjunct of epilepsy treatment 0.8% in 2 to 16 years old and 0.3% in adults, bipolar and other mood disorders incidence 0.8% this initial monotherapy and 0.13% as adjunctive treatment. Other risk factor may include concomitant use of valproate acid derivative or exceeding initial lamotrigine does or does as clinician recommendation; most life-threatening rash of occurring first 2 to 8 week of treatment with isolated cases after prolonged treatment; though benign may occur, discontinue treatment at first sign of rash unless clearly not a drug related; TC treatment may not prevent trash from becoming life-threatening or permanently disabling or disfiguring. Comment reaction include, nausea/vomiting, dizziness/vertigo , visual disturbances, somnolence, ataxia, pruritus/rash, pharyngitis, headache, rhinitis, diarrhea, fever, asthenia, insomnia, tremor, abdominal pain, cough, accidental injury, constipation, dysmenorrhea, incoordination, anxiety, seizures, irritability, anorexia, xerostomia, and photosensitivity. Serious reactions include: Rash, severe; Lambert Rafael syndrome; toxic epidermal necrosis; injury edema, hypersensitivity reactions. Including fatal, multiple organ failure to safe fatal, rash with eosinophilia systemic symptoms, DIC, neutropenia, leukopenia, thrombocytopenia, pancytopenia, aplastic anemia, hemolytic anemia, i pancreatitis, hepatic failure, rhabdomyolysis, worsening of suicidal ideation, worsening of depression, cleft lip/palate [first trimester use] DO not Change Cosmetic, perfumes or soap for next 4 weeks. The patient was advice to take lamotrigine as prescribed the patient was instructed not to deviate from the prescription dosages. Stop lamotrigine is the first sign of rash. Patient was insisted to inform office if any of the serious side effect develops. 2. Anxiety Prozac 40 mg daily, - no refill needed monitor for ernesto/ hypomania 3. hypersomnia PCP prescribes Ambien PRN 4. PTSD Therapy - [facility] 5. HTN- On Linisopril- patient seen PCP educated on healthy b/p 120/80 monitor b/p at home refer to PCP, Urgent care/ER- educated on B/P heart healthy diet and excise limit salt intake limit soda intake and caffiene increase water educated on cannabis use as it can negatively impact mood, motivation, anxiety, sleep, focus/concentrati on/memory (vigilance, elasticity, processing and attention); can also contribute to development of psychosis. http_s://www.nimh .nih.gov/health/t opics/mental-heal th-medications http_s://www.nataliya .org/About-Mental -Illness/Treatmen ts/Mental-Health- Medications Recommend decrease/stop cannabis use as it may be negatively impacting mood, motivation, anxiety, sleep, focus; can also contribute to development of psychosis Cannabis/marijuan a information: http_s://jennifer.nih .gov/publications /drugfacts/cannab is-marijuana http_s://www.[employer]/joes ytt-aiy-vjdjmhjq- marijuana-adhd/ http_s://www.nataliya .org/About-Mental -Illness/Mental-H ealth-Conditions http_s://[employer].com/depressi on/the-cognitive- ldetszzx-js-rwaow ssion#treatments http__s://www.[facility].nih.gov/health/ topics/mental-hea lth-medications http__s://www.nam i.org/About-Menta l-Illness/Treatme nts/Mental-Health -Medications educated on all medications, benefits, side effects and risk, and educated on depression, anxiety, and ADHD, mood d/o and educated on compliance of medications, metabolic and movement d/o education appointment's, continue therapy discussion with patient about course of treatment and patient instructions. education on serotonin syndrome Discussed and educated pt regarding benzodiazepines are generally not intended for prolonged use and that use can cause tolerance, dependence, depression, and associated memory issues including dementias (this list is not exhaustive). Benzodiazepine use is generally not recommended concurrently with pain medications and/or other controlled substances educated on all medications, benefits, side effects and risk, and educated on depression, anxiety, and ADHD, mood d/o and educated on compliance of medications, metabolic and movement d/o education appointment is, continue therapy discussion with patient about course of treatment and patient instructions. education on serotonin syndrome SSRI/SNRI side effects discussed including but not limited to, gastric upset, nausea, vomiting, diarrhea and/or constipation, weight changes, sexual side effects including loss of libido, increased suicidal thoughts/behavior s in children and young adults, and serotonin syndrome. Second generation antipsychotics (SGAs) have metabolic syndrome issues with weight gain, increase in prolactin, increased waist circumference, increased lipids, and increased glucose. Thus routine monitoring of weight, metabolic labs, etc. is indicated. A general rank ordering of antipsychotics that have the greatest to the least risk of metabolic effects is olanzapine, quetiapine, risperidone, ziprasidone, and aripiprazole. However, weight gain can occur with all of these drugs and considerable variability exists among patients receiving the same drug regarding the risk of metabolic effects. Anti-psychotic agents not only increase the risk of metabolic disorder, they also increase the risk of CVA, akathisia, and movement disorders including EPS or tardive dyskinesia (more common with first generation antipsychotics) and more. Medication Management and Follow-Up - Plan: - Schedule follow-up appointments every 1-3 months to monitor the patient's response to the medication regimen. - Reinforce the importance of avoiding recreational drug use due to potential neurotoxicity and interactions with prescribed medications. 12/13/2024 Primary hypertension (ICD-10 - I10) Learning About High Blood Pressure material was published, High Blood Pressure: Care Instructions material was published, Acute High Blood Pressure: Care Instructions material was published 1. Bipolar- depression Seroquel 400 mg bedtime- no refills needed Discuss and educated on rx options and patient worried Seroquel may make her tired in day if added in day for depression and anxiety Lamotrigine 150 mg daily for depression educated on all rx, benefits, side effects, and risk AIMS= 0 11/14/24 patient had COVID last week- recovery Lamotrigine lamotrigine has a serious rashes requiring hospitalization and discontinue treatment including Víctor Raafel syndrome rare case of toxic epidermal necrolysis and cache related deaths. Incidence with adjunct of epilepsy treatment 0.8% in 2 to 16 years old and 0.3% in adults, bipolar and other mood disorders incidence 0.8% this initial monotherapy and 0.13% as adjunctive treatment. Other risk factor may include concomitant use of valproate acid derivative or exceeding initial lamotrigine does or does as clinician recommendation; most life-threatening rash of occurring first 2 to 8 week of treatment with isolated cases after prolonged treatment; though benign may occur, discontinue treatment at first sign of rash unless clearly not a drug related; TC treatment may not prevent trash from becoming life-threatening or permanently disabling or disfiguring. Comment reaction include, nausea/vomiting, dizziness/vertigo , visual disturbances, somnolence, ataxia, pruritus/rash, pharyngitis, headache, rhinitis, diarrhea, fever, asthenia, insomnia, tremor, abdominal pain, cough, accidental injury, constipation, dysmenorrhea, incoordination, anxiety, seizures, irritability, anorexia, xerostomia, and photosensitivity. Serious reactions include: Rash, severe; Lambert Rfaael syndrome; toxic epidermal necrosis; injury edema, hypersensitivity reactions. Including fatal, multiple organ failure to safe fatal, rash with eosinophilia systemic symptoms, DIC, neutropenia, leukopenia, thrombocytopenia, pancytopenia, aplastic anemia, hemolytic anemia, i pancreatitis, hepatic failure, rhabdomyolysis, worsening of suicidal ideation, worsening of depression, cleft lip/palate [first trimester use] DO not Change Cosmetic, perfumes or soap for next 4 weeks. The patient was advice to take lamotrigine as prescribed the patient was instructed not to deviate from the prescription dosages. Stop lamotrigine is the first sign of rash. Patient was insisted to inform office if any of the serious side effect develops. 2. Anxiety Prozac 40 mg daily, - no refill needed monitor for ernesto/ hypomania 3. hypersomnia PCP prescribes Ambien PRN 4. PTSD Therapy - [facility] 5. HTN- On Linisopril- patient seen PCP educated on healthy b/p 120/80 monitor b/p at home refer to PCP, Urgent care/ER- educated on B/P heart healthy diet and excise limit salt intake limit soda intake and caffiene increase water educated on cannabis use as it can negatively impact mood, motivation, anxiety, sleep, focus/concentrati on/memory (vigilance, elasticity, processing and attention); can also contribute to development of psychosis. http_s://www.nimh .nih.gov/health/t opics/mental-heal th-medications http_s://www.nataliya .org/About-Mental -Illness/Treatmen ts/Mental-Health- Medications Recommend decrease/stop cannabis use as it may be negatively impacting mood, motivation, anxiety, sleep, focus; can also contribute to development of psychosis Cannabis/marijuan a information: http_s://jennifer.nih .gov/publications /drugfacts/cannab is-marijuana http_s://www.[employer]/cannyee cuv-lgc-pvxkktfn- marijuana-adhd/ http_s://www.nataliya .org/About-Mental -Illness/Mental-H ealth-Conditions http_s://[employer].com/depressi on/the-cognitive- zbsjnlql-on-ebalc ssion#treatments http__s://www.nim .nih.gov/health/ topics/mental-hea lth-medications http__s://www.nam i.org/About-Menta l-Illness/Treatme nts/Mental-Health -Medications educated on all medications, benefits, side effects and risk, and educated on depression, anxiety, and ADHD, mood d/o and educated on compliance of medications, metabolic and movement d/o education appointment's, continue therapy discussion with patient about course of treatment and patient instructions. education on serotonin syndrome Discussed and educated pt regarding benzodiazepines are generally not intended for prolonged use and that use can cause tolerance, dependence, depression, and associated memory issues including dementias (this list is not exhaustive). Benzodiazepine use is generally not recommended concurrently with pain medications and/or other controlled substances educated on all medications, benefits, side effects and risk, and educated on depression, anxiety, and ADHD, mood d/o and educated on compliance of medications, metabolic and movement d/o education appointment is, continue therapy discussion with patient about course of treatment and patient instructions. education on serotonin syndrome SSRI/SNRI side effects discussed including but not limited to, gastric upset, nausea, vomiting, diarrhea and/or constipation, weight changes, sexual side effects including loss of libido, increased suicidal thoughts/behavior s in children and young adults, and serotonin syndrome. Second generation antipsychotics (SGAs) have metabolic syndrome issues with weight gain, increase in prolactin, increased waist circumference, increased lipids, and increased glucose. Thus routine monitoring of weight, metabolic labs, etc. is indicated. A general rank ordering of antipsychotics that have the greatest to the least risk of metabolic effects is olanzapine, quetiapine, risperidone, ziprasidone, and aripiprazole. However, weight gain can occur with all of these drugs and considerable variability exists among patients receiving the same drug regarding the risk of metabolic effects. Anti-psychotic agents not only increase the risk of metabolic disorder, they also increase the risk of CVA, akathisia, and movement disorders including EPS or tardive dyskinesia (more common with first generation antipsychotics) and more. Medication Management and Follow-Up - Plan: - Schedule follow-up appointments every 1-3 months to monitor the patient's response to the medication regimen. - Reinforce the importance of avoiding recreational drug use due to potential neurotoxicity and interactions with prescribed medications. 12/13/2024 Hypersomnia (ICD-10 - G47.10) 1. Bipolar- depression Seroquel 400 mg bedtime- no refills needed Discuss and educated on rx options and patient worried Seroquel may make her tired in day if added in day for depression and anxiety Lamotrigine 150 mg daily for depression educated on all rx, benefits, side effects, and risk AIMS= 0 11/14/24 patient had COVID last week- recovery Lamotrigine lamotrigine has a serious rashes requiring hospitalization and discontinue treatment including Víctor Rafael syndrome rare case of toxic epidermal necrolysis and cache related deaths. Incidence with adjunct of epilepsy treatment 0.8% in 2 to 16 years old and 0.3% in adults, bipolar and other mood disorders incidence 0.8% this initial monotherapy and 0.13% as adjunctive treatment. Other risk factor may include concomitant use of valproate acid derivative or exceeding initial lamotrigine does or does as clinician recommendation; most life-threatening rash of occurring first 2 to 8 week of treatment with isolated cases after prolonged treatment; though benign may occur, discontinue treatment at first sign of rash unless clearly not a drug related; TC treatment may not prevent trash from becoming life-threatening or permanently disabling or disfiguring. Comment reaction include, nausea/vomiting, dizziness/vertigo , visual disturbances, somnolence, ataxia, pruritus/rash, pharyngitis, headache, rhinitis, diarrhea, fever, asthenia, insomnia, tremor, abdominal pain, cough, accidental injury, constipation, dysmenorrhea, incoordination, anxiety, seizures, irritability, anorexia, xerostomia, and photosensitivity. Serious reactions include: Rash, severe; Lambert Rafael syndrome; toxic epidermal necrosis; injury edema, hypersensitivity reactions. Including fatal, multiple organ failure to safe fatal, rash with eosinophilia systemic symptoms, DIC, neutropenia, leukopenia, thrombocytopenia, pancytopenia, aplastic anemia, hemolytic anemia, i pancreatitis, hepatic failure, rhabdomyolysis, worsening of suicidal ideation, worsening of depression, cleft lip/palate [first trimester use] DO not Change Cosmetic, perfumes or soap for next 4 weeks. The patient was advice to take lamotrigine as prescribed the patient was instructed not to deviate from the prescription dosages. Stop lamotrigine is the first sign of rash. Patient was insisted to inform office if any of the serious side effect develops. 2. Anxiety Prozac 40 mg daily, - no refill needed monitor for ernesto/ hypomania 3. hypersomnia PCP prescribes Ambien PRN 4. PTSD Therapy - Era TABOR 5. HTN- On Linisopril- patient seen PCP educated on healthy b/p 120/80 monitor b/p at home refer to PCP, Urgent care/ER- educated on B/P heart healthy diet and excise limit salt intake limit soda intake and caffiene increase water educated on cannabis use as it can negatively impact mood, motivation, anxiety, sleep, focus/concentrati on/memory (vigilance, elasticity, processing and attention); can also contribute to development of psychosis. http_s://www.nim .nih.gov/health/t opics/mental-heal th-medications http_s://www.nataliya .org/About-Mental -Illness/Treatmen ts/Mental-Health- Medications Recommend decrease/stop cannabis use as it may be negatively impacting mood, motivation, anxiety, sleep, focus; can also contribute to development of psychosis Cannabis/marijuan a information: http_s://jennifer.nih .gov/publications /drugfacts/cannab is-marijuana http_s://www.[facility]/canna wlv-ibz-zcrluxje- marijuana-adhd/ http_s://www.nataliya .org/About-Mental -Illness/Mental-H ealth-Conditions http_s://[employer]/depressi on/the-cognitive- kkathlje-wl-qobrh ssion#treatments http__s://www.[facility].nih.gov/health/ topics/mental-hea lth-medications http__s://www.nam i.org/About-Menta l-Illness/Treatme nts/Mental-Health -Medications educated on all medications, benefits, side effects and risk, and educated on depression, anxiety, and ADHD, mood d/o and educated on compliance of medications, metabolic and movement d/o education appointment's, continue therapy discussion with patient about course of treatment and patient instructions. education on serotonin syndrome Discussed and educated pt regarding benzodiazepines are generally not intended for prolonged use and that use can cause tolerance, dependence, depression, and associated memory issues including dementias (this list is not exhaustive). Benzodiazepine use is generally not recommended concurrently with pain medications and/or other controlled substances educated on all medications, benefits, side effects and risk, and educated on depression, anxiety, and ADHD, mood d/o and educated on compliance of medications, metabolic and movement d/o education appointment is, continue therapy discussion with patient about course of treatment and patient instructions. education on serotonin syndrome SSRI/SNRI side effects discussed including but not limited to, gastric upset, nausea, vomiting, diarrhea and/or constipation, weight changes, sexual side effects including loss of libido, increased suicidal thoughts/behavior s in children and young adults, and serotonin syndrome. Second generation antipsychotics (SGAs) have metabolic syndrome issues with weight gain, increase in prolactin, increased waist circumference, increased lipids, and increased glucose. Thus routine monitoring of weight, metabolic labs, etc. is indicated. A general rank ordering of antipsychotics that have the greatest to the least risk of metabolic effects is olanzapine, quetiapine, risperidone, ziprasidone, and aripiprazole. However, weight gain can occur with all of these drugs and considerable variability exists among patients receiving the same drug regarding the risk of metabolic effects. Anti-psychotic agents not only increase the risk of metabolic disorder, they also increase the risk of CVA, akathisia, and movement disorders including EPS or tardive dyskinesia (more common with first generation antipsychotics) and more. Medication Management and Follow-Up - Plan: - Schedule follow-up appointments every 1-3 months to monitor the patient's response to the medication regimen. - Reinforce the importance of avoiding recreational drug use due to potential neurotoxicity and interactions with prescribed medications. 09/01/2024 Other Client focused on all the health issues that have come to doctor's attention since her accident at work a year ago. She hurt her back when she fell. But the ortho doctor would not attend to her back until she saw her concrete spreader and medical science liaison. The concrete spreader found she has an enlarged heart. The medical science liaison found she had nodules on her lungs but nothing to be worried about. The nodules will be checked again in a year. 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 She is feeling overwhelmed by all of this. Therapist actively listened to client and utilized a cognitive behavioral intervention to help client explore strategies to better manage her anxieties related to these issues. 09/19/2024 Other Quetiapine Oral Tablet (QUETIAPINE - ORAL) material was published, Lamotrigine Oral Tablet (LAMOTRIGINE - ORAL) material was published, Fluoxetine Oral Capsule (FLUOXETINE - ORAL) material was published presently taking Seroquel 400 mg bedtime, Prozac 20 mg daily, 1. Bipolar- Seroquel 400 mg bedtime Add Lamotrigine 25 mg daily for 2 weeks then increase to 50 mg daily educated on all rx, benefits, side effects, and risk Lamotrigine lamotrigine has a serious rashes requiring hospitalization and discontinue treatment including Víctor Rafael syndrome rare case of toxic epidermal necrolysis and cache related deaths. Incidence with adjunct of epilepsy treatment 0.8% in 2 to 16 years old and 0.3% in adults, bipolar and other mood disorders incidence 0.8% this initial monotherapy and 0.13% as adjunctive treatment. Other risk factor may include concomitant use of valproate acid derivative or exceeding initial lamotrigine does or does as clinician recommendation; most life-threatening rash of occurring first 2 to 8 week of treatment with isolated cases after prolonged treatment; though benign may occur, discontinue treatment at first sign of rash unless clearly not a drug related; TC treatment may not prevent trash from becoming life-threatening or permanently disabling or disfiguring. Comment reaction include, nausea/vomiting, dizziness/vertigo , visual disturbances, somnolence, ataxia, pruritus/rash, pharyngitis, headache, rhinitis, diarrhea, fever, asthenia, insomnia, tremor, abdominal pain, cough, accidental injury, constipation, dysmenorrhea, incoordination, anxiety, seizures, irritability, anorexia, xerostomia, and photosensitivity. Serious reactions include: Rash, severe; Lambert Rafael syndrome; toxic epidermal necrosis; injury edema, hypersensitivity reactions. Including fatal, multiple organ failure to safe fatal, rash with eosinophilia systemic symptoms, DIC, neutropenia, leukopenia, thrombocytopenia, pancytopenia, aplastic anemia, hemolytic anemia, i pancreatitis, hepatic failure, rhabdomyolysis, worsening of suicidal ideation, worsening of depression, cleft lip/palate [first trimester use] DO not Change Cosmetic, perfumes or soap for next 4 weeks. The patient was advice to take lamotrigine as prescribed the patient was instructed not to deviate from the prescription dosages. Stop lamotrigine is the first sign of rash. Patient was insisted to inform office if any of the serious side effect develops. 2. Anxiety Increase Prozac 40 mg daily, monitor for ernesto/ hypomania 3. hypersomnia PCP prescribes Ambien PRN 4. PTSD Therapy - Era TABOR 5. HTN- On Linisopril educated on healthy b/p 120/80 monitor b/p at home refer to PCP, Urgent care/ER heart healthy diet and excise limit salt intake limit soda intake and caffiene increase water Recommend decrease/stop cannabis use as it can negatively impact mood, motivation, anxiety, sleep, focus/concentrati on/memory (vigilance, elasticity, processing and attention); can also contribute to development of psychosis. http_s://www.nimh .nih.gov/health/t opics/mental-heal th-medications http_s://www.nataliya .org/About-Mental -Illness/Treatmen ts/Mental-Health- Medications Recommend decrease/stop cannabis use as it may be negatively impacting mood, motivation, anxiety, sleep, focus; can also contribute to development of psychosis Cannabis/marijuan a information: http_s://jennifer.nih .gov/publications /drugfacts/cannab is-marijuana http_s://www.[facility]/canna kvp-afm-xazknfmu- marijuana-adhd/ http_s://www.nataliya .org/About-Mental -Illness/Mental-H ealth-Conditions http_s://365Scores/depressi on/the-cognitive- noqcswnv-vh-fvgcb ssion#treatments http__s://www.nim .nih.gov/health/ topics/mental-hea lth-medications http__s://www.nam i.org/About-Menta l-Illness/Treatme nts/Mental-Health -Medications educated on all medications, benefits, side effects and risk, and educated on depression, anxiety, and ADHD, mood d/o and educated on compliance of medications, metabolic and movement d/o education appointment's, continue therapy discussion with patient about course of treatment and patient instructions. education on serotonin syndrome Discussed and educated pt regarding benzodiazepines are generally not intended for prolonged use and that use can cause tolerance, dependence, depression, and associated memory issues including dementias (this list is not exhaustive). Benzodiazepine use is generally not recommended concurrently with pain medications and/or other controlled substances educated on all medications, benefits, side effects and risk, and educated on depression, anxiety, and ADHD, mood d/o and educated on compliance of medications, metabolic and movement d/o education appointment is, continue therapy discussion with patient about course of treatment and patient instructions. education on serotonin syndrome SSRI/SNRI side effects discussed including but not limited to, gastric upset, nausea, vomiting, diarrhea and/or constipation, weight changes, sexual side effects including loss of libido, increased suicidal thoughts/behavior s in children and young adults, and serotonin syndrome. Second generation antipsychotics (SGAs) have metabolic syndrome issues with weight gain, increase in prolactin, increased waist circumference, increased lipids, and increased glucose. Thus routine monitoring of weight, metabolic labs, etc. is indicated. A general rank ordering of antipsychotics that have the greatest to the least risk of metabolic effects is olanzapine, quetiapine, risperidone, ziprasidone, and aripiprazole. However, weight gain can occur with all of these drugs and considerable variability exists among patients receiving the same drug regarding the risk of metabolic effects. Anti-psychotic agents not only increase the risk of metabolic disorder, they also increase the risk of CVA, akathisia, and movement disorders including EPS or tardive dyskinesia (more common with first generation antipsychotics) and more. Medication Management and Follow-Up - Plan: - Schedule follow-up appointments every 1-3 months to monitor the patient's response to the medication regimen. - Reinforce the importance of avoiding recreational drug use due to potential neurotoxicity and interactions with prescribed medications. 11/11/2024 Other Client complains of racing thoughts and is not sleeping well. She recently had a change in her psych meds. Client reports her son and are on her last nerve. She reports a lot of manic energy. Therapist actively listened to client and asked questions for clarification. Therapist utilized a cognitive behavioral intervetion to help client explore strategies to manage the ernesto until she sees the PMHNP on Thursday (ex: channel the extra energy into getting things done around the home). PHQ=15 moderately severe CHAO=17 severe Plan Of Treatment Next Appt Details Provider Name:Abril Rohan , 02/27/2025 11:45:00 AM, [address], [address], [place], [address], Provider Name:Meredith Longoria , 03/06/2025 02:00:00 PM, [address], [address], [place], [address], Insurance Providers Payer Name Payer Address Payer Phone Subscriber Number Group Number Insured Name Patient Relationship to Insured Coverage Start Date Coverage End Date [facility] [address] [place] [address] [id number] MARGY DOVE Spouse - patient is the spouse of the insured Medical (General) History Medical History History ICD Code Problems: Bipolar I disorder Chronic post-traumatic stress disorder Generalized anxiety disorder Long-term drug therapy Obesity Primary insomnia Severe depressed bipolar I disorder with out psychotic features Unable to concentrate , Surgical History Surgery Date(Month/Year) Other 03/21/2022 Hysterectomy ([id number]) 03/21/2022
[2025-02-21 14:39] VITALS: BP 138/74; PULSE 107; RESP 20; TEMP 36.4; O2SAT 97
--- NOTE | 2025-02-21 14:44 | ED.URI ---
HPI - URI/Sore Throat General Chief Complaint: Upper Respiratory Infection Stated Complaint: Tightness in Back/ SOB / CONGESTION Time Seen by Provider: 02/21/25 14:44 Source: patient, RN notes reviewed and old records reviewed Mode of arrival: ambulatory Limitations: no limitations History of Present Illness HPI Narrative: 44 year old female who presents to [facility] care with complaints of having increased shortness of breath with some tightness to her chest and back and productive cough of green thick mucous since Thursday. Patient reports that she has felt flushed and sweaty but has not had fever. She states that she has done 3 nebulizer treatments today with little relief of her dyspnea with last at 1300. Patient reports that she has been using inhalers and nebulizer as prescribed. Patient reports that son had been ill. MD elicited complaint: cough, rhinorrhea and nasal congestion Pertinent past history: COPD and asthma Onset (ago): day(s) (2) Consistency: intermittent Severity: moderate Description of mucous: green Able to tolerate fluids by mouth: Yes Exacerbating factors: exertion Treatments prior to arrival: other (took Sudafed and has been using inhaler and nebs) Related Data Home Medications ?Medication ?Instructions ?Recorded ?Confirmed ?Last Taken ?Type estradiol 2 mg tablet 2 mg PO DAILY 05/12/23 10/19/24 01/13/24 History quetiapine 400 mg tablet (Seroquel) 400 mg PO ONCE 11/04/23 10/19/24 01/13/24 History semaglutide (weight loss) 2.4 2.4 mg subcut WEEKLY 08/16/24 10/19/24 Unknown History mg/0.75 mL subcutaneous pen injector (Vicente) lamotrigine 25 mg tablet 25 mg PO DAILY 09/26/24 10/19/24 Unknown History fluoxetine 40 mg capsule 40 mg PO HS 10/19/24 10/19/24 Unknown History Allergies Allergy/AdvReac Type Severity Reaction Status Date / Time nitrofurantoin (From Allergy Severe Anaphylactic Verified 01/23/25 10:58 Macrobid) Shock adhesive AdvReac Mild Itching, Verified 01/23/25 10:58 RASH amoxicillin AdvReac Mild Rash Verified 01/23/25 10:58 Cephalosporins AdvReac Mild HIVES Verified 01/23/25 10:58 Penicillins AdvReac Mild Rash Verified 01/23/25 10:58 talc AdvReac Mild ERYTHEMA Verified 01/23/25 10:58 CATS Allergy Mild Dyspnea / Uncoded 01/23/25 10:58 SOB Cultivated Oat Pollen Allergy Mild Dyspnea / Uncoded 01/23/25 10:58 SOB DOGS Allergy Mild Dyspnea / Uncoded 01/23/25 10:58 SOB Dust AdvReac Mild SNEEZING Uncoded 01/23/25 10:58 Review of Systems Review of Systems: CONSTITUTIONAL: Reports malaise, no chills, positive for feeling flushed and having sweats, no known fever. EYES: Denies visual changes, redness, or discharge. ENT: Reports rhinorrhea, congestion, no sinus pain, otalgia and sore throat. CARDIOVASCULAR: reports chest tightness, no palpitations, or edema. RESPIRATORY: Reports productive cough? Reports increased dyspnea. GASTROINTESTINAL: Denies abdominal pain, nausea, vomiting, diarrhea SKIN: Denies rash or itching. MUSCULOSKELETAL: Denies myalgia. NEUROLOGIC: Denies headache. All systems reviewed & are unremarkable except as noted in HPI and below PMFSH Past Medical History Medical History Hypersomnolence Chronic pain HTN (hypertension) KAVYA on CPAP Sleep apnea Pneumonia Depression COPD (chronic obstructive pulmonary disease) Congestive heart failure Asthma Surgical History Surgical History Hx of section (~2007) History of hysterectomy (03/21/22) No oophorectomy History of endometrial ablation History of tubal ligation H/O wrist surgery Family History Family History Mother Family history of chronic obstructive pulmonary disease Family history of malignant neoplasm of ovary Grandparent Liver cancer Social History Social History Smoking packs per day: 0.5 Smoking cigarettes per day: 10.0 Years smoked: 15 Smoking pack-years: 7.50 Smoking status: Former smoker Tobacco type: cigarettes Second hand tobacco smoke exposure: No Smoking end date: 07/13/20 Alcohol intake: current Alcohol use details: very rarely Substance use: former Substance use type: does not use Do You Feel Safe in your Home?: Yes Lack of Transportation: No Lack of Food: Never True Current Housing: I Have Housing Concerned About Future Housing: No Difficulty Paying Gas/Electric Bills: No Difficulty Paying for Meds: No Currently Unemployed: No Education: High School Diploma/GED Difficulty w/ Childcare or Family Care: No Living arrangements: with family Occupation/Education: occupation 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 There is no relevant family history pertinent to the presenting complaint Exam Narrative: GENERAL: Well-appearing, well-nourished, obese,and in no acute distress. HEAD: Normocephalic EYES: PERRLA, conjunctivae clear ENT: Nares clear, turbinates edematous and erythematous, clear discharge. Mucous membranes moist. TM pearly stratton with dull light reflex bilaterally; no tragal tenderness. Oropharynx erythematous without lesions. Tonsils not enlarged and without exudate, no drooling, no hoarseness, no trismus, uvula midline.post nasal drainage. NECK: Supple. No lymphadenopathy CHEST: coarse bases on auscultation, breath sounds equal. No wheezing, rhonchi, rales, or stridor. No respiratory distress, speaks in full sentences with increase feelings of dyspnea,, no tachypnea, reports productive cough of green tinged phlegm SAO2 97% on room air HEART: Regular rate and rhythm. No murmur heard. SKIN: Warm, dry, no rash. NEURO: Alert and oriented x3. PSYCH: Normal mood and affect Course Course Emergency Course: Patient is aware of diagnosis, understands and agrees to treatment plan.? Anticipatory guidance given.? Patient agrees to follow-up as directed and is aware of reasons to seek care at the emergency department. Portions of this record may have been created with voice recognition software Level of Care: Express Care Visit Vital Signs Vital signs: Vital Signs Temperature 36.4 C L 02/21/25 14:39 Pulse Rate 107 H 02/21/25 14:39 Respiratory Rate 20 02/21/25 14:39 Blood Pressure 138/74 02/21/25 14:39 Pulse Oximetry 97 02/21/25 14:39 Oxygen Delivery Room Air 02/21/25 14:39 Temperature 36.4 C L 02/21/25 14:39 Pulse Rate 107 H 02/21/25 14:39 Respiratory Rate 20 02/21/25 14:39 Blood Pressure 138/74 02/21/25 14:39 Pulse Oximetry 97 02/21/25 14:39 Oxygen Delivery Room Air 02/21/25 14:39 Reviewed MDM - URI/Sore Throat MDM Narrative Medical decision making narrative: Differential diagnosis considered: Borges virus, strep pharyngitis, allergic rhinitis, upper respiratory tract infection, sinusitis, rhinosinusitis, nasopharyngitis. viral pharyngitis, otitis media, otitis externa, pneumonia, bronchitis, viral cough syndrome, viral syndrome, and influenza.? Exam findings show no acute concerns or changes; patient is non-toxic appearing and is in no distress.? Patient is appropriate for outpatient treatment and follow-up. Differential Diagnosis Differential diagnosis: Likely upper respiratory infection, sinusitis, viral infection, bronchitis and other (exacerbation of asthma) Medical Records Attestation: I reviewed the patient's medical records. Lab Data Attestation: I reviewed the patient's lab results. Critical Care Time Critical Care Time Critical Care Time: No Discharge Plan Discharge Clinical Impression: Asthma exacerbation Qualifiers: Asthma severity: moderate Asthma persistence: persistent Qualified Code(s): J45.41 - Moderate persistent asthma with (acute) exacerbation Patient Disposition: Home Condition: Stable Instructions: Antibiotic Form, Bronchospasm (ED) Additional Instructions: Increase fluids especially juices and water Thka-twu-xovhzui cough and cold medicine of your choice for your symptoms Zyrtec Claritin or Danuta day include Coricidin brand decongestant since you are on blood pressure medication Tylenol or ibuprofen for any Continue your inhaler/nebulizer as directed Steroids as directed--take with food heat to the face 20-30 minutes 4-6 times a day for pain Salt water gargles, throat lozenges or throat sprays as desired Antibiotic as directed--finished the medication If your symptoms persist, change or worsen significantly before you can contact your personal physician then please, without delay, go to the emergency department for further evaluation. Follow-up with PCP in 7-10 days or sooner if needed Follow up with PCP soon in regards to your blood pressure which is elevated above threshold for referral. Blood pressure above 120/80 may indicate pre-hypertension.138/74 Patient Language: Prydeinig Prescriptions: New prednisone 20 mg tablet 40 mg PO DAILY 5 Days Qty: 10 0RF azithromycin 250 mg tablet See Rx Instructions .ROUTE .COMPLEX Qty: 6 0RF Rx Instructions: For 250 mg dose pack: take 500 mg today (day 1), then 250 mg for 4 days (days 2-5) No Action estradiol 2 mg tablet 2 mg PO DAILY quetiapine [Seroquel] 400 mg tablet 400 mg PO ONCE Rx Instructions: hs lamotrigine 25 mg tablet 25 mg PO DAILY Wegovy 2.4 mg/0.75 mL pen injector 2.4 mg subcut WEEKLY Patient Comments: Saturdays fluoxetine 40 mg capsule 40 mg PO HS Incruse Ellipta 62.5 mcg/actuation blister with device 1 inh INHALATION DAILY Qty: 30 2RF Patient Comments: Says takes at HS fluticasone propion-salmeterol [Wixela Inhub] 500-50 mcg/dose blister with device 1 ea INHALATION BID Qty: 180 2RF ipratropium-albuterol 0.5 mg-3 mg(2.5 mg base)/3 mL solution for nebulization 3 ml inhalation QID Qty: 180 3RF Rx Instructions: As needed. Airsupra 90-80 mcg/actuation HFA aerosol inhaler 2 inh inhalation ONCE Qty: 10.7 3RF Patient Comments: Takes as needed. Rx Instructions: as a single dose; may repeat up to 6 doses per day (12 inhalations) Says uses once a day. ondansetron 4 mg tablet,disintegrating 4 mg PO Q6H PRN (Reason: nausea and vomiting) Qty: 15 0RF modafinil 200 mg tablet 200 mg PO BID 30 Days Qty: 60 5RF cyclobenzaprine 10 mg tablet 10 mg PO HS PRN (Reason: muscle spasm) Qty: 30 2RF meloxicam 15 mg tablet 15 mg PO DAILY 30 Days Qty: 30 2RF Rx Instructions: Take 1 tab p.o. q.a.m. with food and water. Do not combine with other anti-inflammatories. lisinopril 30 mg tablet See Rx Instructions .ROUTE .COMPLEX Qty: 90 0RF Dose Instruction: TAKE 1 TABLET BY MOUTH AT BEDTIME Rx Instructions: TAKE 1 TABLET BY MOUTH AT BEDTIME montelukast 10 mg tablet 10 mg PO DAILY Qty: 90 2RF lorazepam 1 mg tablet 1 mg PO BID PRN (Reason: anxiety) Qty: 30 0RF furosemide 40 mg tablet 40 mg PO QAM Qty: 30 4RF dicyclomine 20 mg tablet See Rx Instructions .ROUTE .COMPLEX Qty: 60 4RF Dose Instruction: TAKE 1 TABLET BY MOUTH TWICE DAILY Rx Instructions: TAKE 1 TABLET BY MOUTH TWICE DAILY Follow-up/Referrals: Sami Ramirez MD [Primary Care Provider] - Stand Alone Forms: Work/School Release IP Time of Disposition: 15:10 Quality [place] Coma Scale Eyes: Open Verbal: Oriented and Alert Motor: Follows Commands Landon Coma Total Score: 15
== END 2025-02-21 15:16 | disposition home or self-care (01) ==
PROVIDERS: Emergency Provider Registered Nurse; PCP Family Medicine Adolescent Medicine
DX: J45.41 Moderate persistent asthma with (acute) exacerbation (principal); I11.0 Hypertensive heart disease with heart failure; I50.9 Heart failure, unspecified; J44.9 Chronic obstructive pulmonary disease, unspecified; G47.33 Obstructive sleep apnea (adult) (pediatric); F32.A Depression, unspecified; Z87.891 Personal history of nicotine dependence
CPT/HCPCS: 99213; G0463

== ENCOUNTER 2025-03-23 09:47 | Outpatient (CLI) | payer BC, SELFPAY ==
[2025-03-23 10:46] LABS: Anion Gap 10 mmol/L (4-12); Blood Urea Nitrogen 20 mg/dL (7-17); Calcium 9.7 mg/dL (8.4-10.2); Carbon Dioxide 24 mmol/L (22-30); Chloride 104 mmol/L (98-107); Estimated Glomerular Filt Rate > 60; Glucose 98 mg/dL (65-110); Potassium 3.9 mmol/L (3.4-5.0); Sodium 138 mmol/L (137-145)
== END 2025-03-23 09:48 | disposition home or self-care (01) ==
LOC: ANHSURGERY 09:53
PROVIDERS: Anesthesiology; PCP Family Medicine Adolescent Medicine; Visit Provider Anesthesiology Pain Medicine
DX: T50.2X5A Adverse effect of carbonic-anhydrase inhibitors, benzothiadiazides and other diuretics, initial encounter (principal)
CPT/HCPCS: 36415; 80048

== ENCOUNTER 2025-03-28 00:51 | Day surgery (SDC) | payer BC, SELFPAY ==
[2025-02-23 11:47] VITALS: BMI 51.8
--- NOTE | 2025-02-23 11:56 | PC.NURSE ---
Addendum entered by Royal Clark RN 02/23/25 12:08: Correction: Patient told nothing to eat or drink after midnight. Original Note: Report to the Outpatient Waiting Room, entrance under the green pavilion located off [facility], at time _0715_ on date _[id number]_. Planned Procedure Time: _0915_.? Time changes happen often and if your time is changed the preop area will call you the afternoon before. - You and your visitor will be asked to self-screen and do not enter if you have any COVID symptoms. Please call surgeon if you need to reschedule. - A mask is optional within the hospital at this time. Patients may have clear liquids (water, carbonated beverages, clear teas, apple juice) until 3 hours prior to surgery with a maximum of 20 ounces. - No food from midnight until time of surgery and no smoking, or chewing tobacco (or any form of nicotine). No chewing gum, candy or mints. Take only the following medications with a SIP of water on the morning of surgery: __Lamotrigine and inhalers___ DO NOT STOP ANY OF YOUR OTHER PRESCRIPTION MEDICATIONS PRIOR TO SURGERY EXCEPT THE FOLLOWING Hold all vitamins and supplements for 3 days per anesthesiologist. Medications to discontinue per physician Date to take last yurn___[phone]____ Please no make-up, nail maltese, hairspray, perfume, deodorant, or body powder the day of surgery.? No jewelry (including any body piercings) or valuables the day of surgery, leave them at home.? Please take a shower or bath the night before, or the morning of, surgery with an antibacterial soap.? Wear comfortable, loose fitting clothing. - Jewelry must be removed prior to entering the operating room.? Rings and piercings that are not removed may be cut off. - The hospital will not accept responsibility for valuables.? - Please leave all valuables, including medications, at home the day of surgery. If you are going home after surgery, a licensed experienced truck driver must drive you home.? - NO public transportation without another adult if you receive anesthesia. - We recommend that an adult stay with you for 24 hours following discharge. - We also recommend that you do not drive, make important decision, drink alcoholic beverages, or take any drugs that were not prescribed by your health care provider for at least 24 hours after your discharge time. Follow any additional instructions given to you from your surgeon. Telephone instructions given to __Jasen___and asked if any additional questions and then verbalized understanding. Patient advised to call surgeon office or pre surgery nurse liaison [phone] if any additional questions.
--- OUTSIDE RECORDS SUMMARY | 2025-02-28 00:46 | XMS_ITS | Referral Summary ---
Author Organization [facility] [place] [address] Address [address] [place] [address] Care Team Providers Care Construction Code Administrator Name Role Phone Monica Shook MD Primary Care Provider Encounters Date Type Department Care Team Description 01/16/2025 2:45 PM CDT Office Visit [facility] Family Medicine at [address] [place] [address] Derrek Stockton MD Class 3 severe obesity due to excess calories with serious comorbidity and body mass index (BMI) of 50.0 to 59.9 in adult (Primary Dx) 12/19/2024 Telephone [facility] Family Medicine at [address] [place] [address] Derrek Stockton MD from Last [...] (07/06/2018): Added automatically from request for surgery [id number] Immunizations Immunization Administration Dates Next Due DTaP [...] on file 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 Gender Identity Not on file Sexual Orientation [...] on file Medical Devices Implanted Type Area Pbx Manager Device Identifier Shelf Expiration Date Model / Serial / Lot Lifenet Bl-1500-002 Vivigen Allograft Graft 5 Cc Bone Cortical Cancellous; Deminerali - [id number] - [id number] Implanted:Qty: 1 on 07/07/2018 by Finn Pierre MD at [facility] Right: Radius Lifenet 06/17/2019 BL-1500-002 / [id number] / [id number] Plate Small Frag Implanted:Qty: 1 on 07/07/2018 by Finn Pierre MD at [facility] Right: Radius Medartis Inc Medartis Inc A-4750.56 Aptus Trilock 42mmx1.6mm 6 Hole Distal Radius L Right Angle Plate - [id number] Implanted:Qty: 1 on 07/07/2018 by Finn Pierre MD at [facility] Right: Radius [employer] A-4750.56 / / [employer] A-4750.55 Aptus Trilock 42mmx1.6mm 6 Hole Distal Radius L Left Angle Plate - [id number] Implanted:Qty: 1 on 07/07/2018 by Finn Pierre MD at [facility] Right: Radius [employer] A-4750.55 / / [employer] A-5700.16/1 Aptus 2.5mm 16mm Hexadrive 7 Adaptive Wrist Radius Cortical - [id number] Implanted:Qty: 2 on 07/07/2018 by Finn Pierre MD at [facility] Right: Radius [employer] A-5700.16/1 / / [employer] Inc A-5700.18/1 2.5mm 18mm Hexadrive Wrist Cortical Screw Bone - [id number] Implanted:Qty: 2 on 07/07/2018 by Finn Pierre MD at [facility] Right: Radius [employer] A-5700.18/1 / / Med[employer] Inc A-5700.22/1 2.5mm 22mm Cortical Screw Bone Vicki - [id number] Implanted:Qty: 1 on 07/07/2018 by Finn Pierre MD at [facility] Right: Radius [employer] A-5700.22/1 / / Med[employer] Inc A-5700.12 Aptus 2.5mm 12mm Cortical Screw Bone - [id number] Implanted:Qty: 1 on 07/07/2018 by Finn Pierre MD at [facility] Right: Radius [employer] A-5700.12 / / [employer] A-5750.08/ Aptus Trilock 2.5mm 8mm Hexadrive 7 Screw Bone Titanium - [id number] Implanted:Qty: 1 on 07/07/2018 by Finn Pierre MD at [facility] Right: Radius [employer] A-5750.08/ / / [employer] A-5750.10/ Aptus Trilock 2.5mm 10mm Hexadrive 7 Screw Bone Titanium - [id number] Implanted:Qty: 1 on 07/07/2018 by Finn Pierre MD at [facility] Right: Radius [employer] A-5750.10/ / / [place] [email or web address] [place] [email or web address] [place] [facility] [place] [address] Advance Directives For more information, please contact: [phone] * Full Code (Latest Code Status on File) Date Activated Date Inactivated Comments 07/07/2018 4:58 PM 07/07/2018 8:16 PM Care Teams Construction Code Administrator Relationship Specialty Start Date End Date Monica Shook MD PCP - General Family Practice 07/18/22
--- OUTSIDE RECORDS SUMMARY | 2025-02-28 00:47 | XMS_ITS | Clinical Summary ---
Author Organization [facility] Address [address] [place] [address] Care Team Providers Care Sewer Name Role Phone Sami Ramirez MD Primary Care Provider + Source Comments [facility],non-owned Affiliates and Associated Physician Practices is amultiple site organization consisting of ambulatory clinics and hospital sitesin [place], [place], [place] and [place]. This disclosure is being madepursuant to the Care Everywhere program and may not contain all information available regarding this patient. Last updated 18.[facility] Allergies Active Allergy Reactions Criticality Noted Date [...] Comments Blood Pressure 151/86 10/16/2018 5:57 PM TOE LINING CLOSER Pulse 83 10/16/2018 8:18 PM TOE LINING CLOSER Temperature 36.9 C (98.5 F) 10/16/2018 5:57 PM TOE LINING CLOSER Respiratory Rate 18 10/16/2018 8:18 PM TOE LINING CLOSER Oxygen Saturation 97% 10/16/2018 8:18 PM TOE LINING CLOSER Inhaled Oxygen Concentration - - Weight 137 kg (302 lb) 10/16/2018 5:57 PM TOE LINING CLOSER Height 162.6 cm (5' 4) 10/16/2018 5:57 PM TOE LINING CLOSER Body Mass Index 51.84 10/16/2018 5:57 PM TOE LINING CLOSER Plan of Treatment Health Maintenance Due Date [...] complete this topic Insurance ANTHEM Care Teams Sewer Relationship Specialty Start Date End Date Sami Ramirez MD [address] [facility] [address] [place] [address] PCP - General Family Medicine 10/16/18
--- OUTSIDE RECORDS SUMMARY | 2025-02-28 00:47 | XMS_ITS ---
Author Organization [facility] [employer] Address [address] [place] [address] Care Team Providers Care Core Composer Feeder Name Role Phone Sami Ramirez MD Primary Care Provider Doreen Abril Graham Unavailable [phone] Allergies Allergen (clinical drug ingredient) Drug/Non Drug Allergy documented on EMR Reaction Allergy Type Onset Date Status amoxicillin Amoxicillin Unknown Drug Allergy 01/21/2024 Ac tive Medicinal cephalosporin and acting as antibacterial agent (FN) Cephalosporins hives Drug Allergy Active nitrofurantoin Nitrofurantoin anaphylaxis Drug Allergy Active REASON FOR VISIT Follow Up medications, Follow up psychological reason Medications Medication SIG (Take, Route, Frequency, Duration) Notes Start Date End Date Status Naloxone HCl 4 MG/0.1ML Nasal 01/21/2024 Active Sulfamethoxazole-Tri methoprim 800-160 MG Oral 01/21/2024 Active Atrovent HFA 17 MCG/ACT Inhalation 01/21/2024 Active EPINEPHrine 0.3 MG/0.3ML Injection 01/21/2024 Active Methocarbamol 750 MG Oral 01/21/2024 Active Incruse Ellipta 62.5 MCG/INH Inhalation 01/21/2024 Active INSULIN SYRINGE U-100 WITH NEEDLE 1 ML 31 GAUGE X 5/16 *[facility] Alert[facility]* 01/21/2024 Active WIXELA INHUB 500 MCG-50 MCG/DOSE POWDER FOR INHALATION *[facility]* 01/21/2024 Active Albuterol Sulfate (2.5 MG/3ML) 0.083% Inhalation 01/21/2024 Active Ipratropium-Albutero l 0.5-2.5 (3) MG/3ML Inhalation 01/21/2024 Active Ondansetron 4 MG Oral 01/21/2024 Ac tive Estradiol 2 MG Oral 01/21/2024 Acti ve LORazepam 1 MG Oral 01/21/2024 Acti ve Azelastine HCl 137 MCG/SPRAY Nasal 01/21/2024 Active Cyclobenzaprine HCl 10 MG Oral 01/21/2024 Active Cyclobenzaprine HCl 5 MG Oral 01/21/2024 Not-Taking ARIPiprazole 10 MG Oral 01/21/2024 Not-Taking QUEtiapine Fumarate 100 MG 1 tablet at bedtime Orally Once a day for 90 days 02/27/2025 Active Zepbound 5 MG/0.5ML INJECT 1 SYRINGE SUBCUTANEOUSLY ONCE A WEEK Subcutaneous for 28 Days [id number],Unavailab le Active WEGOVY 0.5 MG/0.5 ML SUBCUTANEOUS PEN INJECTOR *Reorder from [facility] for eRx and Interaction Alerts* 01/21/2024 Not-Taking FLUoxetine HCl 40 MG Take 1 capsule by mouth once daily for 90 Active QUEtiapine Fumarate 400 MG 1 tablet every night Oral at bedtime for 90 days 01/21/2024 Active Lisinopril 30 MG Oral 01/21/2024 Ac tive RELION INSULIN SYRINGE 31G X 5/16 RELION INSULIN SYRINGE 31G X 5/16 1 ML MISC *Reorder from [facility] for eRx and Interaction Alerts* 01/21/2024 Active lamoTRIgine 150 MG 1 tablet Orally once a day for 90 days Active Montelukast Sodium 10 MG Oral 01/21/2024 Active Zolpidem Tartrate 10 MG Oral 01/21/2024 Active Social History Tobacco Use: Social History Observation Description Date Details (start date - stop date) Former Smoker NA - 09/28/2000 Sex Assigned At : Social History Observation Description Sex Assigned At Female Tobacco Control (Standard) Question Answer Notes Tobacco use: Former smoker When did you stop smoking? 09/28/2000 How long has it been since you last smoked? 5-10 years Problems Problem Type SNOMED Code ICD Code Onset Dates Problem Status W/U Status Risk Notes Problem Screening for cardiovascular system disease ([id number]) Encounter for screening for cardiovascular disorders (Z13.6) Active confirmed Problem [id number] Encounter for screening for depression (Z13.31) Active confirmed Vital Signs Blood pressure systolic 137 mm Hg 02/28/20 25 Blood pressure diastolic 92 mm Hg 025 Heart Rate 86 /min 02/27/2025 Respiratory Rate 16 /min 02/27/2025 Height 64.00 in 02/27/2025 Weight 322.2 lbs 02/27/2025 BMI 55.3 kg/m2 02/27/2025 Height-cm 162.56 cm 02/27/2025 Weight-kg 146.15 kg 02/27/2025 Encounters Encounter Location Date Provider Diagnosis [facility] [address] [place] [address] 02/27/2025 Abril Madrigal Encounter for screen ing for depression Z13.31 ; Bipolar depression F31.9 ; Encounter for screening for cardiovascular disorders Z13.6 ; 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 Bipolar- has hypomania episodes monthly pateint reported Increase Seroquel 500 mg bedtime- patient reported stopped Ambien 2-3 months ago PCP prescribed - would wake up in middle night eating Discuss and educated on rx options and patient worried Seroquel may make her tired in day if added in day for depression and anxiety Lamotrigine 150 mg daily for depression educated on all rx, benefits, side effects, and risk AIMS= 0 11/14/24 Lamotrigine lamotrigine has a serious rashes requiring [...] disabling or disfiguring. Comment reaction include, nausea/vomiting, dizziness/vertigo, visual disturbances, somnolence, ataxia, pruritus/rash, pharyngitis, headache, [...] no refill needed monitor for ernesto/ hypomania Benzo PRN per PCP 12 pills a month 3. hypersomnia PCP prescribes Ambien PRN= pateint reported not taking rx 4. PTSD Therapy - Era TABOR 5. HTN- On Linisopril- patient seen PCP 02/27/25 educated on healthy b/p 120/80 monitor b/p at home refer to PCP, Urgent care/ER- educated on B/P heart healthy diet and excise limit salt intake limit soda intake and caffiene increase water educated on cannabis use as it can negatively impact mood, motivation, anxiety, sleep, focus/concentratio n/memory (vigilance, elasticity, processing and attention); can also contribute to development of psychosis. http_s://www.nimh. nih.gov/health/top ics/mental-health- medications http_s://www.nataliya. org/Oyseh-Hypzrc-K llness/Treatments/ Tvwzuc-Bswtrv-Nxap cations Recommend decrease/stop cannabis use as it may be negatively impacting mood, motivation, anxiety, sleep, focus; can also contribute to development of psychosis Cannabis/marijuana information: http_s://jennifer.nih. gov/publications/d rugfacts/cannabis- marijuana http_s://www.Tresorit/cannabi l-ofp-pxrqcxzj-mar ijuana-adhd/ http_s://www.nataliya. org/Uljzt-Ludjfo-F llness/Mental-Heal th-Conditions http_s://Syncbak.com/depression /nds-faqhykoug-kmt rtngm-rs-otlkogwld n#treatments http__s://www.nim .nih.gov/health/to pics/mental-health -medications http__s://www.nataliya .org/About-Mental- Illness/Treatments /Itglzi-Gwxagd-Tuu ications educated on all medications, benefits, side effects [...] effects including loss of libido, increased suicidal thoughts/behaviors in children and young adults, and serotonin [...] potential neurotoxicity and interactions with prescribed medications. 02/27/2025 Bipolar depression (ICD-10 - F31.9) Bipolar Disorder: Care Instructions material was published, Learning About How to Get Help During a Mental Health Crisis material was published, Learning About Mood Disorders material was published, Learning About Movement Disorders From Antipsychotic Medicines material was published 1. Bipolar- has hypomania episodes monthly pateint reported Increase Seroquel 500 mg bedtime- patient reported stopped Ambien 2-3 months ago PCP prescribed - would wake up in middle night eating Discuss and educated on rx options and patient worried Seroquel may make her tired in day if added in day for depression and anxiety Lamotrigine 150 mg daily for depression educated on all rx, benefits, side effects, and risk AIMS= 0 11/14/24 Lamotrigine lamotrigine has a serious rashes requiring [...] disabling or disfiguring. Comment reaction include, nausea/vomiting, dizziness/vertigo, visual disturbances, somnolence, ataxia, pruritus/rash, pharyngitis, headache, [...] no refill needed monitor for ernesto/ hypomania Benzo PRN per PCP 12 pills a month 3. hypersomnia PCP prescribes Ambien PRN= pateint reported not taking rx 4. PTSD Therapy - Era TABOR 5. HTN- On Linisopril- patient seen PCP 02/27/25 educated on healthy b/p 120/80 monitor b/p at home refer to PCP, Urgent care/ER- educated on B/P heart healthy diet and excise limit salt intake limit soda intake and caffiene increase water educated on cannabis use as it can negatively impact mood, motivation, anxiety, sleep, focus/concentratio n/memory (vigilance, elasticity, processing and attention); can also contribute to development of psychosis. http_s://www.nimh. nih.gov/health/top ics/mental-health- medications http_s://www.nataliya. org/Hmbxo-Smjfzg-J llness/Treatments/ Zxcfvd-Htxqlm-Utsl cations Recommend decrease/stop cannabis use as it may be negatively impacting mood, motivation, anxiety, sleep, focus; can also contribute to development of psychosis Cannabis/marijuana information: http_s://jennifer.nih. gov/publications/d rugfacts/cannabis- marijuana http_s://www.Tresorit/cannabi u-tax-bnmvdheh-mar ijuana-adhd/ http_s://www.nataliya. org/Tlnqz-Zyimgl-C llness/Mental-Heal th-Conditions http_s://psychNetformx.com/depression /vvk-dpeefvkib-xmk ldaxl-rt-hfvhfjzxr n#treatments http__s://www.nimh .nih.gov/health/to pics/mental-health -medications http__s://www.nataliya .org/About-Mental- Illness/Treatments /Vcvezs-Bshvwe-Wda ications educated on all medications, benefits, side effects [...] effects including loss of libido, increased suicidal thoughts/behaviors in children and young adults, and serotonin [...] potential neurotoxicity and interactions with prescribed medications. 02/27/2025 Encounter for screening for cardiovascular disorders (ICD-10 - Z13.6) 1. Bipolar- has hypomania episodes monthly pateint reported Increase Seroquel 500 mg bedtime- patient reported stopped Ambien 2-3 months ago PCP prescribed - would wake up in middle night eating Discuss and educated on rx options and patient worried Seroquel may make her tired in day if added in day for depression and anxiety Lamotrigine 150 mg daily for depression educated on all rx, benefits, side effects, and risk AIMS= 0 11/14/24 Lamotrigine lamotrigine has a serious rashes requiring [...] disabling or disfiguring. Comment reaction include, nausea/vomiting, dizziness/vertigo, visual disturbances, somnolence, ataxia, pruritus/rash, pharyngitis, headache, [...] no refill needed monitor for ernesto/ hypomania Benzo PRN per PCP 12 pills a month 3. hypersomnia PCP prescribes Ambien PRN= pateint reported not taking rx 4. PTSD Therapy - Era TABOR 5. HTN- On Linisopril- patient seen PCP 02/27/25 educated on healthy b/p 120/80 monitor b/p at home refer to PCP, Urgent care/ER- educated on B/P heart healthy diet and excise limit salt intake limit soda intake and caffiene increase water educated on cannabis use as it can negatively impact mood, motivation, anxiety, sleep, focus/concentratio n/memory (vigilance, elasticity, processing and attention); can also contribute to development of psychosis. http_s://www.nimh. nih.gov/health/top ics/mental-health- medications http_s://www.nataliya. org/Lxfmc-Fyfyio-K llness/Treatments/ Nglgps-Vdnaxy-Fbue cations Recommend decrease/stop cannabis use as it may be negatively impacting mood, motivation, anxiety, sleep, focus; can also contribute to development of psychosis Cannabis/marijuana information: http_s://jennifer.nih. gov/publications/d rugfacts/cannabis- marijuana http_s://www.Tresorit/cannabi k-rkr-tuhbzeqc-mar ijuana-adhd/ http_s://www.nataliya. org/Fiikw-Kymswl-K llness/Mental-Heal th-Conditions http_s://psychcent Parkmobile.com/depression /tkl-xoaxzfadg-gtd kblse-zw-fifqieacq n#treatments http__s://www.nimh .nih.gov/health/to pics/mental-health -medications http__s://www.nataliya .org/About-Mental- Illness/Treatments /Prmvxy-Bcdjew-Wlf ications educated on all medications, benefits, side effects [...] effects including loss of libido, increased suicidal thoughts/behaviors in children and young adults, and serotonin [...] potential neurotoxicity and interactions with prescribed medications. 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 Bipolar- has hypomania episodes monthly pateint reported Increase Seroquel 500 mg bedtime- patient reported stopped Ambien 2-3 months ago PCP prescribed - would wake up in middle night eating Discuss and educated on rx options and patient worried Seroquel may make her tired in day if added in day for depression and anxiety Lamotrigine 150 mg daily for depression educated on all rx, benefits, side effects, and risk AIMS= 0 11/14/24 Lamotrigine lamotrigine has a serious rashes requiring [...] disabling or disfiguring. Comment reaction include, nausea/vomiting, dizziness/vertigo, visual disturbances, somnolence, ataxia, pruritus/rash, pharyngitis, headache, [...] no refill needed monitor for ernesto/ hypomania Benzo PRN per PCP 12 pills a month 3. hypersomnia PCP prescribes Ambien PRN= pateint reported not taking rx 4. PTSD Therapy - Era [facility] LEANDER 5. HTN- On Linisopril- patient seen PCP 02/27/25 educated on healthy b/p 120/80 monitor b/p at home refer to PCP, Urgent care/ER- educated on B/P heart healthy diet and excise limit salt intake limit soda intake and caffiene increase water educated on cannabis use as it can negatively impact mood, motivation, anxiety, sleep, focus/concentratio n/memory (vigilance, elasticity, processing and attention); can also contribute to development of psychosis. http_s://www.nimh. nih.gov/health/top ics/mental-health- medications http_s://www.nataliya. org/Qicmb-Otkimn-J llness/Treatments/ Oskolb-Wdbpkh-Qkic cations Recommend decrease/stop cannabis use as it may be negatively impacting mood, motivation, anxiety, sleep, focus; can also contribute to development of psychosis Cannabis/marijuana information: http_s://jennifer.nih. gov/publications/d rugfacts/cannabis- marijuana http_s://www.Tresorit/cannabi k-sne-fxbuivcw-mar ijuana-adhd/ http_s://www.nataliya. org/Kdkzd-Ymrcni-T llness/Mental-Heal th-Conditions http_s://psychcent Parkmobile.com/depression /ysx-cobbznvqo-kzl jkhud-ny-ksajumwfw n#treatments http__s://www.nimh .nih.gov/health/to pics/mental-health -medications http__s://www.nataliya .org/About-Mental- Illness/Treatments /Unnynt-Vqsruf-Rfr ications educated on all medications, benefits, side effects [...] effects including loss of libido, increased suicidal thoughts/behaviors in children and young adults, and serotonin [...] potential neurotoxicity and interactions with prescribed medications. 02/27/2025 Generalized anxiety disorder (ICD-10 - F41.1) Generalized Anxiety Disorder: Care Instructions material was published, Learning About Generalized Anxiety Disorder material was published, Learning About Anxiety Disorders material was published 1. Bipolar- has hypomania episodes monthly pateint reported Increase Seroquel 500 mg bedtime- patient reported stopped Ambien 2-3 months ago PCP prescribed - would wake up in middle night eating Discuss and educated on rx options and patient worried Seroquel may make her tired in day if added in day for depression and anxiety Lamotrigine 150 mg daily for depression educated on all rx, benefits, side effects, and risk AIMS= 0 11/14/24 Lamotrigine lamotrigine has a serious rashes requiring [...] disabling or disfiguring. Comment reaction include, nausea/vomiting, dizziness/vertigo, visual disturbances, somnolence, ataxia, pruritus/rash, pharyngitis, headache, [...] no refill needed monitor for ernesto/ hypomania Benzo PRN per PCP 12 pills a month 3. hypersomnia PCP prescribes Ambien PRN= pateint reported not taking rx 4. PTSD Therapy - Era TABOR 5. HTN- On Linisopril- patient seen PCP 6/2/25 educated on healthy b/p 120/80 monitor b/p at home refer to PCP, Urgent care/ER- educated on B/P heart healthy diet and excise limit salt intake limit soda intake and caffiene increase water educated on cannabis use as it can negatively impact mood, motivation, anxiety, sleep, focus/concentratio n/memory (vigilance, elasticity, processing and attention); can also contribute to development of psychosis. http_s://www.nimh. nih.gov/health/top ics/mental-health- medications http_s://www.nataliya. org/Jqsuq-Amavva-H llness/Treatments/ Pcxvyd-Cqvxqi-Axhd cations Recommend decrease/stop cannabis use as it may be negatively impacting mood, motivation, anxiety, sleep, focus; can also contribute to development of psychosis Cannabis/marijuana information: http_s://jennifer.nih. gov/publications/d rugfacts/cannabis- marijuana http_s://www.Tresorit/cannabCardize d-ien-zekodtjy-mar ijuana-adhd/ http_s://www.nataliya. org/Nhaxj-Kentsu-X llness/Mental-Heal th-Conditions http_s://Syncbak.com/depression /qwx-lrxjyooou-uns vzmol-ki-yuulrjnyo n#treatments http__s://www.nimh .nih.gov/health/to pics/mental-health -medications http__s://www.nataliya .org/About-Mental- Illness/Treatments /Ijgvvj-Mdigeh-Rfy ications educated on all medications, benefits, side effects [...] effects including loss of libido, increased suicidal thoughts/behaviors in children and young adults, and serotonin [...] potential neurotoxicity and interactions with prescribed medications. 02/27/2025 Post-traumatic stress disorder, chronic (ICD-10 - F43.12) Post-Traumatic Stress Disorder (PTSD): Care Instructions material was published 1. Bipolar- has hypomania episodes monthly pateint reported Increase Seroquel 500 mg bedtime- patient reported stopped Ambien 2-3 months ago PCP prescribed - would wake up in middle night eating Discuss and educated on rx options and patient worried Seroquel may make her tired in day if added in day for depression and anxiety Lamotrigine 150 mg daily for depression educated on all rx, benefits, side effects, and risk AIMS= 0 11/14/24 Lamotrigine lamotrigine has a serious rashes requiring [...] disabling or disfiguring. Comment reaction include, nausea/vomiting, dizziness/vertigo, visual disturbances, somnolence, ataxia, pruritus/rash, pharyngitis, headache, [...] no refill needed monitor for ernesto/ hypomania Benzo PRN per PCP 12 pills a month 3. hypersomnia PCP prescribes Ambien PRN= pateint reported not taking rx 4. PTSD Therapy - Era TABOR 5. HTN- On Linisopril- patient seen PCP 02/27/25 educated on healthy b/p 120/80 monitor b/p at home refer to PCP, Urgent care/ER- educated on B/P heart healthy diet and excise limit salt intake limit soda intake and caffiene increase water educated on cannabis use as it can negatively impact mood, motivation, anxiety, sleep, focus/concentratio n/memory (vigilance, elasticity, processing and attention); can also contribute to development of psychosis. http_s://www.nimh. nih.gov/health/top ics/mental-health- medications http_s://www.nataliya. org/Pacdk-Iixlxz-N llness/Treatments/ Tolbrx-Iqknff-Zjdg cations Recommend decrease/stop cannabis use as it may be negatively impacting mood, motivation, anxiety, sleep, focus; can also contribute to development of psychosis Cannabis/marijuana information: http_s://jennifer.nih. gov/publications/d rugfacts/cannabis- marijuana http_s://www.Tresorit/cannabi w-dyh-xrkvnnhe-mar ijuana-adhd/ http_s://www.nataliya. org/Kafpx-Rprspu-Y llness/Mental-Heal th-Conditions http_s://CrayonPixel/depression /fql-icurrgonx-cce cmzzn-cs-atmgvvtbg n#treatments http__s://www.nimh .nih.gov/health/to pics/mental-health -medications http__s://www.nataliya .org/About-Mental- Illness/Treatments /Puktuu-Vgrnmy-Ixc ications educated on all medications, benefits, side effects [...] effects including loss of libido, increased suicidal thoughts/behaviors in children and young adults, and serotonin [...] potential neurotoxicity and interactions with prescribed medications. 02/27/2025 Obesity, unspecified (ICD-10 - E66.9) Learning About Obesity material was published, Learning About Healthy Weight material was published, When You Want to Lose Weight: Care Instructions material was published, Starting a Weight-Loss Plan: Care Instructions material was published 1. Bipolar- has hypomania episodes monthly pateint reported Increase Seroquel 500 mg bedtime- patient reported stopped Ambien 2-3 months ago PCP prescribed - would wake up in middle night eating Discuss and educated on rx options and patient worried Seroquel may make her tired in day if added in day for depression and anxiety Lamotrigine 150 mg daily for depression educated on all rx, benefits, side effects, and risk AIMS= 0 11/14/24 Lamotrigine lamotrigine has a serious rashes requiring [...] disabling or disfiguring. Comment reaction include, nausea/vomiting, dizziness/vertigo, visual disturbances, somnolence, ataxia, pruritus/rash, pharyngitis, headache, [...] no refill needed monitor for ernesto/ hypomania Benzo PRN per PCP 12 pills a month 3. hypersomnia PCP prescribes Ambien PRN= pateint reported not taking rx 4. PTSD Therapy - Era TABOR 5. HTN- On Linisopril- patient seen PCP 02/27/25 educated on healthy b/p 120/80 monitor b/p at home refer to PCP, Urgent care/ER- educated on B/P heart healthy diet and excise limit salt intake limit soda intake and caffiene increase water educated on cannabis use as it can negatively impact mood, motivation, anxiety, sleep, focus/concentratio n/memory (vigilance, elasticity, processing and attention); can also contribute to development of psychosis. http_s://www.nimh. nih.gov/health/top ics/mental-health- medications http_s://www.nataliya. org/Suueg-Mszvwm-T llness/Treatments/ Mplefe-Pwbsab-Czfv cations Recommend decrease/stop cannabis use as it may be negatively impacting mood, motivation, anxiety, sleep, focus; can also contribute to development of psychosis Cannabis/marijuana information: http_s://jennifer.nih. gov/publications/d rugfacts/cannabis- marijuana http_s://www.Tresorit/cannabi i-dni-bqlbcwgd-mar ijuana-adhd/ http_s://www.nataliya. org/Yvglz-Mofibi-D llness/Mental-Heal th-Conditions http_s://psychNetformx.com/depression /fri-vyuspwctt-ixu fqhtf-ms-udwsmhtdo n#treatments http__s://www.nimh .nih.gov/health/to pics/mental-health -medications http__s://www.nataliya .org/About-Mental- Illness/Treatments /Uqwyng-Peotfl-Bih ications educated on all medications, benefits, side effects [...] effects including loss of libido, increased suicidal thoughts/behaviors in children and young adults, and serotonin [...] potential neurotoxicity and interactions with prescribed medications. 02/27/2025 Primary hypertension (ICD-10 - I10) Learning About High Blood Pressure material was published, High Blood Pressure: Care Instructions material was published, Acute High Blood Pressure: Care Instructions material was published 1. Bipolar- has hypomania episodes monthly pateint reported Increase Seroquel 500 mg bedtime- patient reported stopped Ambien 2-3 months ago PCP prescribed - would wake up in middle night eating Discuss and educated on rx options and patient worried Seroquel may make her tired in day if added in day for depression and anxiety Lamotrigine 150 mg daily for depression educated on all rx, benefits, side effects, and risk AIMS= 0 11/14/24 Lamotrigine lamotrigine has a serious rashes requiring [...] disabling or disfiguring. Comment reaction include, nausea/vomiting, dizziness/vertigo, visual disturbances, somnolence, ataxia, pruritus/rash, pharyngitis, headache, [...] no refill needed monitor for ernesto/ hypomania Benzo PRN per PCP 12 pills a month 3. hypersomnia PCP prescribes Ambien PRN= pateint reported not taking rx 4. PTSD Therapy - Era TABOR 5. HTN- On Linisopril- patient seen PCP 02/27/25 educated on healthy b/p 120/80 monitor b/p at home refer to PCP, Urgent care/ER- educated on B/P heart healthy diet and excise limit salt intake limit soda intake and caffiene increase water educated on cannabis use as it can negatively impact mood, motivation, anxiety, sleep, focus/concentratio n/memory (vigilance, elasticity, processing and attention); can also contribute to development of psychosis. http_s://www.nimh. nih.gov/health/top ics/mental-health- medications http_s://www.nataliya. org/Fnlof-Rgnypn-D llness/Treatments/ Vqkjhd-Iwqcfe-Eudc cations Recommend decrease/stop cannabis use as it may be negatively impacting mood, motivation, anxiety, sleep, focus; can also contribute to development of psychosis Cannabis/marijuana information: http_s://jennifer.nih. gov/publications/d rugfacts/cannabis- marijuana http_s://www.Tresorit/cannabi l-ngv-lnenrvpe-mar ijuana-adhd/ http_s://www.nataliya. org/Erays-Gypwwx-Q llness/Mental-Heal th-Conditions http_s://psychcent Parkmobile.com/depression /ldd-dgtwymcjk-tlk cksyi-si-tmwstbvhz n#treatments http__s://www.nimh .nih.gov/health/to pics/mental-health -medications http__s://www.nataliya .org/About-Mental- Illness/Treatments /Kshanb-Sissbp-Xcm ications educated on all medications, benefits, side effects [...] effects including loss of libido, increased suicidal thoughts/behaviors in children and young adults, and serotonin [...] potential neurotoxicity and interactions with prescribed medications. 02/27/2025 Hypersomnia (ICD-10 - G47.10) 1. Bipolar- has hypomania episodes monthly pateint reported Increase Seroquel 500 mg bedtime- patient reported stopped Ambien 2-3 months ago PCP prescribed - would wake up in middle night eating Discuss and educated on rx options and patient worried Seroquel may make her tired in day if added in day for depression and anxiety Lamotrigine 150 mg daily for depression educated on all rx, benefits, side effects, and risk AIMS= 0 11/14/24 Lamotrigine lamotrigine has a serious rashes requiring [...] disabling or disfiguring. Comment reaction include, nausea/vomiting, dizziness/vertigo, visual disturbances, somnolence, ataxia, pruritus/rash, pharyngitis, headache, [...] no refill needed monitor for ernesto/ hypomania Benzo PRN per PCP 12 pills a month 3. hypersomnia PCP prescribes Ambien PRN= pateint reported not taking rx 4. PTSD Therapy - Era TABOR 5. HTN- On Linisopril- patient seen PCP 02/27/25 educated on healthy b/p 120/80 monitor b/p at home refer to PCP, Urgent care/ER- educated on B/P heart healthy diet and excise limit salt intake limit soda intake and caffiene increase water educated on cannabis use as it can negatively impact mood, motivation, anxiety, sleep, focus/concentratio n/memory (vigilance, elasticity, processing and attention); can also contribute to development of psychosis. http_s://www.nimh. nih.gov/health/top ics/mental-health- medications http_s://www.nataliya. org/Wlefq-Sejmfz-G llness/Treatments/ Muczyh-Seppqq-Cmci cations Recommend decrease/stop cannabis use as it may be negatively impacting mood, motivation, anxiety, sleep, focus; can also contribute to development of psychosis Cannabis/marijuana information: http_s://jennifer.nih. gov/publications/d rugfacts/cannabis- marijuana http_s://www.Tresorit/cannabi b-bzd-kpkwrlvg-mar ijuana-adhd/ http_s://www.nataliya. org/Boqkv-Ujypew-Z llness/Mental-Heal th-Conditions http_s://psychcent Parkmobile.com/depression /hiy-uienvybwp-pjn dpddc-hc-rownkgvox n#treatments http__s://www.nimh .nih.gov/health/to pics/mental-health -medications http__s://www.nataliya .org/About-Mental- Illness/Treatments /Igzjcg-Wckadq-Mnb ications educated on all medications, benefits, side effects [...] effects including loss of libido, increased suicidal thoughts/behaviors in children and young adults, and serotonin [...] potential neurotoxicity and interactions with prescribed medications. 02/27/2025 Dietary counseling and surveillance (ICD-10 - Z71.3) 1. Bipolar- has hypomania episodes monthly pateint reported Increase Seroquel 500 mg bedtime- patient reported stopped Ambien 2-3 months ago PCP prescribed - would wake up in middle night eating Discuss and educated on rx options and patient worried Seroquel may make her tired in day if added in day for depression and anxiety Lamotrigine 150 mg daily for depression educated on all rx, benefits, side effects, and risk AIMS= 0 11/14/24 Lamotrigine lamotrigine has a serious rashes requiring [...] disabling or disfiguring. Comment reaction include, nausea/vomiting, dizziness/vertigo, visual disturbances, somnolence, ataxia, pruritus/rash, pharyngitis, headache, [...] no refill needed monitor for ernesto/ hypomania Benzo PRN per PCP 12 pills a month 3. hypersomnia PCP prescribes Ambien PRN= pateint reported not taking rx 4. PTSD Therapy - Era J LEANDER 5. HTN- On Linisopril- patient seen PCP 02/27/25 educated on healthy b/p 120/80 monitor b/p at home refer to PCP, Urgent care/ER- educated on B/P heart healthy diet and excise limit salt intake limit soda intake and caffiene increase water educated on cannabis use as it can negatively impact mood, motivation, anxiety, sleep, focus/concentratio n/memory (vigilance, elasticity, processing and attention); can also contribute to development of psychosis. http_s://www.nimh. nih.gov/health/top ics/mental-health- medications http_s://www.nataliya. org/Yoirg-Fqzmri-S llness/Treatments/ Jokvyh-Ogsuzn-Mfwt cations Recommend decrease/stop cannabis use as it may be negatively impacting mood, motivation, anxiety, sleep, focus; can also contribute to development of psychosis Cannabis/marijuana information: http_s://jennifer.nih. gov/publications/d rugfacts/cannabis- marijuana http_s://www.Tresorit/cannabi r-sty-wwtroyfl-mar ijuana-adhd/ http_s://www.nataliya. org/Oyhos-Imlbnw-C llness/Mental-Heal th-Conditions http_s://CrayonPixel/depression /yxk-koonznnvv-tai isocv-lw-ucmaxkfem n#treatments http__s://www.nimh .nih.gov/health/to pics/mental-health -medications http__s://www.nataliya .org/About-Mental- Illness/Treatments /Glgxtc-Bnoixs-Qob ications educated on all medications, benefits, side effects [...] effects including loss of libido, increased suicidal thoughts/behaviors in children and young adults, and serotonin [...] potential neurotoxicity and interactions with prescribed medications. Plan Of Treatment Medication Medication Name Sig Start Date Stop Date Notes QUEtiapine Fumarate 100 MG 1 tablet at b edtime Orally Once a day for 90 days 02/27/2025 Treatment Notes Assessment Notes Bipolar depression Bipolar Disorder: Ca re Instructions material was published, Learning About How to Get Help During a Mental Health Crisis material was published, Learning About Mood Disorders material was published, Learning About Movement Disorders From Antipsychotic Medicines material was published Generalized anxiety disorder Generalized Anxiety Disorder: Care Instructions material was published, Learning About Generalized Anxiety Disorder material was published, Learning About Anxiety Disorders material was published Post-traumatic stress disorder, chronic Post-Traumatic Stress Disorder (PTSD): Care Instructions material was published Obesity, unspecified Learning About Obes ity material was published, Learning About Healthy Weight material was published, When You Want to Lose Weight: Care Instructions material was published, Starting a Weight-Loss Plan: Care Instructions material was published Primary hypertension Learning About High Blood Pressure material was published, High Blood Pressure: Care Instructions material was published, Acute High Blood Pressure: Care Instructions material was published Next Appt Details Follow Up: 6 Weeks, Reason: medication follow up increase Seroquel Provider Name:Meredith K Von , 03/06/2025 02:00:00 PM, [address], [place] [address], [place], [address], Provider Name:Abril Madrigal , 04/11/2025 09:15:00 AM, [address], [place] [address], [place], [address], Progress Notes * SAGE DOVEJORGE LOB: 3 (44 yo F)Acc No.[id number]:02/27/2025 Patient: CEDRICK VENTURA Provider: CHITRA TATE :1980 A ge:44 Y S ex:Female Date:02/27/2025 Address:[facility] [address] [id number] Pcp:Sami Ramirez MD Subjective: * Chief Complaints: * 1 . Follow Up medications. 2. Follow up psychological reason. * HPI: D epression Screening: CHAO-7 (2018 Edition) F eeling nervous, anxious, or on edge S everal days N ot being able to stop or control worrying?Several days W orrying too much about different things S everal days T rouble relaxing N ot at all B eing so restless that it is hard to sit still N ot at all B ecoming easily annoyed or irritable S everal days F eeling afraid as if something awful might happen N ot at all T otal CHAO-7 Score 4 I f you checked any problems, how difficult have they made it for you to do your work, take care of things at home, or get along with other people? S omewhat difficult I nterpretation of Total ( 0 to 4) No Anxiety follow up Bipolar depression, anxiety, sleep chronic since last visit I been doing better and I always worry my nature some anxious, and depression been up hill with it, I may have 1-2 days with it and I may have week on or off it and I feel may be hypomania with shopping more, racing thoughts, little higher self esteem, sleep 5-6 hours, and normal sleep is average 8-9 hours, irritable, no sexual drive normal, hx hysterectomy, h apens once a week each month, I feel irritable is better, and I when fidgety I write down thoughts when hyper, o n low days I rest and sleep more, all day even, and stay away from people, c oncentration and focus still issues on one thing, and I will get distracted, I feel like things improving, I use CPAP nightly, see her 02/27/25, and CPAP 100% complaince and job off for summer, I plan to work couple days a week but no kids, no psychosis, no SI/HI, no s/e rx no abnormal involuntary movement reported or noted I saw Working Second Hand, LEGISLATIVE ADVOCATE, PCP and Environmental Attorney all today also ETOH- denies Smoking- denies drugs- denies labs- PCP recently hysterectomy PCP prescribes Ambien and Lorazepam 1 mg, prn CPAP RX hx Seroquel, Prozac, Lorazepam, Abilify, Trazodone, Lamotrigine. H istory of Presenting Problem: Elevated BP. advance care planning discussDepression screening doneDepression screening done. D epression screening: PHQ-9 L ittle interest or pleasure in doing things?Several days F eeling down, depressed, or hopeless S everal days T rouble falling or staying asleep, or sleeping too much S everal days F eeling tired or having little energy S everal days P oor appetite or overeating N ot at all F eeling bad about yourself or that you are a failure, or have let yourself or your family down S everal days T rouble concentrating on things, such as reading the newspaper or watching television M ore than half the days M oving or speaking so slowly that other people could have noticed; or the opposite, being so fidgety or restless that you have been moving around a lot more than usual S everal days T houghts that you would be better off or of hurting yourself in some way N ot at all T otal Score 8 I nterpretation M ild Depression Intervention D epression Screening Findings P ositve F dorotheaUp for Depression M ental health care management, Psychiatric follow-up S uicide Risk Assessment Performed 0 02/27/2025 denies SI/HI no plans or intent * ROS: P erformance Met: N ormal blood pressure reading documented, follow-up not required ( G8783)Patient not eligible due to active diagnosis of hypertension: G 9744 r eports n o shortness of breath, no chest pain, no palpitations, no known heart murmur, and no ankle swelling; no cough. reported COVID hx r eports no abdominal pain, reported no nausea, reported improved constipation, good appetite, reported chronic improved diarrhea, and no GERD; reported IBS- C/D on Zepbound and fiber r eports no headaches and no migraines but reports no loss of consciousness, no weakness, no numbness, no seizures, no dizziness, no tremor, no gait dysfunction, and no paralysis. r eports hx hypersomnia- sleep disturbances CPAP- seen pulmonoligst Dr. White, reported?restless sleep, and no memory loss b ut reports depression, feeling safe in a relationship, no alcohol abuse, reported anxiety, no hallucinations, no suicidal thoughts, no mood swings, no agitation, r eports f atigue reported bruising reports no fever, no significant weight gain, and reported weight loss 02/27/24- to present 63 pounds total . reports no incontinence, no difficulty urinating, and no increased frequency. r eports no muscle aches, no muscle weakness, reported arthralgias/joint pain, reported back pain, no swelling in the extremities, reported neck pain, and no difficulty walking- DDD, 3 bulding disk and sciatic- in pain management. * Medical History: P roblems: Bipolar I disorder, Chronic post-traumatic stress disorder, Generalized anxiety disorder, Long-term drug therapy, Obesity, Primary insomnia, Severe depressed bipolar I disorder without psychotic features, Unable to concentrate, ,. * Social History: T obacco Use: T obacco Control (Standard) T obacco use: F ormer smoker W hen did you stop smoking? 0 09/28/2000 H ow long has it been since you last smoked??5-10 years M igrated Social History: M igrated Social History: Alcohol Intake: None 07/31/2020,Tobacco Years: Former smoker 04/24/2023,Smoking Status: 20 10/27/2023. M lizzy: A dvance Care Planning A re you your own decision-maker Y es D o you have Power of Computer Drafter for Health or Medical? N o * Medications: T aking Azelastine HCl 137 MCG/SPRAY Solution Nasal , Taking Cyclobenzaprine HCl 10 MG Tablet Oral , Taking Ondansetron 4 MG Tablet Disintegrating Oral , Taking Estradiol 2 MG Tablet Oral , Taking LORazepam 1 MG Tablet Oral , Taking Incruse Ellipta 62.5 MCG/INH Aerosol Powder Breath Activated Inhalation , Taking WIXELA INHUB 500 MCG-50 MCG/DOSE POWDER FOR INHALATION , Notes to Pharmacist: *Reorder from [facility] for eRx and Interaction Alerts*, Taking Albuterol Sulfate (2.5 MG/3ML) 0.083% Nebulization Solution Inhalation , Taking Ipratropium-Albuterol 0.5-2.5 (3) MG/3ML Solution Inhalation , Taking INSULIN SYRINGE U-100 WITH NEEDLE 1 ML 31 GAUGE X 5/16 , Notes to Pharmacist: *Reorder from [facility] for eRx and Interaction Alerts*, Taking Atrovent HFA 17 MCG/ACT Aerosol Solution Inhalation , Taking EPINEPHrine 0.3 MG/0.3ML Solution Auto-injector Injection , Taking Methocarbamol 750 MG Tablet Oral , Taking Naloxone HCl 4 MG/0.1ML Liquid Nasal , Taking Sulfamethoxazole-Trimethoprim 800- 160 MG Tablet Oral , Taking Montelukast Sodium 10 MG Tablet Oral , Taking Zolpidem Tartrate 10 MG Tablet Oral , Taking Lisinopril 30 MG Tablet Oral , Taking RELION INSULIN SYRINGE 31G X 5/16 RELION INSULIN SYRINGE 31G X 5/16 1 ML MISC , Notes to Pharmacist: *Reorder from [facility] for eRx and Interaction Alerts*, Taking lamoTRIgine 150 MG Tablet 1 tablet Orally once a day , Taking FLUoxetine HCl 40 MG Capsule Take 1 capsule by mouth once daily , Taking QUEtiapine Fumarate 400 MG Tablet 1 tablet every night Oral at bedtime , Taking Zepbound 5 MG/0.5ML Solution Auto-injector INJECT 1 SYRINGE SUBCUTANEOUSLY ONCE A WEEK Subcutaneous , Notes to Pharmacist: [id number],Unavailable, Not-Taking WEGOVY 0.5 MG/0.5 ML SUBCUTANEOUS PEN INJECTOR , Notes to Pharmacist: *Reorder from [facility] for eRx and Interaction Alerts*, Not-Taking Cyclobenzaprine HCl 5 MG Tablet Oral , Not-Taking ARIPiprazole 10 MG Tablet Oral , Medication List reviewed and reconciled with the patient * Allergies: A moxicillin: Allergy - Onset Date 01/21/2024, Nitrofurantoin: anaphylaxis, Cephalosporins: hives. Objective: * Vitals: B P:137/92mm Hg, HR:86/min, RR:16/min, Wt:322.2lbs, Wt-k.15 kg, Ht: 64.00 in, Ht-cm: 162.56 cm, BMI:55.3Index, Body Surface Area: 2.57. * Examination: P sychiatry: Appearance: w ell-groomed, well-nourished, appears stated age, obese. Abnormal body movements: n one. Affect / mood: a ppropriate, full range. Aggression: l ow. Anger control: g ood. Attention: g ood. Attitude: c ooperative. Gait s teady. Homicidal ideation: n one. Suicidal ideation: n one. Memory status: n o impairment noted. Degree of awareness of surroundings: w ithin normal limits.? Delusions: n o. Hallucinations: n o. Impulse control: g ood. Insight: g ood. Intellectual functioning: a verage. Comprehension - Intellectual function: a verage. Judgement: g ood. Orientation: a wake, alert and oriented x 3. Perceptual disorders: n o perceptual disorder noted. Psychomotor activity: w ithin normal range. Speech / language: a ppropriate pitch/modulation, clear and coherent, normal rate, volume, and articulation (RVR), proper grammar used. Thought content: a ppropriate. Thought process: i ntact. Assessment: * Assessment: 1. B ipolar depression - F31.9 (Primary) 2 . E ncounter for screening for depression - Z13.31 3 . E ncounter for screening for cardiovascular disorders - Z13.6 4 . O ther fdc (current) drug therapy - Z79.899 5 . Generalized anxiety disorder - F41.1 6 . P ost-traumatic stress disorder, chronic - F43.12 7 . O besity, unspecified - E66.9 8 . P rimary hypertension - I10 9 . H ypersomnia - G47.10 1 0. D ietary counseling and surveillance - Z71.3 1. Bipolar- has hypomania ep isodes monthly pateint reported Increase Seroquel 500 mg bedtime- patient reported stopped Ambien 2-3 months ago PCP prescribed - would wake up in middle night eating Discuss and educated on rx options and patient worried Seroquel may make her tired in day if added in day for depression and anxiety Lamotrigine 150 mg daily for depression educated on all rx, benefits, side effects, and risk AIMS= 0 11/14/24 Lamotrigine lamotrigine has a serious rashes requiring [...] disabling or disfiguring. Comment reaction include, nausea/vomiting, dizziness/vertigo, visual disturbances, somnolence, ataxia, pruritus/rash, pharyngitis, headache, [...] no refill needed monitor for ernesto/ hypomania Benzo PRN per PCP 12 pills a month 3. hypersomnia PCP prescribes Ambien PRN= pateint reported not taking rx 4. PTSD Therapy - Era TABOR 5. HTN- On Linisopril- patient seen PCP 02/27/25 educated on healthy b/p 120/80 monitor b/p at home refer to PCP, Urgent care/ER- educated on B/P heart healthy diet and excise limit salt intake limit soda intake and caffiene increase water educated on cannabis use as it can negatively impact mood, motivation, anxiety, sleep, focus/concentration/memory (vigilance, elasticity, processing and attention); can also contribute to development of psychosis. http_s://www.nimh.nih.gov/health/topics/mjrbje-ffsimy-nngsidnbmzv http_s://www.nataliya.org/Jltgr-Cffwsp-Czgtxfx/Treatments/Bnoiba-Jpgjem-Ettpqfykfqs Recommend decrease/stop cannabis use as it may be negatively impacting mood, motivation, anxiety, sleep, focus; can also contribute to development of psychosis Cannabis/marijuana information: http_s://jennifer.nih.gov/publications/drugfacts/cannabis-marijuana http_s://www.Algenol Biofuel.Memobox/lfmqvfbt-hia-hgaygefc-marijuana-adhd/ http_s://www.nataliya.org/Oonjd-Lsufap-Lftggll/Lxhtzu-Bfkrtl-Xppnvevica http_s://psychcentral.com/depression/qgx-aryrgiofb-rekpxlmu-of-depression#treatm ents http__s://www.nimh.nih.gov/health/topics/czqcfo-fvjzqc-uojvmyrtjxx http__s://www.nataliya.org/Zeoib-Lmxkmy-Cgioxlg/Treatments/Nacasy-Pnmhzq-Ozehraciiuh educated on all medications, benefits, side effects [...] effects including loss of libido, increased suicidal thoughts/behaviors in children and young adults, and serotonin [...] potential neurotoxicity and interactions with prescribed medications. Plan: * Treatment: 2. G eneralized anxiety disorder Notes: Generalized Anxiety Disorder: Care Instructions material was published, Learning About Generalized Anxiety Disorder material was published, Learning About Anxiety Disorders material was published 3. P ost-traumatic stress disorder, chronic Notes: Post-Traumatic Stress Disorder (PTSD): Care Instructions material was published 4. O besity, unspecified Notes: Learning About Obesity material was published, Learning About Healthy Weight material was published, When You Want to Lose Weight: Care Instructions material was published, Starting a Weight-Loss Plan: Care Instructions material was published 5. P rimary hypertension Notes: Learning About High Blood Pressure material was published, High Blood Pressure: Care Instructions material was published, Acute High Blood Pressure: Care Instructions material was published? * Procedure Codes: 1 036F TOBACCO NON-USER, 1123F ACP DISCUSS/DSCN MKR DOCD, 80461 BEHAV ASSMT W/SCORE & DOCD/STAND INSTRUMENT, G8950 PREHTN/HTN BP DOC INDCD F/U DOC, G2211 VISIT COMPLEXITY INHERENT TO ONGOING CARE RELATED TO A PATIENT'S SINGLE, SERIOUS CONDITION OR A COMPLEX CONDITION, G8755 MOST RECENT DIASTOLIC BP >= 90MM HG, G8431 CLIN DEPRESSION SCREEN DOC * Preventive Medicine: Counseling: B P Management: PRE-HYPERTENSIVE FOLLOW-UP PLAN: F ollow-up 2-3 months LIFESTYLE RECOMMENDATION: L ifestyle education REFERRAL TO ALTERNATIVE / PRIMARY CARE PROVIDER: R eferral to general physician educated on healthy b/p 120/80monitor b/p at homerefer to PCP,heart healthy diet and exciselimit salt intakelimit soda intake and caffieneincrease water A dvance Care Planning Date of last Advance Care Planning:?02/27/2025 ____ MIPS Type of advance care directives: D iscussed with patient , does not have AD Screenings: D epression screening Have you had a recent depression screening? Y es * Follow Up: 6 Weeks (Reason: medication follow up increase Seroquel) * Billing Information: * Visit Code: 86592 OFFICE OUTPATIENT VISIT 25 MINUTES DETAILED HISTORY AND EXAM/MODERATE MEDICAL DECISION MAKING. * Procedure Codes: 1036F TOBACCO NON-USER. 1123F ACP DISCUSS/DSCN MKR DOCD. 16885 BEHAV ASSMT W/SCORE & DOCD/STAND INSTRUMENT. G8950 PREHTN/HTN BP DOC INDCD F/U DOC. G2211 VISIT COMPLEXITY INHERENT TO ONGOING CARE RELATED TO A PATIENT'S SINGLE, SERIOUS CONDITION OR A COMPLEX CONDITION. G8755 MOST RECENT DIASTOLIC BP >= 90MM HG. G8431 CLIN DEPRESSION SCREEN DOC. * Sign off status: Completed true * Provider: CHITRA TATE Date: 0 02/27/2025 Generated for Natalya menendez/Candice/eTransmitting on: 0 02/28/2025 12:46 AM CDT History and Physical Notes * HPI (History of Present Illness) Category Sub-Category Detail Notes Category Not es History of Presenting Problem advance care planning discuss Depression screening done Depression screening done Depression screening PHQ-9 Little inte rest or pleasure in doing things: Several days Feeling down, depressed, or hopeless: Se veral days Trouble falling or staying asleep, or sl eeping too much: Several days Feeling tired or having little energy: S everal days Poor appetite or overeating: Not at all Feeling bad about yourself o r that you are a failure, or have let yourself or your family down: Several days Trouble concentrating on thi ngs, such as reading the newspaper or watching television: More than half the days Moving or speaking so slowly that other people could have noticed; or the opposite, being so fidgety or restless that you have been moving around a lot more than usual: Several days Thoughts that you would be b darlin off or of hurting yourself in some way: Not at all Total Score: 8 Interpretation: Mild Depression Intervention Depression Screening Findings: P ositve Follow-Up for Depression: [facility] health care management, Psychiatric follow-up Suicide Risk Assessment Performed: 02/27 denies SI/HI no plans or intent Depression Screening CHAO-7 (2018 Edition) Feeling nervous, anxious, or on edge: Several days follow up Bipolar depression, anxiety, sleep chronic since last visit I been doing better and I always worry my nature some anxious, and depression been up hill with it, I may have 1-2 days with it and I may have week on or off it and I feel may be hypomania with shopping more, racing thoughts, little higher self esteem, sleep 5-6 hours, and normal sleep is average 8-9 hours, irritable, no sexual drive normal, hx hysterectomy, hapens once a week each month, I feel irritable is better, and I when fidgety I write down thoughts when hyper, on low days I rest and sleep more, all day even, and stay away from people, concentration and focus still issues on one thing, and I will get distracted, I feel like things improving, I use CPAP nightly, see her 6/2/25, and CPAP 100% complaince and job off for summer, I plan to work couple days a week but no kids, no psychosis, no SI/HI, no s/e rx no abnormal involuntary movement reported or noted I saw Working Second Hand, LEGISLATIVE ADVOCATE, PCP and Environmental Attorney all today also ETOH- denies Smoking- denies drugs- denies labs- PCP recently hysterectomy PCP prescribes Ambien and Lorazepam 1 mg, prn CPAP RX hx Seroquel, Prozac, Lorazepam, Abilify, Trazodone, Lamotrigine Not being able to stop or control worryi ng: Several days Worrying too much about different things : Several days Trouble relaxing: Not at all Being so restless that it is hard to sit still: Not at all Becoming easily annoyed or irritable: Se veral days Feeling afraid as if something awful caitlin ht happen: Not at all Total CHAO-7 Score: 4 If you checked any problems, how difficult have they made it for you to do your work, take care of things at home, or get along with other people?: Somewhat difficult Interpretation of Total: (0 to 4) No Anx iety Examination Category Sub-Category Detail Notes Category Not es Psychiatry Appearance: well-groomed, we ll-nourished, appears stated age, obese Attitude: cooperative Psychomotor activity: within normal rang e Abnormal body movements: none Attention: good Degree of awareness of surroundings: wit hin normal limits Orientation: awake, alert and aury ented x 3 Affect / mood: appropriate, full ra nge Speech / language: appropriate pitch/mo dulation, clear and coherent, normal rate, volume, and articulation (RVR), proper grammar used Insight: good Judgement: good Thought process: intact Thought content: appropriate Perceptual disorders: no perceptual diso rder noted Aggression: low Anger control: good Suicidal ideation: none Homicidal ideation: none Intellectual functioning: average Impulse control: good Memory status: no impairment noted Delusions: no Hallucinations: no Comprehension - Intellectual function: a verage Gait steady
--- OUTSIDE RECORDS SUMMARY | 2025-02-28 00:47 | XMS_ITS | Clinical Summary ---
Author Organization [facility] [address] Address [address] [place] [address] Care Team Providers Care Hydrochloric Acid Operator Name Role Phone Monica Shook MD Primary [...] (07/06/2018): Added automatically from request for surgery [id number] Encounters Date Type Department Care Team Description 01/16/2025 2:45 PM CDT Office Visit [facility] Family Medicine at [address] [place] [address] Derrek Stockton MD Class 3 severe obesity due to excess calories with serious comorbidity and body mass index (BMI) of 50.0 to 59.9 in adult (Primary Dx) 12/19/[address] 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 Gender Identity Not on file Sexual Orientation [...] this topic Medical Devices Implanted Type Area Sheet Metal Supervisor Device Identifier Shelf Expiration Date Model / Serial / Lot Lifenet Bl-1500-002 Vivigen Allograft Graft 5 Cc Bone Cortical Cancellous; Deminerali - [id number] - [id number] Implanted:Qty: 1 on 07/07/2018 by Finn Pierre MD at [facility] Right: Radius Lifenet 06/17/2019 BL-1500-002 / [id number] / [id number] Plate Small Frag Implanted:Qty: 1 on 07/07/2018 by Finn Pierre MD at [facility] Right: Radius [employer] A-4750.56 Aptus Trilock 42mmx1.6mm 6 Hole Distal Radius L Right Angle Plate - [id number] Implanted:Qty: 1 on 07/07/2018 by Finn Pierre MD at [facility] Right: Radius [employer] A-4750.56 / / [employer] A-4750.55 Aptus Trilock 42mmx1.6mm 6 Hole Distal Radius L Left Angle Plate - [id number] Implanted:Qty: 1 on 07/07/2018 by Finn Pierre MD at [facility] Right: Radius [employer] A-4750.55 / / [employer] A-5700.16/1 Aptus 2.5mm 16mm Hexadrive 7 Adaptive Wrist Radius Cortical - [id number] Implanted:Qty: 2 on 07/07/2018 by Finn Pierre MD at [facility] Right: Radius [employer] A-5700.16/1 / / [employer] A-5700.18/1 2.5mm 18mm Hexadrive Wrist Cortical Screw Bone - [id number] Implanted:Qty: 2 on 07/07/2018 by Finn Pierre MD at [facility] Right: Radius [employer] A-5700.18/1 / / [employer] A-5700.22/1 2.5mm 22mm Cortical Screw Bone Vicki - [id number] Implanted:Qty: 1 on 07/07/2018 by Finn Pierre MD at [facility] Right: Radius [employer] A-5700.22/1 / / [employer] A-5700.12 Aptus 2.5mm 12mm Cortical Screw Bone - [id number] Implanted:Qty: 1 on 07/07/2018 by Finn Pierre MD at [facility] Right: Radius [employer] A-5700.12 / / [employer] A-5750.08/1 Aptus Trilock 2.5mm 8mm Hexadrive 7 Screw Bone Titanium - [id number] Implanted:Qty: 1 on 07/07/2018 by Finn Pierre MD at [facility] Right: Radius [employer] A-5750.08/ / / [employer] A-5750.10/ Aptus Trilock 2.5mm 10mm Hexadrive 7 Screw Bone Titanium - [id number] Implanted:Qty: 1 on 07/07/2018 by Finn Pierre MD at [facility] Right: Radius [employer] A-5750.10/ / / Insurance [facility] BLUE ACCESS [facility] Advance Directives For more information, please contact: [phone] * Full Code (Latest Code Status on File) Date Activated Date Inactivated Comments 07/07/2018 4:58 PM 07/07/2018 8:16 PM Care Teams Hydrochloric Acid Operator Relationship Specialty Start Date End Date Monica Shook MD PCP - General Family Practice 07/18/22
--- OUTSIDE RECORDS SUMMARY | 2025-02-28 00:48 | XMS_ITS | Patient Health Record ---
Author Organization [facility] As [place] Address [address] [place] [address] Care Team Providers Care Program Manager Transportation Name Role Phone Sami Ramirez MD Primary Care Provider Abril Jones Unavailable [phone] Meredith Longoria Unavailable [phone] Allergies Allergen (clinical drug ingredient) Drug/Non Drug Allergy documented on EMR Reaction Allergy Type Onset Date Status amoxicillin Amoxicillin Unknown Drug Allergy 01/21/2024 Ac tive Medicinal cephalosporin and acting as antibacterial agent (FN) Cephalosporins hives Drug Allergy Active nitrofurantoin Nitrofurantoin anaphylaxis Drug Allergy Active Reason For Referral No Information Medications Medication SIG (Take, Route, Frequency, Duration) Notes Start Date End Date Status Ondansetron 4 MG Oral 01/21/2024 Ac tive Cyclobenzaprine HCl 5 MG Oral 01/21/2024 Not-Taking Estradiol 2 MG Oral 01/21/2024 Acti ve ARIPiprazole 10 MG Oral 01/21/2024 Not-Taking LORazepam 1 MG Oral 01/21/2024 Acti ve Incruse Ellipta 62.5 MCG/INH Inhalation 01/21/2024 Active FLUoxetine HCl 40 MG Take 1 capsule by mouth once daily for 90 Active QUEtiapine Fumarate 400 MG 1 tablet every night Oral at bedtime for 90 days 01/21/2024 Active Azelastine HCl 137 MCG/SPRAY Nasal 01/21/2024 Active Zepbound 5 MG/0.5ML INJECT 1 SYRINGE SUBCUTANEOUSLY ONCE A WEEK Subcutaneous for 28 Days [id number],Unavailab le Active Cyclobenzaprine HCl 10 MG Oral 01/21/2024 Active WEGOVY 0.5 MG/0.5 ML SUBCUTANEOUS PEN INJECTOR *Reorder from [facility] for eRx and Interaction Alerts* 01/21/2024 Not-Taking Zolpidem Tartrate 10 MG Oral 01/21/2024 Active Lisinopril 30 MG Oral 01/21/2024 Ac tive RELION INSULIN SYRINGE 31G X 5/16 RELION INSULIN SYRINGE 31G X 5/16 1 ML MISC *Reorder from [facility] for eRx and Interaction Alerts* 01/21/2024 Active lamoTRIgine 150 MG 1 tablet Orally once a day for 90 days Active Naloxone HCl 4 MG/0.1ML Nasal 01/21/2024 Active Sulfamethoxazole-Tri methoprim 800-160 MG Oral 01/21/2024 Active QUEtiapine Fumarate 100 MG 1 tablet at bedtime Orally Once a day for 90 days 02/27/2025 Active Montelukast Sodium 10 MG Oral 01/21/2024 Active INSULIN SYRINGE U-100 WITH NEEDLE 1 ML 31 GAUGE X 5/16 *Reorder from [facility] for eRx and Interaction Alerts* 01/21/2024 Active Atrovent HFA 17 MCG/ACT Inhalation 01/21/2024 Active EPINEPHrine 0.3 MG/0.3ML Injection 01/21/2024 Active Methocarbamol 750 MG Oral 01/21/2024 Active WIXELA INHUB 500 MCG-50 MCG/DOSE POWDER FOR INHALATION *Reorder from [facility] for eRx and Interaction Alerts* 01/21/2024 Active Albuterol Sulfate (2.5 MG/3ML) 0.083% Inhalation 01/21/2024 Active Ipratropium-Albutero l 0.5-2.5 (3) MG/3ML Inhalation 01/21/2024 Active Immunizations Vaccine Route Administration Date Status Comme nts OPV Unknown 02/13/1983 Administered OPV Unknown 04/15/1983 Administered OPV Unknown 06/23/1983 Administered OPV Unknown 05/16/1985 Administered OPV Unknown 04/25/1988 Administered MMR Unknown 06/12/1987 Administered Influenza virus vaccine, quadrivalent (IIV4), split virus, 0.25 mL dosage Unknown 09/28/2018 Administered Hep A, unspecified formulation Unknown 04/29/2000 Admin istered DTaP Unknown 02/13/1983 Administered DTaP Unknown 04/15/1983 Administered DTaP Unknown 06/23/1983 Administered DTaP Unknown 05/16/1985 Administered DTaP Unknown 04/25/1988 Administered Social History Tobacco Use: [...] Status W/U Status Risk Notes Problem Obesity (287659945) Obesity, unspecified (E66.9) 05/21/20 Active confirmed Problem 58435909 Generalized anxiety disorder (F41.1) 01/21/20 Active confirmed Problem Posttraumatic stress disorder (68755917) Post-traumatic stress disorder, chronic (F43.12) 01/21/20 Active confirmed Problem Primary insomnia (0117444) Primary insomnia (F51.01) 01/21/20 Active confirmed Problem Screening for cardiovascular system disease (437943595) Encounter for screening for cardiovascular disorders (Z13.6) Active confirmed Problem Long-term current use of drug therapy (994714618) Other custodial (current) drug therapy (Z79.899) 01/21/20 Active confirmed Problem 982874906 Encounter for screening for depression (Z13.31) Active confirmed Problem 70752271 Primary hypertension (I10) Active confirmed Problem 850227968 Chronic posttraumatic stress disorder (F43.12) Active confirmed Problem 13416082 ADHD (attention deficit hyperactivity disorder), combined type (F90.2) Active confirmed Problem Bipolar disorder (45557731) Bipolar depression (F31.9) Active confirmed Problem 73699021 Hypersomnia (G47.10) Active confirmed Problem 25680064 Bipolar I disorder, most recent episode mixed, moderate (F31.62) Active confirmed Vital Signs Heart Rate 86 /min 02/27/2025 Respiratory Rate 16 /min 02/27/2025 Height-cm 162.56 cm 02/27/2025 Blood pressure diastolic 92 mm Hg 02/27/2025 Weight-kg 146.15 kg 02/27/2025 Height 64.00 in 02/27/2025 Blood pressure systolic 137 mm Hg 02/27/2025 Weight 322.2 lbs 02/27/2025 BMI 55.3 kg/m2 02/27/2025 Encounters Encounter Location Date Provider Diagnosis [address] [facility] [address] [place] [address] 09/01/2024 Meredith Longoria Bipolar I disorder, most recent episode mixed, moderate F31.62 ; Generalized anxiety disorder F41.1 ; Chronic posttraumatic stress disorder F43.12 and ADHD (attention deficit hyperactivity disorder), combined type F90.[address] [facility] [address] [place] [address] 09/19/2024 Abril Thery Bipolar depression F31.9 ; Other custodial (current) drug therapy Z79.899 ; Generalized anxiety disorder F41.1 ; Post-traumatic stress disorder, chronic F43.12 ; Obesity, unspecified E66.9 ; Primary hypertension I10 and Hypersomnia G47.[address] [address] 09/29/2024 Meredith Longoria [address] [address] 10/25/2024 Abril Thery Bipolar depression F31.9 ; Other custodial (current) drug therapy Z79.899 ; Generalized anxiety disorder F41.1 ; Post-traumatic stress disorder, chronic F43.12 ; Obesity, unspecified E66.9 ; Primary hypertension I10 and Hypersomnia G47.[address] [address] 11/11/2024 Meredithmaynor Longoria Bipolar I disorder, most recent episode mixed, moderate F31.62 ; Generalized anxiety disorder F41.1 ; Chronic posttraumatic stress disorder F43.12 and ADHD (attention deficit hyperactivity disorder), combined type F90.[address] [address] 11/14/2024 Abril Thery Bipolar depression F31.9 ; Other keno terminal operator (current) drug therapy Z79.899 ; Generalized anxiety disorder F41.1 ; Post-traumatic stress disorder, chronic F43.12 ; Obesity, unspecified E66.9 ; Primary hypertension I10 and Hypersomnia G47.10 [facility], [facility] [address] [place] [address] 11/18/2024 Meredith Von [facility], [facility] [address] [place] [address] 12/13/2024 Abril Madrigal Encounter for screen ing for cardiovascular disorders Z13.6 ; Encounter for screening for depression Z13.31 ; Bipolar depression F31.9 ; Other custodial (current) drug therapy Z79.899 ; Generalized anxiety disorder F41.1 ; Post-traumatic stress disorder, chronic F43.12 ; Obesity, unspecified E66.9 ; Primary hypertension I10 and Hypersomnia G47.10 [facility] [address] [place] [address] 02/27/2025 Abril Madrigal Encounter for screen ing for depression Z13.31 ; Bipolar depression F31.9 ; Encounter for screening for cardiovascular disorders Z13.6 ; Other custodial (current) drug therapy Z79.899 ; Generalized anxiety disorder F41.1 ; Post-traumatic stress disorder, chronic F43.12 ; Obesity, unspecified E66.9 ; Primary hypertension I10 ; Hypersomnia G47.10 and Dietary counseling and surveillance Z71.3 [facility], [facility] [address] [facility] [address] [place] [address] 08/05/2024 Abril Madrigal [facility], [facility] [address] [place] [address] 09/01/2024 Abril Madrigal [facility], [facility] [address] [place] [address] 10/14/2024 Abril Madrigal Bipolar depression F31.9 [facility], [facility] [address] [place] [address] 02/22/2025 Abril Thermaikol Bipolar depression F31.9 [facility], [facility] [address] [place] [address] 07/29/2024 Abril Madrigal [facility], [facility] [address] [place] [address] 09/02/2024 Abril Madrigal [facility], [facility] [address] [place] [address] 09/29/2024 Abril Madrigal [facility] [employer] [address] [place] [address] 11/01/2024 Abril Madrigal Assessments Encounter Date Diagnosis (ICD Code) Assessment Notes Treatment Notes Treatment Clinical Notes Section Notes 09/01/2024 Generalized anxiety disorder (ICD-10 - F41.1) 09/01/2024 Bipolar I disorder, most recent episode mixed, moderate (ICD-10 - F31.62) 09/19/2024 Other custodial (current) drug therapy (ICD-10 - Z79.899) presently [...] Cannabis/marijuan a information: http_s://jennifer.nih .gov/publications /drugfacts/cannab is-marijuana http_s://www.[employer]/jose ugs-kqp-biqslwrj- marijuana-adhd/ http_s://www.nataliya .org/About-Mental -Illness/Mental-H ealth-Conditions http_s://psychcen Jivoxl.com/depressi on/the-cognitive- uwtplmor-wi-ezknt ssion#treatments http__s://www.nim .nih.gov/health/ topics/mental-hea lth-medications http__s://www.nam i.org/About-Menta [...] Cannabis/marijuan a information: http_s://jennifer.nih .gov/publications /drugfacts/cannab is-marijuana http_s://www.[employer]/canna efv-lga-nkzcbfeu- marijuana-adhd/ http_s://www.nataliya .org/About-Mental -Illness/Mental-H ealth-Conditions http_s://psychMarketTools/depressi on/the-cognitive- bgqyhefp-fo-hddca ssion#treatments http__s://www.nim .nih.gov/health/ topics/mental-hea lth-medications http__s://www.nam i.org/About-Menta [...] Cannabis/marijuan a information: http_s://jennifer.nih .gov/publications /drugfacts/cannab is-marijuana http_s://www.[employer]/canna wag-avx-jtrmjyae- marijuana-adhd/ http_s://www.nataliya .org/About-Mental -Illness/Mental-H ealth-Conditions http_s://psychMarketTools/depressi on/the-cognitive- bhdndpxk-or-lftww ssion#treatments http__s://www.[facility].nih.gov/health/ topics/mental-hea lth-medications http__s://www.nam i.org/About-Menta l-Illness/Treatme nts/Mental-Health [...] Cannabis/marijuan a information: http_s://jennifer.nih .gov/publications /drugfacts/cannab is-marijuana http_s://www.[employer]/canna dxk-qhr-nqfueupx- marijuana-adhd/ http_s://www.nataliya .org/About-Mental -Illness/Mental-H ealth-Conditions http_s://psychcen OLX.com/depressi on/the-cognitive- mpaaixxc-ei-esvly ssion#treatments http__s://www.[facility].nih.gov/health/ topics/mental-hea lth-medications http__s://www.nam i.org/About-Menta l-Illness/Treatme nts/Mental-Health [...] Cannabis/marijuan a information: http_s://jennifer.nih .gov/publications /drugfacts/cannab is-marijuana http_s://www.[employer]/canna xzi-off-cjqnfkse- marijuana-adhd/ http_s://www.nataliya .org/About-Mental -Illness/Mental-H ealth-Conditions http_s://psychcen tral.com/depressi on/the-cognitive- xotpydbr-oz-uibpm ssion#treatments http__s://www.nim .nih.gov/health/ topics/mental-hea lth-medications http__s://www.nam i.org/About-Menta [...] potential neurotoxicity and interactions with prescribed medications. 02/22/2025 Bipolar depression (ICD-10 - F31.9) 02/27/2025 Encounter for screening for depression (ICD-10 [...] Cannabis/marijuan a information: http_s://jennifer.nih .gov/publications /drugfacts/cannab is-marijuana http_s://www.[employer]/cannmobile mum oan-pje-podmpvif- marijuana-adhd/ http_s://www.nataliya .org/About-Mental -Illness/Mental-H ealth-Conditions http_s://psychcen tral.com/depressi on/the-cognitive- psxteitb-hn-jktdn ssion#treatments http__s://www.nim .nih.gov/health/ topics/mental-hea lth-medications http__s://www.nam i.org/About-Menta [...] Cannabis/marijuan a information: http_s://jennifer.nih .gov/publications /drugfacts/cannab is-marijuana http_s://www.[employer]/canna zya-eyl-pqwrsrvd- marijuana-adhd/ http_s://www.nataliya .org/About-Mental -Illness/Mental-H ealth-Conditions http_s://Plainmark/depressi on/the-cognitive- xzblvigf-nw-wsxao ssion#treatments http__s://www.[facility].nih.gov/health/ topics/mental-hea lth-medications http__s://www.nam i.org/About-Menta l-Illness/Treatme nts/Mental-Health [...] Cannabis/marijuan a information: http_s://jennifer.nih .gov/publications /drugfacts/cannab is-marijuana http_s://wwwUlmon/canna nev-psd-gkbpohes- marijuana-adhd/ http_s://www.nataliya .org/About-Mental -Illness/Mental-H ealth-Conditions http_s://Plainmark/depressi on/the-cognitive- nwpbyumg-lr-yqkeh ssion#treatments http__s://www.[facility].nih.gov/health/ topics/mental-hea lth-medications http__s://www.nam i.org/About-Menta l-Illness/Treatme nts/Mental-Health [...] Cannabis/marijuan a information: http_s://jennifer.nih .gov/publications /drugfacts/cannab is-marijuana http_s://www.[employer]/jose hlf-uhb-toiwcepq- marijuana-adhd/ http_s://www.nataliya .org/About-Mental -Illness/Mental-H ealth-Conditions http_s://psychRexlycom/depressi on/the-cognitive- iqgskqof-pd-aezgs ssion#treatments http__s://www.[facility].nih.gov/health/ topics/mental-hea lth-medications http__s://www.nam i.org/About-Menta l-Illness/Treatme nts/Mental-Health [...] stress disorder (ICD-10 - F43.12) 11/14/2024 Other keno terminal operator (current) drug therapy (ICD-10 - Z79.899) 1. [...] Cannabis/marijuan a information: http_s://jennifer.nih .gov/publications /drugfacts/cannab is-marijuana http_s://www.[employer]/canna ebj-rkk-pcnvikjw- marijuana-adhd/ http_s://www.nataliya .org/About-Mental -Illness/Mental-H ealth-Conditions http_s://psychcen tral.com/depressi on/the-cognitive- fqvtduhl-kj-czjpy ssion#treatments http__s://www.nim .nih.gov/health/ topics/mental-hea lth-medications http__s://www.nam i.org/About-Menta [...] and interactions with prescribed medications. 10/25/2024 Other custodial (current) drug therapy (ICD-10 - Z79.899) 1. [...] Cannabis/marijuan a information: http_s://jennifer.nih .gov/publications /drugfacts/cannab is-marijuana http_s://www.[employer]/canna jst-jvv-qjmmfmyf- marijuana-adhd/ http_s://www.nataliya .org/About-Mental -Illness/Mental-H ealth-Conditions http_s://Plainmark/depressi on/the-cognitive- pwcdyxpy-ds-gekqi ssion#treatments http__s://www.[facility].nih.gov/health/ topics/mental-hea lth-medications http__s://www.nam i.org/About-Menta l-Illness/Treatme nts/Mental-Health [...] Cannabis/marijuan a information: http_s://jennifer.nih .gov/publications /drugfacts/cannab is-marijuana http_s://www.[employer]/jose uxl-fuz-nmxapgnw- marijuana-adhd/ http_s://www.nataliya .org/About-Mental -Illness/Mental-H ealth-Conditions http_s://psychcen tral.com/depressi on/the-cognitive- natvgenv-ei-jqbrb ssion#treatments http__s://www.[facility].nih.gov/health/ topics/mental-hea lth-medications http__s://www.nam i.org/About-Menta l-Illness/Treatme nts/Mental-Health [...] Cannabis/marijuan a information: http_s://jennifer.nih .gov/publications /drugfacts/cannab is-marijuana http_s://www.[employer]/jose nvb-rdl-wmluuyhj- marijuana-adhd/ http_s://www.nataliya .org/About-Mental -Illness/Mental-H ealth-Conditions http_s://psychcen tral.com/depressi on/the-cognitive- nsfvukzl-dm-cxpcz ssion#treatments http__s://www.[facility].nih.gov/health/ topics/mental-hea [facility]-medications http__s://www.nam i.org/About-Menta l-Illness/Treatme nts/Mental-Health -Medications educated on [...] Cannabis/marijuan a information: http_s://jennifer.nih .gov/publications /drugfacts/cannab is-marijuana http_s://www.[employer]/canna zyl-gnb-yjrlfafd- marijuana-adhd/ http_s://www.nataliya .org/About-Mental -Illness/Mental-H ealth-Conditions http_s://Plainmark/depressi on/the-cognitive- rpnthoaq-lc-obibg ssion#treatments http__s://www.nim .nih.gov/health/ topics/mental-hea lth-medications http__s://www.nam i.org/About-Menta [...] Cannabis/marijuan a information: http_s://jennifer.nih .gov/publications /drugfacts/cannab is-marijuana http_s://www.[employer]/canna bgm-szj-auauvpzj- marijuana-adhd/ http_s://www.nataliya .org/About-Mental -Illness/Mental-H ealth-Conditions http_s://Plainmark/depressi on/the-cognitive- etctpxht-wd-pkthd ssion#treatments http__s://www.nim .nih.gov/health/ topics/mental-hea lth-medications http__s://www.nam i.org/About-Menta [...] Cannabis/marijuan a information: http_s://jennifer.nih .gov/publications /drugfacts/cannab is-marijuana http_s://www.[employer]/canna xzs-xcj-audbklex- marijuana-adhd/ http_s://www.nataliya .org/About-Mental -Illness/Mental-H ealth-Conditions http_s://psychiFoodn Pockit/depressi on/the-cognitive- zpisgtzw-ls-mjiki ssion#treatments http__s://www.[facility].nih.gov/health/ topics/mental-hea lth-medications http__s://www.nam i.org/About-Menta l-Illness/Treatme nts/Mental-Health [...] and interactions with prescribed medications. 02/27/2025 Other custodial (current) drug therapy (ICD-10 - Z79.899) 1. [...] Cannabis/marijuan a information: http_s://jennifer.nih .gov/publications /drugfacts/cannab is-marijuana http_s://www.[employer]/jose fzz-xiw-fmcqwmtg- marijuana-adhd/ http_s://www.nataliya .org/About-Mental -Illness/Mental-H ealth-Conditions http_s://psychcen tral.com/depressi on/the-cognitive- zmlypqpc-yo-kapkt ssion#treatments http__s://www.[facility].nih.gov/health/ topics/mental-hea lt-medications http__s://www.nam i.org/About-Menta l-Illness/Treatme nts/Mental-Health -Medications educated on [...] Cannabis/marijuan a information: http_s://jennifer.nih .gov/publications /drugfacts/cannab is-marijuana http_s://www.[employer]/canna uwa-qyc-nrwtlflv- marijuana-adhd/ http_s://www.nataliya .org/About-Mental -Illness/Mental-H ealth-Conditions http_s://psychcen tral.com/depressi on/the-cognitive- zsaowgbj-br-ejxri ssion#treatments http__s://www.nim .nih.gov/health/ topics/mental-hea lth-medications http__s://www.nam i.org/About-Menta [...] Cannabis/marijuan a information: http_s://jennifer.nih .gov/publications /drugfacts/cannab is-marijuana http_s://www.[employer]/canna wsl-clk-jfafrqsq- marijuana-adhd/ http_s://www.nataliya .org/About-Mental -Illness/Mental-H ealth-Conditions http_s://psychMarketTools/depressi on/the-cognitive- mgllzlbp-rp-jwoqf ssion#treatments http__s://www.[facility].nih.gov/health/ topics/mental-hea lth-medications http__s://www.nam i.org/About-Menta l-Illness/Treatme nts/Mental-Health [...] and interactions with prescribed medications. 12/13/2024 Other keno terminal operator (current) drug therapy (ICD-10 - Z79.899) 1. [...] Cannabis/marijuan a information: http_s://jennifer.nih .gov/publications /drugfacts/cannab is-marijuana http_s://wwwUlmon/canna vtn-fst-hdimlnmh- marijuana-adhd/ http_s://www.nataliya .org/About-Mental -Illness/Mental-H ealth-Conditions http_s://Plainmark/depressi on/the-cognitive- zpnwhdts-rz-qqstx ssion#treatments http__s://www.[facility].nih.gov/health/ topics/mental-hea lth-medications http__s://www.nam i.org/About-Menta l-Illness/Treatme nts/Mental-Health [...] Cannabis/marijuan a information: http_s://jennifer.nih .gov/publications /drugfacts/cannab is-marijuana http_s://www.[employer]/jose vgv-upl-dufqatoc- marijuana-adhd/ http_s://www.nataliya .org/About-Mental -Illness/Mental-H ealth-Conditions http_s://psychcen tral.com/depressi on/the-cognitive- bbitfrta-zs-wjacp ssion#treatments http__s://www.nim .nih.gov/health/ topics/mental-hea [facility]-medications http__s://www.nam i.org/About-Menta l-Illness/Treatme nts/Mental-Health -Medications educated on [...] Cannabis/marijuan a information: http_s://jennifer.nih .gov/publications /drugfacts/cannab is-marijuana http_s://www.[employer]/canna zau-tmo-dmafxrqz- marijuana-adhd/ http_s://www.nataliya .org/About-Mental -Illness/Mental-H ealth-Conditions http_s://psychcen tral.com/depressi on/the-cognitive- hdiygezd-oz-eyrqg ssion#treatments http__s://www.nim .nih.gov/health/ topics/mental-hea lth-medications http__s://www.nam i.org/About-Menta [...] Cannabis/marijuan a information: http_s://jennifer.nih .gov/publications /drugfacts/cannab is-marijuana http_s://www.[employer]/canna rvq-awc-rdsgelfj- marijuana-adhd/ http_s://www.nataliya .org/About-Mental -Illness/Mental-H ealth-Conditions http_s://psychcen Pockit/depressi on/the-cognitive- yxtummyv-fk-efnoy ssion#treatments http__s://www.nim .nih.gov/health/ topics/mental-hea lth-medications http__s://www.nam i.org/About-Menta [...] Cannabis/marijuan a information: http_s://jennifer.nih .gov/publications /drugfacts/cannab is-marijuana http_s://www.[employer]/canna rlk-cwk-oiwocfna- marijuana-adhd/ http_s://www.nataliya .org/About-Mental -Illness/Mental-H ealth-Conditions http_s://psychMarketTools/depressi on/the-cognitive- ywgswohf-nq-kemux ssion#treatments http__s://www.[facility].nih.gov/health/ topics/mental-hea lt-medications http__s://www.nam i.org/About-Menta l-Illness/Treatme nts/Mental-Health -Medications educated on [...] Cannabis/marijuan a information: http_s://jennifer.nih .gov/publications /drugfacts/cannab is-marijuana http_s://www.[employer]/canna zxr-obx-eltpqvua- marijuana-adhd/ http_s://www.nataliya .org/About-Mental -Illness/Mental-H ealth-Conditions http_s://psychcen tral.com/depressi on/the-cognitive- xuqcorty-au-qnyxk ssion#treatments http__s://www.nim .nih.gov/health/ topics/mental-hea [facility]-medications http__s://www.nam i.org/About-Menta l-Illness/Treatme nts/Mental-Health -Medications educated on [...] ernesto/ hypomania 3. hypersomnia PCP prescribes Ambkylee JUAN 4. PTSD Therapy - Era TABOR [...] Cannabis/marijuan a information: http_s://jennifer.nih .gov/publications /drugfacts/cannab is-marijuana http_s://www.[employer] fkj-ygk-pwlzgyxa- marijuana-adhd/ http_s://www.nataliya .org/About-Mental -Illness/Mental-H ealth-Conditions http_s://psychcen tral.com/depressi on/the-cognitive- urlvohkm-xs-iqfje ssion#treatments http__s://www.nim .nih.gov/health/ topics/mental-hea lth-medications http__s://www.nam i.org/About-Menta [...] Cannabis/marijuan a information: http_s://jennifer.nih .gov/publications /drugfacts/cannab is-marijuana http_s://www.[employer]/canna dkr-qal-lqvonbfz- marijuana-adhd/ http_s://www.nataliya .org/About-Mental -Illness/Mental-H ealth-Conditions http_s://Plainmark/depressi on/the-cognitive- drcjrlex-od-hvuny ssion#treatments http__s://www.[facility].nih.gov/health/ topics/mental-hea lth-medications http__s://www.nam i.org/About-Menta l-Illness/Treatme nts/Mental-Health [...] Cannabis/marijuan a information: http_s://jennifer.nih .gov/publications /drugfacts/cannab is-marijuana http_s://www.[employer]/canna wfd-izf-zqxbptti- marijuana-adhd/ http_s://www.nataliya .org/About-Mental -Illness/Mental-H ealth-Conditions http_s://Plainmark/depressi on/the-cognitive- hjcoqlsf-gu-gkyfz ssion#treatments http__s://www.nim .nih.gov/health/ topics/mental-hea lth-medications http__s://www.nam i.org/About-Menta [...] Cannabis/marijuan a information: http_s://jennifer.nih .gov/publications /drugfacts/cannab is-marijuana http_s://www.[employer]/canna kvx-igk-dsllzxlr- marijuana-adhd/ http_s://www.nataliya .org/About-Mental -Illness/Mental-H ealth-Conditions http_s://psychMarketTools/depressi on/the-cognitive- giojyxdr-pb-tbtjy ssion#treatments http__s://www.[facility].nih.gov/health/ topics/mental-hea lt-medications http__s://www.nam i.org/About-Menta l-Illness/Treatme nts/Mental-Health -Medications educated on [...] Cannabis/marijuan a information: http_s://jennifer.nih .gov/publications /drugfacts/cannab is-marijuana http_s://www.Harvest Power/canna usv-jms-hunglyjv- marijuana-adhd/ http_s://www.nataliya .org/About-Mental -Illness/Mental-H ealth-Conditions http_s://psychcen Jivoxl.com/depressi on/the-cognitive- ityjsxoy-zm-zpzsd ssion#treatments http__s://www.nim .nih.gov/health/ topics/mental-hea lth-medications http__s://www.[facility] i.org/About-Menta l-Illness/Treatme nts/Mental-Health -Medications educated on [...] Cannabis/marijuan a information: http_s://jennifer.nih .gov/publications /drugfacts/cannab is-marijuana http_s://www.Harvest Power/canna yrr-qfn-zovybkvx- marijuana-adhd/ http_s://www.nataliya .org/About-Mental -Illness/Mental-H ealth-Conditions http_s://Plainmark/depressi on/the-cognitive- kmckegel-wf-rrvzh ssion#treatments http__s://www.[facility].nih.gov/health/ topics/mental-hea lth-medications http__s://www.nam i.org/About-Menta l-Illness/Treatme nts/Mental-Health [...] Cannabis/marijuan a information: http_s://jennifer.nih .gov/publications /drugfacts/cannab is-marijuana http_s://www.Harvest Power/jose qia-luz-jhmbxflb- marijuana-adhd/ http_s://www.nataliya .org/About-Mental -Illness/Mental-H ealth-Conditions http_s://psychcen OLX.com/depressi on/the-cognitive- hnundazv-da-vbcev ssion#treatments http__s://www.nim .nih.gov/health/ topics/mental-hea lth-medications http__s://www.nam i.org/About-Menta [...] Cannabis/marijuan a information: http_s://jennifer.nih .gov/publications /drugfacts/cannab is-marijuana http_s://www.Harvest Power/canna isw-nsp-dshaqkqs- marijuana-adhd/ http_s://www.nataliya .org/About-Mental -Illness/Mental-H ealth-Conditions http_s://psychcen tral.com/depressi on/the-cognitive- oxjsaeks-wk-vjtyj ssion#treatments http__s://www.nim .nih.gov/health/ topics/mental-hea lth-medications http__s://www.nam i.org/About-Menta [...] Cannabis/marijuan a information: http_s://jennifer.nih .gov/publications /drugfacts/cannab is-marijuana http_s://www.Harvest Power/canna jbw-umm-jifqysbg- marijuana-adhd/ http_s://www.nataliya .org/About-Mental -Illness/Mental-H ealth-Conditions http_s://Plainmark/depressi on/the-cognitive- abmevwuw-ug-azfqm ssion#treatments http__s://www.[facility].nih.gov/health/ topics/mental-hea lth-medications http__s://www.nam i.org/About-Menta l-Illness/Treatme nts/Mental-Health [...] Cannabis/marijuan a information: http_s://jennifer.nih .gov/publications /drugfacts/cannab is-marijuana http_s://www.Harvest Power/canna iqb-lji-qsbtmrnm- marijuana-adhd/ http_s://www.nataliya .org/About-Mental -Illness/Mental-H ealth-Conditions http_s://Plainmark/depressi on/the-cognitive- ajvkinye-pg-cpijs ssion#treatments http__s://www.[facility].nih.gov/health/ topics/mental-hea lth-medications http__s://www.nam i.org/About-Menta l-Illness/Treatme nts/Mental-Health [...] Cannabis/marijuan a information: http_s://jennifer.nih .gov/publications /drugfacts/cannab is-marijuana http_s://www.Harvest Power/cannyee yec-jks-wdvavsaq- marijuana-adhd/ http_s://www.nataliya .org/About-Mental -Illness/Mental-H ealth-Conditions http_s://psychcen Jivoxl.com/depressi on/the-cognitive- mhbuvyvv-mh-sddtb ssion#treatments http__s://www.nim .nih.gov/health/ topics/mental-hea lth-medications http__s://www.nam i.org/About-Menta [...] Cannabis/marijuan a information: http_s://jennifer.nih .gov/publications /drugfacts/cannab is-marijuana http_s://www.Harvest Power/jose huq-vll-cpnskmjh- marijuana-adhd/ http_s://www.nataliya .org/About-Mental -Illness/Mental-H ealth-Conditions http_s://psychcen tral.com/depressi on/the-cognitive- hubqcrxk-kz-qzsoo ssion#treatments http__s://www.nim h.nih.gov/health/ topics/mental-hea [facility]-medications http__s://www.nam i.org/About-Menta l-Illness/Treatme nts/Mental-Health -Medications educated on [...] Cannabis/marijuan a information: http_s://jennifer.nih .gov/publications /drugfacts/cannab is-marijuana http_s://www.Harvest Power/canna ofe-ovh-qseppmzk- marijuana-adhd/ http_s://www.nataliya .org/About-Mental -Illness/Mental-H ealth-Conditions http_s://psychcen tral.com/depressi on/the-cognitive- uqsctdnz-kl-yhncq ssion#treatments http__s://www.nim .nih.gov/health/ topics/mental-hea lth-medications http__s://www.nam i.org/About-Menta [...] Cannabis/marijuan a information: http_s://jennifer.nih .gov/publications /drugfacts/cannab is-marijuana http_s://www.Harvest Power/cannmobile mum sxd-dxr-bzdutgly- marijuana-adhd/ http_s://www.nataliya .org/About-Mental -Illness/Mental-H ealth-Conditions http_s://psychcen Pockit/depressi on/the-cognitive- dcithbiy-cs-mgudq ssion#treatments http__s://www.[facility].nih.gov/health/ topics/mental-hea lth-medications http__s://www.nam i.org/About-Menta l-Illness/Treatme nts/Mental-Health [...] Cannabis/marijuan a information: http_s://jennifer.nih .gov/publications /drugfacts/cannab is-marijuana http_s://www.Harvest Power/canna ylk-bpw-dfkdbcfv- marijuana-adhd/ http_s://www.nataliya .org/About-Mental -Illness/Mental-H ealth-Conditions http_s://psychMarketTools/depressi on/the-cognitive- mneaukzb-fc-enzye ssion#treatments http__s://www.[facility].nih.gov/health/ topics/mental-hea lth-medications http__s://www.nam i.org/About-Menta l-Illness/Treatme nts/Mental-Health [...] to her back until she saw her pre assembly wirer and home economics teacher. The pre assembly wirer found she has an enlarged heart. The home economics teacher found she had nodules on her lungs but nothing to be worried about. The nodules will be checked again in a year. Client is concerned about medical bills because her senior attorney has told her workman's comp probably won't [...] Cannabis/marijuan a information: http_s://jennifer.nih .gov/publications /drugfacts/cannab is-marijuana http_s://www.Harvest Power/canna opp-kbv-rdlugimb- marijuana-adhd/ http_s://www.nataliya .org/About-Mental -Illness/Mental-H ealth-Conditions http_s://psychMarketTools/depressi on/the-cognitive- tijzqzwo-dt-nfmgh ssion#treatments http__s://www.[facility].nih.gov/health/ topics/mental-hea lth-medications http__s://www.[facility] i.org/About-Menta l-Illness/Treatme nts/Mental-Health -Medications educated on [...] Plan Of Treatment Next Appt Details Provider Name:Meredith Michele Von , 03/06/2025 02:00:00 PM, [address], [address], [address], Provider Name:Abril Madrigal , 04/11/2025 09:15:00 AM, [address], [facility] [address], [place], [address], Insurance Providers Payer Name Payer Address Payer Phone Subscriber Number Group Number Insured Name Patient Relationship to Insured Coverage Start Date Coverage End Date [facility] [address] [place] [address] [id number] MARGY DOVE Spouse - patient is the spouse of the insured Medical (General) History Medical History History ICD Code Problems: Bipolar I disorder Chronic post-traumatic stress disorder Generalized anxiety disorder Long-term drug therapy Obesity Primary insomnia Severe depressed bipolar I disorder with out psychotic features Unable to concentrate , Surgical History Surgery Date(Month/Year) Other 03/21/2022 Hysterectomy (65475) 03/21/2022
--- NOTE | 2025-03-21 15:39 | PC.NURSE ---
Report to the Outpatient Waiting Room, entrance under the green pavilion located off [facility], at 0600 on 03-28-25. Planned Procedure Time: 0730.? Time changes happen often and if your time is changed the preop area will call you the afternoon before. - You and your visitor will be asked to self-screen and do not enter if you have any COVID symptoms. Please call surgeon if you need to reschedule. - A mask is optional within the hospital at this time. Patients may have clear liquids (water, carbonated beverages, clear teas, apple juice) until 3 hours prior to surgery with a maximum of 20 ounces. 0430 - No food from midnight until time of surgery and no smoking, or chewing tobacco (or any form of nicotine). No chewing gum, candy or mints. - Infants may have breast milk until 4 hours before surgery, formula 6 hours prior to surgery. - Children will be allowed to drink immediately following surgery.? If applicable, please bring a bottle or sippy cup to assist with drinking. Juice, water, soda, and popsicles are readily available.? For infants on formula, please bring formula the day of surgery.? Pacifiers are allowed. Take only the following medications with a SIP of water on the morning of surgery: None DO NOT STOP ANY OF YOUR OTHER PRESCRIPTION MEDICATIONS PRIOR TO SURGERY EXCEPT THE FOLLOWING Hold all vitamins and supplements for 3 days per anesthesiologist. 03-25-25 Medications to discontinue per physician: Meloxicam; Zepbound Date to take last dose: Per Dr. Rainey; Don't take before procedure Please no make-up, nail faroese, hairspray, perfume, deodorant, or body powder the day of surgery.? No jewelry (including any body piercings) or valuables the day of surgery, leave them at home.? Please take a shower or bath the night before, or the morning of, surgery with an antibacterial soap.? Wear comfortable, loose fitting clothing.? Children are encouraged to wear pajamas. - Jewelry must be removed prior to entering the operating room.? Rings and piercings that are not removed may be cut off. - The hospital will not accept responsibility for valuables.? - Please leave all valuables, including medications, at home the day of surgery. If you are going home after surgery, a licensed customer service driver must drive you home.? - NO public transportation without another adult if you receive anesthesia. - We recommend that an adult stay with you for 24 hours following discharge. - We also recommend that you do not drive, make important decision, drink alcoholic beverages, or take any drugs that were not prescribed by your health care provider for at least 24 hours after your discharge time. For Pediatric surgeries, we recommend two adults accompany the child home. Follow any additional instructions given to you from your surgeon. Telephone instructions given to Jasen Espana and asked if any additional questions and then verbalized understanding. Patient advised to call surgeon office or pre surgery nurse liaison [phone] if any additional questions.
--- NOTE | 2025-03-21 15:51 | PC.NURSE ---
Nothing has changed since last interview per patient. New instructions given for day of surgery.
--- NOTE | ~2025-03-28 | XR_ITS ---
EXAMINATION: XR fluoroscopy no charge DATE: 03/28/2025 08:06 INDICATION: Lumbar ablation TECHNIQUE: 5 fluoroscopic images of the lumbar spine were obtained during procedure performed by Dr. Rainey. Radiologist was not present for the imaging or procedure. The amount of fluoroscopy time used d uring this procedure was 0.8 minutes. Total DAP was 7.139 mGym^2. COMPARISON: None. FINDINGS/IMPRESSION: Images demonstrate the tips of 3 needles projecting along the superior margin of the junction of the junction of the transverse and superior articular processes of L4, L5 and S1, for likely medial branc h ablations. See procedure note for further detail. Reviewed, dictated and finalized at location B.
--- OUTSIDE RECORDS SUMMARY | 2025-03-28 00:54 | XMS_ITS | Clinical Summary ---
Author Organization [facility] [address] Address [address] [place] [address] Care Team Providers Care Aircraft Machinist Name Role Phone Monica Shook MD Primary [...] hours as needed for pain or headaches 018 Active melatonin 10 mg tablet Take 1 tablet (10 mg total) by mouth nightly Active albuterol (PROVENTIL,CYNDI TOLIN) 1.25 mg/3 mL nebulizer solution Take 3 mL (1.25 mg total) by nebulization every 6 (six) hours as needed for wheezing Active ADVAIR DISKUS 500-50 mcg/dose diskus inhaler 12/06/2 018 Active LORazepam (ATIVAN) 1 mg tablet Active FLUoxetine (PROzac) 40 mg capsule Take 1 capsule (40 mg total) by mouth daily Pt takes 20 mg 1 Active INCRUSE ELLIPTA 62.5 mcg/actuation blister with device Active acetaminophen (TYLENOL) 500 mg tablet Take 2 tablets (1,000 mg total) by mouth every 8 (eight) hours as needed Active lisinopriL (PRINIVIL,ZEST RIL) 30 mg tablet Take 1 tablet (30 mg total) by mouth nightly at bedtime. Active azelastine (ASTELIN) 137 mcg (0.1 %) nasal spray Administer 1 spray into each nostril 2 (two) times a day as needed for rhinitis or allergies (congestion and drainage) Use in each nostril as directed 30 mL Active estradioL (ESTRACE) 2 mg tablet Take 1 tablet (2 mg total) by mouth daily Active cyclobenzaprin e (FLEXERIL) 10 mg tablet Take 1 tablet (10 mg total) by mouth 3 (three) times a day as needed for muscle spasms Active QUEtiapine (SEROquel) 400 mg tablet Take 1 tablet (400 mg total) by mouth nightly Active EPINEPHrine 0.3 mg/0.3 mL auto-injection syringe Inject 0.3 mL (0.3 mg total) into the muscle as instructed once Active dicyclomine (BENTYL) 20 mg tablet Take 1 tablet (20 mg total) by mouth 2 (two) times a day Active meloxicam (MOBIC) 15 mg tablet Take 1 tablet (15 mg total) by mouth daily Active Zepbound 5 mg/0.5 mL pen injectorIndica tions:Class 3 severe obesity due to excess calories with serious comorbidity and body mass index (BMI) of 50.0 to 59.9 in adult INJECT 1 SYRINGE SUBCUTANEOUSLY ONCE A WEEK 4 mL Active tirzepatide, weight loss, (Zepbound) 5 mg/0.5 mL pen injectorIndica tions:Class 3 severe obesity due to excess calories with serious comorbidity and body mass index (BMI) of 50.0 to 59.9 in adult Inject 0.5 mL (5 mg total) under the skin every 7 days 2 mL 025 2024 Discontinued Active Problems Problem Noted Date Diagnosed [...] (07/06/2018): Added automatically from request for surgery [id number] Encounters Date Type Department Care Team Description 01/16/2025 2:45 PM CDT Office Visit [facility] Family Medicine at [address] [address] Derrek Stockton MD Class 3 severe obesity due to excess calories with serious comorbidity and body mass index (BMI) of 50.0 to 59.9 in adult (Primary Dx) from Last 3 Months Immunizations Immunization Administration [...] Hypertension COPD (chronic obstructive pu lmonary disease) ([facility]) Closed fracture of right dis josé luis radius 07/06/2018 Added automatically from reMacuCLEAR uest for surgery [id number] Family History Medical History Relation Name Comments [...] on file 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 Gender Identity Not on file Sexual Orientation [...] Visit/Exam 18-64 07/24/2023 07/24/2022 Covid-19 Vaccine ( season) 2024 06/16/2021, 05/24/2021 Depression Screening 12/24/2024 12/25/2023, 07/24/20 Influenza Vaccine (Season Ended) 2025 08/20/2022, 07/12/2021, 09/28/2018 HPV Vaccines Aged Out No longer eligi ble based on patient's age to complete this topic Medical Devices Implanted Type Area Knockdown Worker Device Identifier Shelf Expiration Date Model / Serial / Lot Lifenet Bl-1500-002 Vivigen Allograft Graft 5 Cc Bone Cortical Cancellous; Deminerali - [id number] - [id number] Implanted:Qty: 1 on 07/07/2018 by Finn Pierre MD at [facility] Right: Radius Lifenet 06/17/2019 BL-1500-002 / [id number] / [id number] Plate Small Frag Implanted:Qty: 1 on 07/07/2018 by Finn Pierre MD at [facility] Right: Radius Medartis Inc Medartis Inc A-4750.56 Aptus Trilock 42mmx1.6mm 6 Hole Distal Radius L Right Angle Plate - [id number] Implanted:Qty: 1 on 07/07/2018 by Finn Pierre MD at [facility] Right: Radius Medartis Inc A-4750.56 / / Medartis Inc A-4750.55 Aptus Trilock 42mmx1.6mm 6 Hole Distal Radius L Left Angle Plate - [id number] Implanted:Qty: 1 on 07/07/2018 by Finn Pierre MD at [facility] Right: Radius Medartis Inc A-4750.55 / / Medartis Inc A-5700.16/1 Aptus 2.5mm 16mm Hexadrive 7 Adaptive Wrist Radius Cortical - [id number] Implanted:Qty: 2 on 07/07/2018 by Finn Pierre MD at [facility] Right: Radius Medartis Inc A-5700.16/1 / / Medartis Inc A-5700.18/1 2.5mm 18mm Hexadrive Wrist Cortical Screw Bone - [id number] Implanted:Qty: 2 on 07/07/2018 by Finn Pierre MD at [facility] Right: Radius Medartis Inc A-5700.18/1 / / Medartis Inc A-5700.22/1 2.5mm 22mm Cortical Screw Bone Vicki - [id number] Implanted:Qty: 1 on 07/07/2018 by Finn Pierre MD at [facility] Right: Radius Medartis Inc A-5700.22/1 / / Medartis Inc A-5700.12 Aptus 2.5mm 12mm Cortical Screw Bone - [id number] Implanted:Qty: 1 on 07/07/2018 by Finn Pierre MD at [facility] Right: Radius Medartis Inc A-5700.12 / / Medartis Inc A-5750.08/1 Aptus Trilock 2.5mm 8mm Hexadrive 7 Screw Bone Titanium - [id number] Implanted:Qty: 1 on 07/07/2018 by Finn Pierre MD at [facility] Right: Radius Medartis Inc A-5750.04/28 / / Medartis Inc A-5750.06/28 Aptus Trilock 2.5mm 10mm Hexadrive 7 Screw Bone Titanium - [id number] Implanted:Qty: 1 on 07/07/2018 by Finn Pierre MD at [facility] Right: Radius Medartis Inc A-5750.06/28 / / Insurance [employer] [place] [employer] [place] Advance Directives For more information, please contact: [phone] * Full Code (Latest Code Status on File) Date Activated Date Inactivated Comments 07/07/2018 4:58 PM 07/07/2018 8:16 PM Care Teams Aircraft Machinist Relationship Specialty Start Date End Date Monica Shook MD PCP - General Family Practice 07/18/22
--- OUTSIDE RECORDS SUMMARY | 2025-03-28 00:54 | XMS_ITS | Clinical Summary ---
Author Organization [facility] Address [address] [facility] [place] [address] Care Team Providers Care Commodity Merchant Name Role Phone Sami Ramirez MD Primary Care Provider + Source Comments [facility],non-owned Affiliates and Associated Physician Practices is amultiple site organization consisting of ambulatory clinics and hospital sitesin [place], [place], [place] and [place]. This disclosure is being madepursuant to the Care Everywhere program and may not contain all information available regarding this patient. 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 Pulse 83 10/16/2018 8:18 PM GEOLOGICAL ENGINEERING TEACHER Temperature 36.9 C (98.5 F) 10/16/2018 5:57 PM GEOLOGICAL ENGINEERING TEACHER Respiratory Rate 18 10/16/2018 8:18 PM GEOLOGICAL ENGINEERING TEACHER Oxygen Saturation 97% 10/16/2018 8:18 PM GEOLOGICAL ENGINEERING TEACHER Inhaled Oxygen Concentration - - Weight 137 kg (302 lb) 10/16/2018 5:57 PM GEOLOGICAL ENGINEERING TEACHER Height 162.6 cm (5' 4) 10/16/2018 5:57 PM GEOLOGICAL ENGINEERING TEACHER Body Mass Index 51.84 10/16/2018 5:57 PM GEOLOGICAL ENGINEERING TEACHER Plan of Treatment Health Maintenance Due Date [...] complete this topic Insurance ANTHEM Care Teams Commodity Merchant Relationship Specialty Start Date End Date Sami Ramirez MD [address] [facility] [address] [place] [address] PCP - General Family Medicine 10/16/18
--- OUTSIDE RECORDS SUMMARY | 2025-03-28 00:54 | XMS_ITS | Referral Summary ---
Author Organization [facility] [address] Address [address] [place] [address] Care Team Providers Care Project Controls Scheduler Name Role Phone Monica Shook MD Primary Care Provider Encounters Date Type Department Care Team Description 01/16/2025 2:45 PM CDT Office Visit [facility] Family Medicine at [address] [place] [address] Derrek Stockton MD Class 3 severe obesity due to excess calories with serious comorbidity and body mass index (BMI) of 50.0 to 59.9 in adult (Primary Dx) from Last 3 Months Allergies Active Allergy [...] hours as needed for pain or headaches Active melatonin 10 mg tablet Take 1 tablet (10 mg total) by mouth nightly Active albuterol (PROVENTIL,CYNDI TOLIN) 1.25 mg/3 mL nebulizer solution Take 3 mL (1.25 mg total) by nebulization every 6 (six) hours as needed for wheezing Active ADVAIR DISKUS 500-50 mcg/dose diskus inhaler Active LORazepam (ATIVAN) 1 mg tablet Active [...] tablet (15 mg total) by mouth daily 025 Active Zepbound 5 mg/0.5 mL pen injectorIndica tions:Class 3 severe obesity due to excess calories with serious comorbidity and body mass index (BMI) of 50.0 to 59.9 in adult INJECT 1 SYRINGE SUBCUTANEOUSLY ONCE A WEEK 4 mL 025 Active tirzepatide, weight loss, (Zepbound) 5 mg/0.5 [...] (07/06/2018): Added automatically from request for surgery [id number] Immunizations Immunization Administration Dates Next Due DTaP [...] Date Smoking Tobacco: Former Cigarettes 1 20 - 2019 Smokeless Tobacco: Never Tobacco Cessation:Counseling [...] on file 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 Right: Radius Lifenet 06/17/2019 BL-1500-002 / [id number] / [id number] Plate Small Frag Implanted:Qty: 1 on 07/07/2018 by Finn Pierre MD at [facility] Right: Radius Medartis Inc Medartis Inc A-4750.56 Aptus Trilock 42mmx1.6mm 6 Hole Distal Radius L Right Angle Plate - [id number] Implanted:Qty: 1 on 07/07/2018 by Finn Pierre MD at [facility] Right: Radius Medartis Inc A-4750.56 / / Medartis Inc A-4750.55 Aptus Trilock 42mmx1.6mm 6 Hole Distal Radius L Left Angle Plate - [id number] Implanted:Qty: 1 on 07/07/2018 by Finn Pierre MD at [facility] Right: Radius Medartis Inc A-4750.55 / / Medartis Inc A-5700.16/1 Aptus 2.5mm 16mm Hexadrive 7 Adaptive Wrist Radius Cortical - [id number] Implanted:Qty: 2 on 07/07/2018 by Finn Pierre MD at [facility] Right: Radius Medartis Inc A-5700.16/1 / / Medartis Inc A-5700.18/1 2.5mm 18mm Hexadrive Wrist Cortical Screw Bone - [id number] Implanted:Qty: 2 on 07/07/2018 by Finn Pierre MD at [facility] Right: Radius Medartis Inc A-5700.18/1 / / Medartis Inc A-5700.22/1 2.5mm 22mm Cortical Screw Bone Vicki - [id number] Implanted:Qty: 1 on 07/07/2018 by Finn Pierre MD at [facility] Right: Radius Medartis Inc A-5700.22/ / / Medartis Inc A-5700.12 Aptus 2.5mm 12mm Cortical Screw Bone - [id number] Implanted:Qty: 1 on 07/07/2018 by Finn Pierre MD at [facility] Right: Radius Medartis Inc A-5700.12 / / Medartis Inc A-5750.08 Aptus Trilock 2.5mm 8mm Hexadrive 7 Screw Bone Titanium - [id number] Implanted:Qty: 1 on 07/07/2018 by Finn Pierre MD at [facility] Right: Radius Medartis Inc A-5750.08 / / Medartis Inc A-5750.10 Aptus Trilock 2.5mm 10mm Hexadrive 7 Screw Bone Titanium - [id number] Implanted:Qty: 1 on 07/07/2018 by Finn Pierre MD at [facility] Right: Radius Medartis Inc A-5750.06/28 / / Insurance [facility] [place] Advance Directives For more information, please contact: [phone] * Full Code (Latest Code Status on File) Date Activated Date Inactivated Comments 07/07/2018 4:58 PM 07/07/2018 8:16 PM Care Teams Project Controls Scheduler Relationship Specialty Start Date End Date Monica Shook MD PCP - General Family Practice 07/18/22
--- OUTSIDE RECORDS SUMMARY | 2025-03-28 00:54 | XMS_ITS | Clinical Summary ---
Author Organization [facility] Address [address] [place] [id number] Care Team Providers Care Health And Safety Representative Name Role Phone Unavailable Primary Care Provider Unavailabl e Social History Tobacco Use Types Packs/Day Years Used Date Smoking Tobacco: Never Assessed Comments Unknown Sex and Gender Information Value Date Recorded Sex Assigned at Not on file Legal Sex Female 7:45 PM CDT Gender Identity Not on file Sexual Orientation Not on file Plan of Treatment Health Maintenance Due Date Last Done Comments Cervical Cancer Screening Pa p Smear (Age 30 to 64) Every 3 Years 1982 Annual Physical 1985 Hepatitis C 2000 DTaP, Tdap and Td Vaccines ( 1 - Tdap) 2001 Hepatitis B Vaccines (1 of 3 - 19+ 3-dose series) 2001 Cervical Cancer Screening Pa p with HPV Testing (Age 30 to 64) Every 5 Years 2012 Cervical Cancer Screening with HPV 2012 Mammogram Screening 2022 COVID-19 Vaccine (2023-2 5 season) 2024 HPV Vaccines Aged Out No longer eligi ble based on patient's age to complete this topic Meningococcal B Vaccine Aged Out No l onger eligible based on patient's age to complete this topic Meningococcal Vaccine Aged Out No corina lillian eligible based on patient's age to complete this topic Pneumococcal Vaccine: Pediat rics (0 to 5 Years) and At-Risk Patients (6 to 49 Years) Aged Out No longer eligible b ased on patient's age to complete this topic RSV Immunizations Under 20 Months Aged Out No longer eligible based on patient's age to complete this topic Insurance [facility] [employer]
--- OUTSIDE RECORDS SUMMARY | 2025-03-28 00:55 | XMS_ITS | Patient Health Record ---
Author Organization [facility] Address [address] [place] [address] Care Team Providers [employer] Salesperson Name Role Phone Sami Ramirez MD Primary Care Provider Abril Jones Unavailable [phone] Meredith Longoria Unavailable [phone] Allergies Allergen (clinical drug ingredient) Drug/Non Drug Allergy documented on EMR Reaction Allergy Type Onset Date Status amoxicillin Amoxicillin Unknown Drug Allergy 01/21/2024 Ac tive Medicinal cephalosporin and acting as antibacterial agent (FN) Cephalosporins hives Drug Allergy Active nitrofurantoin Nitrofurantoin anaphylaxis Drug Allergy Active Reason For Referral No Information Medications Medication SIG (Take, Route, Frequency, Duration) Notes Start Date End Date Status Azelastine HCl 137 MCG/SPRAY Nasal 01/21/2024 Active Cyclobenzaprine HCl 10 MG Oral 01/21/2024 Active Methocarbamol 750 MG Oral 01/21/2024 Active Naloxone HCl 4 MG/0.1ML Nasal 01/21/2024 Active Sulfamethoxazole-Tri methoprim 800-160 MG Oral 01/21/2024 Active Montelukast Sodium 10 MG Oral 01/21/2024 Active Zolpidem Tartrate 10 MG Oral 01/21/2024 Active Lisinopril 30 MG Oral 01/21/2024 Ac tive Albuterol Sulfate (2.5 MG/3ML) 0.083% Inhalation 01/21/2024 Active Ipratropium-Albutero l 0.5-2.5 (3) MG/3ML Inhalation 01/21/2024 Active INSULIN SYRINGE U-100 WITH NEEDLE 1 ML 31 GAUGE X 5/16 *Reorder from [employer] for eRx and Interaction Alerts* 01/21/2024 Active Atrovent HFA 17 MCG/ACT Inhalation 01/21/2024 Active EPINEPHrine 0.3 MG/0.3ML Injection 01/21/2024 Active Zepbound 5 MG/0.5ML INJECT 1 SYRINGE SUBCUTANEOUSLY ONCE A WEEK Subcutaneous; Duration: 28 Days [id number],Unavailab le Active QUEtiapine Fumarate 100 MG 1 tablet at bedtime Orally Once a day; Duration: 90 days 02/27/2025 Active Ondansetron 4 MG Oral 01/21/2024 Ac tive WEGOVY 0.5 MG/0.5 ML SUBCUTANEOUS PEN INJECTOR *Reorder from [employer] for eRx and Interaction Alerts* 01/21/2024 Not-Taking Estradiol 2 MG Oral 01/21/2024 Acti ve Cyclobenzaprine HCl 5 MG Oral 01/21/2024 Not-Taking LORazepam 1 MG Oral 01/21/2024 Acti ve Incruse Ellipta 62.5 MCG/INH Inhalation 01/21/2024 Active ARIPiprazole 10 MG Oral 01/21/2024 Not-Taking WIXELA INHUB 500 MCG-50 MCG/DOSE POWDER FOR INHALATION *Reorder from [employer] for eRx and Interaction Alerts* 01/21/2024 Active RELION INSULIN SYRINGE 31G X 5/16 RELION INSULIN SYRINGE 31G X 5/16 1 ML MISC *Reorder from [employer] for eRx and Interaction Alerts* 01/21/2024 Active lamoTRIgine 150 MG 1 tablet Orally once a day; Duration: 90 days Active FLUoxetine HCl 40 MG Take 1 capsule by mouth once daily; Duration: 90 Active QUEtiapine Fumarate 400 MG 1 tablet every night Oral at bedtime; Duration: 90 days 01/21/2024 Active Immunizations Vaccine Route Administration Date [...] Status W/U Status Risk Notes Problem Obesity (068711998) Obesity, unspecified (E66.9) 05/21/20 Active confirmed Problem Generalized anxiety disorder (07698482) Generalized anxiety disorder (F41.1) 01/21/20 Active confirmed Problem Posttraumatic stress disorder (80418077) Post-traumatic stress disorder, chronic (F43.12) 01/21/20 Active confirmed Problem Primary insomnia (4977645) Primary insomnia (F51.01) 01/21/20 Active confirmed Problem Screening for cardiovascular system disease (134182153) Encounter for screening for cardiovascular disorders (Z13.6) Active confirmed Problem Long-term current use of drug therapy (343486047) Other buttermaker continuous churn (current) drug therapy (Z79.899) 01/21/20 Active confirmed Problem Depression Screening (119075637) Encounter for screening for depression (Z13.31) Active confirmed Problem Primary hypertension (22622542) Primary hypertension (I10) Active confirmed Problem Chronic post-traumatic stress disorder (896686468) Chronic posttraumatic stress disorder (F43.12) Active confirmed Problem Attention deficit hyperactivity disorder (420628766) ADHD (attention deficit hyperactivity disorder), combined type (F90.2) Active confirmed Problem Bipolar disorder (91037148) Bipolar depression (F31.9) Active confirmed Problem Hypersomnia (42807465) Hypersomnia (G47.10) Active confirmed Problem Mixed bipolar affective disorder, moderate (313654759) Bipolar I disorder, most recent episode mixed, moderate (F31.62) Active confirmed Vital Signs Heart Rate 86 /min 02/27/2025 Respiratory Rate 16 /min 02/27/2025 Height-cm 162.56 cm 02/27/2025 Blood pressure diastolic 92 mm Hg 02/27/2025 Weight-kg 146.15 kg 02/27/2025 Height 64.00 in 02/27/2025 Blood pressure systolic 137 mm Hg 02/27/2025 Weight 322.2 lbs 02/27/2025 BMI 55.3 kg/m2 02/27/2025 Encounters Encounter Location Date Provider Diagnosis [facility] [address] [address] 09/01/2024 Meredith Longoria Bipolar I disorder, most recent episode mixed, moderate F31.62 ; Generalized anxiety disorder F41.1 ; Chronic posttraumatic stress disorder F43.12 and ADHD (attention deficit hyperactivity disorder), combined type F90.2 [place] [address] [address] 09/19/2024 Abril Thery Bipolar depression F31.9 ; Other senior living (current) drug therapy Z79.899 ; Generalized anxiety disorder F41.1 ; Post-traumatic stress disorder, chronic F43.12 ; Obesity, unspecified E66.9 ; Primary hypertension I10 and Hypersomnia G47.10 [facility] [address] [address] 09/29/2024 Meredith Longoria [place] [address] [address] 10/25/2024 Abril Thery Bipolar depression F31.9 ; Other senior living (current) drug therapy Z79.899 ; Generalized anxiety disorder F41.1 ; Post-traumatic stress disorder, chronic F43.12 ; Obesity, unspecified E66.9 ; Primary hypertension I10 and Hypersomnia G47.10 [facility] [address] [address] 11/11/2024 Meredith Longoria Bipolar I disorder, most recent episode mixed, moderate F31.62 ; Generalized anxiety disorder F41.1 ; Chronic posttraumatic stress disorder F43.12 and ADHD (attention deficit hyperactivity disorder), combined type F90.2 [facility] [address] [address] 11/14/2024 Abril Thery Bipolar depression F31.9 ; Other senior living (current) drug therapy Z79.899 ; Generalized anxiety disorder F41.1 ; Post-traumatic stress disorder, chronic F43.12 ; Obesity, unspecified E66.9 ; Primary hypertension I10 and Hypersomnia G47.10 [facility], [place] [id number] [facility] [address] [facility] [address] [place] [address] 11/18/2024 Meredith Longoria [facility], [place] [address] [address] 12/13/2024 Abril Madrigal Encounter for screen ing for cardiovascular disorders Z13.6 ; Encounter for screening for depression Z13.31 ; Bipolar depression F31.9 ; Other buttermaker continuous churn (current) drug therapy Z79.899 ; Generalized anxiety disorder F41.1 ; Post-traumatic stress disorder, chronic F43.12 ; Obesity, unspecified E66.9 ; Primary hypertension I10 and Hypersomnia G47.[address] [address] 02/27/2025 Abril Madrigal Encounter for screen ing for depression Z13.31 ; Bipolar depression F31.9 ; Encounter for screening for cardiovascular disorders Z13.6 ; Other buttermaker continuous churn (current) drug therapy Z79.899 ; Generalized anxiety disorder F41.1 ; Post-traumatic stress disorder, chronic F43.12 ; Obesity, unspecified E66.9 ; Primary hypertension I10 ; Hypersomnia G47.10 and Dietary counseling and surveillance Z71.3 [facility] [place] [place] [address] 03/06/2025 Meredith Longoria Bipolar I disorder, most recent episode mixed, moderate F31.62 ; Generalized anxiety disorder F41.1 ; Chronic posttraumatic stress disorder F43.12 ; ADHD (attention deficit hyperactivity disorder), combined type F90.2 and Encounter for screening for depression Z13.31 [facility], [place] [address] [address] 08/05/2024 Abril Madrigal [facility], [place] [address] [address] 09/01/2024 Abril Madrigal [facility], [place] [address] [address] 10/14/2024 Abril Pandyay Bipolar depression F31.9 [facility] [address] [place] [address] 02/22/2025 Abril Rohan Bipolar depression F31.9 [facility] [address] [place] [address] 07/29/2024 Abril Rohan [facility] [address] [facility] [address] [place] [address] 09/02/2024 Abril Rohan [facility] [address] [facility] [address] [place] [address] 09/29/2024 Abril Rohan [facility] [address] [facility] [address] [place] [address] 11/01/2024 Abril Madrigal Assessments Encounter Date Diagnosis (ICD Code) Assessment Notes Treatment Notes Treatment Clinical Notes Section Notes 09/01/2024 Generalized anxiety disorder (ICD-10 - F41.1) 09/01/2024 Bipolar I disorder, most recent episode mixed, moderate (ICD-10 - F31.62) 09/19/2024 Other buttermaker continuous churn (current) drug therapy (ICD-10 - Z79.899) presently [...] Cannabis/marijuan a information: http_s://jennifer.nih .gov/publications /drugfacts/cannab is-marijuana http_s://www.Auctionata/jose dsm-wly-gztufnvs- marijuana-adhd/ http_s://www.nataliya .org/About-Mental -Illness/Mental-H ealth-Conditions http_s://psychjobs-dial LLCcom/depressi on/the-cognitive- jpwmalwk-xk-dbxsd ssion#treatments http__s://www.[facility].nih.gov/health/ topics/mental-hea lth-medications http__s://www.nam i.org/About-Menta l-Illness/Treatme nts/Mental-Health -Medications [...] Cannabis/marijuan a information: http_s://jennifer.nih .gov/publications /drugfacts/cannab is-marijuana http_s://www.Auctionata/canna gnb-ivd-hkmqqtku- marijuana-adhd/ http_s://www.nataliya .org/About-Mental -Illness/Mental-H ealth-Conditions http_s://psychcen tral.com/depressi on/the-cognitive- vpgonyzb-el-mrrru ssion#treatments http__s://www.nim .nih.gov/health/ topics/mental-hea lth-medications http__s://www.nam i.org/About-Menta [...] daily, - no refill needed monitor for ernesot/ hypomania 3. hypersomnia PCP prescribes Ambien PRN 4. PTSD Therapy - Era J LEANDER 5. HTN- On Linisopril- patient will [...] Cannabis/marijuan a information: http_s://jennifer.nih .gov/publications /drugfacts/cannab is-marijuana http_s://www.Auctionata/cannyee zrw-tfq-ypybrlgc- marijuana-adhd/ http_s://www.nataliya .org/About-Mental -Illness/Mental-H ealth-Conditions http_s://SharedReviews/depressi on/the-cognitive- khzuavhw-rx-sasjf ssion#treatments http__s://www.[facility].nih.gov/health/ topics/mental-hea lth-medications http__s://www.nam i.org/About-Menta l-Illness/Treatme nts/Mental-Health -Medications [...] Cannabis/marijuan a information: http_s://jennifer.nih .gov/publications /drugfacts/cannab is-marijuana http_s://www.Auctionata/[employer] igj-aak-vltowfey- marijuana-adhd/ http_s://www.nataliya .org/About-Mental -Illness/Mental-H ealth-Conditions http_s://SharedReviews/depressi on/the-cognitive- fmibsgdk-yi-ddqgo ssion#treatments http__s://www.nim .nih.gov/health/ topics/mental-hea lth-medications http__s://www.nam i.org/About-Menta [...] Cannabis/marijuan a information: http_s://jennifer.nih .gov/publications /drugfacts/cannab is-marijuana http_s://www.Auctionata/canna fmh-zma-ovjjpwxf- marijuana-adhd/ http_s://www.nataliya .org/About-Mental -Illness/Mental-H ealth-Conditions http_s://psychEternoGen/depressi on/the-cognitive- jxuiwllh-wz-rgird ssion#treatments http__s://www.[facility].nih.gov/health/ topics/mental-hea lt-medications http__s://www.nam i.org/About-Menta l-Illness/Treatme nts/Mental-Health -Medications [...] Cannabis/marijuan a information: http_s://jennifer.nih .gov/publications /drugfacts/cannab is-marijuana http_s://www.Auctionata/jose cey-csf-oqlxddmd- marijuana-adhd/ http_s://www.nataliya .org/About-Mental -Illness/Mental-H ealth-Conditions http_s://psychcen tral.com/depressi on/the-cognitive- ercifcmt-on-hcqou ssion#treatments http__s://www.nim .nih.gov/health/ topics/mental-hea [facility]-medications http__s://www.nam i.org/About-Menta l-Illness/Treatme nts/Mental-Health -Medications educated on [...] Cannabis/marijuan a information: http_s://jennifer.nih .gov/publications /drugfacts/cannab is-marijuana http_s://www.Auctionata/canna hhh-svc-lttrcibm- marijuana-adhd/ http_s://www.nataliya .org/About-Mental -Illness/Mental-H ealth-Conditions http_s://psychcen tral.com/depressi on/the-cognitive- zsfqcdry-rj-vvyqt ssion#treatments http__s://www.nim .nih.gov/health/ topics/mental-hea lth-medications http__s://www.nam i.org/About-Menta [...] potential neurotoxicity and interactions with prescribed medications. 03/06/2025 Generalized anxiety disorder (ICD-10 - F41.1) 03/06/2025 Bipolar I disorder, most recent episode mixed, moderate (ICD-10 - F31.62) 03/06/2025 Chronic posttraumatic stress disorder (ICD-10 - F43.12) 02/27/2025 Encounter for screening for cardiovascular disorders [...] Cannabis/marijuan a information: http_s://jennifer.nih .gov/publications /drugfacts/cannab is-marijuana http_s://www.Auctionata/canna xot-imi-jorrzqni- marijuana-adhd/ http_s://www.nataliya .org/About-Mental -Illness/Mental-H ealth-Conditions http_s://psychcen Arpeggi.com/depressi on/the-cognitive- zuuziika-ku-cwcwm ssion#treatments http__s://www.nim .nih.gov/health/ topics/mental-hea lth-medications http__s://www.nam i.org/About-Menta [...] Cannabis/marijuan a information: http_s://jennifer.nih .gov/publications /drugfacts/cannab is-marijuana http_s://www.Auctionata/canna txn-hmo-ingxjxmy- marijuana-adhd/ http_s://www.nataliya .org/About-Mental -Illness/Mental-H ealth-Conditions http_s://SharedReviews/depressi on/the-cognitive- asymkqft-td-fxbnb ssion#treatments http__s://www.[facility].nih.gov/health/ topics/mental-hea lth-medications http__s://www.nam i.org/About-Menta l-Illness/Treatme nts/Mental-Health -Medications [...] stress disorder (ICD-10 - F43.12) 11/14/2024 Other buttermaker continuous churn (current) drug therapy (ICD-10 - Z79.899) 1. [...] Cannabis/marijuan a information: http_s://jennifer.nih .gov/publications /drugfacts/cannab is-marijuana http_s://www.Auctionata/canna nxw-wkr-cyewkmxu- marijuana-adhd/ http_s://www.nataliya .org/About-Mental -Illness/Mental-H ealth-Conditions http_s://psychuPartsn [employer]/depressi on/the-cognitive- iugypydt-na-lfsnd ssion#treatments http__s://www.[facility].nih.gov/health/ topics/mental-hea lth-medications http__s://www.nam i.org/About-Menta l-Illness/Treatme nts/Mental-Health -Medications [...] and interactions with prescribed medications. 10/25/2024 Other buttermaker continuous churn (current) drug therapy (ICD-10 - Z79.899) 1. [...] Cannabis/marijuan a information: http_s://jennifer.nih .gov/publications /drugfacts/cannab is-marijuana http_s://www.Auctionata/canna zol-hrj-xlgljppi- marijuana-adhd/ http_s://www.nataliya .org/About-Mental -Illness/Mental-H ealth-Conditions http_s://psychcen tral.com/depressi on/the-cognitive- ccpdyifr-nn-ozqxw ssion#treatments http__s://www.nim .nih.gov/health/ topics/mental-hea lth-medications http__s://www.[facility].org/About-Menta l-Illness/Treatme nts/Mental-Health -Medications educated on all medications, [...] - Era J LEANDER 5. HTN- On Linisopril educated on [...] Cannabis/marijuan a information: http_s://jennifer.nih .gov/publications /drugfacts/cannab is-marijuana http_s://www.Auctionata/canna ehz-avm-sgfghmiv- marijuana-adhd/ http_s://www.nataliya .org/About-Mental -Illness/Mental-H ealth-Conditions http_s://SharedReviews/depressi on/the-cognitive- qqivuleg-ma-ytbrx ssion#treatments http__s://www.[facility].nih.gov/health/ topics/mental-hea lth-medications http__s://www.nam i.org/About-Menta l-Illness/Treatme nts/Mental-Health -Medications [...] - Era J LEANDER 5. HTN- On Linisopril educated on [...] Cannabis/marijuan a information: http_s://jennifer.nih .gov/publications /drugfacts/cannab is-marijuana http_s://wwwViddyad/canna ttp-fej-uxktttwr- marijuana-adhd/ http_s://www.nataliya .org/About-Mental -Illness/Mental-H ealth-Conditions http_s://SharedReviews/depressi on/the-cognitive- hqacasyn-oe-flzli ssion#treatments http__s://www.[facility].nih.gov/health/ topics/mental-hea lth-medications http__s://www.nam i.org/About-Menta l-Illness/Treatme nts/Mental-Health -Medications [...] Cannabis/marijuan a information: http_s://jennifer.nih .gov/publications /drugfacts/cannab is-marijuana http_s://www.Auctionata/galaa ebp-nml-lgfrtfnz- marijuana-adhd/ http_s://www.nataliya .org/About-Mental -Illness/Mental-H ealth-Conditions http_s://psychcen tral.com/depressi on/the-cognitive- upbirzmm-sn-haeqp ssion#treatments http__s://www.[facility].nih.gov/health/ topics/mental-hea [facility]-medications http__s://www.nam i.org/About-Menta l-Illness/Treatme nts/Mental-Health -Medications educated on [...] Cannabis/marijuan a information: http_s://jennifer.nih .gov/publications /drugfacts/cannab is-marijuana http_s://www.Auctionata/cannyee hvg-vei-yegmytpw- marijuana-adhd/ http_s://www.nataliya .org/About-Mental -Illness/Mental-H ealth-Conditions http_s://psychcen [employer]l.com/depressi on/the-cognitive- fqetjeqo-ql-bsmti ssion#treatments http__s://www.nim .nih.gov/health/ topics/mental-hea lth-medications http__s://www.nam i.org/About-Menta [...] Cannabis/marijuan a information: http_s://jennifer.nih .gov/publications /drugfacts/cannab is-marijuana http_s://www.Auctionata/canna xcy-mkr-flaivypq- marijuana-adhd/ http_s://www.nataliya .org/About-Mental -Illness/Mental-H ealth-Conditions http_s://psychceHipSnip/depressi on/the-cognitive- zlxqqmjf-fm-xmjjw ssion#treatments http__s://www.nim .nih.gov/health/ topics/mental-hea lth-medications http__s://www.nam i.org/About-Menta [...] potential neurotoxicity and interactions with prescribed medications. 03/06/2025 ADHD (attention deficit hyperactivity disorder), combined type (ICD-10 - F90.2) 02/27/2025 Other buttermaker continuous churn (current) drug therapy (ICD-10 - Z79.899) 1. [...] Cannabis/marijuan a information: http_s://jennifer.nih .gov/publications /drugfacts/cannab is-marijuana http_s://www.Auctionata/canna jyt-jpw-rqpfcdka- marijuana-adhd/ http_s://www.nataliya .org/About-Mental -Illness/Mental-H ealth-Conditions http_s://SharedReviews/depressi on/the-cognitive- ljjkxanm-bo-cchkl ssion#treatments http__s://www.[facility].nih.gov/health/ topics/mental-hea lth-medications http__s://www.nam i.org/About-Menta l-Illness/Treatme nts/Mental-Health -Medications [...] potential neurotoxicity and interactions with prescribed medications. 03/06/2025 Encounter for screening for depression (ICD-10 - Z13.31) 02/27/2025 Generalized anxiety disorder (ICD-10 - F41.1) [...] Cannabis/marijuan a information: http_s://jennifer.nih .gov/publications /drugfacts/cannab is-marijuana http_s://wwwViddyad/canna vad-sgu-thdtmesh- marijuana-adhd/ http_s://www.nataliya .org/About-Mental -Illness/Mental-H ealth-Conditions http_s://SharedReviews/depressi on/the-cognitive- addoxqmm-is-hykzr ssion#treatments http__s://www.[facility].nih.gov/health/ topics/mental-hea lth-medications http__s://www.nam i.org/About-Menta l-Illness/Treatme nts/Mental-Health -Medications [...] Cannabis/marijuan a information: http_s://jennifer.nih .gov/publications /drugfacts/cannab is-marijuana http_s://www.A[employer]ata/canna dle-wsq-kurowwbi- marijuana-adhd/ http_s://www.nataliya .org/About-Mental -Illness/Mental-H ealth-Conditions http_s://psychEternoGen/depressi on/the-cognitive- cggboefq-kg-dryza ssion#treatments http__s://www.[facility].nih.gov/health/ topics/mental-hea lth-medications http__s://www.nam i.org/About-Menta l-Illness/Treatme nts/Mental-Health -Medications [...] and interactions with prescribed medications. 12/13/2024 Other buttermaker continuous churn (current) drug therapy (ICD-10 - Z79.899) 1. [...] Cannabis/marijuan a information: http_s://jennifer.nih .gov/publications /drugfacts/cannab is-marijuana http_s://www.Auctionata/canna ykq-ozr-yztenkgd- marijuana-adhd/ http_s://www.nataliya .org/About-Mental -Illness/Mental-H ealth-Conditions http_s://psychcen tral.com/depressi on/the-cognitive- txxwukky-ei-jpwnm ssion#treatments http__s://www.nim h.nih.gov/health/ topics/mental-hea lth-medications http__s://www.nam i.org/About-Menta l-Illness/Treatme nts/Mental-Health -Medications [...] Cannabis/marijuan a information: http_s://jennifer.nih .gov/publications /drugfacts/cannab is-marijuana http_s://www.A[employer]ata/canna yuz-gsi-elrsxcic- marijuana-adhd/ http_s://www.nataliya .org/About-Mental -Illness/Mental-H ealth-Conditions http_s://psychEternoGen/depressi on/the-cognitive- tjsfnrig-yg-khhsf ssion#treatments http__s://www.nim .nih.gov/health/ topics/mental-hea lth-medications http__s://www.nam i.org/About-Menta [...] Cannabis/marijuan a information: http_s://jennifer.nih .gov/publications /drugfacts/cannab is-marijuana http_s://www.Auctionata/jose yoh-lbr-blvlyxhs- marijuana-adhd/ http_s://www.nataliya .org/About-Mental -Illness/Mental-H ealth-Conditions http_s://psychcen [employer]/depressi on/the-cognitive- jolpsjuy-lc-soogh ssion#treatments http__s://www.[facility].nih.gov/health/ topics/mental-hea lth-medications http__s://www.nam i.org/About-Menta l-Illness/Treatme nts/Mental-Health -Medications [...] Cannabis/marijuan a information: http_s://jennifer.nih .gov/publications /drugfacts/cannab is-marijuana http_s://www.Auctionata/jose eep-nig-ozxacexp- marijuana-adhd/ http_s://www.nataliya .org/About-Mental -Illness/Mental-H ealth-Conditions http_s://psychcen tral.com/depressi on/the-cognitive- xuuqztpp-ro-yutoc ssion#treatments http__s://www.nim h.nih.gov/health/ topics/mental-hea [facility]-medications http__s://www.nam i.org/About-Menta l-Illness/Treatme nts/Mental-Health -Medications educated on [...] Cannabis/marijuan a information: http_s://jennifer.nih .gov/publications /drugfacts/cannab is-marijuana http_s://www.A[employer]ata/canna ezl-oag-xffatyqp- marijuana-adhd/ http_s://www.nataliya .org/About-Mental -Illness/Mental-H ealth-Conditions http_s://psychEternoGen/depressi on/the-cognitive- wnxnhqgs-vo-kvdnd ssion#treatments http__s://www.nim .nih.gov/health/ topics/mental-hea lth-medications http__s://www.nam i.org/About-Menta [...] Cannabis/marijuan a information: http_s://jennifer.nih .gov/publications /drugfacts/cannab is-marijuana http_s://www.A[employer]ata/canna syr-dsz-guypjbql- marijuana-adhd/ http_s://www.nataliya .org/About-Mental -Illness/Mental-H ealth-Conditions http_s://SharedReviews/depressi on/the-cognitive- yccazkli-ds-szqik ssion#treatments http__s://www.nim .nih.gov/health/ topics/mental-hea lth-medications http__s://www.nam i.org/About-Menta [...] Cannabis/marijuan a information: http_s://jennifer.nih .gov/publications /drugfacts/cannab is-marijuana http_s://www.A[employer]ata/jose nbh-ynp-sexovkas- marijuana-adhd/ http_s://www.nataliya .org/About-Mental -Illness/Mental-H ealth-Conditions http_s://psychcen [employer]com/depressi on/the-cognitive- nikcquus-sb-wkens ssion#treatments http__s://www.nim .nih.gov/health/ topics/mental-hea lth-medications http__s://www.nam i.org/About-Menta [...] Cannabis/marijuan a information: http_s://jennifer.nih .gov/publications /drugfacts/cannab is-marijuana http_s://www.[employer]/jose djm-xpq-wjgbvhtu- marijuana-adhd/ http_s://www.nataliya .org/About-Mental -Illness/Mental-H ealth-Conditions http_s://psychcen tral.com/depressi on/the-cognitive- ozjkbpkg-he-tlibt ssion#treatments http__s://www.nim h.nih.gov/health/ topics/mental-hea [facility]-medications http__s://www.nam i.org/About-Menta l-Illness/Treatme nts/Mental-Health -Medications educated on [...] Cannabis/marijuan a information: http_s://jennifer.nih .gov/publications /drugfacts/cannab is-marijuana http_s://www.Auctionata/canna oyl-ytv-memaeuxj- marijuana-adhd/ http_s://www.nataliya .org/About-Mental -Illness/Mental-H ealth-Conditions http_s://psychcen tral.com/depressi on/the-cognitive- ylsntkyw-ze-bzjiy ssion#treatments http__s://www.nim .nih.gov/health/ topics/mental-hea lth-medications http__s://www.[facility].org/About-Menta l-Illness/Treatme nts/Mental-Health -Medications educated on all medications, [...] Cannabis/marijuan a information: http_s://jennifer.nih .gov/publications /drugfacts/cannab is-marijuana http_s://www.Auctionata/canna gym-tnp-yqyzzggc- marijuana-adhd/ http_s://www.nataliya .org/About-Mental -Illness/Mental-H ealth-Conditions http_s://psychEternoGen/depressi on/the-cognitive- ubftcuib-ti-jvyog ssion#treatments http__s://www.nim .nih.gov/health/ topics/mental-hea lth-medications http__s://www.nam i.org/About-Menta [...] Cannabis/marijuan a information: http_s://jennifer.nih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
--- NOTE | 2025-03-28 05:17 | PM.HPGS ---
History of Present Illness History of Present Illness Consent: Risks, benefits, and alternatives have been discussed and questions answered. Patient agrees to proceed with procedure. Chief complaint: lumbosacral spondylosis, chronic low back pain Narrative: Jasen Espana is a 44 year old female with chronic, recalcitrant and disabling left lumbosacral back pain secondary to degenerative spondylosis with failure to respond to aggressive conservative measures including PT, oral and topical analgesics, opioid and nonopioid analgesics, rest, time and activity/behavioral modification over the past 1-2 years who presents for thermal radiofrequency ablation of the left L3, L4, L5 medial branches/dorsal ramus addressing the left L4-5, L5-S1 facet joints under fluoroscopic guidance and with contrast control. Review of Systems Review of Systems: Patient denies any new infectious, allergic, cardiopulmonary, neurologic or constitutional symptoms or changes in activity tolerance or exercise capacity including new or progressive SOB/HIRSCH, peripheral edema, productive cough, dysuria, nausea/vomiting, diarrhea, weight change, fevers/chills/night sweats, new or progressive neurologic deficit, cognitive or mood changes since last seen, except as documented in the HPI. All systems reviewed & are unremarkable except as noted in HPI and below PMFSH Past Medical History Medical History Hypersomnolence Chronic pain HTN (hypertension) KAVYA on CPAP Sleep apnea Pneumonia Depression COPD (chronic obstructive pulmonary disease) Congestive heart failure Asthma Surgical History Surgical History Hx of section (~2007) History of hysterectomy (03/21/22) No oophorectomy History of endometrial ablation History of tubal ligation H/O wrist surgery Family History Family History Mother Family history of chronic obstructive pulmonary disease Family history of malignant neoplasm of ovary Grandparent Liver cancer Father No problems noted. Sibling No problems noted. Social History Social History Smoking packs per day: 0.5 Smoking cigarettes per day: 10.0 Years smoked: 15 Smoking pack-years: 7.50 Smoking status: Former smoker Tobacco type: cigarettes Second hand tobacco smoke exposure: No Smoking end date: 07/13/20 Alcohol intake: current Alcohol use details: very rarely Substance use: former Substance use type: does not use Do You Feel Safe in your Home?: Yes Lack of Transportation: No Lack of Food: Never True Current Housing: I Have Housing Concerned About Future Housing: No Difficulty Paying Gas/Electric Bills: No Difficulty Paying for Meds: No Currently Unemployed: No Education: High School Diploma/GED Difficulty w/ Childcare or Family Care: No Living arrangements: with family Occupation/Education: occupation 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 Gender identity (if verbalized by the patient): Female Spiritual care concerns: No Agree to blood products: Yes Meds Home Medications and Allergies Home Medications ?Medication ?Instructions ?Recorded ?Confirmed ?Type estradiol 2 mg tablet 2 mg PO DAILY 05/12/23 02/27/25 History quetiapine 400 mg tablet (Seroquel) 400 mg PO ONCE 11/04/23 02/27/25 History albuterol 90 mcg-budesonide 80 2 inh inhalation ONCE #10.7 grams 02/02/24 02/27/25 Rx mcg/actuation HFA aerosol inhaler (Airsupra) ondansetron 4 mg disintegrating 4 mg PO Q6H PRN nausea and 05/31/24 02/27/25 Rx tablet vomiting #15 tabs modafinil 200 mg tablet 200 mg PO BID hypersomnia 1 month 08/15/24 02/27/25 Rx #60 tabs lamotrigine 25 mg tablet 25 mg PO DAILY 09/26/24 02/27/25 History fluoxetine 40 mg capsule 40 mg PO HS 10/19/24 02/27/25 History montelukast 10 mg tablet 10 mg PO DAILY #90 tabs 01/05/25 02/27/25 Rx lorazepam 1 mg tablet 1 mg PO BID PRN anxiety #30 tabs 01/30/25 02/27/25 Rx dicyclomine 20 mg tablet See Rx Instructions .Route 02/22/25 02/27/25 Rx .COMPLEX #60 tabs furosemide 40 mg tablet 40 mg PO QAM #30 tabs 02/22/25 02/27/25 Rx cholecalciferol (vitamin D3) 25 25 mcg PO DAILY 02/23/25 02/27/25 History mcg (1,000 unit) tablet (Vitamin D3) magnesium carb,citrate,oxide 300 mg PO DAILY 02/23/25 02/27/25 History (Magnesium Complex) omega 0-qnl-xoz-fish oil 1,200 mg 1 cap PO DAILY 02/23/25 02/27/25 History (144 mg-216 mg) capsule (Fish Oil) psyllium husk 0.52 gram capsule 1.56 g PO DAILY 02/23/25 02/27/25 History (Daily Fiber) tirzepatide (weight loss) 5 mg/0.5 5 mg subcut WEEKLY 02/23/25 02/27/25 History mL subcutaneous pen injector (Zepbound) Incruse Ellipta 62.5 mcg/actuation 1 inh inhalation DAILY 3 months 02/27/25 03/21/25 Rx powder for inhalation #90 ea (umeclidinium) albuterol sulfate 2.5 mg/3 mL 2.5 mg (3 mL) inhalation Q4-6H PRN 02/27/25 03/21/25 Rx (0.083 %) solution for nebulization shortness of breath or wheezing 1 month #180 mL cetirizine 10 mg capsule (Zyrtec) 10 mg PO DAILY PRN allergy symptoms 02/27/25 03/21/25 History cyclobenzaprine 10 mg tablet See Rx Instructions .Route 02/27/25 03/21/25 Rx .COMPLEX #30 tabs fluticasone 500 mcg-salmeterol 50 1 ea inhalation BID 3 months #180 02/27/25 03/21/25 Rx mcg/dose blistr powdr for ea inhalation (Wixela Inhub) montelukast 10 mg tablet 10 mg PO DAILY 02/27/25 03/21/25 History (Singulair) omega 3-qqx-xef-fish oil 60 mg-90 1 cap PO DAILY 02/27/25 03/21/25 History mg-500 mg capsule (Fish Oil) meloxicam 15 mg tablet 15 mg PO DAILY osteoarthritis 30 02/28/25 03/21/25 Rx days #30 tabs lisinopril 30 mg tablet See Rx Instructions .Route 03/27/25 Rx .COMPLEX #90 tabs Allergies Allergy/AdvReac Type Severity Reaction Status Date / Time nitrofurantoin (From Allergy Severe Anaphylactic Verified 06/24/25 15:24 Macrobid) Shock adhesive AdvReac Mild Itching, Verified 03/21/25 15:24 RASH amoxicillin AdvReac Mild Rash Verified 03/21/25 15:24 Cephalosporins AdvReac Mild HIVES Verified 03/21/25 15:24 Penicillins AdvReac Mild Rash Verified 03/21/25 15:24 talc AdvReac Mild ERYTHEMA Verified 03/21/25 15:24 CATS Allergy Mild Dyspnea / Uncoded 03/21/25 15:24 SOB Cultivated Oat Pollen Allergy Mild Dyspnea / Uncoded 03/21/25 15:24 SOB DOGS Allergy Mild Dyspnea / Uncoded 03/21/25 15:24 SOB Dust AdvReac Mild SNEEZING Uncoded 03/21/25 15:24 Exam Narrative: The patient's physical exam is essentially unchanged from prior examination on 01/23/25. Specifically, patient demonstrates normal lung capacity, tidal volume and respiratory rate without wheezes, crackles, rales or rubs. Heart rate and rhythm are regular without murmurs, gallops or rubs. No JVD. Pulses 2+ globally without increasing peripheral edema. AAOx3 with no evidence of confusion, intoxication or altered mental state, NC/AT without acute distress or altered consciousness. Speech, cognition, mood, insight and judgment at baseline and within normal limits. Assessment and Plan Assessment and plan (1) Lumbosacral spondylosis: Code(s): M47.817 - Spondylosis without myelopathy or radiculopathy, lumbosacral region Status: Acute Assessment and Plan: proceed as planned with thermal radiofrequency ablation of the left L3, L4, L5 medial branches/dorsal ramus addressing the left L4-5, L5-S1 facet joints under fluoroscopic guidance and with contrast control. (2) Dorsalgia: Code(s): M54.9 - Dorsalgia, unspecified Status: Acute (3) Chronic pain: Code(s): G89.29 - Other chronic pain Status: Acute
--- NOTE | 2025-03-28 05:22 | WPDHPUPDATE1 ---
History and Physical Update Update Date/Time: 03/28/25 05:22 History and Physical has been reviewed, including an updated exam of the patient. There are NO changes in the patient's condition. Risks, benefits, and alternatives have been discussed and questions answered. Patient agrees to proceed with procedure.
--- NOTE | 2025-03-28 05:23 | P.OP_ITS ---
Procedure Note - Detailed Date of Procedure 03/28/25 Pre-op Diagnosis lumbosacral spondylosis, chronic low back pain Post-op Diagnosis Same Procedure Performed Thermal Radiofrequency Ablation of the Left Lumbar Medial Branches/Dorsal Ramus at the L3, L4, L5 Levels Treating the Left L4-5, L5-S1 Facet Joints Under Fluoroscopic Guidance (2 Levels Treated). Surgeon Joseluis Rainey MD [employer] None. Anesthesia Local (w/ MAC) Description of Procedure INFORMED CONSENT: Risks, benefits and alternatives to the procedure were discussed in detail with the patient who expressed explicit understanding and consent to proceed. Patient was informed verbally and in written form regarding the risks associated with the procedure including the low risk of serious infection, bleeding/bruising, allergic reaction, nerve or organ injury, paralysis, procedural site pain or discomfort, worsening pain and/or mobility, failure to treat and/or disfigurement. The patient expressed explicit understanding and consent to proceed. All materials required for the procedure were available prior to procedure start. Site and side were marked prior to procedure and confirmed in the presence of the patient. PROCEDURE IN DETAIL: The patient was brought to the procedural suite and placed in the prone position. Patient was made comfortable with use of pillows under the head/chest, hips and ankles. ASA standard monitors were applied and used throughout the procedure. Skin overlying the injection site on the affected side(s) was prepared broadly with ChloraPrep applicator and draped in a sterile manner. Aseptic technique was used throughout. The endplates of the vertebral bodies at the site(s) of interest were aligned in the AP view. Ipsilateral oblique angulation was utilized to optimize visualization of the intersection between the superior articulating process and transverse process at each target site. Local anesthesia was established by infiltration with approximately 5 mL of 1% lidocaine via a 1-1/2 inch 27-gauge needle divided over each site treated. A 16-gauge 150mm OssDsign ABian RF needle with curved 10mm active tip was advanced in the AP view until the needle tip contacted the periosteum at the target site, the left L3 medial branch. Lateral view was utilized to adjust and confirm the appropriate placement of the needle tip just anterior to the facet line, superior to the pedicle and posterior to the foramen. Grounding electrode was in place and functioning. The appropriately-sized RF cannula was inserted into the RF needle and motor stimulation was performed with no subjective or objective evidence of recruited muscle activity with stimulation up to 2.0 volts at a frequency of 2Hz. 1.5 mL of 2.0% PF lidocaine was injected after negative aspiration. After a 90s pause, lesioning was performed to 90 degrees centigrade for 90s ensuring lack of symptoms in the extremity throughout. Needle was rotated 180 degrees and lesioning repeated in a similar manner. Patient tolerated this well. No parasthesias were elicited. Needle was removed completely intact without difficulty. The same procedure was repeated for all intended levels/ structures on the ipsilateral side, left L4, L5 medial branch/dorsal ramus with identical metho dology, modified to compensate for new location, with similar results and no evidence of complication. Images were saved and documented in the patient chart. Patient's skin was cleansed and sterile bandage applied. The patient tolerated the procedure well. The patient was transported to the recovery area in stable condition where they were observed for an appropriate amount of time prior to discharge, without evidence of complication. The patient was instructed to avoid excessive activity for the next 48 hours, including climbing and frequent use of stairs. Showers only for 48 hours. They were instructed not to drive or operate heavy machinery for 24 hours. They are to monitor for severe headaches, fevers, chills, night sweats, erythema/swelling at the site or any other signs of infection, bleeding/bruising, bowel or bladder changes as well as new pain, weakness or numbness in the upper or lower extremity. Should they notice these changes, they are instructed to call our office immediately or report directly to the nearest Emergency Department if no answer or if after posted office hours. COMPLICATIONS: None COMMENTS: None Complications No immediate complications Condition Stable Disposition PACU [facility] Billing Surgery - Charge Forward: Surgery Billing
[2025-03-28 06:00] VITALS: BP 125/51; PULSE 81; RESP 18; TEMP 36.1; O2SAT 99
[2025-03-28] MEDS: LACTATED RINGERS 1,000 ML 30 ML IV CONT (06:50)
--- NOTE | 2025-03-28 06:56 | P.PNAN_ITS ---
Anes - Initial Pre Proc Eval Procedure: Operation Date: 03/28/25 07:30 Proposed Procedures p Thermal Radio Frequency Ablation Left L3, L4, L5 Medial Branches/Dorsal Ramus Addressing Left L4-5, L5-S1 Facet Joints Under Fluoroscopic Guidance - Joseluis Rainey MD Date/Time: 03/28/25 06:56 Surgeon: Joseluis Rainey MD Pre Op Diagnosis: lumbosacral spondylosis, chronic low back pain Patient Data Age: 44 Gender: F Height: 1.65 m Weight: 142.2 kg Last Vital Signs Temp 36.1 C L 03/28/25 06:00 Pulse 81 03/28/25 06:00 Resp 18 03/28/25 06:00 BP 125/51 L 03/28/25 06:00 Pulse Ox 99 03/28/25 06:00 O2 Del Method Room Air 03/28/25 06:00 Allergies Allergy/AdvReac Type Severity Reaction Status Date / Time nitrofurantoin (From Allergy Severe Anaphylactic Verified 03/28/25 06:56 Macrobid) Shock adhesive AdvReac Mild Itching, Verified 03/28/25 06:56 RASH amoxicillin AdvReac Mild Rash Verified 03/28/25 06:56 Cephalosporins AdvReac Mild HIVES Verified 03/28/25 06:56 Penicillins AdvReac Mild Rash Verified 03/28/25 06:56 talc AdvReac Mild ERYTHEMA Verified 03/28/25 06:56 CATS Allergy Mild Dyspnea / Uncoded 03/28/25 06:56 SOB Cultivated Oat Pollen Allergy Mild Dyspnea / Uncoded 03/28/25 06:56 SOB DOGS Allergy Mild Dyspnea / Uncoded 03/28/25 06:56 SOB Dust AdvReac Mild SNEEZING Uncoded 03/28/25 06:56 Home Medications ?Medication ?Instructions ?Recorded ?Confirmed ?Type estradiol 2 mg tablet 2 mg PO DAILY 05/12/23 03/28/25 History quetiapine 400 mg tablet (Seroquel) 400 mg PO ONCE 11/04/23 03/28/25 History albuterol 90 mcg-budesonide 80 2 inh inhalation ONCE #10.7 grams 02/02/24 02/27/25 Rx mcg/actuation HFA aerosol inhaler (Airsupra) ondansetron 4 mg disintegrating 4 mg PO Q6H PRN nausea and 05/31/24 02/27/25 Rx tablet vomiting #15 tabs modafinil 200 mg tablet 200 mg PO BID hypersomnia 1 month 08/15/24 03/28/25 Rx #60 tabs lamotrigine 25 mg tablet 25 mg PO DAILY 09/26/24 03/28/25 History fluoxetine 40 mg capsule 40 mg PO HS 10/19/24 03/28/25 History montelukast 10 mg tablet 10 mg PO DAILY #90 tabs 01/05/25 03/28/25 Rx lorazepam 1 mg tablet 1 mg PO BID PRN anxiety #30 tabs 01/30/25 02/27/25 Rx dicyclomine 20 mg tablet See Rx Instructions .Route 02/22/25 03/28/25 Rx .COMPLEX #60 tabs furosemide 40 mg tablet 40 mg PO QAM #30 tabs 02/22/25 02/27/25 Rx cholecalciferol (vitamin D3) 25 25 mcg PO DAILY 02/23/25 03/28/25 History mcg (1,000 unit) tablet (Vitamin D3) magnesium carb,citrate,oxide 300 mg PO DAILY 02/23/25 03/28/25 History (Magnesium Complex) omega 6-toa-bza-fish oil 1,200 mg 1 cap PO DAILY 02/23/25 03/28/25 History (144 mg-216 mg) capsule (Fish Oil) psyllium husk 0.52 gram capsule 1.56 g PO DAILY 02/23/25 03/28/25 History (Daily Fiber) tirzepatide (weight loss) 5 mg/0.5 5 mg subcut WEEKLY 02/23/25 03/28/25 History mL subcutaneous pen injector (Zepbound) Incruse Ellipta 62.5 mcg/actuation 1 inh inhalation DAILY 3 months 02/27/2510/22 Rx powder for inhalation #90 ea (umeclidinium) albuterol sulfate 2.5 mg/3 mL 2.5 mg (3 mL) inhalation Q4-6H PRN 02/27/25 03/21/25 Rx (0.083 %) solution for nebulization shortness of breath or wheezing 1 month #180 mL cetirizine 10 mg capsule (Zyrtec) 10 mg PO DAILY PRN allergy symptoms 02/27/25 03/21/25 History cyclobenzaprine 10 mg tablet See Rx Instructions .Route 02/27/25 03/21/25 Rx .COMPLEX #30 tabs fluticasone 500 mcg-salmeterol 50 1 ea inhalation BID 3 months #180 02/27/25 03/21/25 Rx mcg/dose blistr powdr for ea inhalation (Leeanna Elam) montelukast 10 mg tablet 10 mg PO DAILY 02/27/25 03/28/25 History (Singulair) omega 6-wps-xpd-fish oil 60 mg-90 1 cap PO DAILY 02/27/25 03/28/25 History mg-500 mg capsule (Fish Oil) meloxicam 15 mg tablet 15 mg PO DAILY osteoarthritis 30 02/28/25 03/21/25 Rx days #30 tabs lisinopril 30 mg tablet See Rx Instructions .Route 03/27/25 Rx .COMPLEX #90 tabs Patient hx anesthesia problems: none Family hx anesthesia problems: none Results Review: All pre-operative results and documents have been reviewed as part of the pre- operative evaluation. [facility] Past Medical History Medical History Hypersomnolence Chronic pain HTN (hypertension) KAVYA on CPAP Sleep apnea Pneumonia Depression COPD (chronic obstructive pulmonary disease) Congestive heart failure Asthma Surgical History Surgical History Hx of section (~2007) History of hysterectomy (03/21/22) No oophorectomy History of endometrial ablation History of tubal ligation H/O wrist surgery Family History Family History Mother Family history of chronic obstructive pulmonary disease Family history of malignant neoplasm of ovary Grandparent Liver cancer Father No problems noted. Sibling No problems noted. Social History Social History Smoking packs per day: 0.5 Smoking cigarettes per day: 10.0 Years smoked: 15 Smoking pack-years: 7.50 Smoking status: Former smoker Tobacco type: cigarettes Second hand tobacco smoke exposure: No Smoking end date: 07/13/20 Alcohol intake: current Alcohol use details: very rarely Substance use: former Substance use type: does not use Do You Feel Safe in your Home?: Yes Lack of Transportation: No Lack of Food: Never True Current Housing: I Have Housing Concerned About Future Housing: No Difficulty Paying Gas/Electric Bills: No Difficulty Paying for Meds: No Currently Unemployed: No Education: High School Diploma/GED Difficulty w/ Childcare or Family Care: No Living arrangements: with family Occupation/Education: occupation 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 Gender identity (if verbalized by the patient): Female Spiritual care concerns: No Agree to blood products: Yes Anes - Eval Final PreProcedure Day of Procedure 03/28/25 06:56 Patient weight: super morbidly obese Heart: regular rate and rhythm Lungs: decreased breath sounds Airway: Mallampati scale class III Neurological: alert and oriented Last oral intake: >/= 8 hours ASA classification: III Emergent: no Anesthetic plan: proceed Anesthesia type and monitoring: general, monitored anesthesia care and standard monitoring Results Review: All pre-operative results and documents have been reviewed as part of the pre- operative evaluation. Informed Consent: The patient's anesthetic plan and its attendant risks and benefits were discussed with the patient/family/POA. Questions were solicited and answers provided to the satisfaction of the patient/family/POA.
[2025-03-28] MEDS: LIDOCAINE 2% PF LOCAL INJ 5 ML VIAL INFILTRATE (07:52)
[2025-03-28] MEDS: LIDOCAINE 1% PF INJ 5 ML VIAL INFILTRATE (07:58)
[2025-03-28 08:02] VITALS: BP 139/85; PULSE 70; RESP 18; O2SAT 98
[2025-03-28 08:30] VITALS: BP 124/80; PULSE 68; RESP 18; O2SAT 98
== END 2025-03-28 08:43 | disposition home or self-care (01) ==
PROVIDERS: PCP Family Medicine Adolescent Medicine; Visit Provider Anesthesiology Pain Medicine
PROC: (CPT 64635; principal; 2025-03-28 07:30)
DX: M47.817 Spondylosis without myelopathy or radiculopathy, lumbosacral region (principal); M54.50 Low back pain, unspecified; G89.29 Other chronic pain
CPT/HCPCS: 64635; 64636; 99199; J2003; J2250; J3010; J7120

== ENCOUNTER 2025-09-08 10:20 | Outpatient (CLI) | payer BC, SELFPAY ==
--- NOTE | ~2025-09-08 | MM_ITS ---
EXAMINATION: MM screening jennyfer BI w [facility] HISTORY: Screening. TECHNIQUE: Craniocaudal and mediolateral oblique 3-D tomosynthesis images were obtained and synthetic 2-D images were generated. CAD analysis was submitted and interpreted. COMPARISON: 2023 BREAST PARENCHYMAL COMPOSITION: Not Dense: The breasts are almost entirely fatty FINDINGS: No suspicious masses are seen. There are no suspicious calcifications. No unexplained architectural distortion is seen. There are no skin or nipple abnormalities identified. There is no adenopathy seen on the images submitted. IMPRESSION: No mammographic evidence to suggest malignancy is seen. The patient may return to screening mammography as per ACR guidelines. BI-RADS 1 - Negative. Reviewed, dictated and finalized at location C. [employer]
== END 2025-09-08 10:21 | disposition home or self-care (01) ==
LOC: MICIMG 10:20
PROVIDERS: PCP Family Medicine Adolescent Medicine; Visit Provider Obstetrics & Gynecology
DX: Z12.31 Encounter for screening mammogram for malignant neoplasm of breast (principal)
CPT/HCPCS: 77063; 77067